=== PATIENT | male | born 1980 | race Caucasian/White ===

== ENCOUNTER 2024-12-06 10:38 | Inpatient (IN) | payer MEDICAID, OTHER ==
[~2024-12-06] VITALS: Ht 170.2 cm; Wt 102.8 kg
[2024-12-06 11:55] LABS: Urine Bacteria None Seen /hpf (None Seen)
--- NOTE | 2024-12-06 12:27 | ED.PDOC ---
GI ASSESSMENT HPI Comments 44 y.o male presents to the ED for a chief complaint of left sided abdominal pain associated with nausea x 2 weeks and one episode of diarrhea. Patient reports pain is intermittent with no alleviating or precipitating factors. Patient is currently undergoing chemotherapy due to cancer of laryngeal, lymph and lung, is on oxygen and has his second round of chemotherapy on 12/09/24. Patient reports on his first chemotherapy session, he did not experience these symptoms. Patient also mentions dark urine but has no dysuria or hematuria. Patient has been losing weight with 20 pound weight loss. Additional medication history includes Depression, anxiety, panic disorder, Vocal cord cancer, GERD and HTN. Chief Complaint: Abdominal Pain Time Seen by MD: 11:39 Reviewed Notes: Nurses Notes, Medications, Allergies Allergies: Coded Allergies: NO KNOWN ALLERGIES (Unverified , 12/06/24) Information Source: Patient Mode of Arrival: Ambulatory Timing: Weeks (2) Duration: Intermittent Quality: Aching Vomitus: None Stool: Loose (one episode only ) Severity: Moderate Recent: None Recent Hx of: Other Pain Location: LUQ, LLQ Modifying Factors: Nothing Associated sign and symptoms: Nausea, Abdominal Pain Past Medical History PAST MEDICAL HISTORY: Anxiety, Cancer (Left lung, laryngeal), Depression, GERD, HTN Past Medical History (Other): panic disorder, oxygen dependent Surgical History (Other): lung biopsy Family History Family History: Reviewed,noncontributory to illness Social History Smoker: Non-Smoker Alcohol: Denies ETOH Use Drugs: Denies Drug Use Lives In: Home Constitutional: denies: chills, diaphoresis, fatigue, fever, malaise, sweats, weakness, others EENTM: denies: blurred vision, double vision, ear bleeding, ear discharge, ear drainage, ear pain, ear ringing, eye pain, eye redness, hearing loss, mouth pain, mouth swelling, nasal discharge, nose bleeding, nose congestion, nose pain, photophobia, tearing, throat pain, throat swelling, voice changes, others Respiratory: denies: cough, hemoptysis, orthopnea, SOB at rest, shortness of breath, SOB with excertion, stridor, wheezing, others Cardiovascular: denies: chest pain, dizzy spells, diaphoresis, Dyspnea on exertion, edema, irregular heart beat, left arm pain, lightheadedness, palpitations, PND, syncope, others Gastrointestinal: reports: abdominal pain, diarrhea, nausea; denies: abdomen distended, blood streaked bowels, constipated, dysphagia, difficulty swallowing, hematemesis, melena, poor appetite, poor fluid intake, rectal bleeding, rectal pain, vomiting, others Genitourinary: denies: burning, dysuria, flank pain, frequency, hematuria, in continence, penile discharge, penile sore, pain, testicle pain, testicle swelling, urgency, others Neurological: denies: dizziness, fainting, headache, left sided numbness, left sided weakness, numbness, paresthesia, pre-existing deficit, right sided numbness, right sided weakness, seizure, speech problems, tingling, tremors, weakness, others Musculoskeletal: denies: back pain, gout, joint pain, joint swelling, muscle pain, muscle stiffness, neck pain, others Integumetry: denies: bruises, change in color, change in hair/nails, dryness, laceration, lesions, lumps, rash, wounds, others Allergic/Immunocompromised: denies: Difficulty Healing, Frequent Infections, Hives, Itching, others Hematologic/Lymphatic: denies: anemia, blood clots, easy bleeding, easy bruising, swollen glands, others Endocrine: denies: excessive hunger, excessive sweating, excessive thirst, excessive urination, flushing, intolerance to cold, intolerance to heat, unexplained weight gain, unexplained weight loss, others Psychiatric: denies: anxiety, bipolar disorder, depression, hopeless, panic disorder, schizophrenia, sleepless, suicidal, others All Other Systems: Reviewed and Negative Physical Exam General Appearance: No Apparent Distress HEENT: Other (Pupils symmetric, face symmetric, moist mucous membranes) Neck: Full Range of Motion, Normal Inspection Respiratory: Lungs Clear, No Accessory Muscle Use, No Respiratory Distress, Normal Breath Sounds Cardiovascular: No Edema, No JVD, Regular Rate/Rhythm Breast Exam: Deferred Gastrointestinal: LLQ, LUQ, RUQ, Soft, Tenderness Genitalia: Deferred Pelvic: Deferred Rectal: Deferred Extremities: Normal inspection, Normal range of motion, Non-tender, No pedal edema Neurologic: Alert (Oriented x4), Normal Affect, Normal Mood, Other (Ambulatory without difficulty. No gross focal deficit.) Cerebellar Function: NOT DONE Reflexes: NOT DONE Skin: Dry, Pallor, Warm Lymphatic: NOT DONE Was a procedure done? Was a procedure done?: No GI differential Dx Differential Diagnosis: Diverticular disease, Esophagitis, Gastroenteritis, Inflammatory BD, Ischemic Bowel, Pancreatitis, UTI, Dehydration, Electrolyte Imbalance, Food Poisoning, Bacterial, Viral, Hypovolemia, Renal Failure, Stress Ulcer, Kidney Stone Other Differential Diagnosis Sinus, metastatic disease, among others X-Ray, Labs, Meds, VS Vital Signs Date Time Temp Pulse Resp B/P (MAP) Pulse Ox O2 Delivery O2 Flow Rate FiO2 12/06/24 13:33 98.2 89 18 123/72 (89) 96 98.2 12/06/24 13:07 84 22 95 Nasal Cannula* 2 28 12/06/24 11:17 97.0 93 8 127/80 (96) 98 Lab Test 12/06/24 13:26 12/06/24 12:30 12/06/24 11:51 Range/Units Troponin I High Sensitivity < 3 L < 3 L </=54 ng/L White Blood Count 6.9 4.4-10.8 10^3/uL Red Blood Count 3.13 L 4.5-5.90 10^6/uL Hemoglobin 9.4 L 13.5-17.5 g/dL Hematocrit 27.6 L 41.0-53.0 % Mean Corpuscular Volume 88.2 80.0-100.0 fL Mean Corpuscular Hemoglobin 30.0 28.0-32.0 pg Mean Corpuscular Hemoglobin Concent 34.0 32.0-36.0 g/dL Red Cell Distribution Width 15.5 H 11.8-14.3 % Platelet Count 225 140-450 10^3/uL Mean Platelet Volume 9.2 6.9-10.8 fL Neutrophils (%) (Auto) 75.1 37.0-80.0 % Lymphocytes (%) (Auto) 13.1 10.0-50.0 % Monocytes (%) (Auto) 10.7 0.0-12.0 % Eosinophils (%) (Auto) 0.5 0.0-7.0 % Basophils (%) (Auto) 0.6 0.0-2.0 % Neutrophils # (Auto) 5.2 1.6-8.6 10 ^3/uL Lymphocytes # (Auto) 0.9 0.4-5.4 10 ^3/uL Monocytes # (Auto) 0.7 0-1.3 10 ^3/uL Eosinophils # (Auto) 0 0-0.8 10 ^3/uL Basophils # (Auto) 0 0-0.2 10 ^3/uL Nucleated Red Blood Cells 0.0 % Sodium Level 139 136-145 mmol/L Potassium Level 4.4 3.5-5.1 mmol/L Chloride Level 98 98-107 mmol/L Carbon Dioxide Level 32 H 20-31 mmol/L Anion Gap 9 5-15 Blood Urea Nitrogen 10 9-23 mg/dL Creatinine 0.93 0.700-1.30 mg/dL Glomerular Filtration Rate Calc 104 >90 mL/min BUN/Creatinine Ratio 10.8 10.0-20.0 Serum Glucose 94 74-106 mg/dL Lactic Acid Level 1.6 0.4-2.0 mmol/L Calcium Level 9.6 8.7-10.4 mg/dL Total Bilirubin 0.6 0.2-1.0 mg/dL Aspartate Amino Transferase (AST) 126 H 13-40 U/L Alanine Aminotransferase (ALT) 26 7-40 U/L Alkaline Phosphatase 109 46-116 U/L Total Protein 6.2 5.7-8.2 g/dL Albumin 4.3 3.2-4.8 g/dL Lipase 301 H 12-53 U/L Urine Color Yellow Yellow Urine Clarity Clear Clear Urine pH 7.5 5.0-9.0 Urine Specific [place] 1.021 1.001-1.035 Urine Protein 2+ H Negative Urine Ketones Negative Negative Urine Blood Negative Negative /uL Urine Nitrite Negative Negative Urine Bilirubin Negative Negative Urine Urobilinogen 3 H Negative mg/dL Urine Leukocyte Esterase Negative Negative /uL Urine RBC 1 0 - 3 /hpf Urine Microscopic WBC 3 0-3 /HPF Urine Squamous Epithelial Cells Few <5 /hpf Urine Bacteria None seen None Seen /hpf Urine Hyaline Casts Few 0 - 2 /lpf Urine Mucus Few None Seen Urine Glucose Normal Normal mg/dL Current Medications Medications (Trade) Dose Ordered Sig/Gladis Route Start Time Stop Time Status Last Admin Sodium Chloride 1,000 ml @ 1,000 mls/hr Q1H ONCE IV 12/06/24 12:00 12/06/24 12:59 DC 12/06/24 12:58 Ondansetron HCl (Zofran) 4 mg ONCE ONCE IV 12/06/24 12:00 12/06/24 12:01 DC 12/06/24 12:57 Pantoprazole Sodium (Protonix) 40 mg ONCE ONCE IV 12/06/24 12:00 12/06/24 12:01 DC 12/06/24 12:57 Acetaminophen/ Hydrocodone Bitart ([place] 5/325MG Tab) 1 tab ONCE ONCE PO 12/06/24 12:30 12/06/24 12:31 DC 12/06/24 12:58 [place] [id number] Ph: [phone] DIAGNOSTIC IMAGING Diagnostic Imaging Report : [id number] Signed PATIENT: KELL NINO ACCT: [id number] UNIT: [id number] : 1980 LOC: ER ROOM / BED: / AGE / SEX: 44 / M ADM STATUS: REG ER SERVICE 1151 ORDERING PHYSICIAN: TJ PEREIRA MD PROCEDURE(s): ABPL - CT AB PEL WO CON-NO ORAL OR IV REASON: L sided abd/flank pain n/v/d ORDER NUMBER(s): [id number], ACCESSION NUMBER(s): [id number] Exam: CT CT AB PEL WO CON-NO ORAL OR IV History: L sided abd/flank pain n/v/d Comparison Study: None Technique: Multidetector spiral CT of the abdomen was performed from lung bases to pubic symphysis. Imaging was performed without IV contrast. Axial, coronal and sagittal multiplanar reformats were obtained from the axial data set by the technologist. Radiation Dose : 1. Abdomen/Pelvis: CTDIvol 21.03 mGy, DLP 1199.52 mGy*cm. Findings: Evaluation of solid organs is limited due to lack of intravenous contrast use. Lung Bases: Numerous lung nodules at the lung bases as well as a more confluence right perihilar mass measuring 5.1 x 4.3 cm. Partially visualized central venous catheter that terminates near the superior cavoatrial junction. Liver: Liver is enlarged with numerous ill-defined hypodense masses of various sizes throughout the right and left hepatic lobes. Gallbladder and Biliary Tree: Unremarkable Spleen: Unremarkable Pancreas: The pancreas is grossly normal in appearance. Adrenal Glands: Indeterminate left adrenal nodule measuring 1.8 cm. Kidneys: Kidneys are grossly normal without calculi or hydronephrosis. Bladder: Grossly unremarkable for degree of distention. Bowel: The stomach is grossly normal in appearance. Small bowel and colon are normal in caliber and distribution. There is a short segment of wall thickening in the sigmoid colon (series 2, image 88). Normal appendix is visualized in the right lower quadrant without findings of appendicitis. Ascites: Trace free fluid in the pelvis. Lymphadenopathy: There is a 2.0 x 1.0 cm lymph node just anterior to the 3rd portion of the duodenum (series 2, image 56). Otherwise there are shotty retroperitoneal lymph nodes and mild associated fat stranding which is nonspecific but may be related to metastasis. Abdominal Wall and Mesentery: Minimal focal subcutaneous stranding in the left lower abdominal wall is likely related to recent subcutaneous injection. Vasculature: The visualized abdominal aorta is normal in size and caliber. Evaluation of abdominal and pelvic vessels is limited due to lack of intravenous contrast. Pelvic Organs: Unremarkable Musculoskeletal: Irregular lucent focus with sclerotic borders at the right femoral head. Moderate degenerative disc change at L5-S1. Vertebral body heights are maintained. No evidence of lytic lesions within the visualized spine. There is a 1.1 x 0.7 cm soft tissue nodule in the dorsal spinal canal at the level of T6 (series 2, image 8, series 602 image 75). This appears to cause moderate spinal canal narrowing. IMPRESSION: Exam is limited due to lack of intravenous contrast. 1. Numerous lung nodules/masses are concerning for metastases. 2. Liver lesions are concerning for metastases. 3. Indeterminate left adrenal nodule. 4. Short segment of wall thickening in the sigmoid colon could be due to poor distention or neoplasm. 5. Mild prominence of a lymph node along the anterior 3rd portion of the duodenum. Shotty retroperitoneal lymph nodes. 6. Soft tissue nodule in the dorsal spinal canal at the level of T6. Recommend thoracic MRI with contrast. 7. No hydronephrosis or renal calculi. 8. Appendix is normal. No bowel obstruction. 9. Avascular necrosis in the right femoral head is age indeterminate. Radiation optimization: All CT scans at this facility use at least one of these dose optimization techniques: automated exposure control mA and/or kV adjustment per patient size (includes targeted exams where dose is matched to clinical indication) or iterative reconstruction. ATED BY: MARY WHITMORE DO DICTATED DATE/TIME: 12/06/241245 SIGNED BY: MARY WHITMORE DO SIGNED DATE/TIME: 12/06/241245 CC: X-Ray, Labs, Meds, VS Comment 44-year-old male with a history of left lung and laryngeal cancer on chemotherapy, hypertension, GERD, anxiety and depression complaining of abdominal pain, nausea, vomiting, diarrhea and 20 lb weight loss over the past 3 weeks Vitals unremarkable Exam remarkable for generalized abdominal tenderness to palpation, greatest in the left side of the abdomen Rhythm strip independently interpreted by me: Sinus rhythm, rate 93, no ectopy. CT abdomen and pelvis: IMPRESSION: Exam is limited due to lack of intravenous contrast. 1. Numerous lung nodules/masses are concerning for metastases. 2. Liver lesions are concerning for metastases. 3. Indeterminate left adrenal nodule. 4. Short segment of wall thickening in the sigmoid colon could be due to poor distention or neoplasm. 5. Mild prominence of a lymph node along the anterior 3rd portion of the duodenum. Shotty retroperitoneal lymph nodes. 6. Soft tissue nodule in the dorsal spinal canal at the level of T6. Recommend thoracic MRI with contrast. 7. No hydronephrosis or renal calculi. 8. Appendix is normal. No bowel obstruction. 9. Avascular necrosis in the right femoral head is age indeterminate. CBC unremarkable, metabolic panel remarkable for AST 126, lipase 301, lactate normal, troponins negative Patient treated with the following in the ED: 1 L 0.9 normal saline IV bolus, morphine 4 mg IV, Zofran 4 mg IV, Protonix 40 mg IV Plan is to admit the patient for GI and oncology evaluation. Time of 1ST Reevaluation: 11:56 Reevaluation 1ST: Unchanged Patient Education/Counseling: Diagnosis, Treatment, Prognosis Family Education/Counseling: No Family Present Departure 1 Departure Time of Disposition: 16:29 Impression: Primary Impression: Acute pancreatitis Qualified Codes: K85.90 - Acute pancreatitis without necrosis or infection, unspecified Additional Impression: Cancer, metastatic to liver Disposition: ADMITTED INPATIENT Admit to: Med Surg Condition: Guarded Critical Care Note Critical Care Time?: No Stability Stability form required: No Heart Score Heart Score: Heart Score Response (Comments) Value History N/A 0 EKG N/A 0 Age N/A 0 Risk Factors N/A 0 Troponin N/A 0 Total 0 I personally scribed for TJ PEREIRA MD ([facility]) on 12/06/24 at 12:27. Electronically submitted by Darlyn Plasencia ([facility]). I personally scribed for TJ PEREIRA MD ([facility]) on 12/06/24 at 13:06. Electronically submitted by Darlyn Plasencia ([facility]). I personally scribed for TJ PEREIRA MD ([facility]) on 12/06/24 at 15:12. Electronically submitted by Darlyn Plasencia ([facility]). TJ PEREIRA MD Dec 06, 2024 12:27
[2024-12-06 12:39] LABS: Urine Blood Negative /uL (Negative); Urine Clarity Clear (Clear); Urine Color Yellow (Yellow); Urine Hyaline Cast FEW /lpf (0 - 2); Urine Mucus FEW (None Seen); Urine Protein, UAD 2+ (Negative); Urine Specific Gravity 1.021 (1.001-1.035); Urine Squamous Epithelial Cell FEW /hpf (<5); Urine Urobilinogen 3 mg/dL (Negative); Urine WBC 3 /HPF (0-3); Urine pH 7.5 (5.0-9.0)
--- NOTE | 2024-12-06 12:48 | DVH ---
Exam: CT CT AB PEL WO CON-NO ORAL OR IV History: L sided abd/flank pain n/v/d Comparison Study: None Technique: Multidetector spiral CT of the abdomen was performed from lung bases to pubic symphysis. Imaging was performed without IV contrast. Axial, coronal and sagittal multiplanar reformats were ob tained from the axial data set by the technologist. Radiation Dose : 1. Abdomen/Pelvis: CTDIvol 21.03 mGy, DLP 1199.52 mGy*cm. Findings: Evaluation of solid organs is limited due to lack of intravenous contrast use. Lung Bases: Numerous lung nodules at the lung bases as well as a more confluence right perihilar mass measuring 5.1 x 4.3 cm. Partially visualized central venous catheter that terminates near the superi or cavoatrial junction. Liver: Liver is enlarged with numerous ill-defined hypodense masses of various sizes throughout the r ight and left hepatic lobes. Gallbladder and Biliary Tree: Unremarkable Spleen: Unremarkable Pancreas: The pancreas is grossly normal in appearance. Adrenal Glands: Indeterminate left adrenal nodule measuring 1.8 cm. Kidneys: Kidneys are grossly normal without calculi or hydronephrosis. Bladder: Grossly unremarkable for degree of distention. Bowel: The stomach is grossly normal in appearance. Small bowel and colon are normal in caliber and d istribution. There is a short segment of wall thickening in the sigmoid colon (series 2, image 88). N ormal appendix is visualized in the right lower quadrant without findings of appendicitis. Ascites: Trace free fluid in the pelvis. Lymphadenopathy: There is a 2.0 x 1.0 cm lymph node just anterior to the 3rd portion of the duodenum (series 2, image 56). Otherwise there are shotty retroperitoneal lymph nodes and mild associated fat stranding which is nonspecific but may be related to metastasis. Abdominal Wall and Mesentery: Minimal focal subcutaneous stranding in the left lower abdominal wall is likely related to recent subcutaneous injection. Vasculature: The visualized abdominal aorta is normal in size and caliber. Evaluation of abdominal a nd pelvic vessels is limited due to lack of intravenous contrast. Pelvic Organs: Unremarkable Musculoskeletal: Irregular lucent focus with sclerotic borders at the right femoral head. Moderate de generative disc change at L5-S1. Vertebral body heights are maintained. No evidence of lytic lesions within the visualized spine. There is a 1.1 x 0.7 cm soft tissue nodule in the dorsal spinal canal a t the level of T6 (series 2, image 8, series 602 image 75). This appears to cause moderate spinal can al narrowing. IMPRESSION: Exam is limited due to lack of intravenous contrast. 1. Numerous lung nodules/masses are concerning for metastases. 2. Liver lesions are concerning for metastases. 3. Indeterminate left adrenal nodule. 4. Short segment of wall thickening in the sigmoid colon could be due to poor distention or neoplasm. 5. Mild prominence of a lymph node along the anterior 3rd portion of the duodenum. Shotty retroperito wesley lymph nodes. 6. Soft tissue nodule in the dorsal spinal canal at the level of T6. Recommend thoracic MRI with con trast. 7. No hydronephrosis or renal calculi. 8. Appendix is normal. No bowel obstruction. 9. Avascular necrosis in the right femoral head is age indeterminate. Radiation optimization: All CT scans at this facility use at least one of these dose optimization alexis hniques: automated exposure control mA and/or kV adjustment per patient size (includes targeted exam s where dose is matched to clinical indication) or iterative reconstruction.
[2024-12-06] MEDS: ONDANSETRON HCL 4 MG/2 ML VIAL IV ONE (12:57)
[2024-12-06] MEDS: PANTOPRAZOLE 40 MG/10 ML VIAL INJ IV ONE (12:57)
[2024-12-06] MEDS: HYDROcodone-ACET 5/325MG TAB PO ONE (12:58)
[2024-12-06] MEDS: SODIUM CHLORIDE 0.9% 1,000 ML IV ONE (12:58)
[2024-12-06 12:59] LABS: Basophils # (auto) 0 10 ^3/uL (0-0.2); Basophils % (auto) 0.6 % (0.0-2.0); Eosinophils # (auto) 0 10 ^3/uL (0-0.8); Eosinophils % (auto) 0.5 % (0.0-7.0); Hematocrit 27.6 % (41.0-53.0); Hemoglobin 9.4 g/dL (13.5-17.5); Lymphocytes # (auto) 0.9 10 ^3/uL (0.4-5.4); Lymphocytes % (auto) 13.1 % (10.0-50.0); Mean Corpuscular Volume 88.2 fL (80.0-100.0); Monocytes # (auto) 0.7 10 ^3/uL (0-1.3); Monocytes % (auto) 10.7 % (0.0-12.0); Neutrophils # (auto) 5.2 10 ^3/uL (1.6-8.6); Neutrophils % (auto) 75.1 % (37.0-80.0); Platelet Count (auto) 225 10^3/uL (140-450); Red Blood Cells 3.13 10^6/uL (4.5-5.90); Red Cell Distribution Width 15.5 % (11.8-14.3); White Blood Cell 6.9 10^3/uL (4.4-10.8)
[2024-12-06 13:07] VITALS: PULSE 84; RESP 22; O2SAT 95
[2024-12-06 13:17] LABS: Alanine Aminotransferase 26 U/L (7-40); Albumin 4.3 g/dL (3.2-4.8); Alkaline Phosphatase 109 U/L (46-116); Anion Gap 9 (5-15); Aspartate Aminotransferase 126 U/L (13-40); BUN/Creatinine Ratio 10.8 (10.0-20.0); Bilirubin, Total 0.6 mg/dL (0.2-1.0); Blood Urea Nitrogen 10 mg/dL (9-23); Calcium 9.6 mg/dL (8.7-10.4); Carbon Dioxide 32 mmol/L (20-31); Chloride 98 mmol/L (98-107); Glucose 94 mg/dL (74-106); Lipase 301 U/L (12-53); Potassium 4.4 mmol/L (3.5-5.1); Sodium 139 mmol/L (136-145)
[2024-12-06 13:18] LABS: Total Protein 6.2 g/dL (5.7-8.2)
[2024-12-06] MEDS: LORazepam 2MG/ML-1ML VIAL IV ONE (17:53)
[2024-12-06] MEDS ORDERED: MORPHINE SULFATE INJ 2 MG/ml SYRG IV PRN (18:45)
[2024-12-06] MEDS ORDERED: ACETAMINOPHEN 325 MG TAB PO PRN (18:45)
[2024-12-06] MEDS: HYDROcodone-ACET 5/325MG TAB PO PRN (20:09)
--- NOTE | 2024-12-06 21:49 | DVHHP2 ---
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 He describes diffuse abdominal pain with associated nausea. Denies fever or chills. No diarrhea. He states his next chemotherapy appointment that is in three days. No other acute complaints reported. Past Medical History Depression, GERD, hypertension and cancer Past Surgical History Lung biopsy Family History Noncontributory Smoke: No ALCOHOL: none Drugs: None Lives: with Family Review of Systems Review of Systems Review of systems are currently negative otherwise addressed in HPI. Allergies: Coded Allergies: NO KNOWN ALLERGIES (Unverified , 12/06/24) Medications Current Medications Medications Dose Ordered Sig/Gladis Route Start Time Stop Time Status Last Admin Dose Admin Pantoprazole Sodium 40 mg DAILY IV 12/07/24 10:00 Diltiazem HCl 120 mg DAILY PO 12/07/24 10:00 Furosemide 20 mg DAILY PO 12/07/24 10:00 Atorvastatin Calcium 20 mg HS PO 12/06/24 22:00 Acetaminophen/ Hydrocodone Bitart 1 tab Q4HP PRN PO 12/06/24 18:45 12/06/24 20:09 1 TAB Temazepam 15 mg QHSP PRN PO 12/06/24 18:45 Ondansetron HCl 4 mg Q4HP PRN IV 12/06/24 18:45 Acetaminophen 650 mg Q6HP PRN PO 12/06/24 18:45 Morphine Sulfate 2 mg Q6HPRN PRN IV 12/06/24 18:45 Exam Vital Signs Vital Signs Date Time Temp Pulse Resp B/P (MAP) Pulse Ox O2 Delivery O2 Flow Rate FiO2 12/06/24 19:28 89 16 96 Room Air 12/06/24 16:30 97.9 126/68 (87) 97.9 12/06/24 13:07 2 28 Exam Gen: 44-year-old male in mild distress Skin: Warm, dry, normal color and texture, no rash. HEENT: Normocephalic atraumatic, mucous membranes moist and pink. Neck: Cervical and supraclavicular nodes normal without enlargement, trachea is midline, thyroid gland is normal without masses. Pulmonary: Clear to auscultation and percussion bilaterally. Cardiac: Regular rate and rhythm. No murmur Abdomen: Soft, nontender, nondistended, bowel sounds present all 4 quadrants, no guarding, no rigidity, no organomegaly. Extremities: No cyanosis, clubbing, no edema Neuro: Cranial nerves II through XII grossly intact, normal affect and speech, no focal motor deficits. Labs/Xrays ORDERING PHYSICIAN: TJ PEREIRA MD PROCEDURE(s): ABPL - CT AB PEL WO CON-NO ORAL OR IV REASON: L sided abd/flank pain n/v/d ORDER NUMBER(s): [id number], ACCESSION NUMBER(s): [id number] Exam: CT CT AB PEL WO CON-NO ORAL OR IV History: L sided abd/flank pain n/v/d Comparison Study: None Technique: Multidetector spiral CT of the abdomen was performed from lung bases to pubic symphysis. Imaging was performed without IV contrast. Axial, coronal and sagittal multiplanar reformats were obtained from the axial data set by the technologist. Radiation Dose : 1. Abdomen/Pelvis: CTDIvol 21.03 mGy, DLP 1199.52 mGy*cm. Findings: Evaluation of solid organs is limited due to lack of intravenous contrast use. Lung Bases: Numerous lung nodules at the lung bases as well as a more confluence right perihilar mass measuring 5.1 x 4.3 cm. Partially visualized central venous catheter that terminates near the superior cavoatrial junction. Liver: Liver is enlarged with numerous ill-defined hypodense masses of various sizes throughout the right and left hepatic lobes. Gallbladder and Biliary Tree: Unremarkable Spleen: Unremarkable Pancreas: The pancreas is grossly normal in appearance. Adrenal Glands: Indeterminate left adrenal nodule measuring 1.8 cm. Kidneys: Kidneys are grossly normal without calculi or hydronephrosis. Bladder: Grossly unremarkable for degree of distention. Bowel: The stomach is grossly normal in appearance. Small bowel and colon are normal in caliber and distribution. There is a short segment of wall thickening in the sigmoid colon (series 2, image 88). Normal appendix is visualized in the right lower quadrant without findings of appendicitis. Ascites: Trace free fluid in the pelvis. Lymphadenopathy: There is a 2.0 x 1.0 cm lymph node just anterior to the 3rd portion of the duodenum (series 2, image 56). Otherwise there are shotty retroperitoneal lymph nodes and mild associated fat stranding which is nonspecific but may be related to metastasis. Abdominal Wall and Mesentery: Minimal focal subcutaneous stranding in the left lower abdominal wall is likely related to recent subcutaneous injection. Vasculature: The visualized abdominal aorta is normal in size and caliber. Evaluation of abdominal and pelvic vessels is limited due to lack of intravenous contrast. Pelvic Organs: Unremarkable Musculoskeletal: Irregular lucent focus with sclerotic borders at the right femoral head. Moderate degenerative disc change at L5-S1. Vertebral body heights are maintained. No evidence of lytic lesions within the visualized spine. There is a 1.1 x 0.7 cm soft tissue nodule in the dorsal spinal canal at the level of T6 (series 2, image 8, series 602 image 75). This appears to cause moderate spinal canal narrowing. IMPRESSION: Exam is limited due to lack of intravenous contrast. 1. Numerous lung nodules/masses are concerning for metastases. 2. Liver lesions are concerning for metastases. 3. Indeterminate left adrenal nodule. 4. Short segment of wall thickening in the sigmoid colon could be due to poor d istention or neoplasm. 5. Mild prominence of a lymph node along the anterior 3rd portion of the duodenum. Shotty retroperitoneal lymph nodes. 6. Soft tissue nodule in the dorsal spinal canal at the level of T6. Recommend thoracic MRI with contrast. 7. No hydronephrosis or renal calculi. 8. Appendix is normal. No bowel obstruction. 9. Avascular necrosis in the right femoral head is age indeterminate. Radiation optimization: All CT scans at this facility use at least one of these dose optimization techniques: automated exposure control mA and/or kV adjustment per patient size (includes targeted exams where dose is matched to clinical indication) or iterative reconstruction. Labs Test 12/06/24 13:26 12/06/24 12:30 12/06/24 11:51 Range/Units Troponin I High Sensitivity < 3 L </=54 ng/L White Blood Count 6.9 4.4-10.8 10^3/uL Red Blood Count 3.13 L 4.5-5.90 10^6/uL Hemoglobin 9.4 L 13.5-17.5 g/dL Hematocrit 27.6 L 41.0-53.0 % Mean Corpuscular Volume 88.2 80.0-100.0 fL Mean Corpuscular Hemoglobin 30.0 28.0-32.0 pg Mean Corpuscular Hemoglobin Concent 34.0 32.0-36.0 g/dL Red Cell Distribution Width 15.5 H 11.8-14.3 % Platelet Count 225 140-450 10^3/uL Mean Platelet Volume 9.2 6.9-10.8 fL Neutrophils (%) (Auto) 75.1 37.0-80.0 % Lymphocytes (%) (Auto) 13.1 10.0-50.0 % Monocytes (%) (Auto) 10.7 0.0-12.0 % Eosinophils (%) (Auto) 0.5 0.0-7.0 % Basophils (%) (Auto) 0.6 0.0-2.0 % Neutrophils # (Auto) 5.2 1.6-8.6 10 ^3/uL Lymphocytes # (Auto) 0.9 0.4-5.4 10 ^3/uL Monocytes # (Auto) 0.7 0-1.3 10 ^3/uL Eosinophils # (Auto) 0 0-0.8 10 ^3/uL Basophils # (Auto) 0 0-0.2 10 ^3/uL Nucleated Red Blood Cells 0.0 % Sodium Level 139 136-145 mmol/L Potassium Level 4.4 3.5-5.1 mmol/L Chloride Level 98 98-107 mmol/L Carbon Dioxide Level 32 H 20-31 mmol/L Anion Gap 9 5-15 Blood Urea Nitrogen 10 9-23 mg/dL Creatinine 0.93 0.700-1.30 mg/dL Glomerular Filtration Rate Calc 104 >90 mL/min BUN/Creatinine Ratio 10.8 10.0-20.0 Serum Glucose 94 74-106 mg/dL Lactic Acid Level 1.6 0.4-2.0 mmol/L Calcium Level 9.6 8.7-10.4 mg/dL Total Bilirubin 0.6 0.2-1.0 mg/dL Aspartate Amino Transferase (AST) 126 H 13-40 U/L Alanine Aminotransferase (ALT) 26 7-40 U/L Alkaline Phosphatase 109 46-116 U/L Total Protein 6.2 5.7-8.2 g/dL Albumin 4.3 3.2-4.8 g/dL Lipase 301 H 12-53 U/L Urine Color Yellow Yellow Urine Clarity Clear Clear Urine pH 7.5 5.0-9.0 Urine Specific [place] 1.021 1.001-1.035 Urine Protein 2+ H Negative Urine Ketones Negative Negative Urine Blood Negative Negative /uL Urine Nitrite Negative Negative Urine Bilirubin Negative Negative Urine Urobilinogen 3 H Negative mg/dL Urine Leukocyte Esterase Negative Negative /uL Urine RBC 1 0 - 3 /hpf Urine Microscopic WBC 3 0-3 /HPF Urine Squamous Epithelial Cells Few <5 /hpf Urine Bacteria None seen None Seen /hpf Urine Hyaline Casts Few 0 - 2 /lpf Urine Mucus Few None Seen Urine Glucose Normal Normal mg/dL Assessment/Plan Assessment/Plan Assessment Acute abdominal pain Metastatic disease Hypertension Plan Admit the patient to Med surge to the hospitalist Clear liquid diet GI consult Hematology/oncology consult Resume home medications Continue treatment per orders. Plan discussed with: Patient My Orders Orders - FRED ROSALES Procedure Category Date Status Time * Gi Dvh Leadlighter CONS 12/06/24 Transmitted 18:38 Pantoprazole PHA 12/07/24 In Process (Protonix) 10:00 Diltiazem Er Capsule PHA 12/07/24 In Process (Cardizem Er Capsul 10:00 Furosemide Tablet PHA 12/07/24 In Process (Lasix Tablet) 10:00 Atorvastatin (Lipitor) PHA 12/06/24 In Process 22:00 Basic Metabolic Panel LAB 12/07/24 Verified 04:00 Admit ADMIT 12/06/24 Transmitted 18:38 Hydrocodone-Acet PHA 12/06/24 In Process 5/325mg Tab ([place] 18:45 Temazepam (Restoril) PHA 12/06/24 In Process 18:45 Ondansetron Hcl PHA 12/06/24 In Process (Zofran) 18:45 Complete Blood Count LAB 12/07/24 Verified 04:00 Condition: Stable MICHAEL 12/06/24 In Process 18:38 Acetaminophen Tablet PHA 12/06/24 In Process (Tylenol Tablet) 18:45 Clear Liq Diet DIET 12/07/24 Transmitted Breakfast Bedrest With Bathroom MICHAEL 12/06/24 In Process Privileg 18:38 Morphine Sulfate PHA 12/06/24 In Process Injection 18:45 * Hematology/Oncology CONS 12/06/24 Transmitted Consult 21:31 Date of Service: Dec 06, 2024 Billing Provider: FRED ROSALES Common Visit Codes: [id number] INP/OBS CARE (MOD) FRED ROSALES Dec 06, 2024 21:49
[2024-12-06] MEDS: MAALOX PLUS or MAALOX 30 ML PO ONE (22:04)
[2024-12-06 22:32] VITALS: BP 120/78; PULSE 87; RESP 18; TEMP 97.6; O2SAT 95
[2024-12-06] MEDS: TEMAZEPAM 15 MG CAP PO PRN (23:07)
[2024-12-06] MEDS: ATORVASTATIN 20 MG TAB PO SCH (23:08)
[2024-12-06] MEDS ORDERED: CLON-1004 PO (23:35)
[2024-12-06] MEDS ORDERED: OMEP20TA PO (23:35)
[2024-12-06] MEDS ORDERED: SUCR1SUS5 PO (23:36)
[2024-12-06] MEDS ORDERED: ESCI10TA PO (23:36)
[2024-12-06] MEDS ORDERED: OLAN20TA PO (23:37)
[2024-12-06] MEDS ORDERED: DILT120C41 PO (23:37)
[2024-12-06] MEDS ORDERED: CARV6.2517 PO (23:38)
[2024-12-06] MEDS ORDERED: TEMA30CA PO ×3 (23:38→23:40)
[2024-12-06] MEDS ORDERED: FURO20TA3 PO (23:38)
[2024-12-06] MEDS ORDERED: MAGN400T40 PO (23:39)
[2024-12-06] MEDS ORDERED: CHOL20007 PO (23:40)
[2024-12-07 05:00] VITALS: BP 123/73; PULSE 87; RESP 19; TEMP 97.8; O2SAT 98
[2024-12-07 06:28] LABS: Basophils # (auto) 0 10 ^3/uL (0-0.2); Basophils % (auto) 0.8 % (0.0-2.0); Eosinophils # (auto) 0 10 ^3/uL (0-0.8); Eosinophils % (auto) 0.2 % (0.0-7.0); Hematocrit 27.6 % (41.0-53.0); Lymphocytes # (auto) 0.7 10 ^3/uL (0.4-5.4); Lymphocytes % (auto) 14.6 % (10.0-50.0); Mean Corpuscular Hemoglobin 28.9 pg (28.0-32.0); Mean Corpuscular Hgb Conc. 32.6 g/dL (32.0-36.0); Mean Corpuscular Volume 88.4 fL (80.0-100.0); Monocytes # (auto) 0.5 10 ^3/uL (0-1.3); Monocytes % (auto) 9.9 % (0.0-12.0); Neutrophils # (auto) 3.7 10 ^3/uL (1.6-8.6); Neutrophils % (auto) 74.5 % (37.0-80.0); Nucleated Red Blood Cells % 0.1 %; Platelet Count (auto) 212 10^3/uL (140-450); Red Blood Cells 3.12 10^6/uL (4.5-5.90); Red Cell Distribution Width 15.6 % (11.8-14.3); White Blood Cell 4.9 10^3/uL (4.4-10.8)
[2024-12-07 06:37] LABS: Chloride 103 mmol/L (98-107); Potassium 4.3 mmol/L (3.5-5.1); Sodium 143 mmol/L (136-145)
[2024-12-07 06:38] LABS: Anion Gap 9 (5-15); Calcium 10.1 mg/dL (8.7-10.4); Carbon Dioxide 31 mmol/L (20-31)
[2024-12-07 06:43] LABS: BUN/Creatinine Ratio 8.9 (10.0-20.0); Glucose 95 mg/dL (74-106)
[2024-12-07 06:51] LABS: Blood Urea Nitrogen 7 mg/dL (9-23)
[2024-12-07] MEDS ORDERED: BUPR2MIS SL (07:00)
[2024-12-07] MEDS: clonazePAM 0.5 MG TAB PO SCH (08:00)
[2024-12-07 09:00] VITALS: BP 135/84; PULSE 84; RESP 18; TEMP 98.3; O2SAT 98
[2024-12-07] MEDS: PANTOPRAZOLE 40 MG/10 ML VIAL INJ IV SCH (10:09)
[2024-12-07] MEDS: MAALOX PLUS or MAALOX 30 ML PO ONE (10:09)
[2024-12-07] MEDS: dilTIAZem 120MG ER CAP PO SCH (10:11)
[2024-12-07] MEDS: FUROSEMIDE 20 MG TAB PO SCH (10:12)
[2024-12-07] MEDS ORDERED: IBUP-1455 PO (12:59)
[2024-12-07] MEDS ORDERED: ZOFR4T PO (12:59)
[2024-12-07 13:01] VITALS: BP 116/81; PULSE 100; RESP 18; TEMP 98; O2SAT 97
--- NOTE | 2024-12-07 13:03 | DVHINCON2 ---
GI Consult Consult Note GI consult note Date of Consultation: 12/07/2024 Chief Complaint: Abdominal pain Referring Physician: Donald LUO H&P: 44-year-old male presented with 2-1/2 weeks of abdominal pain Patient said he had a drink which seemed to decrease his appetite and trigger abdominal pain Patient has weight loss of 20 lb in the last 2-1/2 weeks Patient has nausea. No vomiting or hematemesis No melena or red blood in stool. BM one day ago Unsure of EGD with PEG placement when it was done. Patient has stopped using PEG tube more than six months ago when it had fallen out No colonoscopy in past Patient is scheduled for chemo on Saturday in office Past Medical History: Anxiety, Cancer (Left lung, laryngeal), Depression, GERD, HTN panic disorder, oxygen dependent Past Surgical History: Lung biopsy, EGD with PEG placement Social History: NO smoking, drinking ETOH and use of illegal drugs. Family History: Noncontributory Review of Systems: Constitutional: no fever, chill, weight loss HEENT: no eye pain, no hearing loss, no oral lesion, no scleral icterus Heart: no chest pain, no chest pressure Lung: no cough, no dyspnea with exertion Abdomen: see HPI Physical exam: General: NAD, AAOX3 Chest: lung milner clear to auscultation Heart: RRR, no murmur Abdomen: Mild-distended, mild generalized tenderness to palpation, +BS Labs:Labs Test 12/06/24 13:26 12/06/24 12:30 12/06/24 11:51 Range/Units Troponin I High Sensitivity < 3 L </=54 ng/L White Blood Count 6.9 4.4-10.8 10^3/uL Red Blood Count 3.13 L 4.5-5.90 10^6/uL Hemoglobin 9.4 L 13.5-17.5 g/dL Hematocrit 27.6 L 41.0-53.0 % Mean Corpuscular Volume 88.2 80.0-100.0 fL Mean Corpuscular Hemoglobin 30.0 28.0-32.0 pg Mean Corpuscular Hemoglobin Concent 34.0 32.0-36.0 g/dL Red Cell Distribution Width 15.5 H 11.8-14.3 % Platelet Count 225 140-450 10^3/uL Mean Platelet Volume 9.2 6.9-10.8 fL Neutrophils (%) (Auto) 75.1 37.0-80.0 % Lymphocytes (%) (Auto) 13.1 10.0-50.0 % Monocytes (%) (Auto) 10.7 0.0-12.0 % Eosinophils (%) (Auto) 0.5 0.0-7.0 % Basophils (%) (Auto) 0.6 0.0-2.0 % Neutrophils # (Auto) 5.2 1.6-8.6 10 ^3/uL Lymphocytes # (Auto) 0.9 0.4-5.4 10 ^3/uL Monocytes # (Auto) 0.7 0-1.3 10 ^3/uL Eosinophils # (Auto) 0 0-0.8 10 ^3/uL Basophils # (Auto) 0 0-0.2 10 ^3/uL Nucleated Red Blood Cells 0.0 % Sodium Level 139 136-145 mmol/L Potassium Level 4.4 3.5-5.1 mmol/L Chloride Level 98 98-107 mmol/L Carbon Dioxide Level 32 H 20-31 mmol/L Anion Gap 9 5-15 Blood Urea Nitrogen 10 9-23 mg/dL Creatinine 0.93 0.700-1.30 mg/dL Glomerular Filtration Rate Calc 104 >90 mL/min BUN/Creatinine Ratio 10.8 10.0-20.0 Serum Glucose 94 74-106 mg/dL Lactic Acid Level 1.6 0.4-2.0 mmol/L Calcium Level 9.6 8.7-10.4 mg/dL Total Bilirubin 0.6 0.2-1.0 mg/dL Aspartate Amino Transferase (AST) 126 H 13-40 U/L Alanine Aminotransferase (ALT) 26 7-40 U/L Alkaline Phosphatase 109 46-116 U/L Total Protein 6.2 5.7-8.2 g/dL Albumin 4.3 3.2-4.8 g/dL Lipase 301 H 12-53 U/L Urine Color Yellow Yellow Urine Clarity Clear Clear Urine pH 7.5 5.0-9.0 Urine Specific [place] 1.021 1.001-1.035 Urine Protein 2+ H Negative Urine Ketones Negative Negative Urine Blood Negative Negative /uL Urine Nitrite Negative Negative Urine Bilirubin Negative Negative Urine Urobilinogen 3 H Negative mg/dL Urine Leukocyte Esterase Negative Negative /uL Urine RBC 1 0 - 3 /hpf Urine Microscopic WBC 3 0-3 /HPF Urine Squamous Epithelial Cells Few <5 /hpf Urine Bacteria None seen None Seen /hpf Urine Hyaline Casts Few 0 - 2 /lpf Urine Mucus Few None Seen Urine Glucose Normal Normal mg/dL Imaging: CT abdomen pelvis IMPRESSION: Exam is limited due to lack of intravenous contrast. 1. Numerous lung nodules/masses are concerning for metastases. 2. Liver lesions are concerning for metastases. 3. Indeterminate left adrenal nodule. 4. Short segment of wall thickening in the sigmoid colon could be due to poor distention or neoplasm. 5. Mild prominence of a lymph node along the anterior 3rd portion of the duodenum. Shotty retroperitoneal lymph nodes. 6. Soft tissue nodule in the dorsal spinal canal at the level of T6. Recommend thoracic MRI with contrast. 7. No hydronephrosis or renal calculi. 8. Appendix is normal. No bowel obstruction. 9. Avascular necrosis in the right femoral head is age indeterminate. Assessment: Acute abdominal pain Laryngeal CA with metastatic disease Plan: Discussed with Dr. Rivera Protonix and Carafate Zofran Recheck labs in a.m. Pain management per hospitalist Supportive care recommended at this time Discussed plan with patient and RN Thank you for this consult Date of Service: Dec 07, 2024 Billing Provider: MELANI PARK Common Visit Codes: CONSULT ONLY Consultation Codes: [id number] CONSULT <60MIN MELANI PARK Dec 07, 2024 13:03
[2024-12-07] MEDS: IBUPROFEN 800 MG TAB PO ONE (14:13)
[2024-12-07] MEDS: ONDANSETRON HCL 4 MG/2 ML VIAL IV PRN (14:13)
--- NOTE | 2024-12-07 15:56 | DVHDS2 ---
Discharge Summary Date of Admission Dec 06, 2024 at 18:38 Date of Discharge: Dec 07, 2024 Admitting Diagnosis Acute abdominal pain Labs/Diagnostic Data: Laboratory Results Test 12/07/24 05:55 12/06/24 13:26 12/06/24 12:30 12/06/24 11:51 White Blood Count 4.9 10^3/uL (4.4-10.8) Red Blood Count 3.12 10^6/uL (4.5-5.90) Hemoglobin 9.0 g/dL (13.5-17.5) Hematocrit 27.6 % (41.0-53.0) Mean Corpuscular Volume 88.4 fL (80.0-100.0) Mean Corpuscular Hemoglobin 28.9 pg (28.0-32.0) Mean Corpuscular Hemoglobin Concent 32.6 g/dL (32.0-36.0) Red Cell Distribution Width 15.6 % (11.8-14.3) Platelet Count 212 10^3/uL (140-450) Mean Platelet Volume 9.3 fL (6.9-10.8) Neutrophils (%) (Auto) 74.5 % (37.0-80.0) Lymphocytes (%) (Auto) 14.6 % (10.0-50.0) Monocytes (%) (Auto) 9.9 % (0.0-12.0) Eosinophils (%) (Auto) 0.2 % (0.0-7.0) Basophils (%) (Auto) 0.8 % (0.0-2.0) Neutrophils # (Auto) 3.7 10 ^3/uL (1.6-8.6) Lymphocytes # (Auto) 0.7 10 ^3/uL (0.4-5.4) Monocytes # (Auto) 0.5 10 ^3/uL (0-1.3) Eosinophils # (Auto) 0 10 ^3/uL (0-0.8) Basophils # (Auto) 0 10 ^3/uL (0-0.2) Nucleated Red Blood Cells 0.1 % Sodium Level 143 mmol/L (136-145) Potassium Level 4.3 mmol/L (3.5-5.1) Chloride Level 103 mmol/L (98-107) Carbon Dioxide Level 31 mmol/L (20-31) Anion Gap 9 (5-15) Blood Urea Nitrogen 7 mg/dL (9-23) Creatinine 0.79 mg/dL (0.700-1.30) Glomerular Filtration Rate Calc 112 mL/min (>90) BUN/Creatinine Ratio 8.9 (10.0-20.0) Serum Glucose 95 mg/dL (74-106) Calcium Level 10.1 mg/dL (8.7-10.4) Troponin I High Sensitivity < 3 ng/L (</=54) Lactic Acid Level 1.6 mmol/L (0.4-2.0) Total Bilirubin 0.6 mg/dL (0.2-1.0) Aspartate Amino Transferase (AST) 126 U/L (13-40) Alanine Aminotransferase (ALT) 26 U/L (7-40) Alkaline Phosphatase 109 U/L (46-116) Total Protein 6.2 g/dL (5.7-8.2) Albumin 4.3 g/dL (3.2-4.8) Lipase 301 U/L (12-53) Urine Color Yellow (Yellow) Urine Clarity Clear (Clear) Urine pH 7.5 (5.0-9.0) Urine Specific [place] 1.021 (1.001-1.035) Urine Protein 2+ (Negative) Urine Ketones Negative (Negative) Urine Blood Negative /uL (Negative) Urine Nitrite Negative (Negative) Urine Bilirubin Negative (Negative) Urine Urobilinogen 3 mg/dL (Negative) Urine Leukocyte Esterase Negative /uL (Negative) Urine RBC 1 /hpf (0 - 3) Urine Microscopic WBC 3 /HPF (0-3) Urine Squamous Epithelial Cells Few /hpf (<5) Urine Bacteria None seen /hpf (None Seen) Urine Hyaline Casts Few /lpf (0 - 2) Urine Mucus Few (None Seen) Urine Glucose Normal mg/dL (Normal) Other Laboratory Tests 12/07/24 05:55 Brief Hx & Hospital Course: History of Present Illness 44-year-old male with a history 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 He describes diffuse abdominal pain with associated nausea. Denies fever or chills. No diarrhea. He states his next chemotherapy appointment that is in three days. No other acute complaints reported. Course of hospitalization: GI consultation was obtained. CT scan of the abdomen and pelvis reviewed. Patient was tolerating oral intake without any further pain. It was found that the patient has taken Suboxone, and when questioned the patient states that he was currently being treated by pain management, psychiatry, as well as being treated with chemo and radiation therapy. Patient was requesting to be discharged home. Patient was instructed to follow up with pain management, and at this time we will be prescribed Motrin as well as Zofran for his abdominal pain and nausea. Pain probably attributed to questionable pancreatitis as well as colitis. Majority of the patient's pain is located in his lower quadrants not as epigastric area. Patient was agreeable with discharge plan. All questions answered. Physical examination General: Alert and Oriented x3. No acute distress. Well-nourished. Obese Eyes: EOMI. Anicteric. HENT: Moist mucous membranes. Lungs: Clear to auscultation bilaterally. No accessory muscle use. Cardiovascular: Regular rate and rhythm. No murmur. No JVD. Abdomen: Soft, non-tender and non-distended. No palpable masses. Extremities: No edema. Non-tender. Skin: No rashes or lesions. Warm. Neurologic: No focal neurological deficits. CN II-XII grossly intact, but not individually tested. Psychiatric: Cooperative. Appropriate mood and affect. Total time spent with patient discussing and formulating plan of care: 35 minutes. This medical document was created using an electronic medical record system with [employer] dictation system. Although this document has been carefully reviewed, there may still be some phonetic and typographical errors. These areas are purely typographical due to imperfections of the software programs, and do not reflect any compromise in the patient's medical care. Consults/Reason for consult Gastroenterology: Abdominal pain Condition at Discharge: Fair Final Diagnosis/Problems List Acute Pancreatitis Secondary diagnosis: Metastatic laryngeal carcinoma History of methadone abuse, currently on Suboxone Obesity Primary hypertension GERD Anemia of chronic disease Discharge Disposition: Home Discharge Instruct/Medications Diet: Regular Activity: No Restrictions, As Tolerated Follow Up/Referral: Oncology at next schedule appointment Medications: Motrin 800mg po 8hrs x 5 days Zofran 4mg po 8hrs x 5 days 36 Discharge Statement: "Patient was advised to return to the ER or call 911 if any headaches, dizziness, shortness of breath, chest pain, abdominal pain, bleeding, fevers, or worsening of medical condition. Patient was counseled about treatment plan, medications, possible side effects, patientverbalized understanding. All questions were answered to the best of my ability. This discharge took greater then 30 minutes in planning, reviewing documentation, counseling the patient, and discussing with other team members." ASSESSMENT ASSESSMENT Assessment Acute Pancreatitis Date of Service: Dec 07, 2024 Billing Provider: YESENIA ARTHUR NP Common Visit Codes: [id number] INP/OBS CARE(HIGH) YESENIA ARTHUR NP Dec 07, 2024 15:56
== END 2024-12-07 16:12 | disposition home or self-care (01) | DRG 249 ==
LOC: ER 10:38 → OVERFLOW 18:38 → WEST WING 22:29
PROVIDERS: ADMIT Nurse Practitioner Acute Care; ATTEND Nurse Practitioner Acute Care
DX: K52.9 Noninfective gastroenteritis and colitis, unspecified (principal); K85.90 Acute pancreatitis without necrosis or infection, unspecified; C32.9 Malignant neoplasm of larynx, unspecified; D63.8 Anemia in other chronic diseases classified elsewhere; M87.9 Osteonecrosis, unspecified; C78.7 Secondary malignant neoplasm of liver and intrahepatic bile duct; Z99.81 Dependence on supplemental oxygen; K21.9 Gastro-esophageal reflux disease without esophagitis; I10 Essential (primary) hypertension; E66.9 Obesity, unspecified; Z85.21 Personal history of malignant neoplasm of larynx; Z85.118 Personal history of other malignant neoplasm of bronchus and lung; Z92.21 Personal history of antineoplastic chemotherapy; Z92.3 Personal history of irradiation
CPT/HCPCS: 36415; 74176; 80048; 80053; 81001; 83605; 83690; 84484; 85025; 87086; G0378; J2405; J2470

== ENCOUNTER 2024-12-31 09:44 | Inpatient (IN) | payer MEDICAID ==
[~2024-12-31] VITALS: Ht 170.2 cm; Wt 95.3 kg
[~2024-12-31 09:44] MED LIST: BUPR2MIS SL; CARV6.2517 PO; CHOL20007 PO; CLON-1004 PO; DILT120C41 PO; ESCI10TA PO; FURO20TA3 PO; IBUP-1455 PO; MAGN400T40 PO; OLAN20TA PO; OMEP20TA PO; SUCR1SUS5 PO; TEMA30CA PO; ZOFR4T PO
[2024-12-31 10:32] LABS: Basophils # (auto) 0 10 ^3/uL (0-0.2); Basophils % (auto) 0.3 % (0.0-2.0); Eosinophils # (auto) 0 10 ^3/uL (0-0.8); Eosinophils % (auto) 0.1 % (0.0-7.0); Hematocrit 25.6 % (41.0-53.0); Hemoglobin 8.7 g/dL (13.5-17.5); Lymphocytes # (auto) 0.5 10 ^3/uL (0.4-5.4); Lymphocytes % (auto) 6.4 % (10.0-50.0); Mean Corpuscular Hemoglobin 29.8 pg (28.0-32.0); Mean Corpuscular Hgb Conc. 33.9 g/dL (32.0-36.0); Mean Corpuscular Volume 87.9 fL (80.0-100.0); Monocytes # (auto) 1.3 10 ^3/uL (0-1.3); Monocytes % (auto) 15.5 % (0.0-12.0); Neutrophils # (auto) 6.3 10 ^3/uL (1.6-8.6); Neutrophils % (auto) 77.7 % (37.0-80.0); Nucleated Red Blood Cells % 0.1 %; Platelet Count (auto) 191 10^3/uL (140-450); Red Blood Cells 2.91 10^6/uL (4.5-5.90); White Blood Cell 8.1 10^3/uL (4.4-10.8)
--- NOTE | 2024-12-31 10:36 | DVH ---
EXAM: XY CHEST PORTABLE Indication: sob Technique: Single frontal view of the chest was obtained Comparison: None FINDINGS: Lines and Tubes: Right chest port tip projects over the cavoatrial junction. Lungs: No focal consolidation. Right pulmonary vascular congestion. Pleura: No effusion. No pneumothorax. Cardiomediastinal contours: Unremarkable Bones: No acute osseous abnormality. IMPRESSION: No acute cardiopulmonary disease.
[2024-12-31] MEDS: LORazepam 2MG/ML-1ML VIAL IV ONE (10:46)
[2024-12-31] MEDS: ONDANSETRON HCL 4 MG/2 ML VIAL IV ONE (10:46)
--- NOTE | 2024-12-31 10:52 | ED.PDOC ---
History of Present Illness HPI Comments 44 y/o M, with PMHX of throat cancer, depression, anxiety, and HTN presents to the ED for CC of throat pain. Patient states, that he has been experiencing throat pain with associated symptoms of weakness and pallor x days. Patient relays, that he was supposed to receive his third round of chemotherapy today (12/31/24); unable to complete due to low lab values. Patient denies fever, chills, sweats, active bleeding, nausea, or vomiting. No other associated symptoms, modifiers, recent injuries or sick contacts at this time. Chief Complaint: General Weakness Time Seen by MD: 10:35 Reviewed Notes: Nurses Notes, Medications, Allergies Allergies: Coded Allergies: NO KNOWN ALLERGIES (Unverified , 12/06/24) Home Meds Active Scripts Ondansetron Odt 4MG Tab (ZOFRAN PO) 4 Mg Tb, 4 MG PO Q8HP PRN for 5 Days, #15 TAB ODT TAB-DISSOLVE IN MOUTH, THEN SWALLOW Prov:YESENIA ARTHUR DIAL BRUSHER 12/07/24 Ibuprofen Micronized (Ibuprofen) 800 Mg Tab, 800 MG PO Q8HPRN PRN for 5 Days, #15 TAB Prov:YESENIA ARTHUR DIAL BRUSHER 12/07/24 Reported Medications Buprenorphine Hcl-Naloxone Hcl (Suboxone) 1 Mis Mis, 24 MG SL DAILY, MISC 12/07/24 Temazepam (Temazepam) 30 Mg Cap, 30 MG PO BID, CAP 12/06/24 Cholecalciferol (VITAMIN D3) 2,000 Unit Tab, 1 TAB PO DAILY, #30 TAB 5 Refills 12/06/24 Magnesium Oxide (MAGNESIUM OXIDE) 400 Mg Tab, 1 TAB PO BID, #60 TAB 5 Refills 12/06/24 Furosemide (Furosemide) 20 Mg Tab, 1 TAB PO BID, #90 TAB 1 Refill 12/06/24 Carvedilol (Coreg) 6.25 Mg Tab, 6.25 MG PO BID, TAB 12/06/24 Diltiazem Hcl (Dilt-Xr) 120 Mg Cap, 120 MG PO DAILY, CAP 12/06/24 Olanzapine (Zyprexa) 20 Mg Tab, 20 MG PO DAILY, TAB 12/06/24 Escitalopram Oxalate (Lexapro) 10 Mg Tab, 10 MG PO TID, TAB 12/06/24 Sucralfate (Carafate) 1 Gm/10 Ml Shanice, 1 GM PO BID, ML 12/06/24 Omeprazole (Gnp Omeprazole) 20 Mg Tab, 40 MG PO BID, TAB 12/06/24 Clonazepam (Klonopin) 1 Mg Tab, 1 TAB PO BID, #60 TAB 1 Refill 12/06/24 Information Source: Patient Mode of Arrival: Ambulatory Severity: Moderate Timing: Days Duration: Since onset Prehospital treatment: None Past Medical History PAST MEDICAL HISTORY: Anxiety, Cancer, Depression, GERD, HTN Family History Family History: Reviewed,noncontributory to illness Social History Smoker: Non-Smoker Alcohol: Denies ETOH Use Drugs: Denies Drug Use Lives In: Home Constitutional: reports: weakness; denies: chills, diaphoresis, fatigue, fever, malaise, sweats, others EENTM: reports: throat pain; denies: blurred vision, double vision, ear bleeding, ear discharge, ear drainage, ear pain, ear ringing, eye pain, eye redness, hearing loss, mouth pain, mouth swelling, nasal discharge, nose bleeding, nose congestion, nose pain, photophobia, tearing, throat swelling, voice changes, others Respiratory: denies: cough, hemoptysis, orthopnea, SOB at rest, shortness of breath, SOB with excertion, stridor, wheezing, others Cardiovascular: denies: chest pain, dizzy spells, diaphoresis, Dyspnea on exertion, edema, irregular heart beat, left arm pain, lightheadedness, palpitations, PND, syncope, others Gastrointestinal: denies: abdomen distended, abdominal pain, blood streaked bowels, constipated, diarrhea, dysphagia, difficulty swallowing, hematemesis, melena, nausea, poor appetite, poor fluid intake, rectal bleeding, rectal pain, vomiting, others Genitourinary: denies: burning, dysuria, flank pain, frequency, hematuria, incontinence, penile discharge, penile sore, pain, testicle pain, testicle swelling, urgency, others Neurological: denies: dizziness, fainting, headache, left sided numbness, left sided weakness, numbness, paresthesia, pre-existing deficit, right sided numbness, right sided weakness, seizure, speech problems, tingling, tremors, weakness, others Musculoskeletal: denies: back pain, gout, joint pain, joint swelling, muscle pain, muscle stiffness, neck pain, others Integumetry: denies: bruises, change in color, change in hair/nails, dryness, laceration, lesions, lumps, rash, wounds, others Allergic/Immunocompromised: denies: Difficulty Healing, Frequent Infections, Hives, Itching, others Hematologic/Lymphatic: denies: anemia, blood clots, easy bleeding, easy bruising, swollen glands, others Endocrine: denies: excessive hunger, excessive sweating, excessive thirst, excessive urination, flushing, intolerance to cold, intolerance to heat, unexplained weight gain, unexplained weight loss, others Psychiatric: denies: anxiety, bipolar disorder, depression, hopeless, panic disorder, schizophrenia, sleepless, suicidal, others All Other Systems: Reviewed and Negative Physical Exam General Appearance: Moderate Distress HEENT: Normal ENT Inspection, Pharynx Normal, TMs Normal Neck: Full Range of Motion, Non-Tender, Normal, Normal Inspection Respiratory: Chest Non-Tender, Lungs Clear, No Accessory Muscle Use, No Respiratory Distress, Normal Breath Sounds Cardiovascular: No Edema, No JVD, No Murmur, No Gallop, Normal Peripheral Pulses, Regular Rate/Rhythm Breast Exam: Deferred Gastrointestinal: No Organomegaly, Non Tender, No Pulsatile Mass, Normal Bowel Sounds, Soft Genitalia: Deferred Pelvic: Deferred Rectal: Deferred Extremities: No calf tenderness, Normal inspection, Normal range of motion, No pedal edema Musculoskeletal : Apperance: Normal Neurologic: Alert, No Motor Deficits, No Sensory Deficits Cerebellar Function: NOT DONE Reflexes: NOT DONE Skin: Pallor Peripheral Pulses: 3+ Radial (R), 3+ Radial (L) Lymphatic: No Adenopathy Was a procedure done? Was a procedure done?: No Differential Dx Considerations may include: Anemia Electrolyte imbalance X-Ray, Labs, Meds, VS Vital Signs Date Time Temp Pulse Resp B/P (MAP) Pulse Ox O2 Delivery O2 Flow Rate FiO2 12/31/24 10:53 Nasal Cannula* 2 28 12/31/24 09:55 96.3 125 20 123/76 (92) 97 96.3 Lab Test 12/31/24 10:26 12/31/24 10:15 Range/Units POC Glucose 153 H 70-106 mg/dl White Blood Count 8.1 4.4-10.8 10^3/uL Red Blood Count 2.91 L 4.5-5.90 10^6/uL Hemoglobin 8.7 L 13.5-17.5 g/dL Hematocrit 25.6 L 41.0-53.0 % Mean Corpuscular Volume 87.9 80.0-100.0 fL Mean Corpuscular Hemoglobin 29.8 28.0-32.0 pg Mean Corpuscular Hemoglobin Concent 33.9 32.0-36.0 g/dL Red Cell Distribution Width 17.0 H 11.8-14.3 % Platelet Count 191 140-450 10^3/uL Mean Platelet Volume 8.5 6.9-10.8 fL Neutrophils (%) (Auto) 77.7 37.0-80.0 % Lymphocytes (%) (Auto) 6.4 L 10.0-50.0 % Monocytes (%) (Auto) 15.5 H 0.0-12.0 % Eosinophils (%) (Auto) 0.1 0.0-7.0 % Basophils (%) (Auto) 0.3 0.0-2.0 % Neutrophils # (Auto) 6.3 1.6-8.6 10 ^3/uL Lymphocytes # (Auto) 0.5 0.4-5.4 10 ^3/uL Monocytes # (Auto) 1.3 0-1.3 10 ^3/uL Eosinophils # (Auto) 0 0-0.8 10 ^3/uL Basophils # (Auto) 0 0-0.2 10 ^3/uL Nucleated Red Blood Cells 0.1 % Sodium Level Pending Potassium Level Pending Chloride Level Pending Carbon Dioxide Level Pending Anion Gap Pending Blood Urea Nitrogen Pending Creatinine Pending Glomerular Filtration Rate Calc Pending BUN/Creatinine Ratio Pending Serum Glucose Pending Calcium Level Pending Total Bilirubin Pending Aspartate Amino Transferase (AST) Pending Alanine Aminotransferase (ALT) Pending Alkaline Phosphatase Pending Total Protein Pending Albumin Pending Current Medications Medications (Trade) Dose Ordered Sig/Gladis Route Start Time Stop Time Status Last Admin Lorazepam (Ativan Inj) 1 mg ONCE ONCE IV 12/31/24 10:45 12/31/24 10:46 DC 12/31/24 10:46 Ondansetron HCl (Zofran) 4 mg ONCE ONCE IV 12/31/24 10:45 12/31/24 10:46 DC 12/31/24 10:46 Patient alert. Pale in color. Has a history of throat cancer. Vitals stable. Placed on oxygen. He is anxious. Was given Ativan. Was given Zofran. WBC within normal limits. Hemoglobin is low. He is being followed by oncologist. Explained to the patient. Continue monitoring. Time of 1ST Reevaluation: 11:05 Reevaluation 1ST: Unchanged Patient Education/Counseling: Diagnosis, Treatment Family Education/Counseling: No Family Present Departure 1 Departure Time of Disposition: 10:54 Impression: Primary Impression: Cancer, metastatic to liver Additional Impressions: Severe anemia Pneumonitis Disposition: ADMITTED INPATIENT Admit to: Med Surg Condition: Guarded Critical Care Note Critical Care Time?: No Stability Stability form required: No Heart Score Heart Score: Heart Score Response (Comments) Value History Slightly Suspicious 0 EKG Normal 0 Age <45 0 Risk Factors No known risk factors 0 Troponin Normal limit 0 Total 0 I personally scribed for CASTRO NOLEN MD ([email or web address]) on 12/31/24 at 10:52. Electronically submitted by Wendy Tenorio ([email or web address]). I personally scribed for CASTRO NOLEN MD ([email or web address]) on 12/31/24 at 11:04. Electronically submitted by Wendy Tenorio ([email or web address]). CASTRO NOLEN MD Dec 31, 2024 10:52
[2024-12-31 11:02] LABS: Urine Bacteria None Seen /hpf (None Seen)
[2024-12-31 11:30] LABS: Urine Blood Negative /uL (Negative); Urine Clarity Clear (Clear); Urine Color Yellow (Yellow); Urine Mucus FEW (None Seen); Urine Protein, UAD 2+ (Negative); Urine Specific Gravity 1.022 (1.001-1.035); Urine Squamous Epithelial Cell FEW /hpf (<5); Urine Urobilinogen 4 mg/dL (Negative); Urine WBC 4 /HPF (0-3); Urine pH 7.5 (5.0-9.0)
[2024-12-31 12:03] LABS: Alanine Aminotransferase 18 U/L (7-40); Albumin 4.5 g/dL (3.2-4.8); Anion Gap 8 (5-15); BUN/Creatinine Ratio 8.9 (10.0-20.0); Blood Urea Nitrogen 12 mg/dL (9-23); Calcium 9.2 mg/dL (8.7-10.4); Carbon Dioxide 28 mmol/L (20-31); Chloride 101 mmol/L (98-107); Potassium 4.9 mmol/L (3.5-5.1); Sodium 137 mmol/L (136-145); Total Protein 6.9 g/dL (5.7-8.2)
[2024-12-31 12:04] LABS: Bilirubin, Total 0.7 mg/dL (0.2-1.0)
[2024-12-31 12:11] LABS: Alkaline Phosphatase 133 U/L (46-116); Aspartate Aminotransferase 116 U/L (13-40); Glucose 156 mg/dL (74-106)
[2024-12-31] MEDS ORDERED: DEXTROSE (50%) 50ML SYRG IV PRN (13:15)
[2024-12-31] MEDS ORDERED: PRAV20TA3 PO (13:16)
[2024-12-31] MEDS ORDERED: FAMO-12 PO (13:16)
--- NOTE | 2024-12-31 14:18 | DVHHP2 ---
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 Patient also reports of discomfort in his right neck and complains of trouble swallowing. Patient also reports that he uses 2 L nasal cannula oxygen at home continuously. He denies any chest pain, fever, chills, lightheadedness, dizziness, recent sick contacts, recent trauma or injury, chest pain, shortness of breath, fever, and chills. 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 Family History: None Smoke: Quit ALCOHOL: none (Quit) Drugs: None Lives: with Family Domestic Violence: Neg Review of Systems Constitutional: Yes: Weakness Skin: Other (Pale) Allergies: Coded Allergies: NO KNOWN ALLERGIES (Unverified , 12/06/24) Medications Current Medications Medications Dose Ordered Sig/Gladis Route Start Time Stop Time Status Last Admin Dose Admin Diagnostic Test (Pha) 1 strip ACHS 12/31/24 17:00 UNV Insulin Human Regular ACHS SC 12/31/24 17:00 UNV Dextrose 50 ml UD PRN IV 12/31/24 13:15 UNV Ondansetron HCl 4 mg Q4HP PRN IV 12/31/24 13:15 UNV Enoxaparin Sodium 30 mg DAILY SC 01/01/25 10:00 UNV Acetaminophen 650 mg Q6HP PRN PO 12/31/24 13:15 UNV Sodium Chloride 1,000 ml @ 100 mls/hr Q10H IV 12/31/24 13:15 UNV Diltiazem HCl 120 mg DAILY PO 01/01/25 10:00 UNV Furosemide 20 mg BID PO 12/31/24 22:00 UNV Sucralfate 1 gm BID PO 12/31/24 22:00 UNV Patient Own Medication 24 mg DAILY SL 01/01/25 10:00 UNV Patient Own Medication 6.25 mg BID PO 12/31/24 22:00 UNV Patient Own Medication 1 tab DAILY PO 01/01/25 10:00 UNV Patient Own Medication 1 tab BID PO 12/31/24 22:00 UNV Patient Own Medication 10 mg TID PO 12/31/24 14:00 UNV Patient Own Medication 1 tab BID PO 12/31/24 22:00 UNV Patient Own Medication 20 mg DAILY PO 01/01/25 10:00 UNV Patient Own Medication 40 mg BID PO 12/31/24 22:00 UNV Patient Own Medication 30 mg BID PO 12/31/24 22:00 UNV Exam Vital Signs Vital Signs Date Time Temp Pulse Resp B/P (MAP) Pulse Ox O2 Delivery O2 Flow Rate FiO2 12/31/24 11:16 99.0 117 16 114/80 (91) 97 99.0 12/31/24 10:53 Nasal Cannula* 2 28 General Appearance: Alert, Oriented X3, Cooperative, No acute distress HEENT: Atraumatic, PERRLA, EOMI, Mucous membr. moist/pink Respiratory: Clear to auscultation, Normal air movement Cardiovascular: Normal S1, Normal S2, No murmurs Abdominal: Normal bowel sounds, Soft, No tenderness Extremities: No cyanosis Skin: No significant lesion Neuro: Normal speech, Normal tone, Sensation intact Psych/Mental Status: Mental status NL, Mood NL Labs/Xrays Labs Test 12/31/24 10:59 12/31/24 10:26 12/31/24 10:15 Range/Units Urine Color Yellow Yellow Urine Clarity Clear Clear Urine pH 7.5 5.0-9.0 Urine Specific [place] 1.022 1.001-1.035 Urine Protein 2+ H Negative Urine Ketones Negative Negative Urine Blood Negative Negative /uL Urine Nitrite Negative Negative Urine Bilirubin Negative Negative Urine Urobilinogen 4 H Negative mg/dL Urine Leukocyte Esterase Negative Negative /uL Urine RBC 3 0 - 3 /hpf Urine Microscopic WBC 4 H 0-3 /HPF Urine Squamous Epithelial Cells Few <5 /hpf Urine Bacteria None seen None Seen /hpf Urine Mucus Few None Seen Urine Glucose Normal Normal mg/dL POC Glucose 153 H 70-106 mg/dl White Blood Count 8.1 4.4-10.8 10^3/uL Red Blood Count 2.91 L 4.5-5.90 10^6/uL Hemoglobin 8.7 L 13.5-17.5 g/dL Hematocrit 25.6 L 41.0-53.0 % Mean Corpuscular Volume 87.9 80.0-100.0 fL Mean Corpuscular Hemoglobin 29.8 28.0-32.0 pg Mean Corpuscular Hemoglobin Concent 33.9 32.0-36.0 g/dL Red Cell Distribution Width 17.0 H 11.8-14.3 % Platelet Count 191 140-450 10^3/uL Mean Platelet Volume 8.5 6.9-10.8 fL Neutrophils (%) (Auto) 77.7 37.0-80.0 % Lymphocytes (%) (Auto) 6.4 L 10.0-50.0 % Monocytes (%) (Auto) 15.5 H 0.0-12.0 % Eosinophils (%) (Auto) 0.1 0.0-7.0 % Basophils (%) (Auto) 0.3 0.0-2.0 % Neutrophils # (Auto) 6.3 1.6-8.6 10 ^3/uL Lymphocytes # (Auto) 0.5 0.4-5.4 10 ^3/uL Monocytes # (Auto) 1.3 0-1.3 10 ^3/uL Eosinophils # (Auto) 0 0-0.8 10 ^3/uL Basophils # (Auto) 0 0-0.2 10 ^3/uL Nucleated Red Blood Cells 0.1 % Sodium Level 137 136-145 mmol/L Potassium Level 4.9 3.5-5.1 mmol/L Chloride Level 101 98-107 mmol/L Carbon Dioxide Level 28 20-31 mmol/L Anion Gap 8 5-15 Blood Urea Nitrogen 12 9-23 mg/dL Creatinine 1.35 H 0.700-1.30 mg/dL Glomerular Filtration Rate Calc 66 >90 mL/min BUN/Creatinine Ratio 8.9 L 10.0-20.0 Serum Glucose 156 H 74-106 mg/dL Calcium Level 9.2 8.7-10.4 mg/dL Total Bilirubin 0.7 0.2-1.0 mg/dL Aspartate Amino Transferase (AST) 116 H 13-40 U/L Alanine Aminotransferase (ALT) 18 7-40 U/L Alkaline Phosphatase 133 H 46-116 U/L Total Protein 6.9 5.7-8.2 g/dL Albumin 4.5 3.2-4.8 g/dL EXAM: XY CHEST PORTABLE Indication: sob Technique: Single frontal view of the chest was obtained Comparison: None FINDINGS: Lines and Tubes: Right chest port tip projects over the cavoatrial junction. Lungs: No focal consolidation. Right pulmonary vascular congestion. Pleura: No effusion. No pneumothorax. Cardiomediastinal contours: Unremarkable Bones: No acute osseous abnormality. IMPRESSION: No acute cardiopulmonary disease. Assessment/Plan Assessment/Plan Assessment Generalized weakness Anemia FLO Hyperglycemia ? 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 Procedure Category Date Status Time Glucose Blood PHA 12/31/24 Logged (Accu-Chek Comfort 17:00 Insulin R (Human) PHA 12/31/24 Logged (Insulin R) 17:00 Dextrose 50% Syringe PHA 12/31/24 Logged 13:15 Echo 2d Mode Cardiac US 12/31/24 Logged DOP 13:09 Admit ADMIT 12/31/24 Transmitted 13:09 Allergies MICHAEL 12/31/24 In Process 13:09 Code Status CODE 12/31/24 Transmitted 13:09 Ondansetron Hcl PHA 12/31/24 Logged (Zofran) 13:15 Complete Blood Count LAB 01/01/25 Verified 04:00 Comprehensive LAB 01/01/25 Verified Metabolic Panel 04:00 Cardiac DIET 12/31/24 Transmitted Diet-2gna,Lofat,Lochol Lunch Enoxaparin Sodium PHA 01/01/25 Logged (Lovenox) 10:00 Acetaminophen Tablet PHA 12/31/24 Logged (Tylenol Tablet) 13:15 Sodium Chloride 0.9% PHA 12/31/24 Logged 13:15 Diltiazem Er Capsule PHA 01/01/25 Logged (Cardizem Er Capsul 10:00 Furosemide Tablet PHA 12/31/24 Logged (Lasix Tablet) 22:00 Sucralfate Susp PHA 12/31/24 Logged (Carafate Susp) 22:00 (Nf) Buprenorphine PHA 01/01/25 Logged Hcl-Naloxone Hcl (Sub 10:00 (Nf) Carvedilol PHA 12/31/24 Logged (Coreg) 22:00 (Nf) Cholecalciferol PHA 01/01/25 Logged (Vitamin D3) 10:00 (Nf) Clonazepam PHA 12/31/24 Logged (Klonopin) 22:00 (Nf) Escitalopram PHA 12/31/24 Logged Oxalate (Lexapro) 14:00 (Nf) Magnesium Oxide PHA 12/31/24 Logged 22:00 (Nf) Olanzapine PHA 01/01/25 Logged (Zyprexa) 10:00 (Nf) Omeprazole (Gnp PHA 12/31/24 Logged Omeprazole) 22:00 (Nf) Temazepam PHA 12/31/24 Logged 22:00 Carotid Duplx W Color US 12/31/24 Logged DOP 13:[address] 12/31/24 Logged 13:16 Date of Service: Dec 31, 2024 Billing Provider: JONG LEVINE Common Visit Codes: [id number] INP/OBS CARE (HIGH) JONG LEVINE Dec 31, 2024 14:18
[2024-12-31] MEDS: SODIUM CHLORIDE 0.9% 1,000 ML IV SCH (14:24)
--- NOTE | 2024-12-31 14:36 | DVH ---
Carotid duplex REASON FOR EXAM: weakness TECHNIQUE: Burgess scale, color doppler imaging and spectral analysis were performed. FINDINGS: On burgess scale and color imaging there no plaquing seen in the common carotid arteries, bul bs, or internal carotid arteries. Velocities are as follows: (measured in cm/S): Right CCA 111 Left CCA 116 Right ICA 113 Left ICA 118 Right ICA/CCA 1 Left ICA/CCA 1 Flow in the vertebral arteries is antegrade. IMPRESSION: 1. No hemodynamically significant stenosis based on NASCET criteria
[2024-12-31] MEDS: CITALOPRAM HYDROBR 20 MG TAB PO SCH (14:57)
[2024-12-31] MEDS ORDERED: TEMAZEPAM 15 MG CAP PO SCH (15:00)
--- NOTE | 2024-12-31 15:05 | DVH ---
CLINICAL INFORMATION: 44 years old, Male; RIGHT NECK PAIN. TECHNIQUE: Axial CT images of the neck soft tissues were obtained without IV contrast. Limited evalua tion of the neck soft tissues without IV contrast. Coronal and sagittal reformatted images were obtai colten, stored, and reviewed. One or more of the following dose reduction techniques were used: Automate d exposure control. Adjustment of mA and/or kV according to patient size. CTDIvol = 28.13 mGy DLP = 743.31 mGy-cm COMPARISON: No prior pertinent imaging of the neck was available for comparison at the time of dictat ion. FINDINGS: Limited examination of the neck soft tissues without IV contrast. Given this limitation, no abnormali ty identified in the nasopharynx or oropharynx. There is nonspecific soft tissue density in the hypop harynx just above the level of the vocal cords posterior to the epiglottis, not well evaluated on non contrast enhanced CT. There is a suspected mass in the anterior aspect of the thyroid gland involving the thyroid isthmus and bilateral thyroid lobes, measuring up to 4.5 cm in greatest visualized dimen dwayne. The parotid glands and submandibular glands are unremarkable. Mildly prominent level 2 and 3 ce rvical lymph nodes bilaterally, with the largest measuring up to 1.2 x 0.9 cm, most likely reactive, with normal reniform shape and fatty sharlene. Small subcentimeter submandibular lymph nodes. Nonspecific fluid in the esophagus along its proximal to mid thoracic course. IMPRESSION: 1. Limited examination without IV contrast. 2. Low-density mass in the thyroid gland as described above. Malignancy not excluded. Recommend ultra sound to further evaluate per ACR white paper on incidentally detected thyroid nodules. 3. Soft tissue density within the hypo pharyngeal airway. Possibly complex fluid/debris. Soft tissue mass can not be excluded. Not well evaluated on noncontrast enhanced exam. Correlate with clinical f indings. If clinically indicated, contrast enhanced exam or direct visualization could be considered. 4. Nonspecific fluid in the thoracic esophagus.
[2024-12-31] MEDS: InsuLIN REG 1unit/0.01ml Soln (100units/ml) SC SCH (17:00)
[2024-12-31] MEDS: ACCU-CHEK COMFORT CURVE STRIP VI SCH (17:07)
[2024-12-31 18:04] VITALS: BP 136/80; PULSE 111; RESP 18; TEMP 98.2; O2SAT 97
--- NOTE | 2024-12-31 18:51 | ECG ---
[facility] Test Date: 2024-12-31 Test Time: 10:27:24 Pat Name: KELL NINO Department: ER Room: 0249 B Gender: M Load Blocker: : 1980 Requested By: CASTRO NOLEN Order Number: [id number] Reading MD: Jonah Goldman Measurements Intervals [place] Rate: 118 P: 57 [place]: 127 QRS: 76 QRSD: 85 T: -42 QT: 295 QTc: 414 Interpretive Statements Sinus tachycardia Borderline T abnormalities, diffuse leads Electronically Signed On 01-02-2025 17:33:09 PDT by Jonah Goldman Please click the below link to view image of tracing.
[2024-12-31] MEDS: FUROSEMIDE 20 MG TAB PO SCH (19:00)
[2024-12-31] MEDS ORDERED: TEMA30CA5 PO (20:13)
[2024-12-31 21:00] VITALS: BP 106/67; PULSE 103; RESP 20; TEMP 100.5; O2SAT 94
[2024-12-31] MEDS: ACETAMINOPHEN 325 MG TAB PO PRN (21:40)
[2024-12-31] MEDS: CARVEDILOL 3.125 MG TAB PO SCH (21:41)
[2024-12-31] MEDS: SUCRALFATE 1 GM/10 ML ORAL SUSP PO SCH (21:41)
[2024-12-31] MEDS: PANTOPRAZOLE 40 MG TAB PO SCH (21:42)
[2024-12-31] MEDS: MAGNESIUM OXIDE 400 MG TAB PO SCH (21:42)
[2024-12-31] MEDS: clonazePAM 0.5 MG TAB PO SCH (21:42)
[2025-01-01] VITALS (8 sets, daily range): BP systolic 97–122; BP diastolic 55–77; PULSE 62–104; RESP 16–20; TEMP 97.6–99; O2SAT 93–99
[2025-01-01 06:53] LABS: Hemoglobin 7.7 g/dL (13.5-17.5)
[2025-01-01 06:55] LABS: Hematocrit 22.5 % (41.0-53.0); Mean Corpuscular Hemoglobin 30.3 pg (28.0-32.0); Mean Corpuscular Hgb Conc. 34.1 g/dL (32.0-36.0); Mean Corpuscular Volume 88.7 fL (80.0-100.0); Platelet Count (auto) 187 10^3/uL (140-450); Red Blood Cells 2.54 10^6/uL (4.5-5.90); Red Cell Distribution Width 16.5 % (11.8-14.3); White Blood Cell 6.6 10^3/uL (4.4-10.8)
[2025-01-01 07:01] LABS: Basophils % (manual) 0 (0.0-2.0); Blast Cells 0; Eosinophils % (manual) 0 (0-7); Metamyelocytes % 0; Myelocytes % 0; Promyelocytes % 0; Reactive Lymphocytes 0
[2025-01-01 07:17] LABS: Alanine Aminotransferase 23 U/L (7-40); Albumin 4.2 g/dL (3.2-4.8); Anion Gap 9 (5-15); BUN/Creatinine Ratio 10.4 (10.0-20.0); Blood Urea Nitrogen 12 mg/dL (9-23); Calcium 9.6 mg/dL (8.7-10.4); Carbon Dioxide 30 mmol/L (20-31); Chloride 103 mmol/L (98-107); Glucose 94 mg/dL (74-106); Potassium 3.7 mmol/L (3.5-5.1); Sodium 142 mmol/L (136-145); Total Protein 6.5 g/dL (5.7-8.2)
[2025-01-01 07:18] LABS: Alkaline Phosphatase 121 U/L (46-116); Aspartate Aminotransferase 133 U/L (13-40); Bilirubin, Total 0.6 mg/dL (0.2-1.0)
[2025-01-01 08:14] LABS: Band Neutrophils % (manual) 1; Lymphocytes % (manual) 11 (10.0-50.0); Monocytes % (manual) 20 (0-12); Platelet Estimate Adequate
[2025-01-01] MEDS: CHOLECALCIFEROL (VITD3) 1,000UNIT=25mCg TAB PO SCH (09:32)
[2025-01-01] MEDS: ENOXAPARIN SOD 40 MG/0.4 ML SYRINGE SC SCH (09:33)
[2025-01-01] MEDS: OLANZapine 5 MG TAB PO SCH (09:34)
[2025-01-01] MEDS: dilTIAZem 120MG ER CAP PO SCH (09:35)
[2025-01-01] MEDS: BUPRENORPHINE HCL SL SCH (09:36)
[2025-01-01] MEDS: NALOXONE HCL SL SCH (09:36)
[2025-01-01] MEDS: HYDROcodone-ACET 10/325MG TAB PO PRN (11:18)
[2025-01-01] MEDS: D5W/SOD CHL 0.45% 1,000 ML IV SCH (11:21)
--- NOTE | 2025-01-01 12:33 | DVHPNRES ---
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 the patient states that his last chemotherapy was deferred to week of January because of his low hemoglobin and also for last 3 days he was having difficulty in swelling feels like a lump in the throat. he denies fever, chills, chest pain, recent contact , any recent traveling or any change in the bowel and bladder habit. Patient was seen and examined on the bedside. He is alert oriented x3. Complain of lightheadedness, palpitation and difficulty in swallowing. No other active complaint. Constitutional: Weakness, No: Fever, Chills, Sweats, Malaise, Other Eyes: No: Pain, Vision change, Conjunctivae inflammation, Eyelid inflammation, Other, Redness ENT: No: Ear pain, Ear discharge, Nose pain, Nose discharge, Nose congestion, Mouth pain, Mouth swelling, Throat pain, Throat swelling, Other Respiratory: Shortness of breath, improving No: Cough, Dry,Wheezing, Hemoptysis, Pleuritic Pain, Sputum, Wheezing, Other Cardiovascular: Lt Headedness, No: Chest Pain, Palpitations, Orthopnea, Paroxysmal Noc. Dyspnea, Edema, Other Gastrointestinal: No: Nausea, Vomiting, Abdominal Pain, Diarrhea, Constipation, Melena, Hematochezia, Other Musculoskeletal: Neck pain, No: other, shoulder pain, arm pain, back pain, hand pain, leg pain, foot pain Neurological:; No: Weakness, Numbness, Incoordination, Change in speech, Confusion, Seizures Objective vital signs Vital Sign Date Time Temp Pulse Resp B/P (MAP) Pulse Ox O2 Delivery O2 Flow Rate FiO2 01/01/25 09:35 64 122/77 01/01/25 09:00 97.9 17 99 97.9 01/01/25 08:00 Room Air* 0 21 Total Intake and Output 12/31/24 12/31/24 01/01/25 15:00 23:00 07:00 Intake Total 300 ml 800 ml Balance 300 ml 800 ml medications Current Medications Medications Dose Ordered Sig/Gladis Route Start Time Stop Time Status Last Admin Dose Admin Diagnostic Test (Pha) 1 strip ACHS 12/31/24 17:00 01/01/25 06:47 1 STRIP Insulin Human Regular ACHS SC 12/31/24 17:00 Dextrose 50 ml UD PRN IV 12/31/24 13:15 Ondansetron HCl 4 mg Q4HP PRN IV 12/31/24 13:15 Enoxaparin Sodium 40 mg DAILY SC 01/01/25 10:00 01/01/25 09:33 40 MG Acetaminophen 650 mg Q6HP PRN PO 12/31/24 13:15 12/31/24 21:40 650 MG Diltiazem HCl 120 mg DAILY PO 01/01/25 10:00 01/01/25 09:35 120 MG Furosemide 20 mg BIDD PO 12/31/24 18:00 01/01/25 05:38 20 MG Sucralfate 1 gm BID PO 12/31/24 22:00 01/01/25 09:32 1 GM Patient Own Medication 24 mg DAILY SL 01/01/25 10:00 Carvedilol 6.25 mg BID PO 12/31/24 22:00 01/01/25 09:35 6.25 MG Cholecalciferol 2,000 unit DAILY PO 01/01/25 10:00 01/01/25 09:32 2,000 UNIT Clonazepam 1 mg BID PO 12/31/24 22:00 01/01/25 09:34 1 MG Citalopram Hydrobromide 10 mg TID PO 12/31/24 14:00 Magnesium Oxide 400 mg BID PO 12/31/24 22:00 01/01/25 09:34 400 MG Olanzapine 20 mg DAILY PO 01/01/25 10:00 01/01/25 09:34 20 MG Pantoprazole Sodium 40 mg BID PO 12/31/24 22:00 01/01/25 09:34 40 MG Temazepam 30 mg BID PO 12/31/24 15:00 Hold Dextrose/Sodium Chloride 1,000 ml @ 75 mls/hr [id number] IV 01/01/25 10:00 01/01/25 11:21 75 MLS/HR Acetaminophen/ Hydrocodone Bitart 1 tab Q6HP PRN PO 01/01/25 11:15 01/01/25 11:18 1 TAB Examination Physical examination: General Appearance: Alert, Oriented X3, Cooperative, No acute distress HEENT: Atraumatic, PERRLA, EOMI, Mucous membrane pale Respiratory: Clear to auscultation, Normal air movement Cardiovascular: Regular rate, Normal S1, Normal S2, No murmurs, no chest wall tenderness Abdominal: Normal bowel sounds, Soft, No tenderness, No hepatospenomegaly, No masses Extremities: No clubbing, No cyanosis, No edema, Normal pulses, No tenderness/swelling Skin: No rashes, No breakdown, No significant lesion Neuro: Normal gait, Normal speech, Strength at 5/5 X4 ext, Normal tone, Sensation intact, grossly intact cranial nerves. Psych/Mental Status: Mental status NL, Mood NL Cervical lymph node: A 2 cm rounded hard lymph node in the anterior cervical chain. laboratory and microbiology Laboratory Tests 01/01/25 04:26 Test 01/01/25 04:26 Range/Units Serum Glucose 94 74-106 mg/dL Labs and/or images reviewed: Labs reviewed by me, Image(s) reviewed by me Problem List/Assessment/Plan Problem List/Assessment/Plan Assessment and plan # Generalized weakness likely due to symptomatic anemia # Acute on chronic anemia likely due to malignancy # History of laryngeal cancer with possible metastasis to lungs and liver, status post radiotherapy and chemotherapy - CT neck demonstrated Low-density mass in the thyroid gland as described above. Malignancy not excluded and soft tissue density within the hypo pharyngeal airway. Possibly complex fluid/debris. Soft tissue mass can not be excluded - CT abdomen pelvis showed Numerous lung nodules/masses are concerning for metastases and Liver lesions are concerning for metastases (12/06/24) - patient was given IV bolus normal saline 1 L followed by IV 5% DA with half- normal saline at 75 mL/hour - H&H 7.7/22.5 and repeat H&H at 2:00 p.m., blood transfusion if hemoglobin less than 7 # FLO likely due to hemodynamically mediated /VMN resolved - Monitor BMP # GERD - Continue Protonix 40 mg p.o. b.i.d and Carafate 1 g p.o. b.i.d. # Hypertensive heart disease # Rule out CHF - Ordered BNP and echo - Continue carvedilol 6.25 mg b.i.d. and furosemide 20 mg p.o. daily. # Transaminitis without hyperbilirubinemia likely due to secondary metastasis to liver - Monitor CMP # DVT prophylaxis - Lovenox 40 mg sc daily . Goal of care discussed with the patient for more than 20 minutes full code Plan discussed with Dr. Urban Plan discussed with: Patient, Other My Orders My Orders Orders - LAVERN DESHPANDE Procedure Category Date Status Time D5w/Sod Chl 0.45% PHA 01/01/25 In Process (D5w 1/2ns) 10:00 Hydrocodone-Acet PHA 01/01/25 In Process 10/325mg Tab ([place] 11:15 Ammonia LAB 01/01/25 Logged 11:46 Hemoglobin & LAB 01/01/25 Logged Hematocrit 02:00 Date of Service: Jan 01, 2025 Billing Provider: YAA LOPEZ MD Common Visit Codes: [id number] INP/OBS CARE(HIGH) LAVERN DESHPANDE RESIDENT Jan 01, 2025 12:33 YAA LOPEZ MD Jan 04, 2025 01:01
[2025-01-01 14:08] LABS: Hematocrit 20.9 % (41.0-53.0); Hemoglobin 7.2 g/dL (13.5-17.5)
[2025-01-01 21:44] LABS: Hematocrit 24.8 % (41.0-53.0); Hemoglobin 8.3 g/dL (13.5-17.5)
[2025-01-01] MEDS ORDERED: CARVEDILOL 3.125 MG TAB PO SCH (22:00)
[2025-01-01] MEDS: CARVEDILOL 3.125 MG TAB PO ONE (22:00)
[2025-01-02] VITALS (8 sets, daily range): BP systolic 99–116; BP diastolic 64–79; PULSE 89–111; RESP 16–20; TEMP 97.4–98.5; O2SAT 91–97
[2025-01-02] MEDS: ONDANSETRON HCL 4 MG/2 ML VIAL IV PRN (05:51)
--- NOTE | 2025-01-02 12:10 | DVHPNRES ---
Progress Note Date Seen: Jan 02, 2025 Resident Creating Document: LAVERN DESHPANDE RESIDENT Medical Necessity Reason Pt with a Central, PICC or Fol: No Subjective Review of Systems Seen and examined on the bedside. He is alert oriented x3. No overnight events, mentioned improvement of difficulty in swelling, feeling better and no complaint of hematemesis, hematuria, hematochezia or any change in bowel and bladder habit. Objective vital signs Vital Sign Date Time Temp Pulse Resp B/P (MAP) Pulse Ox O2 Delivery O2 Flow Rate FiO2 01/02/25 10:38 98 115/80 01/02/25 08:42 97.4 17 97 97.4 01/02/25 08:00 Nasal Cannula* 2 28 Total Intake and Output 01/01/25 01/01/25 01/02/25 15:00 23:00 07:00 Intake Total 1100 ml 800 ml Balance 1100 ml 800 ml medications Current Medications Medications Dose Ordered Sig/Gladis Route Start Time Stop Time Status Last Admin Dose Admin Diagnostic Test (Pha) 1 strip ACHS 12/31/24 17:00 01/02/25 11:52 1 STRIP Insulin Human Regular ACHS SC 12/31/24 17:00 01/01/25 17:48 2 UNITS Dextrose 50 ml UD PRN IV 12/31/24 13:15 Ondansetron HCl 4 mg Q4HP PRN IV 12/31/24 13:15 01/02/25 05:51 4 MG Enoxaparin Sodium 40 mg DAILY SC 01/01/25 10:00 01/02/25 09:36 40 MG Acetaminophen 650 mg Q6HP PRN PO 12/31/24 13:15 12/31/24 21:40 650 MG Diltiazem HCl 120 mg DAILY PO 01/01/25 10:00 01/02/25 09:37 120 MG Furosemide 20 mg BIDD PO 12/31/24 18:00 01/01/25 17:48 20 MG Sucralfate 1 gm BID PO 12/31/24 22:00 01/02/25 09:36 1 GM Patient Own Medication 24 mg DAILY SL 01/01/25 10:00 Carvedilol 6.25 mg BID PO 12/31/24 22:00 01/02/25 09:38 6.25 MG Cholecalciferol 2,000 unit DAILY PO 01/01/25 10:00 01/02/25 09:38 2,000 UNIT Clonazepam 1 mg BID PO 12/31/24 22:00 01/02/25 09:36 1 MG Citalopram Hydrobromide 10 mg TID PO 12/31/24 14:00 01/01/25 15:33 10 MG Magnesium Oxide 400 mg BID PO 12/31/24 22:00 01/02/25 09:37 400 MG Olanzapine 20 mg DAILY PO 01/01/25 10:00 01/02/25 10:16 20 MG Pantoprazole Sodium 40 mg BID PO 12/31/24 22:00 01/02/25 09:38 40 MG Temazepam 30 mg BID PO 12/31/24 15:00 Hold Dextrose/Sodium Chloride 1,000 ml @ 75 mls/hr [id number] IV 01/01/25 10:00 01/02/25 11:52 75 MLS/HR Acetaminophen/ Hydrocodone Bitart 1 tab Q6HP PRN PO 01/01/25 11:15 01/02/25 08:34 1 TAB Examination Physical examination: General Appearance: Alert, Oriented X3, Cooperative, No acute distress HEENT: Atraumatic, PERRLA, EOMI, Mucous membrane pale Respiratory: Clear to auscultation, Normal air movement Cardiovascular: Regular rate, Normal S1, Normal S2, No murmurs, no chest wall tenderness Abdominal: Normal bowel sounds, Soft, No tenderness, No hepatosplenomegaly, No masses Extremities: No clubbing, No cyanosis, No edema, Normal pulses, No tenderness/swelling Skin: No rashes, No breakdown, No significant lesion Neuro: Normal gait, Normal speech, Strength at 5/5 X4 ext, Normal tone, Sensation intact, grossly intact cranial nerves. Psych/Mental Status: Mental status NL, Mood NL Cervical lymph node: A 2 cm rounded hard lymph node in the anterior cervical area laboratory and microbiology Laboratory Tests 01/02/25 11:42 01/01/25 04:26 Test 01/01/25 04:26 Range/Units Serum Glucose 94 74-106 mg/dL Microbiology Date/Time Source Procedure Growth Status 01/01/25 00:40 Nose MRSA Screen - Final Complete Labs and/or images reviewed: Labs reviewed by me, Image(s) reviewed by me Problem List/Assessment/Plan Problem List/Assessment/Plan Assessment and plan # Generalized weakness likely due to symptomatic anemia # Acute on chronic anemia likely due to malignancy # History of laryngeal cancer with possible metastasis to lungs and liver, status post radiotherapy and chemotherapy - CT neck demonstrated Low-density mass in the thyroid gland as described above. Malignancy not excluded and soft tissue density within the hypo pharyngeal airway. Possibly complex fluid/debris. Soft tissue mass can not be excluded - CT abdomen pelvis showed Numerous lung nodules/masses are concerning for metastases and Liver lesions are concerning for metastases (12/06/24) - patient was given IV bolus normal saline 1 L followed by IV 5% DA with half- normal saline at 75 mL/hour - H&H 06/06 and blood transfusion if hemoglobin less than 7 # FLO likely due to hemodynamically mediated /VMN resolved - Monitor BMP # GERD - Continue Protonix 40 mg p.o. b.i.d and Carafate 1 g p.o. b.i.d. # Hypertensive heart disease # Rule out CHF - Ordered BNP and echo - Continue carvedilol 6.25 mg b.i.d. and furosemide 20 mg p.o. daily. # Transaminitis without hyperbilirubinemia likely due to secondary metastasis to liver - Monitor CMP # DVT prophylaxis - Lovenox 40 mg sc daily in the setting of malignancy Goal of care discussed with the patient for 20 minutes; full code Plan discussed with Dr. Regan Plan discussed with: Patient, Other (Nurse) My Orders My Orders Orders - LAVERN DESHPANDE RESIDENT Procedure Category Date Status Time Type And Screen BBK 01/01/25 In Process 15:44 Stool Occult Blood LAB 01/01/25 Uncollected 16:21 Addendum Addendum Addendum I was physically present for the espinoza portions of the service provided to patient by THE RESIDENT. I have reviewed the documentation, discussed the case with resident and agree with the resident's documentation except as noted. Also the patient's clinical case was discussed with the patient's nurse. This medical document was created using an electronic medical record system with computerized dictation system. Although this document has been carefully reviewed, there might still be some phonetic and typographical errors. These areas are purely typographical due to imperfections of the software programs, and do not reflect any compromise in the patient's medical care. Late signature. Date of Service: Jan 02, 2025 Billing Provider: MARIA TERESA REGAN MD Common Visit Codes: [id number] INP/OBS CARE(HIGH) Secondary Visit Codes: [id number] CARE PLAN 30 MINUTES (20 minutes) LAVERN DESHPANDE RESIDENT Jan 02, 2025 12:10 MARIA TERESA REGAN MD Jan 02, 2025 18:37
[2025-01-03 01:00] VITALS: BP 101/57; PULSE 97; RESP 19; TEMP 97.7; O2SAT 91
[2025-01-03 06:26] LABS: Basophils # (auto) 0 10 ^3/uL (0-0.2); Basophils % (auto) 0.5 % (0.0-2.0); Eosinophils # (auto) 0 10 ^3/uL (0-0.8); Eosinophils % (auto) 0.1 % (0.0-7.0); Hemoglobin 8.8 g/dL (13.5-17.5); Lymphocytes # (auto) 0.9 10 ^3/uL (0.4-5.4); Lymphocytes % (auto) 10.5 % (10.0-50.0); Mean Corpuscular Hemoglobin 30.1 pg (28.0-32.0); Mean Corpuscular Hgb Conc. 33.8 g/dL (32.0-36.0); Mean Corpuscular Volume 88.9 fL (80.0-100.0); Monocytes # (auto) 1.4 10 ^3/uL (0-1.3); Monocytes % (auto) 16.6 % (0.0-12.0); Neutrophils # (auto) 6.2 10 ^3/uL (1.6-8.6); Neutrophils % (auto) 72.3 % (37.0-80.0); Nucleated Red Blood Cells % 0.1 %; Platelet Count (auto) 260 10^3/uL (140-450); Red Blood Cells 2.94 10^6/uL (4.5-5.90); Red Cell Distribution Width 17.8 % (11.8-14.3); White Blood Cell 8.6 10^3/uL (4.4-10.8)
[2025-01-03 06:32] LABS: Anion Gap 12 (5-15); Carbon Dioxide 28 mmol/L (20-31); Chloride 101 mmol/L (98-107); Sodium 141 mmol/L (136-145)
[2025-01-03 06:33] LABS: Calcium 9.9 mg/dL (8.7-10.4)
[2025-01-03 06:39] LABS: Glucose 149 mg/dL (74-106)
[2025-01-03 06:55] LABS: BUN/Creatinine Ratio 11.7 (10.0-20.0); Blood Urea Nitrogen 14 mg/dL (9-23)
[2025-01-03 06:56] LABS: Hematocrit 26.1 % (41.0-53.0)
[2025-01-03 08:05] VITALS: PULSE 96; RESP 16; O2SAT 94
[2025-01-03 09:00] VITALS: BP 128/79; PULSE 96; RESP 16; TEMP 98.1; O2SAT 98
--- NOTE | 2025-01-03 12:01 | DVHDSRES ---
Discharge Summary Date of Admission Resident Creating Document: BRIAN BENTON RESIDENT Dec 31, 2024 at 13:09 Date of Discharge: Jan 03, 2025 Admitting Diagnosis Generalized weakness Labs/Diagnostic Data: Laboratory Results Test 01/03/25 11:25 01/03/25 05:51 01/01/25 13:50 01/01/25 13:10 POC Glucose 101 mg/dl (70-106) White Blood Count 8.6 10^3/uL (4.4-10.8) Red Blood Count 2.94 10^6/uL (4.5-5.90) Hemoglobin 8.8 g/dL (13.5-17.5) Hematocrit 26.1 % (41.0-53.0) Mean Corpuscular Volume 88.9 fL (80.0-100.0) Mean Corpuscular Hemoglobin 30.1 pg (28.0-32.0) Mean Corpuscular Hemoglobin Concent 33.8 g/dL (32.0-36.0) Red Cell Distribution Width 17.8 % (11.8-14.3) Platelet Count 260 10^3/uL (140-450) Mean Platelet Volume 9.1 fL (6.9-10.8) Neutrophils (%) (Auto) 72.3 % (37.0-80.0) Lymphocytes (%) (Auto) 10.5 % (10.0-50.0) Monocytes (%) (Auto) 16.6 % (0.0-12.0) Eosinophils (%) (Auto) 0.1 % (0.0-7.0) Basophils (%) (Auto) 0.5 % (0.0-2.0) Neutrophils # (Auto) 6.2 10 ^3/uL (1.6-8.6) Lymphocytes # (Auto) 0.9 10 ^3/uL (0.4-5.4) Monocytes # (Auto) 1.4 10 ^3/uL (0-1.3) Eosinophils # (Auto) 0 10 ^3/uL (0-0.8) Basophils # (Auto) 0 10 ^3/uL (0-0.2) Nucleated Red Blood Cells 0.1 % Sodium Level 141 mmol/L (136-145) Potassium Level 4.0 mmol/L (3.5-5.1) Chloride Level 101 mmol/L (98-107) Carbon Dioxide Level 28 mmol/L (20-31) Anion Gap 12 (5-15) Blood Urea Nitrogen 14 mg/dL (9-23) Creatinine 1.20 mg/dL (0.700-1.30) Glomerular Filtration Rate Calc 76 mL/min (>90) BUN/Creatinine Ratio 11.7 (10.0-20.0) Serum Glucose 149 mg/dL (74-106) Calcium Level 9.9 mg/dL (8.7-10.4) Reticulocyte Count (auto) 2.80 % (0.5-1.5) Ammonia < 10 umol/L (11-32) Test 01/01/25 04:26 12/31/24 10:59 12/31/24 10:15 Differential Total Cells Counted 100.0 (100) Neutrophils % (Manual) 68 (37.0-80.0) Band Neutrophils % (Manual) 1 Lymphocytes % (Manual) 11 (10.0-50.0) Monocytes % (Manual) 20 (0-12) Eosinophils % (Manual) 0 (0-7) Basophils % (Manual) 0 (0.0-2.0) Metamyelocytes % (manual) 0 Myelocytes % (Manual) 0 Promyelocytes % (Manual) 0 Blast Cells % (Manual) 0 Reactive Lymphocytes 0 Platelet Estimate Adequate Haptoglobin 260 mg/dL (23-355) Total Bilirubin 0.6 mg/dL (0.2-1.0) Aspartate Amino Transferase (AST) 133 U/L (13-40) Alanine Aminotransferase (ALT) 23 U/L (7-40) Alkaline Phosphatase 121 U/L (46-116) Lactate Dehydrogenase 466 U/L (120-246) B-Type Natriuretic Peptide 53.99 pg/mL (0-100) Total Protein 6.5 g/dL (5.7-8.2) Albumin 4.2 g/dL (3.2-4.8) Thyroid Stimulating Hormone (TSH) 2.54 uIU/mL (0.55-4.78) Urine Color Yellow (Yellow) Urine Clarity Clear (Clear) Urine pH 7.5 (5.0-9.0) Urine Specific [place] 1.022 (1.001-1.035) Urine Protein 2+ (Negative) Urine Ketones Negative (Negative) Urine Blood Negative /uL (Negative) Urine Nitrite Negative (Negative) Urine Bilirubin Negative (Negative) Urine Urobilinogen 4 mg/dL (Negative) Urine Leukocyte Esterase Negative /uL (Negative) Urine RBC 3 /hpf (0 - 3) Urine Microscopic WBC 4 /HPF (0-3) Urine Squamous Epithelial Cells Few /hpf (<5) Urine Bacteria None seen /hpf (None Seen) Urine Mucus Few (None Seen) Urine Glucose Normal mg/dL (Normal) Hemoglobin A1c 5.5 % A1C (<5.7) Other Laboratory Tests 01/03/25 05:51 Brief Hx & Hospital Course: KELL NINO is a 44-year-old male with past medical history of chronic respiratory failure on 2 L home oxygen depression, GERD, hypertension, 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 the patient states that his last chemotherapy was deferred to week of January because of his low hemoglobin and also for last 3 days he was having difficulty in swelling feels like a lump in the throat. he denies fever, chills, chest pain, recent contact , any recent traveling or any change in the bowel and bladder habit. Patient required hospital admission for further evaluation and management generalized weakness Symptomatic anemia. CT neck demonstrated Low-density mass in the thyroid gland as described above. Malignancy not excluded and soft tissue density within the hypo pharyngeal airway. Possibly complex fluid/debris. Soft tissue mass can not be excluded. CT abdomen pelvis showed Numerous lung nodules/masses are concerning for metastases and Liver lesions are concerning for metastases (12/06/24). Continuously monitoring lab due to low hemoglobin and hematocrit H&H 7.7/22.5 and repeat H&H at 2:00 p.m., blood transfusion if hemoglobin less than 7. Patient hemoglobin was continuously monitored which is stable and not requiring hemoglobin transfusion at this time. Patient was developed FLO likely due to vasomotor nephropathy, continuously monitored and resolved. Due to hypertension patient continued Coreg and Lasix. Patient was advised to follow up with Cardiology in outpatient to rule out CHF. Patient condition was improved, hemodynamically stable and in condition to be discharged home. Patient was advised to follow up with PCP, Oncology for follow up of cancer. Physical examination on the day of discharge: General Appearance: Pale; Alert, Oriented X3, Cooperative, No acute distress HEENT: Atraumatic, PERRLA, EOMI, Mucous membrane pale Respiratory: Clear to auscultation, Normal air movement Cardiovascular: Regular rate, Normal S1, Normal S2, No murmurs Abdominal: Normal bowel sounds, Soft, No tenderness, No hepatosplenomegaly Extremities: No clubbing, No cyanosis, Normal pulses, No tenderness/swelling Skin: No rashes, No breakdown, No significant lesion Neuro: Normal gait, Normal speech, no sensory motor deficits Psych/Mental Status: Mental status NL, Mood NL Case discussed with Dr. Regan Operations or Procedures Carotid duplex 1. No hemodynamically significant stenosis based on NASCET criteria CT neck demonstrated Low-density mass in the thyroid gland as described above. Malignancy not excluded and soft tissue density within the hypo pharyngeal airway. Possibly complex fluid/debris. Soft tissue mass can not be excluded. Condition at Discharge: Stable Final Diagnosis/Problems List # Generalized weakness likely due to symptomatic anemia Normocytic, normochromic # Acute on chronic anemia likely due to malignancy # History of laryngeal cancer with possible metastasis to lungs and liver, status post radiotherapy and chemotherapy # FLO likely due to hemodynamically mediated /VMN resolved # GERD # Hypertensive heart disease # Rule out CHF as outpatient # Transaminitis without hyperbilirubinemia likely due to secondary metastasis to liver Discharge Disposition: Home Discharge Instruct/Medications Diet: Consistent carbohydrate, Cardiac 2g Na,low cholest Activity: No Restrictions, As Tolerated Follow Up/Referral: PCP within one week Oncology for chemotherapy as scheduled Medications: Resume home meds Discharge Statement: "Patient was advised to return to the ER or call 911 if any headaches, dizziness, shortness of breath, chest pain, abdominal pain, bleeding, fevers, or worsening of medical condition. Patient was counseled about treatment plan, medications, possible side effects, patientverbalized understanding. All questions were answered to the best of my ability. This discharge took greater then 30 minutes in planning, reviewing documentation, counseling the patient, and discussing with other team members." ASSESSMENT ASSESSMENT Assessment Generalized weakness likely due to symptomatic anemia Addendum Addendum Addendum I was physically present for the espinoza portions of the service provided to patient by THE RESIDENT. I have reviewed the documentation, discussed the case with resident and agree with the resident's documentation except as noted. Also the patient's clinical case was discussed with the patient's nurse. This medical document was created using an electronic medical record system with computerized dictation system. Although this document has been carefully reviewed, there might still be some phonetic and typographical errors. These areas are purely typographical due to imperfections of the software programs, and do not reflect any compromise in the patient's medical care. Late signature. Date of Service: Jan 03, 2025 Billing Provider: MARIA TERESA REGAN MD Common Visit Codes: 98585-IEN/OBS DISCH DAY >30min BRIAN BENTON RESIDENT Jan 03, 2025 12:01 MARIA TERESA REGAN MD Jan 03, 2025 13:56
[2025-01-03 12:55] VITALS: BP 100/69; PULSE 96; RESP 16; TEMP 98.1; O2SAT 94
[2025-01-03 16:31] VITALS: BP 121/74; PULSE 98; RESP 17; TEMP 98.1; O2SAT 97
[2025-01-03 16:35] VITALS: BP 121/74; PULSE 98; RESP 17; TEMP 98.5; O2SAT 97
== END 2025-01-03 16:59 | disposition home or self-care (01) | DRG 136 ==
LOC: ER 09:44 → OVERFLOW 13:09 → EAST 17:50
PROVIDERS: ADMIT Internal Medicine; ATTEND Internal Medicine
DX: C78.00 Secondary malignant neoplasm of unspecified lung (principal); N17.0 Acute kidney failure with tubular necrosis; C78.7 Secondary malignant neoplasm of liver and intrahepatic bile duct; I50.9 Heart failure, unspecified; Z99.81 Dependence on supplemental oxygen; D63.0 Anemia in neoplastic disease; R74.01 Elevation of levels of liver transaminase levels; R73.9 Hyperglycemia, unspecified; K21.9 Gastro-esophageal reflux disease without esophagitis; I10 Essential (primary) hypertension; F32.A Depression, unspecified; Z85.819 Personal history of malignant neoplasm of unspecified site of lip, oral cavity, and pharynx; Z85.21 Personal history of malignant neoplasm of larynx; Z79.899 Other long term (current) drug therapy
CPT/HCPCS: 36415; 70490; 71045; 80048; 80053; 81001; 82140; 82962; 83010; 83036; 83615; 83880; 84443; 85007; 85014; 85018; 85025; 85027; 85045; 86850; 86900; 86901; 86920; 87081; 92610; 93005; 93886; 96361; 96374; 96375; G0378; J1815; J2405

== ENCOUNTER 2025-01-24 08:14 | Inpatient (IN) | payer MEDICAID ==
[~2025-01-24] VITALS: Ht 170.2 cm; Wt 93.2 kg
[2025-01-24] VITALS (7 sets, daily range): BP systolic 106–117; BP diastolic 61–69; PULSE 82–89; RESP 12–18; TEMP 98.3–98.8; O2SAT 97
[~2025-01-24 08:14] MED LIST changes: +FAMO-12 PO; -IBUP-1455 PO; +PRAV20TA3 PO; -ZOFR4T PO
--- NOTE | 2025-01-24 10:21 | ED.PDOC ---
GI ASSESSMENT HPI Comments 44 y.o male presents to the ED for a chief complaint of upper abdominal pain that started 2 days ago. Patient describes pain as sharp, constant, non radiating and has no alleviating factors. Patient also mentions numbness sensation to pain site on palpation. Patient denies any nausea, vomiting, diarrhea, fever, chills, chest pain. 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 Patient i s on home oxygen and denies any worsening SOB. Chief Complaint: Abdominal Pain Time Seen by MD: 09:37 Reviewed Notes: Nurses Notes, Medications, Allergies Allergies: Coded Allergies: NO KNOWN ALLERGIES (Unverified , 12/06/24) Home Meds Reported Medications Famotidine (Famotidine) 20 Mg Tab, 1 TAB PO BID 12/31/24 Pravastatin Sodium (PRAVACHOL TABLET) 20 Mg Tb, 1 TAB PO DAILY 12/31/24 Buprenorphine Hcl-Naloxone Hcl (Suboxone) 1 Mis Mis, 24 MG SL DAILY, MISC 12/07/24 Temazepam (Temazepam) 30 Mg Cap, 30 MG PO BID, CAP 12/06/24 Cholecalciferol (VITAMIN D3) 2,000 Unit Tab, 1 TAB PO DAILY, #30 TAB 5 Refills 12/06/24 Magnesium Oxide (MAGNESIUM OXIDE) 400 Mg Tab, 1 TAB PO BID, #60 TAB 5 Refills 12/06/24 Furosemide (Furosemide) 20 Mg Tab, 1 TAB PO BID, #90 TAB 1 Refill 12/06/24 Carvedilol (Coreg) 6.25 Mg Tab, 6.25 MG PO BID, TAB 12/06/24 Diltiazem Hcl (Dilt-Xr) 120 Mg Cap, 120 MG PO DAILY, CAP 12/06/24 Olanzapine (Zyprexa) 20 Mg Tab, 20 MG PO DAILY, TAB 12/06/24 Escitalopram Oxalate (Lexapro) 10 Mg Tab, 10 MG PO TID, TAB 12/06/24 Sucralfate (Carafate) 1 Gm/10 Ml Shanice, 1 GM PO BID, ML 12/06/24 Omeprazole (Gnp Omeprazole) 20 Mg Tab, 40 MG PO BID, TAB 12/06/24 Clonazepam (Klonopin) 1 Mg Tab, 1 TAB PO BID, #60 TAB 1 Refill 12/06/24 Information Source: Patient Mode of Arrival: Ambulatory Timing: Days (2) Duration: Since onset Quality: Aching Vomitus: None Stool: Normal Severity: Moderate Recent: None Recent Hx of: None Pain Location: Epigastric Modifying Factors: Nothing Associated sign and symptoms: Abdominal Pain Past Medical History PAST MEDICAL HISTORY: Anxiety, Cancer, Depression, GERD, HTN Family History Family History: Reviewed,noncontributory to illness Social History Smoker: Non-Smoker Alcohol: Denies ETOH Use Drugs: Denies Drug Use Lives In: Home Constitutional: denies: chills, diaphoresis, fatigue, fever, malaise, sweats, weakness, others EENTM: denies: blurred vision, double vision, ear bleeding, ear discharge, ear drainage, ear pain, ear ringing, eye pain, eye redness, hearing loss, mouth pain, mouth swelling, nasal discharge, nose bleeding, nose congestion, nose pain, photophobia, tearing, throat pain, throat swelling, voice changes, others Respiratory: denies: cough, hemoptysis, orthopnea, SOB at rest, shortness of breath, SOB with excertion, stridor, wheezing, others Cardiovascular: denies: chest pain, dizzy spells, diaphoresis, Dyspnea on exertion, edema, irregular heart beat, left arm pain, lightheadedness, palpitations, PND, syncope, others Gastrointestinal: reports: abdominal pain; denies: abdomen distended, blood streaked bowels, constipated, diarrhea, dysphagia, difficulty swallowing, hematemesis, melena, nausea, poor appetite, poor fluid intake, rectal bleeding, rectal pain, vomiting, others Genitourinary: denies: burning, dysuria, flank pain, frequency, hematuria, incontinence, penile discharge, penile sore, pain, testicle pain, testicle swelling, urgency, others Neurological: denies: dizziness, fainting, headache, left sided numbness, left sided weakness, numbness, paresthesia, pre-existing deficit, right sided numbness, right sided weakness, seizure, speech problems, tingling, tremors, weakness, others Musculoskeletal: denies: back pain, gout, joint pain, joint swelling, muscle pain, muscle stiffness, neck pain, others Integumetry: denies: bruises, change in color, change in hair/nails, dryness, laceration, lesions, lumps, rash, wounds, others Allergic/Immunocompromised: denies: Difficulty Healing, Frequent Infections, Hives, Itching, others Hematologic/Lymphatic: denies: anemia, blood clots, easy bleeding, easy bruising, swollen glands, others Endocrine: denies: excessive hunger, excessive sweating, excessive thirst, excessive urination, flushing, intolerance to cold, intolerance to heat, unexplained weight gain, unexplained weight loss, others Psychiatric: denies: anxiety, bipolar disorder, depression, hopeless, panic disorder, schizophrenia, sleepless, suicidal, others All Other Systems: Reviewed and Negative Physical Exam General Appearance: Moderate Distress HEENT: Normal ENT Inspection, Pharynx Normal, TMs Normal Neck: Full Range of Motion, Non-Tender, Normal, Normal Inspection Respiratory: Chest Non-Tender, Lungs Clear, No Accessory Muscle Use, No Respiratory Distress, Normal Breath Sounds Cardiovascular: No Edema, No JVD, No Murmur, No Gallop, Normal Peripheral Pulses, Regular Rate/Rhythm Breast Exam: Deferred Gastrointestinal: No Organomegaly, Non Tender, No Pulsatile Mass, Normal Bowel Sounds, Soft Genitalia: Deferred Pelvic: Deferred Rectal: Deferred Extremities: No calf tenderness, Normal capillary refill, Normal inspection, Normal range of motion, Non-tender, No pedal edema Musculoskeletal : Apperance: Normal Neurologic: Alert, 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 Was a procedure done?: No GI differential Dx Differential Diagnosis: Constipation, Diverticular disease, Esophagitis, Gastritis/PUD, Gastroenteritis, Viral X-Ray, Labs, Meds, VS Vital Signs Date Time Temp Pulse Resp B/P (MAP) Pulse Ox O2 Delivery O2 Flow Rate FiO2 01/24/25 08:32 97.9 84 16 100/60 (73) 99 97.9 Lab Test 01/24/25 10:35 Range/Units White Blood Count 2.6 L 4.4-10.8 10^3/uL Red Blood Count 2.12 L 4.5-5.90 10^6/uL Hemoglobin 6.5 *L 13.5-17.5 g/dL Hematocrit 19.1 L 41.0-53.0 % Mean Corpuscular Volume 89.9 80.0-100.0 fL Mean Corpuscular Hemoglobin 30.4 28.0-32.0 pg Mean Corpuscular Hemoglobin Concent 33.8 32.0-36.0 g/dL Red Cell Distribution Width 17.4 H 11.8-14.3 % Platelet Count 140-450 10^3/uL Mean Platelet Volume 8.9 6.9-10.8 fL Neutrophils (%) (Auto) 44.7 37.0-80.0 % Lymphocytes (%) (Auto) 36.0 10.0-50.0 % Monocytes (%) (Auto) 16.6 H 0.0-12.0 % Eosinophils (%) (Auto) 1.8 0.0-7.0 % Basophils (%) (Auto) 0.9 0.0-2.0 % Neutrophils # (Auto) 1.2 L 1.6-8.6 10 ^3/uL Lymphocytes # (Auto) 0.9 0.4-5.4 10 ^3/uL Monocytes # (Auto) 0.4 0-1.3 10 ^3/uL Eosinophils # (Auto) 0 0-0.8 10 ^3/uL Basophils # (Auto) 0 0-0.2 10 ^3/uL Nucleated Red Blood Cells 0.3 % Platelet Estimate Pending Troponin I High Sensitivity < 3 L </=54 ng/L Patient alert. Musculoskeletal pain. Chronic history. Vitals stable. Physical examination within normal limits. He is pale. Currently on chemotherapy. Chest x-ray reviewed does show pneumonia. He is on oxygen. Reviewed his previous visit. Establish intravenous access. Was given Rocephin. Was given azithromycin. Explained to the patient. Continue monitoring. Hemoglobin is low. Blood transfusion. Time of 1ST Reevaluation: 10:18 Reevaluation 1ST: Unchanged Patient Education/Counseling: Diagnosis, Treatment, Prognosis Family Education/Counseling: No Family Present Departure 1 Departure Time of Disposition: 11:11 Impression: Primary Impression: Pneumonia Qualified Codes: J18.9 - Pneumonia, unspecified organism Additional Impressions: Severe anemia Musculoskeletal pain Disposition: ADMITTED INPATIENT Admit to: Med Surg Condition: Guarded Critical Care Note Critical Care Time?: No Stability Stability form required: No I personally scribed for CASTRO NOLEN MD ([email or web address]) on 01/24/25 at 10:21. Electronically submitted by Darlyn Plasencia ([facility]). CASTRO NOLEN MD Jan 24, 2025 10:21
--- NOTE | 2025-01-24 11:04 | DVH ---
EXAM: XR Chest, 1 View CLINICAL INDICATION: sob TECHNIQUE: Frontal view of the chest. COMPARISON: XY CHEST PORTABLE on DOS: 12/31/24 FINDINGS: LUNGS AND PLEURAL SPACES: Right infrahilar airspace disease, likely pneumonia. HEART: Unremarkable. No cardiomegaly. MEDIASTINUM: Unremarkable. Normal mediastinal contour. BONES/JOINTS: Unremarkable. No acute fracture. TUBES, LINES AND DEVICES: Right-sided Mediport with the distal tip in the SVC. No pneumothorax. OTHER FINDINGS: . IMPRESSION: Right infrahilar airspace disease, likely pneumonia.
[2025-01-24 12:03] LABS: Basophils # (auto) 0 10 ^3/uL (0-0.2); Eosinophils # (auto) 0 10 ^3/uL (0-0.8); Lymphocytes # (auto) 0.9 10 ^3/uL (0.4-5.4); Neutrophils # (auto) 1.2 10 ^3/uL (1.6-8.6); Nucleated Red Blood Cells % 0.3 %; Red Blood Cells 2.12 10^6/uL (4.5-5.90); White Blood Cell 2.6 10^3/uL (4.4-10.8)
[2025-01-24 12:05] LABS: Basophils % (auto) 0.9 % (0.0-2.0); Eosinophils % (auto) 1.8 % (0.0-7.0); Hematocrit 19.1 % (41.0-53.0); Mean Corpuscular Hemoglobin 30.4 pg (28.0-32.0); Mean Corpuscular Hgb Conc. 33.8 g/dL (32.0-36.0); Mean Corpuscular Volume 89.9 fL (80.0-100.0); Monocytes # (auto) 0.4 10 ^3/uL (0-1.3); Monocytes % (auto) 16.6 % (0.0-12.0); Neutrophils % (auto) 44.7 % (37.0-80.0); Red Cell Distribution Width 17.4 % (11.8-14.3)
[2025-01-24 12:13] LABS: Hemoglobin 6.5 g/dL (13.5-17.5)
[2025-01-24 12:25] LABS: Anisocytosis Slight; Platelet Count (auto) 41 10^3/uL (140-450); Platelet Estimate Decreased
[2025-01-24 12:26] LABS: Stomatocytes Few
[2025-01-24] MEDS: cefTRIAXone 1GM/50ML D5W 50 ML IV ONE (12:32)
[2025-01-24] MEDS: AZITHROMYCIN 500MG/ 250ML 250 ML IV ONE (13:09)
[2025-01-24] MEDS: ONDANSETRON ODT 4 MG TAB PO ONE (13:47)
--- NOTE | 2025-01-24 15:25 | DVHHP2 ---
Admitting Diagnosis: Abdominal pain History of Present Illness 44 y.o male presents to the ED for a chief complaint of upper abdominal pain that started 2 days ago. Patient describes pain as sharp, constant, non r adiating and has no alleviating factors. Patient also mentions numbness sensation to pain site on palpation. Patient denies any nausea, vomiting, diarrhea, fever, chills, chest pain. 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 Patient is on home oxygen and denies any worsening SOB. PAST MEDICAL HISTORY: Anxiety, Cancer, Depression, GERD, HTN Family History Family History: Reviewed,noncontributory to illness Social History Smoker: Non-Smoker Alcohol: Denies ETOH Use Drugs: Denies Drug Use Lives In: Home Patient Family History: Patient reports no known family medical history. Allergies: Coded Allergies: NO KNOWN ALLERGIES (Unverified , 12/06/24) Home Meds Reported Medications Famotidine (Famotidine) 20 Mg Tab, 1 TAB PO BID 12/31/24 Pravastatin Sodium (PRAVACHOL TABLET) 20 Mg Tb, 1 TAB PO DAILY 12/31/24 Buprenorphine Hcl-Naloxone Hcl (Suboxone) 1 Mis Mis, 24 MG SL DAILY, MISC 12/07/24 Temazepam (Temazepam) 30 Mg Cap, 30 MG PO BID, CAP 12/06/24 Cholecalciferol (VITAMIN D3) 2,000 Unit Tab, 1 TAB PO DAILY, #30 TAB 5 Refills 12/06/24 Magnesium Oxide (MAGNESIUM OXIDE) 400 Mg Tab, 1 TAB PO BID, #60 TAB 5 Refills 12/06/24 Furosemide (Furosemide) 20 Mg Tab, 1 TAB PO BID, #90 TAB 1 Refill 12/06/24 Carvedilol (Coreg) 6.25 Mg Tab, 6.25 MG PO BID, TAB 12/06/24 Diltiazem Hcl (Dilt-Xr) 120 Mg Cap, 120 MG PO DAILY, CAP 12/06/24 Olanzapine (Zyprexa) 20 Mg Tab, 20 MG PO DAILY, TAB 12/06/24 Escitalopram Oxalate (Lexapro) 10 Mg Tab, 10 MG PO TID, TAB 12/06/24 Sucralfate (Carafate) 1 Gm/10 Ml Shanice, 1 GM PO BID, ML 12/06/24 Omeprazole (Gnp Omeprazole) 20 Mg Tab, 40 MG PO BID, TAB 12/06/24 Clonazepam (Klonopin) 1 Mg Tab, 1 TAB PO BID, #60 TAB 1 Refill 12/06/24 Current Medications Current Medications Medications (Trade) Dose Ordered Sig/Gladis Route PRN Reason Start Time Stop Time Status Last Admin Ceftriaxone Sodium 50 ml @ 100 mls/hr DAILY IV 01/25/25 10:00 UNV Azithromycin 250 ml @ 125 mls/hr DAILY IV 01/25/25 10:00 UNV Sodium Chloride (Saline Lock Ns) 10 ml Q8HR IV 01/24/25 22:00 UNV Docusate Sodium (Colace Capsule) 100 mg BIDPRN PRN PO FOR CONSTIPATION 01/24/25 15:30 UNV Vital Signs Vital Signs Date Time Temp Pulse Resp B/P (MAP) Pulse Ox O2 Delivery O2 Flow Rate FiO2 01/24/25 12:48 80 20 01/24/25 12:48 99.4 98/54 (69) 98 99.4 Physical Exam 44 years old male, well nourished, well developed. No apparent distress HEENT-atraumatic, normocephalic, pallor palpate brain Heart-regular rate and rhythm Lungs Lukasz breath sounds over right lower lung milner Abdomen soft nontender nondistended Musculoskeletal-no edema cyanosis Neuro-AO x3, no focal deficits Results Labs Test 01/24/25 10:35 Range/Units White Blood Count 2.6 L 4.4-10.8 10^3/uL Red Blood Count 2.12 L 4.5-5.90 10^6/uL Hemoglobin 6.5 *L 13.5-17.5 g/dL Hematocrit 19.1 L 41.0-53.0 % Mean Corpuscular Volume 89.9 80.0-100.0 fL Mean Corpuscular Hemoglobin 30.4 28.0-32.0 pg Mean Corpuscular Hemoglobin Concent 33.8 32.0-36.0 g/dL Red Cell Distribution Width 17.4 H 11.8-14.3 % Platelet Count 41 L 140-450 10^3/uL Mean Platelet Volume 8.9 6.9-10.8 fL Neutrophils (%) (Auto) 44.7 37.0-80.0 % Lymphocytes (%) (Auto) 36.0 10.0-50.0 % Monocytes (%) (Auto) 16.6 H 0.0-12.0 % Eosinophils (%) (Auto) 1.8 0.0-7.0 % Basophils (%) (Auto) 0.9 0.0-2.0 % Neutrophils # (Auto) 1.2 L 1.6-8.6 10 ^3/uL Lymphocytes # (Auto) 0.9 0.4-5.4 10 ^3/uL Monocytes # (Auto) 0.4 0-1.3 10 ^3/uL Eosinophils # (Auto) 0 0-0.8 10 ^3/uL Basophils # (Auto) 0 0-0.2 10 ^3/uL Nucleated Red Blood Cells 0.3 % Platelet Estimate Decreased Anisocytosis (manual) Slight Stomatocytes Few Troponin I High Sensitivity < 3 L </=54 ng/L Primary Diagnosis Right lung pneumonia Severe anemia requiring blood transfusion Lung cancer on chemotherapy and immunotherapy Immunosuppressed state Plan Status post transfusion 1 unit PRBC in ED check pulse CBC 4 hours after blood transfusion Ceftriaxone, azithromycin for community-acquired pneumonia. Check sputum culture. Adjust antibiotic according to the ID and sensitivity Check liver, check UA, check reticulocyte count Check ferritin, iron Check CMP to assess for renal and liver function Check lactic acid, LDH Regular diet Full code SCD for DVT prophylaxis in view of severe anemia PPI for GI prophylaxis Plan discussed with: Patient Problems List: (1) Severe anemia Status: Acute (2) Cancer, metastatic to liver Status: Acute (3) Pneumonia Status: Acute Date of Service: Jan 24, 2025 Billing Provider: JAIR NEWMAN MD Common Visit Codes: [id number] INP/OBS CARE (HIGH) JAIR NEWMAN MD Jan 24, 2025 15:25
[2025-01-24] MEDS ORDERED: DOCUSATE SOD 100 MG CAP PO PRN (15:30)
[2025-01-24] MEDS ORDERED: ACETAMINOPHEN 325 MG TAB PO PRN (15:30)
[2025-01-24 16:12] LABS: Alanine Aminotransferase 17 U/L (7-40); Calcium 8.9 mg/dL (8.7-10.4); Chloride 99 mmol/L (98-107)
[2025-01-24 16:13] LABS: Albumin 4.2 g/dL (3.2-4.8); Anion Gap 7 (5-15); BUN/Creatinine Ratio 8.8 (10.0-20.0); Bilirubin, Total 0.3 mg/dL (0.2-1.0); Blood Urea Nitrogen 15 mg/dL (9-23); Potassium 3.6 mmol/L (3.5-5.1); Sodium 137 mmol/L (136-145); Total Protein 6.5 g/dL (5.7-8.2)
[2025-01-24 16:17] LABS: Alkaline Phosphatase 123 U/L (46-116); Aspartate Aminotransferase 49 U/L (13-40); Carbon Dioxide 31 mmol/L (20-31); Glucose 137 mg/dL (74-106)
[2025-01-24 16:22] LABS: CRP High Sensitivity 4.32 mg/dL (<1.0)
[2025-01-24] MEDS: ONDANSETRON HCL 4 MG/2 ML VIAL IV PRN (21:40)
[2025-01-24] MEDS: clonazePAM 0.5 MG TAB PO ONE (21:40)
[2025-01-24] MEDS: SODIUM CHLOR 0.9% PF (SALINE LOCK) 10ML VIAL/SYR IV SCH (23:34)
[2025-01-24] MEDS: LORazepam 0.5 MG TAB PO ONE (23:36)
[2025-01-25 00:16] VITALS: BP 111/61; PULSE 84; RESP 13; TEMP 98.7
[2025-01-25 01:23] VITALS: BP 116/76; PULSE 87; RESP 14; TEMP 98
[2025-01-25] MEDS: HYDROcodone-ACET 5/325MG TAB PO PRN (05:57)
[2025-01-25 07:30] VITALS: PULSE 82; RESP 15; O2SAT 99
[2025-01-25] MEDS: clonazePAM 0.5 MG TAB PO PRN ×2 (09:39→17:41)
[2025-01-25] MEDS: cefTRIAXone 1GM/50ML D5W 50 ML IV SCH (09:43)
[2025-01-25 09:50] LABS: Alanine Aminotransferase 17 U/L (7-40); Albumin 4.1 g/dL (3.2-4.8); Anion Gap 8 (5-15); BUN/Creatinine Ratio 8.9 (10.0-20.0); Bilirubin, Total 0.6 mg/dL (0.2-1.0); Blood Urea Nitrogen 13 mg/dL (9-23); Calcium 9.1 mg/dL (8.7-10.4); Chloride 100 mmol/L (98-107); Potassium 3.7 mmol/L (3.5-5.1); Sodium 140 mmol/L (136-145); Total Protein 6.2 g/dL (5.7-8.2)
--- NOTE | 2025-01-25 09:56 | DVHPNRES ---
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 Denies nausea, vomiting, diarrhea, fever, chills, or chest pain. Reports localized numbness at the pain site. He is on home oxygen and denies worsening SOB. He was found to have severe anemia and thrombocytopenia on admission, likely chemotherapy-induced per oncology. Additionally, CXR and clinical exam were consistent with right lower lobe pneumonia. PMHx: Anxiety, Cancer (vocal cord), GERD, HTN, Depression Allergies: No known drug allergies Family Hx: Non-contributory Social Hx: Non-smoker, denies alcohol and drug use, lives at home Objective vital signs Vital Sign Date Time Temp Pulse Resp B/P (MAP) Pulse Ox O2 Delivery O2 Flow Rate FiO2 01/25/25 08:08 82 01/25/25 08:00 98.1 16 120/73 (89) 97 98.1 01/25/25 07:30 Nasal Cannula* 2 28 Total Intake and Output 01/24/25 01/24/25 01/25/25 15:00 23:00 07:00 Intake Total 100 ml 800 ml 400 ml Output Total 0 ml 300 ml Balance 100 ml 800 ml 100 ml medications Current Medications Medications Dose Ordered Sig/Gladis Route Start Time Stop Time Status Last Admin Dose Admin Ceftriaxone Sodium 50 ml @ 100 mls/hr DAILY IV 01/25/25 10:00 01/25/25 09:43 100 MLS/HR Azithromycin 250 ml @ 125 mls/hr DAILY IV 01/25/25 10:00 Sodium Chloride 10 ml Q8HR IV 01/24/25 22:00 Docusate Sodium 100 mg BIDPRN PRN PO 01/24/25 15:30 Acetaminophen 650 mg Q6HP PRN PO 01/24/25 15:30 Acetaminophen/ Hydrocodone Bitart 1 tab Q4HP PRN PO 01/24/25 15:30 01/25/25 05:57 1 TAB Ondansetron HCl 4 mg Q4HP PRN IV 01/24/25 15:30 01/24/25 21:40 4 MG Clonazepam 1 mg Q12HP PRN PO 01/24/25 21:15 01/25/25 09:39 1 MG Examination Gen: Alert, oriented, pale Lungs: Clear to auscultation, no accessory muscle use CV: RRR, no murmur Abdomen: Mild tenderness RUQ, no guarding or rebound Ext: No LE edema Neuro: No focal deficit laboratory and microbiology Test 01/25/25 09:25 Range/Units Serum Glucose Pending Problem List/Assessment/Plan Problem List/Assessment/Plan #Right lower lobe pneumonia likely obstructive/ lungs mets, gram pos/gram neg started on ceftriaxone and azithromycin #Chemotherapy-induced thrombocytopenia and anemia received 1 unit PRBC, oncology recommends monitoring; platelets remain low: 1 unit of platelets ordered #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 Tate) once patient is ready for discharge Case discussed with Dr Harp Plan discussed with: Patient, Other (rn) My Orders My Orders Orders - TRUNG SAUCEDO Procedure Category Date Status Time Complete Blood Count LAB 01/25/25 In Process 09:12 Comprehensive LAB 01/25/25 In Process Metabolic Panel 09:12 CC Plasma Assessment Blood Product Administration S: [id number] Date of Service: Jan 25, 2025 Billing Provider: SUNDEEP HARP MD Common Visit Codes: [id number] INP/OBS CARE(HIGH) TRUNG SAUCEDO RESIDENT Jan 25, 2025 09:56 SUNDEEP HARP MD Jan 27, 2025 22:13
[2025-01-25 10:06] LABS: Alkaline Phosphatase 118 U/L (46-116); Aspartate Aminotransferase 46 U/L (13-40); Carbon Dioxide 32 mmol/L (20-31); Glucose 110 mg/dL (74-106)
[2025-01-25] MEDS: AZITHROMYCIN 500MG/ 250ML 250 ML IV SCH (10:14)
[2025-01-25 10:31] LABS: Hemoglobin 7.8 g/dL (13.5-17.5); White Blood Cell 3.2 10^3/uL (4.4-10.8)
[2025-01-25 10:33] LABS: Hematocrit 22.5 % (41.0-53.0); Mean Corpuscular Hemoglobin 31.3 pg (28.0-32.0); Mean Corpuscular Hgb Conc. 34.7 g/dL (32.0-36.0); Mean Corpuscular Volume 90.1 fL (80.0-100.0); Red Cell Distribution Width 16.4 % (11.8-14.3)
[2025-01-25 10:40] LABS: Platelet Count (auto) 14 10^3/uL (140-450)
[2025-01-25 10:41] LABS: Basophils % (manual) 0 (0.0-2.0); Blast Cells 0; Eosinophils % (manual) 0 (0-7); Metamyelocytes % 0; Myelocytes % 0; Promyelocytes % 0; Reactive Lymphocytes 0
[2025-01-25 10:47] LABS: Band Neutrophils % (manual) 3; Lymphocytes % (manual) 39 (10.0-50.0); Monocytes % (manual) 5 (0-12); Platelet Estimate Markedly Decreased
[2025-01-25 11:33] LABS: Urine Bacteria None Seen /hpf (None Seen)
[2025-01-25 11:41] LABS: Urine Blood Negative /uL (Negative); Urine Clarity Clear (Clear); Urine Color Light-Yellow (Yellow); Urine Protein, UAD Negative (Negative); Urine Specific Gravity 1.008 (1.001-1.035); Urine Squamous Epithelial Cell None Seen /hpf (<5); Urine Urobilinogen Normal (Negative); Urine WBC 1 /HPF (0-3)
[2025-01-25 16:52] VITALS: RESP 18; TEMP 98; O2SAT 100
[2025-01-25] MEDS ORDERED: clonazePAM 0.5 MG TAB PO PRN (17:00)
[2025-01-25 17:05] VITALS: BP 101/71; PULSE 76; RESP 19; TEMP 98; O2SAT 98
[2025-01-25 21:00] VITALS: BP 107/71; PULSE 80; RESP 18; TEMP 98.1; O2SAT 99
[2025-01-26] VITALS (9 sets, daily range): BP systolic 101–124; BP diastolic 60–79; PULSE 73–96; RESP 15–18; TEMP 97.6–98.1; O2SAT 93–99
[2025-01-26 06:52] LABS: INR 1.12 (0.9-1.15); Partial Thromboplastin Time 25.1 SEC (24.5-34.5); Prothrombin Time 11.7 sec (9.3-11.8)
[2025-01-26 07:00] LABS: Basophils # (auto) 0 10 ^3/uL (0-0.2); Eosinophils # (auto) 0 10 ^3/uL (0-0.8); Lymphocytes # (auto) 0.8 10 ^3/uL (0.4-5.4); Monocytes # (auto) 0.7 10 ^3/uL (0-1.3); Neutrophils # (auto) 2.5 10 ^3/uL (1.6-8.6); Nucleated Red Blood Cells % 0.1 %
[2025-01-26 07:02] LABS: Alanine Aminotransferase 11 U/L (7-40); Anion Gap 11 (5-15); BUN/Creatinine Ratio 8.9 (10.0-20.0); Blood Urea Nitrogen 11 mg/dL (9-23); Calcium 9.5 mg/dL (8.7-10.4); Chloride 101 mmol/L (98-107); Glucose 80 mg/dL (74-106); Potassium 3.9 mmol/L (3.5-5.1); Sodium 144 mmol/L (136-145); Total Protein 6.2 g/dL (5.7-8.2)
[2025-01-26 07:03] LABS: Basophils % (auto) 0.5 % (0.0-2.0); Hematocrit 24.5 % (41.0-53.0); Hemoglobin 8.3 g/dL (13.5-17.5); Lymphocytes % (auto) 18.9 % (10.0-50.0); Mean Corpuscular Hemoglobin 30.7 pg (28.0-32.0); Mean Corpuscular Volume 90.4 fL (80.0-100.0); Monocytes % (auto) 16.9 % (0.0-12.0); Neutrophils % (auto) 62.7 % (37.0-80.0); Platelet Count (auto) 27 10^3/uL (140-450); Red Blood Cells 2.71 10^6/uL (4.5-5.90); Red Cell Distribution Width 15.6 % (11.8-14.3)
[2025-01-26 07:04] LABS: Bilirubin, Total 0.5 mg/dL (0.2-1.0)
[2025-01-26 07:05] LABS: Alkaline Phosphatase 126 U/L (46-116); Aspartate Aminotransferase 51 U/L (13-40); Carbon Dioxide 32 mmol/L (20-31)
[2025-01-26] MEDS: PANTOPRAZOLE 40 MG/10 ML VIAL INJ IV ONE (08:48)
--- NOTE | 2025-01-26 11:11 | DVHPNRES ---
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 Denies nausea, vomiting, diarrhea, fever, chills, or chest pain. Reports localized numbness at the pain site. He is on home oxygen and denies worsening SOB. He was found to have severe anemia and thrombocytopenia on admission, likely chemotherapy-induced per oncology. Additionally, CXR and clinical exam were consistent with right lower lobe pneumonia. PMHx: Anxiety, Cancer (vocal cord), GERD, HTN, Depression Allergies: No known drug allergies Family Hx: Non-contributory Social Hx: Non-smoker, denies alcohol and drug use, lives at home No bleeding today, no black stools, no new complaints hb [address], [place] [address], LDH 300 haptoglobin pending Objective vital signs Vital Sign Date Time Temp Pulse Resp B/P (MAP) Pulse Ox O2 Delivery O2 Flow Rate FiO2 01/26/25 08:26 97.6 96 15 124/69 (87) 99 97.6 01/25/25 16:52 Nasal Cannula* 2 28 Total Intake and Output 01/25/25 01/25/25 01/26/25 15:00 23:00 07:00 Intake Total 600 ml 800 ml Balance 600 ml 800 ml medications Current Medications Medications Dose Ordered Sig/Gladis Route Start Time Stop Time Status Last Admin Dose Admin Ceftriaxone Sodium 50 ml @ 100 mls/hr DAILY IV 01/25/25 10:00 01/26/25 08:48 100 MLS/HR Azithromycin 250 ml @ 125 mls/hr DAILY IV 01/25/25 10:00 01/26/25 09:37 125 MLS/HR Sodium Chloride 10 ml Q8HR IV 01/24/25 22:00 01/26/25 06:00 10 ML Docusate Sodium 100 mg BIDPRN PRN PO 01/24/25 15:30 Acetaminophen 650 mg Q6HP PRN PO 01/24/25 15:30 Acetaminophen/ Hydrocodone Bitart 1 tab Q4HP PRN PO 01/24/25 15:30 01/26/25 08:48 1 TAB Ondansetron HCl 4 mg Q4HP PRN IV 01/24/25 15:30 01/24/25 21:40 4 MG Clonazepam 1 mg Q8HP PRN PO 01/25/25 17:45 01/26/25 10:33 1 MG Examination Gen: Alert, oriented, pale Lungs: Clear to auscultation, no accessory muscle use CV: RRR, no murmur Abdomen: Mild tenderness RUQ, no guarding or rebound Ext: No LE edema Neuro: No focal deficit laboratory and microbiology Laboratory Tests 01/26/25 05:45 Test 01/26/25 05:45 Range/Units Serum Glucose 80 74-106 mg/dL Problem List/Assessment/Plan Problem List/Assessment/Plan #Right lower lobe pneumonia likely obstructive/ lungs mets, gram pos/gram neg started on ceftriaxone and azithromycin #Chemotherapy-induced thrombocytopenia and anemia received 1 unit PRBC, oncology recommends monitoring; platelets remain low: 1 unit of platelets ordered #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 Tate) once patient is ready for discharge Case discussed with Dr Harp Plan discussed with: Patient, Other (rn) My Orders My Orders Orders - TRUNG SAUCEDO Procedure Category Date Status Time Clonazepam Tablet PHA 01/25/25 In Process (Klonopin Tablet) 17:45 Haptoglobin LAB 01/26/25 In Process 04:00 Respiratory Culture BARBARA 01/26/25 Logged W/ Gs 06:42 CC Plasma Assessment Blood Product Administration S: 0001 Date of Service: Jan 26, 2025 Billing Provider: SUNDEEP HARP MD Common Visit Codes: [id number] INP/OBS CARE(HIGH) TRUNG SAUCEDO RESIDENT Jan 26, 2025 11:11 SUNDEEP HARP MD Jan 27, 2025 22:15
[2025-01-26] MEDS ORDERED: BUPR8MIS SL ×2 (13:23)
[2025-01-26] MEDS ORDERED: HYDROcodone-ACET 10/325MG TAB PO PRN (17:00)
--- NOTE | 2025-01-26 20:06 | DVH ---
Exam: US ABDOMEN LIMITED Clinical History: rule out seroma Comparison: None Technique: Targeted sonographic evaluation of the soft tissues of the abdomen was obtained utilizing grayscale and color Doppler imaging. Findings/Impression: Complex fluid collection with communication to the skin in the region of interest in the abdominal wa ll measuring 2.1 x 2.0 x 1.6 cm. Differential considerations could include abscess, fistula or serom a. Clinical correlation advised.
[2025-01-27 00:30] VITALS: BP 111/78; PULSE 80; RESP 16; TEMP 98.3; O2SAT 98
[2025-01-27 04:52] VITALS: BP 102/63; PULSE 75; RESP 16; TEMP 98.5; O2SAT 98
[2025-01-27 07:18] LABS: Basophils # (auto) 0 10 ^3/uL (0-0.2); Basophils % (auto) 0.3 % (0.0-2.0); Eosinophils # (auto) 0 10 ^3/uL (0-0.8); Eosinophils % (auto) 0.6 % (0.0-7.0); Hematocrit 25.8 % (41.0-53.0); Hemoglobin 8.6 g/dL (13.5-17.5); Lymphocytes # (auto) 0.6 10 ^3/uL (0.4-5.4); Lymphocytes % (auto) 11.8 % (10.0-50.0); Mean Corpuscular Hemoglobin 30.3 pg (28.0-32.0); Mean Corpuscular Hgb Conc. 33.5 g/dL (32.0-36.0); Mean Corpuscular Volume 90.4 fL (80.0-100.0); Monocytes # (auto) 0.9 10 ^3/uL (0-1.3); Monocytes % (auto) 16.1 % (0.0-12.0); Neutrophils # (auto) 3.8 10 ^3/uL (1.6-8.6); Neutrophils % (auto) 71.2 % (37.0-80.0); Nucleated Red Blood Cells % 0.1 %; Platelet Count (auto) 29 10^3/uL (140-450); Red Blood Cells 2.85 10^6/uL (4.5-5.90); Red Cell Distribution Width 16.2 % (11.8-14.3); White Blood Cell 5.4 10^3/uL (4.4-10.8)
[2025-01-27 07:29] LABS: Alanine Aminotransferase 10 U/L (7-40); Anion Gap 10 (5-15); BUN/Creatinine Ratio 9.3 (10.0-20.0); Blood Urea Nitrogen 12 mg/dL (9-23); Calcium 9.6 mg/dL (8.7-10.4); Chloride 102 mmol/L (98-107); Glucose 102 mg/dL (74-106); Potassium 3.9 mmol/L (3.5-5.1); Sodium 143 mmol/L (136-145)
[2025-01-27 07:30] LABS: Albumin 3.9 g/dL (3.2-4.8); Bilirubin, Total 0.3 mg/dL (0.2-1.0)
[2025-01-27 07:34] LABS: Alkaline Phosphatase 123 U/L (46-116); Aspartate Aminotransferase 45 U/L (13-40); Carbon Dioxide 31 mmol/L (20-31)
[2025-01-27 08:54] VITALS: BP 107/71; PULSE 86; RESP 17; TEMP 97.7; O2SAT 97
[2025-01-27] MEDS: PANTOPRAZOLE 40 MG/10 ML VIAL INJ IV SCH (09:06)
[2025-01-27] MEDS: BUPRENORPHINE -NALOXONE 8-2mg SL TAB SL SCH (09:07)
[2025-01-27 09:36] LABS: Platelet Estimate Decreased
[2025-01-27 12:15] VITALS: TEMP 36.5
[2025-01-27 12:23] VITALS: BP 117/81; PULSE 17; RESP 99; TEMP 80; O2SAT 99
--- NOTE | 2025-01-27 13:42 | DVHDSRES ---
Discharge Summary Date of Admission Resident Creating Document: TRUNG SAUCEDO RESIDENT Jan 24, 2025 at 15:18 Date of Discharge: Jan 27, 2025 Admitting Diagnosis Anemia and thrombocytopenia chemo induced Labs/Diagnostic Data: Laboratory Results Test 01/27/25 06:04 01/26/25 05:45 01/25/25 11:24 01/25/25 10:20 White Blood Count 5.4 10^3/uL (4.4-10.8) Red Blood Count 2.85 10^6/uL (4.5-5.90) Hemoglobin 8.6 g/dL (13.5-17.5) Hematocrit 25.8 % (41.0-53.0) Mean Corpuscular Volume 90.4 fL (80.0-100.0) Mean Corpuscular Hemoglobin 30.3 pg (28.0-32.0) Mean Corpuscular Hemoglobin Concent 33.5 g/dL (32.0-36.0) Red Cell Distribution Width 16.2 % (11.8-14.3) Platelet Count 29 10^3/uL (140-450) Mean Platelet Volume 8.7 fL (6.9-10.8) Neutrophils (%) (Auto) 71.2 % (37.0-80.0) Lymphocytes (%) (Auto) 11.8 % (10.0-50.0) Monocytes (%) (Auto) 16.1 % (0.0-12.0) Eosinophils (%) (Auto) 0.6 % (0.0-7.0) Basophils (%) (Auto) 0.3 % (0.0-2.0) Neutrophils # (Auto) 3.8 10 ^3/uL (1.6-8.6) Lymphocytes # (Auto) 0.6 10 ^3/uL (0.4-5.4) Monocytes # (Auto) 0.9 10 ^3/uL (0-1.3) Eosinophils # (Auto) 0 10 ^3/uL (0-0.8) Basophils # (Auto) 0 10 ^3/uL (0-0.2) Nucleated Red Blood Cells 0.1 % Platelet Estimate Decreased Sodium Level 143 mmol/L (136-145) Potassium Level 3.9 mmol/L (3.5-5.1) Chloride Level 102 mmol/L (98-107) Carbon Dioxide Level 31 mmol/L (20-31) Anion Gap 10 (5-15) Blood Urea Nitrogen 12 mg/dL (9-23) Creatinine 1.29 mg/dL (0.700-1.30) Glomerular Filtration Rate Calc 70 mL/min (>90) BUN/Creatinine Ratio 9.3 (10.0-20.0) Serum Glucose 102 mg/dL (74-106) Calcium Level 9.6 mg/dL (8.7-10.4) Total Bilirubin 0.3 mg/dL (0.2-1.0) Aspartate Amino Transferase (AST) 45 U/L (13-40) Alanine Aminotransferase (ALT) 10 U/L (7-40) Alkaline Phosphatase 123 U/L (46-116) Total Protein 6.0 g/dL (5.7-8.2) Albumin 3.9 g/dL (3.2-4.8) Haptoglobin 228 mg/dL (23-355) Prothrombin Time 11.7 sec (9.3-11.8) Prothrombin Time INR 1.12 (0.9-1.15) Activated Partial Thromboplast Time 25.1 SEC (24.5-34.5) Lactate Dehydrogenase 300 U/L (120-246) Urine Color Light-yellow (Yellow) Urine Clarity Clear (Clear) Urine pH 7.0 (5.0-9.0) Urine Specific [place] 1.008 (1.001-1.035) Urine Protein Negative (Negative) Urine Ketones Negative (Negative) Urine Blood Negative /uL (Negative) Urine Nitrite Negative (Negative) Urine Bilirubin Negative (Negative) Urine Urobilinogen Normal mg/dL (Negative) Urine Leukocyte Esterase Negative /uL (Negative) Urine RBC None seen /hpf (0 - 3) Urine Microscopic WBC 1 /HPF (0-3) Urine Squamous Epithelial Cells None seen /hpf (<5) Urine Bacteria None seen /hpf (None Seen) Urine Glucose Normal mg/dL (Normal) Differential Total Cells Counted 100.0 (100) Neutrophils % (Manual) 53 (37.0-80.0) Band Neutrophils % (Manual) 3 Lymphocytes % (Manual) 39 (10.0-50.0) Monocytes % (Manual) 5 (0-12) Eosinophils % (Manual) 0 (0-7) Basophils % (Manual) 0 (0.0-2.0) Metamyelocytes % (manual) 0 Myelocytes % (Manual) 0 Promyelocytes % (Manual) 0 Blast Cells % (Manual) 0 Reactive Lymphocytes 0 Test 01/24/25 15:31 01/24/25 10:35 Lactic Acid Level 1.0 mmol/L (0.4-2.0) C-Reactive Protein High Sensitivity 4.32 mg/dL (<1.0) Anisocytosis (manual) Slight Stomatocytes Few Reticulocyte Count (auto) 0.42 % (0.5-1.5) Iron Level 93 ug/dL (65-175) Total Iron Binding Capacity 282 ug/dL (250-425) Percent Iron Saturation 33.0 % (20-55) Ferritin 936.3 ng/mL (22-322) Troponin I High Sensitivity < 3 ng/L (</=54) Other Laboratory Tests 01/27/25 06:04 Brief Hx & Hospital Course: A 44-year-old male with a history of 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 He was found to have anemia (Hgb 6.5 --> 8.6 after PRBC transfusion), thrombocytopenia (platelets 14K --> 29K), and right lower lobe pneumonia on CXR. Infectious workup supported community-acquired pneumonia, likely obstructive due to underlying metastatic disease. He was started on ceftriaxone and azithromycin, later discharged on levofloxacin for 5 days. Hemolysis workup was not significant (LDH 300, haptoglobin 280). Oncology was updated (Dr. Tate), and no additional workup is required at this time. Soft tissue ultrasound showed seroma on the abdominal wall on the site of the PEG tube scar, shared decision with the patient, no procedures on this area. The patient remained afebrile and hemodynamically stable throughout admission. He denied worsening shortness of breath, fever, chest pain, or GI bleeding. He is on home oxygen and ambulates independently. He was discharged in stable condition with instructions to continue supportive care, follow up with oncology, and obtain follow-up labs on 01/29 prior to chemotherapy on 02/02. Case discussed with Dr Harp Operations or Procedures Targeted sonographic evaluation of the soft tissues of the abdomen was obtained utilizing grayscale and color Doppler imaging. Findings/Impression: Complex fluid collection with communication to the skin in the region of interest in the abdominal wall measuring 2.1 x 2.0 x 1.6 cm. Differential considerations could include abscess, fistula or seroma. Clinical correlation advised. Condition at Discharge: Stable Final Diagnosis/Problems List #Right lower lobe pneumonia likely obstructive/ lungs mets, gram pos/gram neg #Chemotherapy-induced thrombocytopenia and anemia #Stage IV vocal cord cancer with lung/liver metastases on cisplatin/etoposide #Leukopenia, Immunosuppression due to chemo #FLO due to VMN #History of anxiety, HTN, GERD, depression #Seroma, abdominal wall Discharge Disposition: Home Discharge Instruct/Medications Diet: Consistent carbohydrate, Cardiac 2g Na,low cholest Activity: Light activity Follow Up/Referral: f/u with Dr Tate february 02 and [facility], please take labs on january 29 Medications: resume home meds Discharge Statement: "Patient was advised to return to the ER or call 911 if any headaches, dizziness, shortness of breath, chest pain, abdominal pain, bleeding, fevers, or worsening of medical condition. Patient was counseled about treatment plan, medications, possible side effects, patientverbalized understanding. All questions were answered to the best of my ability. This discharge took greater then 30 minutes in planning, reviewing documentation, counseling the patient, and discussing with other team members." ASSESSMENT ASSESSMENT Assessment anemia and thrombocytopenia related to chemotherapy Date of Service: Jan 27, 2025 Billing Provider: SUNDEEP HARP MD Common Visit Codes: 29648-TVF/OBS DISCH DAY >30min TRUNG SAUCEDO RESIDENT Jan 27, 2025 13:42 SUNDEEP HARP MD Jan 27, 2025 22:51
[2025-01-27] MEDS ORDERED: LEVO750T40 PO (21:02)
== END 2025-01-27 12:13 | disposition home or self-care (01) | DRG 861 ==
LOC: ER 08:14 → OVERFLOW 15:18 → CENTRAL 01-25 23:55
PROVIDERS: ADMIT Student in an Organized Health Care Education/Training Program; ATTEND Student in an Organized Health Care Education/Training Program
PROC: 30233N1 Transfusion of Nonautologous Red Blood Cells into Peripheral Vein, Percutaneous Approach (ICD-10-PCS; principal; 2025-01-24)
PROC: 05HC33Z Insertion of Infusion Device into Left Basilic Vein, Percutaneous Approach (ICD-10-PCS; 2025-01-24)
PROC: B54NZZA Ultrasonography of Left Upper Extremity Veins, Guidance (ICD-10-PCS; 2025-01-24)
PROC: 30233R1 Transfusion of Nonautologous Platelets into Peripheral Vein, Percutaneous Approach (ICD-10-PCS; 2025-01-26)
DX: G89.3 Neoplasm related pain (acute) (chronic) (principal); N17.0 Acute kidney failure with tubular necrosis; J15.69 Pneumonia due to other Gram-negative bacteria; D84.821 Immunodeficiency due to drugs; J15.9 Unspecified bacterial pneumonia; C32.0 Malignant neoplasm of glottis; C78.00 Secondary malignant neoplasm of unspecified lung; C78.7 Secondary malignant neoplasm of liver and intrahepatic bile duct; D64.81 Anemia due to antineoplastic chemotherapy; S30.1XXA Contusion of abdominal wall, initial encounter; D69.59 Other secondary thrombocytopenia; I10 Essential (primary) hypertension; X58.XXXA Exposure to other specified factors, initial encounter; K21.9 Gastro-esophageal reflux disease without esophagitis; T45.1X5A Adverse effect of antineoplastic and immunosuppressive drugs, initial encounter; F41.9 Anxiety disorder, unspecified; F32.A Depression, unspecified; Z79.899 Other long term (current) drug therapy; Y92.89 Other specified places as the place of occurrence of the external cause; Y93.89 Activity, other specified; Y99.8 Other external cause status
CPT/HCPCS: 36415; 71045; 76705; 80053; 81001; 82728; 83010; 83540; 83550; 83605; 83615; 84484; 85007; 85025; 85027; 85045; 85610; 85730; 86141; 86850; 86900; 86901; 86920; 96365; 96368; G0378; J2405; J2470; Q0162

== ENCOUNTER 2025-02-02 09:56 | Inpatient (IN) | payer MEDICAID ==
[~2025-02-02] VITALS: Ht 170.2 cm; Wt 88.8 kg
[2025-02-02] VITALS (7 sets, daily range): BP systolic 115–118; BP diastolic 73–78; PULSE 76–98; RESP 18–20; TEMP 97.8; O2SAT 95–100
[~2025-02-02 09:56] MED LIST changes: +LEVO750T40 PO
--- NOTE | 2025-02-02 10:07 | ED.PDOC ---
HPI Comments 44 year old male presents to the ED with a chief complaint of chest pain onset today. Patient states he began experiencing intermittent substernal chest pain since this morning. Patient is also experiencing generalized weakness, dizziness,shortness of breath, pale. Patient was supposed to get chemo today, was not able to due to symptoms. He is on home oxygen, was not improving symptoms. Patient states when he experiences similar symptoms, he usually needs blood transfusion. PMHx cancer, HTN, depression, anxiety, anemia. Denies headache, abdominal pain, nausea, vomiting, diarrhea, fever, chills. No other symptoms or modifying factors present at this time. Chief Complaint: Chest Pain Time Seen by MD: 10:00 Reviewed Notes: Medications, Allergies Allergies: Coded Allergies: NO KNOWN ALLERGIES (Unverified , 12/06/24) Home Meds Active Scripts Levofloxacin Hemihydrate (LEVOFLOXACIN) 750 Mg Tab, 750 MG PO DAILY for 5 Days, #5 TAB Prov:TRUNG SAUCEDO RESIDENT 01/27/25 Reported Medications Famotidine (Famotidine) 20 Mg Tab, 1 TAB PO BID 12/31/24 Pravastatin Sodium (PRAVACHOL TABLET) 20 Mg Tb, 1 TAB PO DAILY 12/31/24 Buprenorphine Hcl-Naloxone Hcl (Suboxone) 1 Mis Mis, 24 MG SL DAILY, MISC 12/07/24 Temazepam (Temazepam) 30 Mg Cap, 30 MG PO BID, CAP 12/06/24 Cholecalciferol (VITAMIN D3) 2,000 Unit Tab, 1 TAB PO DAILY, #30 TAB 5 Refills 12/06/24 Magnesium Oxide (MAGNESIUM OXIDE) 400 Mg Tab, 1 TAB PO BID, #60 TAB 5 Refills 12/06/24 Furosemide (Furosemide) 20 Mg Tab, 1 TAB PO BID, #90 TAB 1 Refill 12/06/24 Carvedilol (Coreg) 6.25 Mg Tab, 6.25 MG PO BID, TAB 12/06/24 Diltiazem Hcl (Dilt-Xr) 120 Mg Cap, 120 MG PO DAILY, CAP 12/06/24 Olanzapine (Zyprexa) 20 Mg Tab, 20 MG PO DAILY, TAB 12/06/24 Escitalopram Oxalate (Lexapro) 10 Mg Tab, 10 MG PO TID, TAB 12/06/24 Sucralfate (Carafate) 1 Gm/10 Ml Shanice, 1 GM PO BID, ML 12/06/24 Omeprazole (Gnp Omeprazole) 20 Mg Tab, 40 MG PO BID, TAB 12/06/24 Clonazepam (Klonopin) 1 Mg Tab, 1 TAB PO BID, #60 TAB 1 Refill 12/06/24 Discontinued Reported Medications Buprenorphine Hcl-Naloxone Hcl (Suboxone) 1 Mis Mis, 2 STRIP SL DAILY, #14 STRIP 01/26/25 Buprenorphine Hcl-Naloxone Hcl (Suboxone) 1 Mis Mis, 1 STRIP SL DAILY, #30 STRIP 01/26/25 Buprenorphine Hcl-Naloxone Hcl (Suboxone) 1 Mis Mis, 3 STRIP SL DAILY, #21 STRIP 01/26/25 Buprenorphine Hcl-Naloxone Hcl (Suboxone) 1 Mis Mis, 1 MIS SL, MISC 01/26/25 Buprenorphine Hcl-Naloxone Hcl (Suboxone) 1 Mis Mis, 1 STRIP SL DAILY, #30 STRIP 01/26/25 Buprenorphine Hcl-Naloxone Hcl (Suboxone) 1 Mis Mis, 1 STRIP SL DAILY, #7 STRIP 01/26/25 Information Source: Patient Mode of Arrival: Ambulatory Severity: Moderate Timing: Hours Duration: Since onset Prehospital treatment: None Location: Substernal Radiation: No Radiation Onset: At Rest Cardiac Risk Factors: HTN PE Risk Factors: None Modifying Factors: Nothing Associated Signs and Symptoms: SOB Past Medical History PAST MEDICAL HISTORY: Anxiety, Cancer, Depression, GERD, HTN Surgical History: Denies all surgeries Family History Family History: Reviewed,noncontributory to illness Social History Smoker: Non-Smoker Alcohol: Denies ETOH Use Drugs: Denies Drug Use Lives In: Home Constitutional: reports: others (pale); denies: chills, diaphoresis, fatigue, fever, malaise, sweats, weakness EENTM: denies: blurred vision, double vision, ear bleeding, ear discharge, ear drainage, ear pain, ear ringing, eye pain, eye redness, hearing loss, mouth pain, mouth swelling, nasal discharge, nose bleeding, nose congestion, nose pain, photophobia, tearing, throat pain, throat swelling, voice changes, others Respiratory: reports: shortness of breath; denies: cough, hemoptysis, orthopnea, SOB at rest, SOB with excertion, stridor, wheezing, others Cardiovascular: reports: chest pain; denies: dizzy spells, diaphoresis, Dyspnea on exertion, edema, irregular heart beat, left arm pain, lightheadedness, palpitations, PND, syncope, others Gastrointestinal: denies: abdomen distended, abdominal pain, blood streaked bowels, constipated, diarrhea, dysphagia, difficulty swallowing, hematemesis, melena, nausea, poor appetite, poor fluid intake, rectal bleeding, rectal pain, vomiting, others Genitourinary: denies: burning, dysuria, flank pain, frequency, hematuria, incontinence, penile discharge, penile sore, pain, testicle pain, testicle swelling, urgency, others Neurological: reports: dizziness; denies: fainting, headache, left sided numbness, left sided weakness, numbness, paresthesia, pre-existing deficit, right sided numbness, right sided weakness, seizure, speech problems, tingling, tremors, weakness, others Musculoskeletal: denies: back pain, gout, joint pain, joint swelling, muscle pain, muscle stiffness, neck pain, others Integumetry: denies: bruises, change in color, change in hair/nails, dryness, laceration, lesions, lumps, rash, wounds, others Allergic/Immunocompromised: denies: Difficulty Healing, Frequent Infections, Hives, Itching, others Hematologic/Lymphatic: denies: anemia, blood clots, easy bleeding, easy bruising, swollen glands, others Endocrine: denies: excessive hunger, excessive sweating, excessive thirst, excessive urination, flushing, intolerance to cold, intolerance to heat, unexplained weight gain, unexplained weight loss, others Psychiatric: reports: anxiety; denies: bipolar disorder, depression, hopeless, panic disorder, schizophrenia, sleepless, suicidal, others All Other Systems: Reviewed and Negative Physical Exam General Appearance: Moderate Distress, Normal HEENT: Normal ENT Inspection, Pharynx Normal, TMs Normal Neck: Full Range of Motion, Non-Tender, Normal, Normal Inspection Respiratory: Chest Non-Tender, Lungs Clear, No Accessory Muscle Use, No Respiratory Distress, Normal Breath Sounds Cardiovascular: No Edema, No JVD, No Murmur, No Gallop, Normal Peripheral Pulses, Regular Rate/Rhythm Breast Exam: Deferred Gastrointestinal: No Organomegaly, Non Tender, No Pulsatile Mass, Normal Bowel Sounds, Soft Genitalia: Deferred Pelvic: Deferred Rectal: Deferred Extremities: No calf tenderness, Normal capillary refill, Normal inspection, Normal range of motion, Non-tender, No pedal edema Musculoskeletal : Apperance: Normal Neurologic: Alert, blue print control clerk II-XII nml as Tested, No Motor Deficits, Normal Affect, Normal Mood, No Sensory Deficits Cerebellar Function: Normal Reflexes: Normal Skin: Dry, Pallor, Warm Peripheral Pulses: 3+ Radial (R), 3+ Radial (L) Lymphatic: No Adenopathy Was a procedure done? Was a procedure done?: No CP Differential Dx Differential Diagnosis: A-fib, A-Flutter, Angina, Anxiety / Panic Attack, Atrial Dysrhythmia, Electrolyte Disorder X-Ray, Labs, Meds, VS Vital Signs Date Time Temp Pulse Resp B/P (MAP) Pulse Ox O2 Delivery O2 Flow Rate FiO2 02/02/25 10:10 94 Room Air* 0 21 02/02/25 10:03 93 02/02/25 10:00 97.3 94 20 96/67 (77) 98 97.3 02/02/25 10:00 97.3 94 20 96/67 (77) 98 97.3 92/64 (73) Lab Test 02/02/25 10:07 Range/Units White Blood Count 13.1 #H 4.4-10.8 10^3/uL Red Blood Count 3.11 L 4.5-5.90 10^6/uL Hemoglobin 9.6 L 13.5-17.5 g/dL Hematocrit 28.1 L 41.0-53.0 % Mean Corpuscular Volume 90.3 80.0-100.0 fL Mean Corpuscular Hemoglobin 30.8 28.0-32.0 pg Mean Corpuscular Hemoglobin Concent 34.2 32.0-36.0 g/dL Red Cell Distribution Width 16.9 H 11.8-14.3 % Platelet Count 164 # 140-450 10^3/uL Mean Platelet Volume 9.6 6.9-10.8 fL Neutrophils (%) (Auto) 77.1 37.0-80.0 % Lymphocytes (%) (Auto) 11.3 10.0-50.0 % Monocytes (%) (Auto) 11.0 0.0-12.0 % Eosinophils (%) (Auto) 0.2 0.0-7.0 % Basophils (%) (Auto) 0.4 0.0-2.0 % Neutrophils # (Auto) 10.1 H 1.6-8.6 10 ^3/uL Lymphocytes # (Auto) 1.5 0.4-5.4 10 ^3/uL Monocytes # (Auto) 1.4 H 0-1.3 10 ^3/uL Eosinophils # (Auto) 0 0-0.8 10 ^3/uL Basophils # (Auto) 0.1 0-0.2 10 ^3/uL Nucleated Red Blood Cells 0.0 % Sodium Level 137 # 136-145 mmol/L Potassium Level 5.0 3.5-5.1 mmol/L Chloride Level 102 98-107 mmol/L Carbon Dioxide Level 24 20-31 mmol/L Anion Gap 11 5-15 Blood Urea Nitrogen 16 9-23 mg/dL Creatinine 2.18 H 0.700-1.30 mg/dL Glomerular Filtration Rate Calc 37 >90 mL/min BUN/Creatinine Ratio 7.3 L 10.0-20.0 Serum Glucose 123 H 74-106 mg/dL Calcium Level 9.8 8.7-10.4 mg/dL Troponin I High Sensitivity < 3 L </=54 ng/L Patient alert. Complaining of chest pain. Possible anxiety. Vitals stable. He is pale. History of cancer. Metastatic. Reviewed his previous visit. He does come regularly. EKG reviewed does not show any acute changes. Explained to the patient. Continue monitoring. [place] [id number] Ph: [phone] DIAGNOSTIC IMAGING Diagnostic Imaging Report : [id number] [facility]igned [id number] UN[facility]: [id number] : 1980 LOC: ER ROOM / BED: / AGE / SEX: 44 / M ADM STATUS: REG ER SERVICE 1003 ORDERING PHYSICIAN: CASTRO NOLEN MD PROCEDURE(s): CXRP - CHEST PORTABLE REASON: sob ORDER NUMBER(s): [id number], ACCESSION NUMBER(s): [id number] INDICATION: sob TECHNIQUE: Frontal view of the chest. COMPARISON: XY CHEST PORTABLE on DOS: 01/24/25, XY CHEST PORTABLE on DOS: 12/31/24, XY CHEST PORTABLE on DOS: 01/24/25 FINDINGS: LUNGS AND PLEURAL SPACES: Right infrahilar airspace disease, likely pneumonia. HEART: Unremarkable. No cardiomegaly. MEDIASTINUM: Unremarkable. Normal mediastinal contour. BONES/JOINTS: Unremarkable. No acute fracture. TUBES, LINES AND DEVICES: Right-sided Mediport with the distal tip in the SVC. No pneumothorax. OTHER FINDINGS: . IMPRESSION: Right infrahilar airspace disease, likely pneumonia. ATED BY: ROSANGELA NIXON MD DICTATED DATE/TIME: 02/02/25 105 SIGNED BY: ROSANGELA NIXON MD SIGNED DATE/TIME: 02/02/25 105 CC: Time of 1ST Reevaluation: 10:30 Reevaluation 1ST: Unchanged Patient Education/Counseling: Diagnosis, Treatment, Prognosis Family Education/Counseling: No Family Present Additional Information The following tests were ordered, and results were reviewed by me: TROP-x3, EKG -x3, CBC, XY CHEST, BMP I reviewed and agreed with the following test results read by other providers: XY CHEST I discussed treatment and results with medical personnel and: Patient Comprehensive systems review obtained and negative except for what is stated in the HPI. Departure 1 Departure Time of Disposition: 10:08 Impression: Primary Impression: Symptomatic anemia Disposition: ADMITTED INPATIENT Admit to: Med Surg Condition: Guarded Critical Care Note Critical Care Time?: No Stability Stability form required: No Heart Score Heart Score: Heart Score Response (Comments) Value History Slightly Suspicious 0 EKG Normal 0 Age <45 0 Risk Factors No known risk factors 0 Troponin Normal limit 0 Total 0 I personally scribed for CASTRO NOLEN MD ([email or web address]) on 02/02/25 at 10:07. Electronically submitted by Barb Pelletier ([email or web address]). I personally scribed for CASTRO NOLEN MD ([email or web address]) on 02/02/25 at 10:10. Electronically submitted by Barb Pelletier ([email or web address]). I personally scribed for CASTRO NOLEN MD ([email or web address]) on 02/02/25 at 11:18. Electronically submitted by Barb Pelletier ([email or web address]). CASTRO NOLEN MD Feb 02, 2025 10:07
[2025-02-02 10:21] LABS: Basophils # (auto) 0.1 10 ^3/uL (0-0.2); Basophils % (auto) 0.4 % (0.0-2.0); Eosinophils # (auto) 0 10 ^3/uL (0-0.8); Eosinophils % (auto) 0.2 % (0.0-7.0); Hematocrit 28.1 % (41.0-53.0); Hemoglobin 9.6 g/dL (13.5-17.5); Lymphocytes # (auto) 1.5 10 ^3/uL (0.4-5.4); Lymphocytes % (auto) 11.3 % (10.0-50.0); Mean Corpuscular Hemoglobin 30.8 pg (28.0-32.0); Mean Corpuscular Hgb Conc. 34.2 g/dL (32.0-36.0); Mean Corpuscular Volume 90.3 fL (80.0-100.0); Monocytes # (auto) 1.4 10 ^3/uL (0-1.3); Neutrophils # (auto) 10.1 10 ^3/uL (1.6-8.6); Neutrophils % (auto) 77.1 % (37.0-80.0); Platelet Count (auto) 164 10^3/uL (140-450); Red Blood Cells 3.11 10^6/uL (4.5-5.90); Red Cell Distribution Width 16.9 % (11.8-14.3); White Blood Cell 13.1 10^3/uL (4.4-10.8)
[2025-02-02 10:42] LABS: Chloride 102 mmol/L (98-107); Sodium 137 mmol/L (136-145)
[2025-02-02 10:43] LABS: Anion Gap 11 (5-15); Carbon Dioxide 24 mmol/L (20-31)
[2025-02-02 10:44] LABS: Calcium 9.8 mg/dL (8.7-10.4)
[2025-02-02 10:48] LABS: BUN/Creatinine Ratio 7.3 (10.0-20.0); Blood Urea Nitrogen 16 mg/dL (9-23); Glucose 123 mg/dL (74-106)
--- NOTE | 2025-02-02 10:56 | DVH ---
INDICATION: sob TECHNIQUE: Frontal view of the chest. COMPARISON: XY CHEST PORTABLE on DOS: 01/24/25, XY CHEST PORTABLE on DOS: 12/31/24, XY CHEST PORTABLE o n DOS: 01/24/25 FINDINGS: LUNGS AND PLEURAL SPACES: Right infrahilar airspace disease, likely pneumonia. HEART: Unremarkable. No cardiomegaly. MEDIASTINUM: Unremarkable. Normal mediastinal contour. BONES/JOINTS: Unremarkable. No acute fracture. TUBES, LINES AND DEVICES: Right-sided Mediport with the distal tip in the SVC. No pneumothorax. OTHER FINDINGS: . IMPRESSION: Right infrahilar airspace disease, likely pneumonia.
[2025-02-02] MEDS: ONDANSETRON HCL 4 MG/2 ML VIAL IV ONE (11:23)
[2025-02-02] MEDS: MORPHINE SULFATE INJ 2 MG/ml SYRG IV ONE (12:00)
[2025-02-02 12:08] LABS: Lactic Acid w/Reflex 3.8 mmol/L (0.4-2.0)
[2025-02-02] MEDS: SODIUM CHLORIDE 0.9% 1,000 ML IV ONE ×2 (12:49→15:00)
[2025-02-02] MEDS: cefTRIAXone 1GM/50ML D5W 50 ML IV ONE (12:52)
[2025-02-02] MEDS ORDERED: DOCUSATE SOD 100 MG CAP PO PRN (13:00)
[2025-02-02] MEDS ORDERED: MORPHINE SULFATE INJ 2 MG/ml SYRG IV PRN (13:00)
[2025-02-02] MEDS ORDERED: HYDROcodone-ACET 5/325MG TAB PO PRN (13:00)
[2025-02-02] MEDS: AZITHROMYCIN 500MG/ 250ML 250 ML IV ONE (13:15)
--- NOTE | 2025-02-02 13:34 | DVHHP2 ---
History of Present Illness Reason for Visit: Chest pain History of Present Illness Jamil Lewis is a 44-year-old male with past medical history of anxiety, depression, anemia, GERD, and cancer, who came in for chest pain and generalized weakness. Patient states he he was recently admitted here for anemia, and received multiple blood transfusions. He was feeling better, but over the last few days he began to feel week, tired, dizzy, and short of breath so he came back to the hospital thinking he needed anther blood transfusion. Patient is currently undergoing chemotherapy with Dr. Lopez Alcala for his cancer. He was supposed to get his 4th infusion today, but ended up coming to the hospital. GI: GERD Heme/Onc: Anemia NOS, Cancer (lung, liver, and lymph) Psych: Anxiety, Depression Past Surgical History: None Smoke: Quit (1 year ago) ALCOHOL: none (quite 3 years ago) Drugs: None Lives: with Family Domestic Violence: Neg Review of Systems Constitutional: Yes: Weakness, Malaise; No: Fever, Chills, Sweats, Other Eyes: No: Pain, Vision change, Conjunctivae inflammation, Eyelid inflammation, Other, Redness ENT: No: Ear pain, Ear discharge, Nose pain, Nose discharge, Nose congestion, Mouth pain, Mouth swelling, Throat pain, Throat swelling, Other Respiratory: Shortness of breath, SOB with excertion; No: Cough, Dry, Wheezing, Hemoptysis, Pleuritic Pain, Sputum, Wheezing, Other Cardiovascular: Chest Pain; No: Palpitations, Orthopnea, Paroxysmal Noc. Dyspnea, Edema, Lt Headedness, Other Gastrointestinal: Nausea; No: Vomiting, Abdominal Pain, Diarrhea, Constipation, Melena, Hematochezia, Other Genitourinary: No Dysuria, No Frequency, No Incontinence, No Hematuria, No Retention, No Other Musculoskeletal: No: other, neck pain, shoulder pain, arm pain, back pain, hand pain, leg pain, foot pain Skin: No: Rash, Lesions, Jaundice, Bruising, Other Neurological: Other (Dizzy); No: Weakness, Numbness, Incoordination, Change in speech, Confusion, Seizures Allergies: Coded Allergies: NO KNOWN ALLERGIES (Unverified , 12/06/24) Exam Vital Signs Vital Signs Date Time Temp Pulse Resp B/P (MAP) Pulse Ox O2 Delivery O2 Flow Rate FiO2 02/02/25 12:00 94 02/02/25 12:00 16 101/71 02/02/25 10:10 Room Air* 0 21 02/02/25 10:00 97.3 98 97.3 General Appearance: Alert, Oriented X3, Cooperative, moderate distress HEENT: Atraumatic, PERRLA, Mucous membr. moist/pink Respiratory: Other (Diminshed breath sounds) Cardiovascular: Regular rate, Normal S1, Normal S2 Abdominal: Normal bowel sounds, Soft, No tenderness, No hepatospenomegaly Extremities: No clubbing, No cyanosis, Normal pulses, No tenderness/swelling Skin: No rashes, No breakdown, No significant lesion Neuro: Normal gait, Normal speech, Normal tone Psych/Mental Status: Mental status NL, Mood NL Labs/Xrays Labs Test 02/02/25 11:09 02/02/25 10:07 Range/Units Lactic Acid Level 3.8 *H 0.4-2.0 mmol/L Troponin I High Sensitivity < 3 L </=54 ng/L White Blood Count 13.1 #H 4.4-10.8 10^3/uL Red Blood Count 3.11 L 4.5-5.90 10^6/uL Hemoglobin 9.6 L 13.5-17.5 g/dL Hematocrit 28.1 L 41.0-53.0 % Mean Corpuscular Volume 90.3 80.0-100.0 fL Mean Corpuscular Hemoglobin 30.8 28.0-32.0 pg Mean Corpuscular Hemoglobin Concent 34.2 32.0-36.0 g/dL Red Cell Distribution Width 16.9 H 11.8-14.3 % Platelet Count 164 # 140-450 10^3/uL Mean Platelet Volume 9.6 6.9-10.8 fL Neutrophils (%) (Auto) 77.1 37.0-80.0 % Lymphocytes (%) (Auto) 11.3 10.0-50.0 % Monocytes (%) (Auto) 11.0 0.0-12.0 % Eosinophils (%) (Auto) 0.2 0.0-7.0 % Basophils (%) (Auto) 0.4 0.0-2.0 % Neutrophils # (Auto) 10.1 H 1.6-8.6 10 ^3/uL Lymphocytes # (Auto) 1.5 0.4-5.4 10 ^3/uL Monocytes # (Auto) 1.4 H 0-1.3 10 ^3/uL Eosinophils # (Auto) 0 0-0.8 10 ^3/uL Basophils # (Auto) 0.1 0-0.2 10 ^3/uL Nucleated Red Blood Cells 0.0 % Sodium Level 137 # 136-145 mmol/L Potassium Level 5.0 3.5-5.1 mmol/L Chloride Level 102 98-107 mmol/L Carbon Dioxide Level 24 20-31 mmol/L Anion Gap 11 5-15 Blood Urea Nitrogen 16 9-23 mg/dL Creatinine 2.18 H 0.700-1.30 mg/dL Glomerular Filtration Rate Calc 37 >90 mL/min BUN/Creatinine Ratio 7.3 L 10.0-20.0 Serum Glucose 123 H 74-106 mg/dL Calcium Level 9.8 8.7-10.4 mg/dL Frontal view of the chest. FINDINGS: LUNGS AND PLEURAL SPACES: Right infrahilar airspace disease, likely pneumonia. HEART: Unremarkable. No cardiomegaly. MEDIASTINUM: Unremarkable. Normal mediastinal contour. BONES/JOINTS: Unremarkable. No acute fracture. TUBES, LINES AND DEVICES: Right-sided Mediport with the distal tip in the SVC. No pneumothorax. OTHER FINDINGS: . IMPRESSION: Right infrahilar airspace disease, likely pneumonia. Assessment/Plan Assessment/Plan Assessment: Pneumonia, Anemia, Leukocytosis, Lactic acidosis, Lung cancer, Depression, Anxiety, Plan: Admit to Med-Surg, IV antibiotics, IV hydration, Antiemetics, Breathing treatments as needed, Home medications reconciled, Plan discussed with: Patient My Orders Orders - DANIELLE LEROY [employer] Procedure Category Date Status Time Admit ADMIT 02/02/25 Transmitted 12:49 Code Status CODE 02/02/25 Transmitted 12:49 Hydrocodone-Acet PHA 02/02/25 Transmitted 5/325mg Tab ([place] 13:00 Ondansetron Hcl PHA 02/02/25 Transmitted (Zofran) 13:00 Docusate Sodium PHA 02/02/25 Transmitted Capsule (Colace 13:00 Complete Blood Count LAB 02/03/25 Verified 04:00 Comprehensive LAB 02/03/25 Verified Metabolic Panel 04:00 Condition: Serious MICHEAL 02/02/25 In Process 12:49 Acetaminophen Tablet PHA 02/02/25 Transmitted (Tylenol Tablet) 13:00 Morphine Sulfate PHA 02/02/25 Transmitted Injection 13:00 Metoclopramide PHA 02/02/25 Transmitted Injection (Reglan 13:00 Ceftriaxone Ivpb PHA 02/03/25 Transmitted Rocephin 09:00 Azithromycin 500mg/ PHA 02/03/25 Transmitted 250ml (Zithromax 50 10:00 Diltiazem Er Capsule PHA 02/03/25 Transmitted (Cardizem Er Capsul 10:00 Sucralfate Susp PHA 02/02/25 Transmitted (Carafate Susp) 22:00 (Nf) Buprenorphine PHA 02/03/25 Transmitted Hcl-Naloxone Hcl (Sub 10:00 (Nf) Cholecalciferol PHA 02/03/25 Transmitted (Vitamin D3) 10:00 (Nf) Clonazepam PHA 02/02/25 Transmitted (Klonopin) 22:00 (Nf) Escitalopram PHA 02/02/25 Transmitted Oxalate (Lexapro) 14:00 (Nf) Magnesium Oxide PHA 02/02/25 Transmitted 22:00 (Nf) Olanzapine PHA 02/03/25 Transmitted (Zyprexa) 10:00 (Nf) Omeprazole (Gnp PHA 02/02/25 Transmitted Omeprazole) 22:00 (Nf) Temazepam PHA 02/02/25 Transmitted 22:00 Date of Service: Feb 02, 2025 Billing Provider: DANIELLE LEROY Common Visit Codes: [id number] INP/OBS CARE (MOD) DANIELLE LEROY Feb 02, 2025 13:34
[2025-02-02] MEDS ORDERED: ALBUTEROL SULF 2.5 MG/0.5ML(0.5%) NEB SOLN NEB PRN (13:45)
[2025-02-02] MEDS ORDERED: IPRATROPIUM BROM 0.5 MG/2.5ML INH SOL NEB PRN (13:45)
[2025-02-02] MEDS: METOCLOPRAMIDE HCL 5MG/ml INJ 2ml VIAL IV PRN (13:49)
[2025-02-02] MEDS: CITALOPRAM HYDROBR 20 MG TAB PO SCH (14:00)
[2025-02-02] MEDS: ONDANSETRON HCL 4 MG/2 ML VIAL IV PRN (18:13)
--- NOTE | 2025-02-02 19:05 | ECG ---
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
--- NOTE | 2025-02-02 19:57 | ECG ---
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
[2025-02-02] MEDS: SUCRALFATE 1 GM/10 ML ORAL SUSP PO SCH (20:38)
[2025-02-02] MEDS: MAGNESIUM OXIDE 400 MG TAB PO SCH (20:39)
[2025-02-02] MEDS: TEMAZEPAM 15 MG CAP PO SCH (20:39)
[2025-02-02] MEDS: PANTOPRAZOLE 40 MG TAB PO SCH (20:39)
[2025-02-02] MEDS: clonazePAM 0.5 MG TAB PO SCH (20:43)
[2025-02-03] VITALS (10 sets, daily range): BP systolic 106–130; BP diastolic 62–86; PULSE 78–102; RESP 15–20; TEMP 97.5–99.1; O2SAT 94–99
[2025-02-03] MEDS: ACETAMINOPHEN 325 MG TAB PO PRN (06:30)
[2025-02-03 06:33] LABS: Basophils # (auto) 0 10 ^3/uL (0-0.2); Basophils % (auto) 0.2 % (0.0-2.0); Eosinophils # (auto) 0 10 ^3/uL (0-0.8); Eosinophils % (auto) 0.1 % (0.0-7.0); Hematocrit 27.1 % (41.0-53.0); Hemoglobin 9.1 g/dL (13.5-17.5); Lymphocytes # (auto) 0.9 10 ^3/uL (0.4-5.4); Lymphocytes % (auto) 8.1 % (10.0-50.0); Mean Corpuscular Hemoglobin 30.3 pg (28.0-32.0); Mean Corpuscular Hgb Conc. 33.4 g/dL (32.0-36.0); Mean Corpuscular Volume 90.6 fL (80.0-100.0); Monocytes # (auto) 1.5 10 ^3/uL (0-1.3); Neutrophils # (auto) 9.1 10 ^3/uL (1.6-8.6); Neutrophils % (auto) 78.6 % (37.0-80.0); Nucleated Red Blood Cells % 0.1 %; Platelet Count (auto) 129 10^3/uL (140-450); Red Blood Cells 2.99 10^6/uL (4.5-5.90); Red Cell Distribution Width 17.3 % (11.8-14.3); White Blood Cell 11.6 10^3/uL (4.4-10.8)
[2025-02-03 06:47] LABS: Albumin 4.4 g/dL (3.2-4.8); Anion Gap 12 (5-15); BUN/Creatinine Ratio 7.8 (10.0-20.0); Bilirubin, Total 0.7 mg/dL (0.2-1.0); Blood Urea Nitrogen 16 mg/dL (9-23); Calcium 9.7 mg/dL (8.7-10.4); Carbon Dioxide 25 mmol/L (20-31); Chloride 103 mmol/L (98-107); Glucose 97 mg/dL (74-106); Potassium 4.3 mmol/L (3.5-5.1); Sodium 140 mmol/L (136-145); Total Protein 6.6 g/dL (5.7-8.2)
[2025-02-03 06:55] LABS: Alanine Aminotransferase 57 U/L (7-40); Alkaline Phosphatase 224 U/L (46-116)
[2025-02-03 06:58] LABS: Aspartate Aminotransferase 245 U/L (13-40)
[2025-02-03] MEDS: BUPRENORPHINE -NALOXONE 8-2mg SL TAB SL SCH (09:19)
[2025-02-03] MEDS: cefTRIAXone 1GM/50ML D5W 50 ML IV SCH (09:19)
[2025-02-03] MEDS: OLANZapine 5 MG TAB PO SCH (09:20)
[2025-02-03] MEDS: dilTIAZem 120MG ER CAP PO SCH (09:21)
[2025-02-03] MEDS: CHOLECALCIFEROL (VITD3) 1,000UNIT=25mCg TAB PO SCH (09:21)
[2025-02-03] MEDS: NALOXONE HCL SL SCH (10:00)
[2025-02-03] MEDS: BUPRENORPHINE HCL SL SCH (10:00)
[2025-02-03] MEDS: AZITHROMYCIN 500MG/ 250ML 250 ML IV SCH (11:35)
--- NOTE | 2025-02-03 13:31 | DVHPN2 ---
Reviewed: Care Plan, H&P, Labs, Medications, Previous Orders, Radiology Changes from previous H/P or p: No Changes Eyes: No Pain, No Vision change, No Conjunctivae inflammation, No Eyelid inflammation, No Other, No Redness ENT: No Ear pain, No Ear discharge, No Nose pain, No Nose discharge, No Nose congestion, No Mouth pain, No Mouth swelling, No Throat pain, No Throat swelling, No Other Cardiovascular: Chest Pain; No Palpitations, No Orthopnea, No Paroxysmal Noc. Dyspnea, No Edema, No Lt Headedness, No Other Respiratory: No Cough, No Dry; Shortness of breath, SOB with excertion; No Wheezing, No Hemoptysis, No Pleuritic Pain, No Sputum, No Other Gastrointestinal: Nausea; No Vomiting, No Abdominal Pain, No Diarrhea, No Constipation, No Melena, No Hematochezia, No Other Genitourinary: No Dysuria, No Frequency, No Incontinence, No Hematuria, No Retention, No Other Musculoskeletal: No other, No neck pain, No shoulder pain, No arm pain, No back pain, No hand pain, No leg pain, No foot pain Skin: No Rash, No Lesions, No Jaundice, No Bruising, No Other Objective Vitals Vital Signs Date Time Temp Pulse Resp B/P (MAP) Pulse Ox O2 Delivery O2 Flow Rate FiO2 02/03/25 09:21 102 123/67 02/03/25 09:00 97.5 18 96 97.5 02/03/25 08:00 Room Air* 0 21 Intake/Output Intake and Output 02/03/25 07:00 Intake Total 1900 ml Balance 1900 ml Intake Oral 200 ml IV Total 1700 ml # Voids 2 Medications Current Medications Medications Dose Ordered Sig/Gladis Route Start Time Stop Time Status Last Admin Dose Admin Acetaminophen/ Hydrocodone Bitart 1 tab Q4HP PRN PO 02/02/25 13:00 Hold Ondansetron HCl 4 mg Q4HP PRN IV 02/02/25 13:00 02/03/25 05:58 4 MG Docusate Sodium 100 mg BIDPRN PRN PO 02/02/25 13:00 Acetaminophen 650 mg Q6HP PRN PO 02/02/25 13:00 02/03/25 06:30 650 MG Morphine Sulfate 2 mg Q4HPRN PRN IV 02/02/25 13:00 Hold Metoclopramide HCl 10 mg Q6HPRN PRN IV 02/02/25 13:00 02/02/25 13:49 10 MG Ceftriaxone Sodium 50 ml @ 100 mls/hr DAILY@09 IV 02/03/25 09:00 02/03/25 09:19 100 MLS/HR Azithromycin 250 ml @ 125 mls/hr DAILY IV 02/03/25 10:00 02/03/25 11:35 125 MLS/HR Diltiazem HCl 120 mg DAILY PO 02/03/25 10:00 02/03/25 09:21 120 MG Sucralfate 1 gm BID PO 02/02/25 22:00 02/03/25 09:20 1 GM Patient Own Medication 24 mg DAILY SL 02/03/25 10:00 Cholecalciferol 2,000 unit DAILY PO 02/03/25 10:00 02/03/25 09:21 2,000 UNIT Clonazepam 1 mg BID PO 02/02/25 22:00 02/03/25 09:21 1 MG Citalopram Hydrobromide 20 mg TID PO 02/02/25 14:00 02/03/25 05:58 20 MG Magnesium Oxide 400 mg BID PO 02/02/25 22:00 02/03/25 09:21 400 MG Olanzapine 20 mg DAILY PO 02/03/25 10:00 02/03/25 09:20 20 MG Pantoprazole Sodium 40 mg BID PO 02/02/25 22:00 02/03/25 09:21 40 MG Temazepam 30 mg HS PO 02/02/25 22:00 02/02/25 20:39 30 MG Albuterol 2.5 mg Q4HPRN PRN NEB 02/02/25 13:45 Ipratropium [place] 0.5 mg Q4HPRN PRN NEB 02/02/25 13:45 Buprenorphine HCl 3 tab DAILY@0900 SL 02/03/25 09:00 02/03/25 09:19 3 TAB Laboratory Results Laboratory Tests 02/03/25 06:13 Chemistry Test 02/03/25 06:13 Albumin 4.4 g/dL (3.2-4.8) Calcium Level 9.7 mg/dL (8.7-10.4) Total Protein 6.6 g/dL (5.7-8.2) LFT Test 02/03/25 06:13 Alanine Aminotransferase (ALT) 57 U/L (7-40) H Alkaline Phosphatase 224 U/L (46-116) H Aspartate Amino Transferase (AST) 245 U/L (13-40) H Total Bilirubin 0.7 mg/dL (0.2-1.0) Microbiology Microbiology Date/Time Source Procedure Growth Status 02/02/25 11:09 Blood Blood Culture - Preliminary NO GROWTH AFTER 24 HOURS OF INCUBATION. 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 Alcala Depression, Anxiety, Plan discussed with: Patient Date of Service: Feb 03, 2025 Billing Provider: RAJINDER PARK MD Common Visit Codes: [id number] INP/OBS CARE(HIGH) RAJINDER PARK MD Feb 03, 2025 13:31
[2025-02-03] MEDS: KETOROLAC TROMETH 30 MG/ML 1ML VIAL IV PRN (15:48)
[2025-02-04] VITALS (9 sets, daily range): BP systolic 99–120; BP diastolic 55–76; PULSE 71–92; RESP 17–20; TEMP 98–99; O2SAT 94–98
--- NOTE | 2025-02-04 08:30 | DVHPN2 ---
Reviewed: Care Plan, H&P, Labs, Medications, Previous Orders, Radiology Changes from previous H/P or p: No Changes Eyes: No Pain, No Vision change, No Conjunctivae inflammation, No Eyelid inflammation, No Other, No Redness ENT: No Ear pain, No Ear discharge, No Nose pain, No Nose discharge, No Nose congestion, No Mouth pain, No Mouth swelling, No Throat pain, No Throat swelling, No Other Cardiovascular: Chest Pain; No Palpitations, No Orthopnea, No Paroxysmal Noc. Dyspnea, No Edema, No Lt Headedness, No Other Respiratory: No Cough, No Dry; Shortness of breath, SOB with excertion; No Wheezing, No Hemoptysis, No Pleuritic Pain, No Sputum, No Other Gastrointestinal: Nausea; No Vomiting, No Abdominal Pain, No Diarrhea, No Constipation, No Melena, No Hematochezia, No Other Genitourinary: No Dysuria, No Frequency, No Incontinence, No Hematuria, No Retention, No Other Musculoskeletal: No other, No neck pain, No shoulder pain, No arm pain, No back pain, No hand pain, No leg pain, No foot pain Skin: No Rash, No Lesions, No Jaundice, No Bruising, No Other Objective Vitals Vital Signs Date Time Temp Pulse Resp B/P (MAP) Pulse Ox O2 Delivery O2 Flow Rate FiO2 02/04/25 05:00 99.0 84 19 99/55 (70) 97 99.0 02/03/25 20:17 Nasal Cannula 2.0 02/03/25 20:17 28 Intake/Output Intake and Output 02/04/25 07:00 Intake Total 1350 ml Output Total 0 ml Balance 1350 ml Intake Oral 1050 ml IV Total 300 ml Output Urine Total 0 ml # Voids 1 Medications Current Medications Medications Dose Ordered Sig/Gladis Route Start Time Stop Time Status Last Admin Dose Admin Acetaminophen/ Hydrocodone Bitart 1 tab Q4HP PRN PO 02/02/25 13:00 Hold Ondansetron HCl 4 mg Q4HP PRN IV 02/02/25 13:00 02/03/25 17:23 4 MG Docusate Sodium 100 mg BIDPRN PRN PO 02/02/25 13:00 Acetaminophen 650 mg Q6HP PRN PO 02/02/25 13:00 02/03/25 14:55 650 MG Morphine Sulfate 2 mg Q4HPRN PRN IV 02/02/25 13:00 Hold Metoclopramide HCl 10 mg Q6HPRN PRN IV 02/02/25 13:00 02/04/25 06:51 10 MG Ceftriaxone Sodium 50 ml @ 100 mls/hr DAILY@09 IV 02/03/25 09:00 02/03/25 09:19 100 MLS/HR Azithromycin 250 ml @ 125 mls/hr DAILY IV 02/03/25 10:00 02/03/25 11:35 125 MLS/HR Diltiazem HCl 120 mg DAILY PO 02/03/25 10:00 02/03/25 09:21 120 MG Sucralfate 1 gm BID PO 02/02/25 22:00 02/03/25 21:10 1 GM Patient Own Medication 24 mg DAILY SL 02/03/25 10:00 Cholecalciferol 2,000 unit DAILY PO 02/03/25 10:00 02/03/25 09:21 2,000 UNIT Clonazepam 1 mg BID PO 02/02/25 22:00 02/03/25 21:10 1 MG Citalopram Hydrobromide 20 mg TID PO 02/02/25 14:00 02/04/25 05:43 20 MG Magnesium Oxide 400 mg BID PO 02/02/25 22:00 02/03/25 21:10 400 MG Olanzapine 20 mg DAILY PO 02/03/25 10:00 02/03/25 09:20 20 MG Pantoprazole Sodium 40 mg BID PO 02/02/25 22:00 02/03/25 21:10 40 MG Temazepam 30 mg HS PO 02/02/25 22:00 02/03/25 21:10 30 MG Albuterol 2.5 mg Q4HPRN PRN NEB 02/02/25 13:45 Ipratropium [place] 0.5 mg Q4HPRN PRN NEB 02/02/25 13:45 Buprenorphine HCl 3 tab DAILY@0900 SL 02/03/25 09:00 02/03/25 09:19 3 TAB Ketorolac Tromethamine 30 mg Q6HPRN PRN IV 02/03/25 15:15 02/08/25 15:14 02/04/25 05:41 30 MG Laboratory Results Laboratory Tests 02/03/25 06:13 Microbiology Microbiology Date/Time Source Procedure Growth Status 02/03/25 05:50 Nose MRSA Screen - Final Complete 02/02/25 11:09 Blood Blood Culture - Preliminary NO GROWTH AFTER 24 HOURS OF INCUBATION. 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 Alcala Depression, Anxiety, Continue current management Plan discussed with: Patient My Orders Orders - RAJINDER PARK MD Procedure Category Date Status Time Regular Diet DIET 02/03/25 Transmitted Dinner Ketorolac Injection PHA 02/03/25 In Process (Toradol Injection) 15:15 Date of Service: Feb 04, 2025 Billing Provider: RAJINDER PARK MD Common Visit Codes: [id number] INP/OBS CARE(HIGH) RAJINDER PARK MD Feb 04, 2025 08:30
[2025-02-04] MEDS ORDERED: BUPRENORPHINE -NALOXONE 8-2mg SL TAB SL SCH (10:00)
[2025-02-04 16:59] LABS: COVID19 ANTIGEN SOFIA FIA NEGATIVE (NEGATIVE); Rapid Influenza A Negative (Negative); Rapid Influenza B Negative (Negative)
[2025-02-05 01:01] VITALS: BP 102/53; PULSE 87; RESP 19; TEMP 98.6; O2SAT 96
[2025-02-05 06:55] VITALS: O2SAT 97
[2025-02-05 08:00] VITALS: PULSE 92; RESP 16; O2SAT 99
--- NOTE | 2025-02-05 08:35 | DVHPN2 ---
Reviewed: Care Plan, H&P, Labs, Medications, Previous Orders, Radiology Changes from previous H/P or p: No Changes Eyes: No Pain, No Vision change, No Conjunctivae inflammation, No Eyelid inflammation, No Other, No Redness ENT: No Ear pain, No Ear discharge, No Nose pain, No Nose discharge, No Nose congestion, No Mouth pain, No Mouth swelling, No Throat pain, No Throat swelling, No Other Cardiovascular: Chest Pain; No Palpitations, No Orthopnea, No Paroxysmal Noc. Dyspnea, No Edema, No Lt Headedness, No Other Respiratory: No Cough, No Dry; Shortness of breath, SOB with excertion; No Wheezing, No Hemoptysis, No Pleuritic Pain, No Sputum, No Other Gastrointestinal: Nausea; No Vomiting, No Abdominal Pain, No Diarrhea, No Constipation, No Melena, No Hematochezia, No Other Genitourinary: No Dysuria, No Frequency, No Incontinence, No Hematuria, No Retention, No Other Musculoskeletal: No other, No neck pain, No shoulder pain, No arm pain, No back pain, No hand pain, No leg pain, No foot pain Skin: No Rash, No Lesions, No Jaundice, No Bruising, No Other Objective Vitals Vital Signs Date Time Temp Pulse Resp B/P (MAP) Pulse Ox O2 Delivery O2 Flow Rate FiO2 02/05/25 06:55 97 Nasal Cannula* 2 28 02/05/25 01:01 98.6 87 19 102/53 (69) 98.6 Intake/Output Intake and Output 02/05/25 07:00 Intake Total 780 ml Balance 780 ml Intake Oral 780 ml # Voids 3 Medications Current Medications Medications Dose Ordered Sig/Gladis Route Start Time Stop Time Status Last Admin Dose Admin Acetaminophen/ Hydrocodone Bitart 1 tab Q4HP PRN PO 02/02/25 13:00 Hold Ondansetron HCl 4 mg Q4HP PRN IV 02/02/25 13:00 02/05/25 06:55 4 MG Docusate Sodium 100 mg BIDPRN PRN PO 02/02/25 13:00 Acetaminophen 650 mg Q6HP PRN PO 02/02/25 13:00 02/05/25 03:35 650 MG Morphine Sulfate 2 mg Q4HPRN PRN IV 02/02/25 13:00 Hold Metoclopramide HCl 10 mg Q6HPRN PRN IV 02/02/25 13:00 02/05/25 05:05 10 MG Ceftriaxone Sodium 50 ml @ 100 mls/hr DAILY@09 IV 02/03/25 09:00 02/04/25 09:27 100 MLS/HR Azithromycin 250 ml @ 125 mls/hr DAILY IV 02/03/25 10:00 02/04/25 09:31 125 MLS/HR Diltiazem HCl 120 mg DAILY PO 02/03/25 10:00 02/04/25 09:30 120 MG Sucralfate 1 gm BID PO 02/02/25 22:00 02/04/25 21:29 1 GM Cholecalciferol 2,000 unit DAILY PO 02/03/25 10:00 02/04/25 09:28 2,000 UNIT Clonazepam 1 mg BID PO 02/02/25 22:00 02/04/25 21:29 1 MG Citalopram Hydrobromide 20 mg TID PO 02/02/25 14:00 02/05/25 05:05 20 MG Magnesium Oxide 400 mg BID PO 02/02/25 22:00 02/04/25 21:30 400 MG Olanzapine 20 mg DAILY PO 02/03/25 10:00 02/04/25 09:29 20 MG Pantoprazole Sodium 40 mg BID PO 02/02/25 22:00 02/04/25 21:30 40 MG Temazepam 30 mg HS PO 02/02/25 22:00 02/04/25 21:30 30 MG Albuterol 2.5 mg Q4HPRN PRN NEB 02/02/25 13:45 Cancel Ipratropium [place] 0.5 mg Q4HPRN PRN NEB 02/02/25 13:45 Cancel Buprenorphine HCl 3 tab DAILY@0900 SL 02/03/25 09:00 02/04/25 09:25 3 TAB Ketorolac Tromethamine 30 mg Q6HPRN PRN IV 02/03/25 15:15 02/08/25 15:14 02/05/25 06:54 30 MG Buprenorphine HCl 3 tab DAILY SL 02/04/25 10:00 Cancel Laboratory Results Laboratory Tests 02/03/25 06:13 Microbiology Microbiology Date/Time Source Procedure Growth Status 02/03/25 05:50 Nose MRSA Screen - Final Complete 02/02/25 11:09 Blood Blood Culture - Preliminary NO GROWTH AFTER 48 HOURS OF INCUBATION. 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 Alcala Depression, Anxiety, Continue current management Time spent 45 minutes Plan discussed with: Patient Date of Service: Feb 05, 2025 Billing Provider: RAJINDER PARK MD Common Visit Codes: [id number] INP/OBS CARE(HIGH) RAJINDER PARK MD Feb 05, 2025 08:35
[2025-02-05 09:00] VITALS: BP 114/83; PULSE 111; RESP 16; TEMP 97.6; O2SAT 99
[2025-02-05] MEDS ORDERED: AZIT500T66 PO (09:04)
--- NOTE | 2025-02-05 09:08 | DVHDS2 ---
Discharge Summary Date of Admission Feb 02, 2025 at 12:49 Date of Discharge: Feb 05, 2025 Admitting Diagnosis Shortness of breaths and weakness Wounds: None Labs/Diagnostic Data: Laboratory Results Test 02/04/25 16:00 02/03/25 06:13 02/02/25 13:09 Influenza Type A Antigen Negative (Negative) Influenza Type B Antigen Negative (Negative) SARS-CoV-2 Antigen (Rapid) Negative (NEGATIVE) White Blood Count 11.6 10^3/uL (4.4-10.8) Red Blood Count 2.99 10^6/uL (4.5-5.90) Hemoglobin 9.1 g/dL (13.5-17.5) Hematocrit 27.1 % (41.0-53.0) Mean Corpuscular Volume 90.6 fL (80.0-100.0) Mean Corpuscular Hemoglobin 30.3 pg (28.0-32.0) Mean Corpuscular Hemoglobin Concent 33.4 g/dL (32.0-36.0) Red Cell Distribution Width 17.3 % (11.8-14.3) Platelet Count 129 10^3/uL (140-450) Mean Platelet Volume 9.4 fL (6.9-10.8) Neutrophils (%) (Auto) 78.6 % (37.0-80.0) Lymphocytes (%) (Auto) 8.1 % (10.0-50.0) Monocytes (%) (Auto) 13.0 % (0.0-12.0) Eosinophils (%) (Auto) 0.1 % (0.0-7.0) Basophils (%) (Auto) 0.2 % (0.0-2.0) Neutrophils # (Auto) 9.1 10 ^3/uL (1.6-8.6) Lymphocytes # (Auto) 0.9 10 ^3/uL (0.4-5.4) Monocytes # (Auto) 1.5 10 ^3/uL (0-1.3) Eosinophils # (Auto) 0 10 ^3/uL (0-0.8) Basophils # (Auto) 0 10 ^3/uL (0-0.2) Nucleated Red Blood Cells 0.1 % Sodium Level 140 mmol/L (136-145) Potassium Level 4.3 mmol/L (3.5-5.1) Chloride Level 103 mmol/L (98-107) Carbon Dioxide Level 25 mmol/L (20-31) Anion Gap 12 (5-15) Blood Urea Nitrogen 16 mg/dL (9-23) Creatinine 2.06 mg/dL (0.700-1.30) Glomerular Filtration Rate Calc 40 mL/min (>90) BUN/Creatinine Ratio 7.8 (10.0-20.0) Serum Glucose 97 mg/dL (74-106) Calcium Level 9.7 mg/dL (8.7-10.4) Total Bilirubin 0.7 mg/dL (0.2-1.0) Aspartate Amino Transferase (AST) 245 U/L (13-40) Alanine Aminotransferase (ALT) 57 U/L (7-40) Alkaline Phosphatase 224 U/L (46-116) Total Protein 6.6 g/dL (5.7-8.2) Albumin 4.4 g/dL (3.2-4.8) Lactic Acid Level 3.1 mmol/L (0.4-2.0) Troponin I High Sensitivity < 3 ng/L (</=54) Other Laboratory Tests 02/03/25 06:13 Brief Hx & Hospital Course: 44-year-old male with a history of lung cancer Mets to the bones and liver and chemotherapy by Dr. Alcala chronic anemia depression anxiety came in for shortness of breaths and generalized weakness he uses home oxygen found to have sepsis secondary to pneumonia blood cultures negative MRSA screen negative treated with Rocephin azithromycin albuterol Atrovent hemoglobin 9.6 patient has shown marginal improvement patient insistent to be discharged home today. 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 Alcala Depression, Anxiety, Discharge Disposition: Home Discharge Instruct/Medications Diet: Regular Activity: Light activity Follow Up/Referral: Continue all your previous home medications Follow up with the primary Dr and Oncology Dr. Alcala Medications: Azithromycin Transmitted to pharmacy 35 (Time taken for discharge summary 35 minutes) Discharge Statement: "Patient was advised to return to the ER or call 911 if any headaches, dizziness, shortness of breath, chest pain, abdominal pain, bleeding, fevers, or worsening of medical condition. Patient was counseled about treatment plan, medications, possible side effects, patientverbalized understanding. All questions were answered to the best of my ability. This discharge took greater then 30 minutes in planning, reviewing documentation, counseling the patient, and discussing with other team members." ASSESSMENT ASSESSMENT Hospital Course Improved Assessment Acute hypoxic respiratory failure: Oxygen by nasal cannula Sepsis secondary to pneumonia: Blood cultures negative MRSA screen negative Use of home oxygen Community-acquired right-sided Pneumonia, Rocephin azithromycin albuterol Atrovent Chronic Anemia, hemoglobin 9.6 Lactic acidosis, Lung cancer with Mets to bones and liver; under chemotherapy by Dr. Alcala Depression, Anxiety, Date of Service: Feb 05, 2025 Billing Provider: RAJINDER PARK MD Common Visit Codes: 34570-HHM/OBS DISCH DAY >30min RAJINDER PARK MD Feb 05, 2025 09:08
[2025-02-05 12:12] VITALS: BP 132/84; PULSE 98; RESP 17; TEMP 97.6; O2SAT 93
[2025-02-05 13:00] VITALS: BP 132/84; PULSE 114; RESP 17; TEMP 97.6; O2SAT 93
== END 2025-02-05 13:30 | disposition home or self-care (01) | DRG 720 ==
LOC: ER 09:56 → OVERFLOW 12:49 → EAST 23:05
PROVIDERS: ADMIT Family Medicine; ATTEND Family Medicine
DX: A41.9 Sepsis, unspecified organism (principal); J96.01 Acute respiratory failure with hypoxia; J15.69 Pneumonia due to other Gram-negative bacteria; E87.20 Acidosis, unspecified; C79.51 Secondary malignant neoplasm of bone; J15.9 Unspecified bacterial pneumonia; C34.91 Malignant neoplasm of unspecified part of right bronchus or lung; D64.9 Anemia, unspecified; C34.92 Malignant neoplasm of unspecified part of left bronchus or lung; C78.7 Secondary malignant neoplasm of liver and intrahepatic bile duct; Z20.822 Contact with and (suspected) exposure to COVID-19; F32.A Depression, unspecified; F41.9 Anxiety disorder, unspecified; I10 Essential (primary) hypertension; K21.9 Gastro-esophageal reflux disease without esophagitis; Z79.01 Long term (current) use of anticoagulants; Z79.899 Other long term (current) drug therapy; Z79.51 Long term (current) use of inhaled steroids
CPT/HCPCS: 36415; 71045; 80048; 80053; 83605; 84484; 85025; 87040; 87081; 87426; 87804; 93005; 96365; 96375; G0378; J1885; J2405

== ENCOUNTER 2025-02-09 12:22 | Inpatient (IN) | payer MEDICAID ==
[~2025-02-09] VITALS: Ht 170.2 cm; Wt 88.8 kg
[2025-02-09] MEDS: SODIUM CHLORIDE 0.9% 1,000 ML IV ONE (01:24)
[~2025-02-09 12:22] MED LIST changes: +AZIT500T66 PO; -CARV6.2517 PO; -FAMO-12 PO; -FURO20TA3 PO; -LEVO750T40 PO; -PRAV20TA3 PO
--- NOTE | 2025-02-09 12:35 | ED.PDOC ---
History of Present Illness HPI Comments This is a 44-year-old male who comes in by ambulance with chief complaint of weakness as well as chest pain. The patient was at his doctor's office today worsened blood was drawn and the patient has a hemoglobin of 7.3. He has been here in the past and received blood transfusions in the past for his history of throat cancer and lung cancer. He was actually seen here recently and received a unit of blood but now he is having the chest pressure as well as a 7.3 hemoglobin so he was sent back to the emergency department's for evaluation. He is having some diaphoresis and states that he is also having some shortness a breath. The patient states that the pain is a 10/10 and nonradiating. The patient has has no other complaints at this time. Time Seen by MD: 12:25 Primary Care Provider: TINO Reviewed Notes: Nurses Notes, Road Supervisor Of Engines Notes, Medications, Allergies (No allergies to medications) Allergies: Coded Allergies: NO KNOWN ALLERGIES (Unverified , 12/06/24) Home Meds Active Scripts Azithromycin (Azithromycin) 500 Mg Tab, 1 TAB PO DAILY, #7 TAB Prov:RAJINDER PARK MD 02/05/25 Reported Medications Buprenorphine Hcl-Naloxone Hcl (Suboxone) 1 Mis Mis, 24 MG SL DAILY, MISC 12/07/24 Temazepam (Temazepam) 30 Mg Cap, 30 MG PO BID, CAP 12/06/24 Cholecalciferol (VITAMIN D3) 2,000 Unit Tab, 1 TAB PO DAILY, #30 TAB 5 Refills 12/06/24 Magnesium Oxide (MAGNESIUM OXIDE) 400 Mg Tab, 1 TAB PO BID, #60 TAB 5 Refills 12/06/24 Diltiazem Hcl (Dilt-Xr) 120 Mg Cap, 120 MG PO DAILY, CAP 12/06/24 Olanzapine (Zyprexa) 20 Mg Tab, 20 MG PO DAILY, TAB 12/06/24 Escitalopram Oxalate (Lexapro) 10 Mg Tab, 10 MG PO TID, TAB 12/06/24 Sucralfate (Carafate) 1 Gm/10 Ml Shanice, 1 GM PO BID, ML 12/06/24 Omeprazole (Gnp Omeprazole) 20 Mg Tab, 40 MG PO BID, TAB 12/06/24 Clonazepam (Klonopin) 1 Mg Tab, 1 TAB PO BID, #60 TAB 1 Refill 12/06/24 Discontinued Reported Medications Famotidine (Famotidine) 20 Mg Tab, 1 TAB PO BID 12/31/24 Pravastatin Sodium (PRAVACHOL TABLET) 20 Mg Tb, 1 TAB PO DAILY 12/31/24 Furosemide (Furosemide) 20 Mg Tab, 1 TAB PO BID, #90 TAB 1 Refill 12/06/24 Carvedilol (Coreg) 6.25 Mg Tab, 6.25 MG PO BID, TAB 12/06/24 Discontinued Scripts Levofloxacin Hemihydrate (LEVOFLOXACIN) 750 Mg Tab, 750 MG PO DAILY for 5 Days, #5 TAB Prov:TRUNG SAUCEDO RESIDENT 01/27/25 Information Source: Patient, Emergency Med Personnel Mode of Arrival: EMS Severity: Moderate Timing: Days Duration: Since onset Prehospital treatment: Database Security Expert Quality The chest pain is pressure-like and is a 10/10 Associated signs and symptoms Associated shortness for breath and diaphoresis Past Medical History PAST MEDICAL HISTORY: Anxiety, Cancer (History of lung cancer and throat cancer), Depression, GERD, HTN Surgical History: Denies all surgeries Family History Family History: Family hx of DM Social History Smoker: Quit Greater Than 1 Year Alcohol: Denies ETOH Use Drugs: Denies Drug Use Lives In: Home Constitutional: denies: chills, diaphoresis, fatigue, fever, malaise, sweats, weakness, others EENTM: denies: blurred vision, double vision, ear bleeding, ear discharge, ear drainage, ear pain, ear ringing, eye pain, eye redness, hearing loss, mouth pain, mouth swelling, nasal discharge, nose bleeding, nose congestion, nose pain, photophobia, tearing, throat pain, throat swelling, voice changes, others Respiratory: reports: shortness of breath; denies: cough, hemoptysis, orthopnea, SOB at rest, SOB with excertion, stridor, wheezing, others Cardiovascular: reports: chest pain; denies: dizzy spells, diaphoresis, Dyspnea on exertion, edema, irregular heart beat, left arm pain, lightheadedness, palpitations, PND, syncope, others Gastrointestinal: denies: abdomen distended, abdominal pain, blood streaked bowels, constipated, diarrhea, dysphagia, difficulty swallowing, hematemesis, melena, nausea, poor appetite, poor fluid intake, rectal bleeding, rectal pain, vomiting, others Genitourinary: denies: burning, dysuria, flank pain, frequency, hematuria, incontinence, penile discharge, penile sore, pain, testicle pain, testicle swelling, urgency, others Neurological: denies: dizziness, fainting, headache, left sided numbness, left sided weakness, numbness, paresthesia, pre-existing deficit, right sided numbness, right sided weakness, seizure, speech problems, tingling, tremors, weakness, others Musculoskeletal: denies: back pain, gout, joint pain, joint swelling, muscle pain, muscle stiffness, neck pain, others Integumetry: denies: bruises, change in color, change in hair/nails, dryness, laceration, lesions, lumps, rash, wounds, others Allergic/Immunocompromised: denies: Difficulty Healing, Frequent Infections, Hives, Itching, others Hematologic/Lymphatic: denies: anemia, blood clots, easy bleeding, easy bruising, swollen glands, others Endocrine: denies: excessive hunger, excessive sweating, excessive thirst, excessive urination, flushing, intolerance to cold, intolerance to heat, unexplained weight gain, unexplained weight loss, others Psychiatric: denies: anxiety, bipolar disorder, depression, hopeless, panic disorder, schizophrenia, sleepless, suicidal, others Physical Exam General Appearance: Moderate Distress HEENT: Pale Conjuntivae (L), Pale Conjuntivae (R), Pharynx Normal, TMs Normal Neck: Full Range of Motion, Non-Tender, Normal, Normal Inspection Respiratory: Chest Non-Tender, Lungs Clear, No Accessory Muscle Use, No Respiratory Distress, Normal Breath Sounds Cardiovascular: No Edema, No JVD, No Murmur, No Gallop, Normal Peripheral Pulses, Regular Rate/Rhythm Breast Exam: Deferred Gastrointestinal: Hepatomegaly, No Pulsatile Mass, Normal Bowel Sounds, Tenderness Genitalia: Deferred Pelvic: Deferred Rectal: Deferred Extremities: No calf tenderness, Normal capillary refill, Pedal edema Musculoskeletal : Apperance: Normal Neurologic: Alert, construction project coordinator II-XII nml as Tested, Motor Weakness, Normal Affect, Normal Mood, No Sensory Deficits Cerebellar Function: Normal Reflexes: Normal Skin: Dry, Jaundice, Warm Lymphatic: No Adenopathy Was a procedure done? Was a procedure done?: No EKG EKG : Pulse Rate (adult): 94 [place]: Normal Cardiac Rhythm: NSR Block: None ST: Nonsp Differential Dx Considerations may include: ACS, MA, generalized weakness, anemia, acute myocardial ischemia X-Ray, Labs, Meds, VS Vital Signs Date Time Temp Pulse Resp B/P (MAP) Pulse Ox O2 Delivery O2 Flow Rate FiO2 02/09/25 12:40 94 02/09/25 12:28 98.3 90 18 110/76 (87) 98 98.3 02/09/25 12:27 94 Lab Test 02/09/25 13:55 02/09/25 13:06 Range/Units Troponin I High Sensitivity Pending < 3 L </=54 ng/L White Blood Count 23.1 #H 4.4-10.8 10^3/uL Red Blood Count 2.60 L 4.5-5.90 10^6/uL Hemoglobin 8.0 L 13.5-17.5 g/dL Hematocrit 24.4 L 41.0-53.0 % Mean Corpuscular Volume 94.0 80.0-100.0 fL Mean Corpuscular Hemoglobin 30.7 28.0-32.0 pg Mean Corpuscular Hemoglobin Concent 32.6 32.0-36.0 g/dL Red Cell Distribution Width 18.4 H 11.8-14.3 % Platelet Count 153 140-450 10^3/uL Mean Platelet Volume 9.5 6.9-10.8 fL Neutrophils (%) (Auto) 85.5 H 37.0-80.0 % Lymphocytes (%) (Auto) 2.8 L 10.0-50.0 % Monocytes (%) (Auto) 11.5 0.0-12.0 % Eosinophils (%) (Auto) 0.0 0.0-7.0 % Basophils (%) (Auto) 0.2 0.0-2.0 % Neutrophils # (Auto) 19.7 H 1.6-8.6 10 ^3/uL Lymphocytes # (Auto) 0.7 0.4-5.4 10 ^3/uL Monocytes # (Auto) 2.6 H 0-1.3 10 ^3/uL Eosinophils # (Auto) 0 0-0.8 10 ^3/uL Basophils # (Auto) 0.1 0-0.2 10 ^3/uL Nucleated Red Blood Cells 0.4 % Prothrombin Time 13.3 H 9.3-11.8 sec Prothrombin Time INR 1.29 H 0.9-1.15 Activated Partial Thromboplast Time 27.0 24.5-34.5 SEC Sodium Level 132 #L 136-145 mmol/L Potassium Level 5.3 H 3.5-5.1 mmol/L Chloride Level 97 L 98-107 mmol/L Carbon Dioxide Level 24 20-31 mmol/L Anion Gap 11 5-15 Blood Urea Nitrogen 44 H 9-23 mg/dL Creatinine 2.68 H 0.700-1.30 mg/dL Glomerular Filtration Rate Calc 29 >90 mL/min BUN/Creatinine Ratio 16.4 10.0-20.0 Serum Glucose 108 H 74-106 mg/dL Calcium Level 9.1 8.7-10.4 mg/dL IV Hep-Lock has been established The patient was typed and screened The patient's hemoglobin is 8.0 but because the patient was still having chest pain, we are going to transfuse the patient with 1 unit of packed red blood cells The patient's potassium is elevated at 5.3 The BUN and the creatinine are also elevated At this time, the patient was troponin level is negative The patient will be admitted to the hospitalist A cardiology consult will be obtained. The patient understands and agrees with the management. Images Reviewed?: Images reviewed and evaluated by me Time of 1ST Reevaluation: 14:18 Reevaluation 1ST: Unchanged Patient Education/Counseling: Diagnosis, Treatment, Prognosis Family Education/Counseling: No Family Present Departure 1 Departure Time of Disposition: 12:37 Impression: Primary Impression: Cancer, metastatic to liver Additional Impressions: Symptomatic anemia Acute chest pain Hyperkalemia Disposition: ADMITTED INPATIENT Admit to: Tele Condition: Fair Critical Care Note Critical Care Time?: Yes (35 min-critical care time only) Stability Stability form required: Yes Unstable for transfer: Telemetry monitoring (Telemetry monitoring required), ED Physician Assesment (Clinical assesment) Heart Score Heart Score: Heart Score Response (Comments) Value History Moderate Suspicious 1 EKG Normal 0 Age <45 0 Risk Factors >3 or Hx ASHD 2 Troponin Normal limit 0 Total 3 DONALD HAY MD Feb 09, 2025 12:35
[2025-02-09 13:22] LABS: Basophils # (auto) 0.1 10 ^3/uL (0-0.2); Basophils % (auto) 0.2 % (0.0-2.0); Eosinophils # (auto) 0 10 ^3/uL (0-0.8); Hematocrit 24.4 % (41.0-53.0); Lymphocytes # (auto) 0.7 10 ^3/uL (0.4-5.4); Lymphocytes % (auto) 2.8 % (10.0-50.0); Mean Corpuscular Hemoglobin 30.7 pg (28.0-32.0); Mean Corpuscular Hgb Conc. 32.6 g/dL (32.0-36.0); Monocytes # (auto) 2.6 10 ^3/uL (0-1.3); Monocytes % (auto) 11.5 % (0.0-12.0); Neutrophils # (auto) 19.7 10 ^3/uL (1.6-8.6); Neutrophils % (auto) 85.5 % (37.0-80.0); Nucleated Red Blood Cells % 0.4 %; Platelet Count (auto) 153 10^3/uL (140-450); Red Cell Distribution Width 18.4 % (11.8-14.3); White Blood Cell 23.1 10^3/uL (4.4-10.8)
--- NOTE | 2025-02-09 13:30 | DVH ---
XY CHEST TWO VIEWS ROUTINE CLINICAL HISTORY: CP COMPARISON: XY CHEST PORTABLE on DOS: 02/02/25 TECHNIQUE: Frontal view of the chest. FINDINGS: LUNGS AND PLEURAL SPACES: Right infrahilar mass, concerning for neoplasm. HEART: Unremarkable. No cardiomegaly. MEDIASTINUM: Unremarkable. Normal mediastinal contour. BONES/JOINTS: Unremarkable. No acute fracture. TUBES, LINES AND DEVICES: Right-sided Mediport with the distal tip in the SVC. No pneumothorax. OTHER FINDINGS: . IMPRESSION: Right infrahilar mass, concerning for neoplasm.
[2025-02-09 13:32] LABS: Anion Gap 11 (5-15); Calcium 9.1 mg/dL (8.7-10.4); Carbon Dioxide 24 mmol/L (20-31); Chloride 97 mmol/L (98-107); Potassium 5.3 mmol/L (3.5-5.1); Sodium 132 mmol/L (136-145)
[2025-02-09 13:36] LABS: INR 1.29 (0.9-1.15); Prothrombin Time 13.3 sec (9.3-11.8)
[2025-02-09 13:37] LABS: BUN/Creatinine Ratio 16.4 (10.0-20.0); Blood Urea Nitrogen 44 mg/dL (9-23); Glucose 108 mg/dL (74-106)
[2025-02-09] MEDS ORDERED: MORPHINE SULFATE INJ 2 MG/ml SYRG IV PRN (20:00)
[2025-02-09] MEDS ORDERED: ALBUTEROL SULF 2.5 MG/0.5ML(0.5%) NEB SOLN NEB PRN (20:00)
[2025-02-09] MEDS ORDERED: NITROGLYCERIN 0.4 MG SL TAB SL PRN (20:00)
[2025-02-09 20:15] VITALS: BP 110/76; PULSE 91; RESP 18; TEMP 98.3; O2SAT 99
[2025-02-09 21:33] LABS: Lactic Acid w/Reflex 2.3 mmol/L (0.4-2.0)
--- NOTE | 2025-02-09 22:54 | DVHHP2 ---
History of Present Illness Reason for Visit: Shortness for breath History of Present Illness 44-year-old male presents for evaluation of generalized weakness. Patient presents with a two day history of worsening generalized weakness with associated shortness for breath. Denies any abdominal pain, nausea or vomiting. He was seen by his primary care provider today who advised him to present for further evaluation due to looking extremely pale. He does use oxygen at home currently at 2 L. patient has a history of lung cancer reports not being able to schedule for chemotherapy for the past three weeks. Past Medical History Lung cancer, GERD, hypertension, depression Past Surgical History Denies Family History Diabetes mellitus Smoke: No ALCOHOL: none Drugs: None Lives: with Family Review of Systems Review of Systems Review of systems are currently negative otherwise addressed in HPI. Allergies: Coded Allergies: NO KNOWN ALLERGIES (Unverified , 12/06/24) Medications Current Medications Medications Dose Ordered Sig/Gladis Route Start Time Stop Time Status Last Admin Dose Admin Ceftriaxone Sodium 50 ml @ 100 mls/hr DAILY@09 IV 02/10/25 09:00 Albuterol 2.5 mg Q6HPRN PRN NEB 02/09/25 20:00 Acetaminophen/ Hydrocodone Bitart 1 tab Q4HP PRN PO 02/09/25 20:00 Temazepam 15 mg QHSP PRN PO 02/09/25 20:00 Ondansetron HCl 4 mg Q4HP PRN IV 02/09/25 20:00 Acetaminophen 650 mg Q6HP PRN PO 02/09/25 20:00 Nitroglycerin 0.4 mg Q5MINP PRN SL 02/09/25 20:00 Morphine Sulfate 2 mg Q30M PRN IV 02/09/25 20:00 Exam Vital Signs Vital Signs Date Time Temp Pulse Resp B/P (MAP) Pulse Ox O2 Delivery O2 Flow Rate FiO2 02/09/25 20:15 99 Nasal Cannula 2.0 02/09/25 20:15 28 02/09/25 20:15 98.3 91 18 110/76 98.3 Exam Gen: 44-year-old male in mild distress Skin: Warm, dry, pale, no rash. HEENT: Normocephalic atraumatic, mucous membranes moist and pink. Neck: Cervical and supraclavicular nodes normal without enlargement, trachea is midline, thyroid gland is normal without masses. Pulmonary: Diminished breath sounds bilaterally Cardiac: Regular rate and rhythm. No murmur Abdomen: Soft, nontender, nondistended, bowel sounds present all 4 quadrants, no guarding, no rigidity, no organomegaly. Extremities: No cyanosis, clubbing, no edema Neuro: Cranial nerves II through XII grossly intact, normal affect and speech, no focal motor deficits. Labs/Xrays ORDERING PHYSICIAN: DONALD HAY MD PROCEDURE(s): CXR2 - CHEST TWO VIEWS ROUTINE REASON: ORDER NUMBER(s): [id number], ACCESSION NUMBER(s): [id number] XY CHEST TWO VIEWS ROUTINE CLINICAL HISTORY: COMPARISON: XY CHEST PORTABLE on DOS: 02/02/25 TECHNIQUE: Frontal view of the chest. FINDINGS: LUNGS AND PLEURAL SPACES: Right infrahilar mass, concerning for neoplasm. HEART: Unremarkable. No cardiomegaly. MEDIASTINUM: Unremarkable. Normal mediastinal contour. BONES/JOINTS: Unremarkable. No acute fracture. TUBES, LINES AND DEVICES: Right-sided Mediport with the distal tip in the SVC. No pneumothorax. OTHER FINDINGS: . IMPRESSION: Right infrahilar mass, concerning for neoplasm. Labs Test 02/09/25 22:17 02/09/25 13:55 02/09/25 13:06 Range/Units Troponin I High Sensitivity < 3 L </=54 ng/L White Blood Count 23.1 #H 4.4-10.8 10^3/uL Red Blood Count 2.60 L 4.5-5.90 10^6/uL Hemoglobin 8.0 L 13.5-17.5 g/dL Hematocrit 24.4 L 41.0-53.0 % Mean Corpuscular Volume 94.0 80.0-100.0 fL Mean Corpuscular Hemoglobin 30.7 28.0-32.0 pg Mean Corpuscular Hemoglobin Concent 32.6 32.0-36.0 g/dL Red Cell Distribution Width 18.4 H 11.8-14.3 % Platelet Count 153 140-450 10^3/uL Mean Platelet Volume 9.5 6.9-10.8 fL Neutrophils (%) (Auto) 85.5 H 37.0-80.0 % Lymphocytes (%) (Auto) 2.8 L 10.0-50.0 % Monocytes (%) (Auto) 11.5 0.0-12.0 % Eosinophils (%) (Auto) 0.0 0.0-7.0 % Basophils (%) (Auto) 0.2 0.0-2.0 % Neutrophils # (Auto) 19.7 H 1.6-8.6 10 ^3/uL Lymphocytes # (Auto) 0.7 0.4-5.4 10 ^3/uL Monocytes # (Auto) 2.6 H 0-1.3 10 ^3/uL Eosinophils # (Auto) 0 0-0.8 10 ^3/uL Basophils # (Auto) 0.1 0-0.2 10 ^3/uL Nucleated Red Blood Cells 0.4 % Prothrombin Time 13.3 H 9.3-11.8 sec Prothrombin Time INR 1.29 H 0.9-1.15 Activated Partial Thromboplast Time 27.0 24.5-34.5 SEC Sodium Level 132 #L 136-145 mmol/L Potassium Level 5.3 H 3.5-5.1 mmol/L Chloride Level 97 L 98-107 mmol/L Carbon Dioxide Level 24 20-31 mmol/L Anion Gap 11 5-15 Blood Urea Nitrogen 44 H 9-23 mg/dL Creatinine 2.68 H 0.700-1.30 mg/dL Glomerular Filtration Rate Calc 29 >90 mL/min BUN/Creatinine Ratio 16.4 10.0-20.0 Serum Glucose 108 H 74-106 mg/dL Calcium Level 9.1 8.7-10.4 mg/dL Assessment/Plan Assessment/Plan Assessment Symptomatic anemia Generalized weakness Lung carcinoma with metastases , on chemotherapy Leukocytosis Rule out sepsis Acute on chronic renal failure Hyperkalemia Anemia Plan Admit the patient to telemetry to the hospitalist Transfuse 1 unit of packed red cells Hematology/oncology consultation for possible chemotherapy Rocephin Blood cultures pending His IV fluids Resume home medications Continue treatment per orders. Plan discussed with: Patient My Orders Orders - FRED ROSALES AGACNP Procedure Category Date Status Time Blood Culture BARBARA 02/09/25 In Process 19:52 Sodium Chloride 0.9% PHA 02/09/25 In Process 20:00 * Hematology/Oncology CONS 02/09/25 Transmitted Consult 19:52 Ceftriaxone 1gm/50ml PHA 02/10/25 In Process D5w (Rocephin) 09:00 Albuterol Medneb PHA 02/09/25 In Process (Ventolin Medneb) 20:00 Admit ADMIT 02/09/25 Transmitted 19:52 Renal DIET 02/10/25 Transmitted Standard(2gna,3gk,Lopho) Breakfast Hydrocodone-Acet PHA 02/09/25 In Process 5/325mg Tab ([place] 20:00 Temazepam (Restoril) PHA 02/09/25 In Process 20:00 Ondansetron Hcl PHA 02/09/25 In Process (Zofran) 20:00 Complete Blood Count LAB 02/10/25 Verified 04:00 Comprehensive LAB 02/10/25 Verified Metabolic Panel 04:00 Condition: Stable MICHAEL 02/09/25 In Process 19:52 Acetaminophen Tablet PHA 02/09/25 In Process (Tylenol Tablet) 20:00 Bedrest With Bathroom MICHAEL 02/09/25 In Process Privileg 19:52 Nitroglycerin PHA 02/09/25 In Process Sublingual (Ntrostat 20:00 Morphine Sulfate PHA 02/09/25 In Process Injection 20:00 Stat Ekg For Chest MICHAEL 02/09/25 In Process Pain 19:52 Notify Md Of Changes MICHAEL 02/09/25 In Process From Base 19:52 Subway Repair Supervisor For MICHAEL 02/09/25 In Process 24 Hours 19:52 Emergency Dysrhythmia MICHAEL 02/09/25 In Process Protocol 19:52 Rhythm Strips Once MICHAEL 02/09/25 In Process Every Shift 19:52 Oxygen By Nasal RT 02/09/25 Transmitted Cannula 19:52 Date of Service: Feb 09, 2025 Billing Provider: FRED ROSALES Common Visit Codes: [id number] INP/OBS CARE (HIGH) FRED ROSALES Feb 09, 2025 22:54
[2025-02-09 23:58] VITALS: PULSE 71; RESP 18; O2SAT 98
[2025-02-10] VITALS (11 sets, daily range): BP systolic 106–138; BP diastolic 56–87; PULSE 75–110; RESP 12–19; TEMP 97.5–98; O2SAT 94–99
[2025-02-10] MEDS: SODIUM CHLORIDE 0.9% 1,000 ML IV ONE (00:06)
[2025-02-10] MEDS: cefTRIAXone 1GM/50ML D5W 50 ML IV ONE (00:06)
[2025-02-10] MEDS: SODIUM ZIRCONIUM CYCL 10 GM PAK PO ONE (00:07)
[2025-02-10] MEDS: HYDROcodone-ACET 5/325MG TAB PO PRN (00:35)
[2025-02-10] MEDS: ONDANSETRON HCL 4 MG/2 ML VIAL IV PRN (00:39)
--- NOTE | 2025-02-10 07:28 | ECG ---
[facility] Test Date: 2025-02-09 Test Time: 12:27:11 Pat Name: KELL NINO Department: ED Room: [facility] Gender: M Clinical Specialty Rep: andrés : 1980 Requested By: DONALD HAY Order Number: [id number] Reading MD: Jonah Goldman Measurements Intervals [place] Rate: 94 P: 38 VA: 125 QRS: 45 QRSD: 92 T: 30 QT: 363 QTc: 454 Interpretive Statements Sinus rhythm Baseline wander in lead(s) V2 Electronically Signed On 02-10-2025 17:09:50 PDT by Jonah Goldman Please click the below link to view image of tracing.
[2025-02-10 08:10] LABS: Basophils % (auto) 0.2 % (0.0-2.0); Eosinophils # (auto) 0 10 ^3/uL (0-0.8); Hematocrit 25.8 % (41.0-53.0); Hemoglobin 8.4 g/dL (13.5-17.5); Lymphocytes # (auto) 0.8 10 ^3/uL (0.4-5.4)
[2025-02-10 08:13] LABS: Basophils # (auto) 0 10 ^3/uL (0-0.2); Lymphocytes % (auto) 3.3 % (10.0-50.0); Mean Corpuscular Hemoglobin 30.4 pg (28.0-32.0); Mean Corpuscular Hgb Conc. 32.5 g/dL (32.0-36.0); Mean Corpuscular Volume 93.5 fL (80.0-100.0); Monocytes # (auto) 2.5 10 ^3/uL (0-1.3); Monocytes % (auto) 11.1 % (0.0-12.0); Neutrophils # (auto) 19.4 10 ^3/uL (1.6-8.6); Neutrophils % (auto) 85.4 % (37.0-80.0); Nucleated Red Blood Cells % 0.5 %; Platelet Count (auto) 153 10^3/uL (140-450); Red Blood Cells 2.76 10^6/uL (4.5-5.90); Red Cell Distribution Width 19.2 % (11.8-14.3); White Blood Cell 22.8 10^3/uL (4.4-10.8)
[2025-02-10 08:19] LABS: Anion Gap 14 (5-15); Chloride 98 mmol/L (98-107); Potassium 4.7 mmol/L (3.5-5.1); Total Protein 6.4 g/dL (5.7-8.2)
[2025-02-10 08:20] LABS: Albumin 3.9 g/dL (3.2-4.8)
[2025-02-10 08:25] LABS: Alanine Aminotransferase 226 U/L (7-40); Alkaline Phosphatase 481 U/L (46-116); Aspartate Aminotransferase 882 U/L (13-40); Bilirubin, Total 4.8 mg/dL (0.2-1.0); Blood Urea Nitrogen 52 mg/dL (9-23); Calcium 8.4 mg/dL (8.7-10.4); Carbon Dioxide 17 mmol/L (20-31); Glucose 124 mg/dL (74-106); Sodium 129 mmol/L (136-145)
[2025-02-10] MEDS: cefTRIAXone 1GM/50ML D5W 50 ML IV SCH (09:36)
--- NOTE | 2025-02-10 15:01 | DVH ---
INDICATION: elevated liver enzyme TECHNIQUE: Multiple real-time sonographic images were obtained of the right upper quadrant. COMPARISON: US ABDOMEN LIMITED on DOS: 01/26/25 FINDINGS: The liver demonstrates heterogeneous homogenous echotexture without focal mass lesions. The liver measures. Multiple hepatic masses are visualized limited exam due to heterogeneity. 29 cm. Th e common bile duct is not well visualized due to obscuration from bowel gas. The gallbladder is without evidence of stone or sludge. The gallbladder wall measures 3 mm and is no rmal. The right kidney measures 11.1 cm. The right kidney is normal in contour, size, and shape. The echog enicity is normal. There is no hydronephrosis. The pancreas is not well visualized due to overlying bowel gas. IMPRESSION: Hepatomegaly with coarsened liver echotexture and multiple diffuse hepatic masses. Further evaluatio n with contrast-enhanced MRI or CT liver protocol is recommended.
[2025-02-10 15:27] LABS: Creatinine, Urine 53.35 mg/dL (30.0-125.0)
[2025-02-10 15:35] LABS: Protein, Urine 187.3 mg/dL (1-14)
[2025-02-10] MEDS: SODIUM CHLORIDE 0.9% 1,000 ML IV SCH (15:42)
[2025-02-10 15:50] LABS: Urine Amorphous Crystal FEW /hpf (None Seen); Urine Bacteria FEW /hpf (None Seen); Urine Blood 1+ /uL (Negative); Urine Clarity Turbid (Clear); Urine Color Yellow (Yellow); Urine Hyaline Cast FEW /lpf (0 - 2); Urine Protein, UAD 1+ (Negative); Urine Specific Gravity 1.012 (1.001-1.035); Urine Squamous Epithelial Cell FEW /hpf (<5); Urine Urobilinogen Normal (Negative); Urine WBC 4 /HPF (0-3); Urine pH 5.5 (5.0-9.0)
[2025-02-10] MEDS: BUPRENORPHINE -NALOXONE 8-2mg SL TAB SL SCH (15:54)
--- NOTE | 2025-02-10 16:48 | DVHPNRES ---
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 As per patient he has always felt tired, anemic, receiving chemotherapy IV with Dr. Alcala oncologist. Has on oxygen via nasal cannula chronically, receiving IV antibiotics for multifocal time pneumonias likely related to obstructive/lung Mets . Patient has been given 1 unit of blood, denying any other symptoms. Patient also has lactic acidosis, right hilar mass possible pneumonia, chemotherapy-induced thrombocytopenia and anemia. Patient seen and examined at bedside. Complaining of generalized weakness, denied nausea, vomiting, abdominal pain, chest pain, any other symptoms. ROS Complaining of generalized weakness Eyes: No Pain, No Vision change, No Conjunctivae inflammation, No Eyelid inflammation, No Other, No Redness ENT: No Ear pain, No Ear discharge, No Nose pain, No Nose discharge, No Nose congestion, No Mouth pain, No Mouth swelling, No Throat pain, No Throat swelling, No Other Cardiovascular: No Chest Pain, No Palpitations, No Orthopnea, No Paroxysmal Noc. Dyspnea, No Edema, No Lt Headedness, No Other Respiratory: No Cough, No Dry, No Shortness of breath, No SOB with excertion, No Wheezing, No Hemoptysis, No Pleuritic Pain, No Sputum, No Other Gastrointestinal: No Nausea, No Vomiting, No Abdominal Pain, No Diarrhea, No Constipation, No Melena, No Hematochezia, No Other Genitourinary: No Dysuria, No Frequency, No Incontinence, No Hematuria, No Retention, No Other Musculoskeletal: No other, No neck pain, No shoulder pain, No arm pain, No back pain, No hand pain, No leg pain, No foot pain Skin: No Rash, No Lesions, No Jaundice, No Bruising, No Other Objective vital signs Vital Sign Date Time Temp Pulse Resp B/P (MAP) Pulse Ox O2 Delivery O2 Flow Rate FiO2 02/10/25 15:48 96 Nasal Cannula* 2 28 02/10/25 14:00 91 19 115/82 (93) 02/10/25 13:17 97.6 97.6 Total Intake and Output 02/09/25 02/09/25 02/10/25 15:00 23:00 07:00 Intake Total 1860 ml Output Total 0 ml Balance 1860 ml medications Current Medications Medications Dose Ordered Sig/Gladis Route Start Time Stop Time Status Last Admin Dose Admin Ceftriaxone Sodium 50 ml @ 100 mls/hr DAILY@09 IV 02/10/25 09:00 02/10/25 09:36 100 MLS/HR Albuterol 2.5 mg Q6HPRN PRN NEB 02/09/25 20:00 Acetaminophen/ Hydrocodone Bitart 1 tab Q4HP PRN PO 02/09/25 20:00 Hold 02/10/25 08:07 1 TAB Temazepam 15 mg QHSP PRN PO 02/09/25 20:00 Ondansetron HCl 4 mg Q4HP PRN IV 02/09/25 20:00 02/10/25 15:52 4 MG Acetaminophen 650 mg Q6HP PRN PO 02/09/25 20:00 Nitroglycerin 0.4 mg Q5MINP PRN SL 02/09/25 20:00 Morphine Sulfate 2 mg Q30M PRN IV 02/09/25 20:00 Hold Sodium Chloride 1,000 ml @ 125 mls/hr Q8H IV 02/10/25 11:30 02/10/25 15:42 125 MLS/HR Buprenorphine HCl 3 tab DAILY SL 02/10/25 15:15 02/10/25 15:54 3 TAB Examination General Appearance: Cooperative. Well developed. Pale Head Exam: Normal inspection Neck Exam: Normal inspection. Non-tender. Normal alignment Pulmonary/Respiratory: Chest non-tender. Reduced air entry in right lower lobe, mild crackles over right lower lobe. No wheezing., patient receiving oxygen via nasal cannula Cardiovascular/Chest: Regular rate and rhythm. No murmurs. No JVD. Peripheral Pulses: 2+ Radial (R). 2+ Radial (L). 2+ Pedal (R). 2+ Pedal (L) Abdominal Exam: Normal bowel sounds. Soft. Nontender. No hepatosplenomegaly. No masses Ankle Exam: Negative ankle edema Lower extremities: 1+ bilateral lower extremity edema, presence of pedal course, capillary refill less than 2 seconds. Neuro/Mental Status: A&O x4. Coherent Thoughts/Psych: Normal thought pattern. Appropriate mood and affect. Good judgement and insight Appearance: In no acute distress Skin Exam: Normal inspection. Normal color. Warm. 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 Alcala in three weeks. -IV antibiotic with ceftriaxone azithromycin -MRSA screening -pending MRSA screening -chest x-ray showed right lower lobe mass/consolidation -IV fluid with normal saline -breathing treatment with albuterol p.r.n. -CT abdomen pelvis showed Numerous lung nodules/masses are concerning for metastases and Liver lesions are concerning for metastases (12/06/24) Acute on chronic anemia secondary to chemotherapy induced/cancer induced -received 1 unit of PRBC -pending iron panel -monitor H&H -blood transfuse if hemoglobin less than seven -pending reticulocyte count, haptoglobin, LDH, iron panel, ferritin level. FLO due to EMS likely hemodynamically mediated -IV fluid normal saline 100 mL/hour -pending urinalysis, urine creatinine, urine sodium, PTH, magnesium, urine protein, urine protein/creatinine ratio. -continue to monitor HUEY Transaminitis with hyperbilirubinemia likely due to sepsis -pending liver ultrasound Lactic acidosis due to sepsis -lactic acid 3.9 -IV fluid -repeat in a.m. History Depression History Anxiety -no suicide ideation/plan PUD prophylaxis: Protonix DVT prophylaxis: high risk for bleeding, SCD Goals of care, discussed for 20 minutes, full code Plan discussed with Dr. Regan Plan discussed with: Patient, Other (RN) My Orders My Orders Orders - AMBROSIO REID Procedure Category Date Status Time Sodium Chloride 0.9% PHA 02/10/25 In Process 11:30 Urine Protein LAB 02/10/25 In Process 11:21 Urine Sodium LAB 02/10/25 In Process 11:21 Urine Creatinine LAB 02/10/25 In Process 11:21 LIVER US 02/10/25 Resulted 14:20 CC Plasma Assessment Blood Product Administration S: 0411 Addendum Addendum Addendum I was physically present for the espinoza portions of the service provided to patient by THE RESIDENT. I have reviewed the documentation, discussed the case with resident and agree with the resident's documentation except as noted. Also the patient's clinical case was discussed with the patient's nurse. This medical document was created using an electronic medical record system with computerized dictation system. Although this document has been carefully reviewed, there might still be some phonetic and typographical errors. These areas are purely typographical due to imperfections of the software programs, and do not reflect any compromise in the patient's medical care. Late signature. Date of Service: Feb 10, 2025 Billing Provider: MARIA TERESA REGAN MD Common Visit Codes: [id number] INP/OBS CARE(HIGH) Secondary Visit Codes: [id number] CARE PLAN 30 MINUTES (20 minutes) AMBROSIO REID RESIDENT Feb 10, 2025 16:48 MARIA TERESA REGAN MD February 11, 2025 07:42
[2025-02-10] MEDS: PANTOPRAZOLE 40 MG/10 ML VIAL INJ IV ONE (16:58)
[2025-02-10 18:10] LABS: % Iron Saturation 40.9 % (20-55)
[2025-02-11] VITALS (11 sets, daily range): BP systolic 107–138; BP diastolic 51–90; PULSE 68–119; RESP 14–22; TEMP 97.5–98.7; O2SAT 94–98
[2025-02-11 06:58] LABS: Basophils # (auto) 0 10 ^3/uL (0-0.2); Basophils % (auto) 0.1 % (0.0-2.0); Eosinophils # (auto) 0 10 ^3/uL (0-0.8); Hemoglobin 7.2 g/dL (13.5-17.5); Mean Corpuscular Hgb Conc. 33.5 g/dL (32.0-36.0); Monocytes # (auto) 1.7 10 ^3/uL (0-1.3); Nucleated Red Blood Cells % 0.2 %
[2025-02-11 06:59] LABS: Anion Gap 13 (5-15); Carbon Dioxide 20 mmol/L (20-31); Chloride 102 mmol/L (98-107); Potassium 3.9 mmol/L (3.5-5.1)
[2025-02-11 07:00] LABS: Hematocrit 21.5 % (41.0-53.0); Lymphocytes # (auto) 0.3 10 ^3/uL (0.4-5.4); Lymphocytes % (auto) 1.8 % (10.0-50.0); Mean Corpuscular Hemoglobin 30.5 pg (28.0-32.0); Mean Corpuscular Volume 90.8 fL (80.0-100.0); Neutrophils # (auto) 13.5 10 ^3/uL (1.6-8.6); Neutrophils % (auto) 87.1 % (37.0-80.0); Platelet Count (auto) 123 10^3/uL (140-450); Red Blood Cells 2.37 10^6/uL (4.5-5.90); Red Cell Distribution Width 19.3 % (11.8-14.3); White Blood Cell 15.5 10^3/uL (4.4-10.8)
[2025-02-11 07:02] LABS: Calcium 8.3 mg/dL (8.7-10.4); Sodium 135 mmol/L (136-145)
[2025-02-11 07:05] LABS: BUN/Creatinine Ratio 19.3 (10.0-20.0); Glucose 92 mg/dL (74-106)
[2025-02-11 07:10] LABS: Blood Urea Nitrogen 53 mg/dL (9-23)
[2025-02-11] MEDS: PANTOPRAZOLE 40 MG/10 ML VIAL INJ IV SCH (09:47)
[2025-02-11] MEDS: ACETAMINOPHEN 325 MG TAB PO PRN (16:36)
--- NOTE | 2025-02-11 18:28 | DVHPNRES ---
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 As per patient he has always felt tired, anemic, receiving chemotherapy IV with Dr. Alcala oncologist. Has on oxygen via nasal cannula chronically, receiving IV antibiotics for multifocal time pneumonias likely related to obstructive/lung Mets . Patient has been given 1 unit of blood, denying any other symptoms. Patient also has lactic acidosis, right hilar mass possible pneumonia, chemotherapy-induced thrombocytopenia and anemia. Patient seen and examined at bedside. Hemoglobin 7.2 Continued to have generalized weakness On oxygen via 2 L Plan for 1 unit PRBC Physical therapy No any other new complaints ROS: Complaining of generalized weakness Eyes: No Pain, No Vision change, No Conjunctivae inflammation, No Eyelid inflammation, No Other, No Redness ENT: No Ear pain, No Ear discharge, No Nose pain, No Nose discharge, No Nose congestion, No Mouth pain, No Mouth swelling, No Throat pain, No Throat swelling, No Other Cardiovascular: No Chest Pain, No Palpitations, No Orthopnea, No Paroxysmal Noc. Dyspnea, No Edema, No Lt Headedness, No Other Respiratory: No Cough, No Dry, No Shortness of breath, No SOB with exertion, No Wheezing, No Hemoptysis, No Pleuritic Pain, No Sputum, No Other Gastrointestinal: No Nausea, No Vomiting, No Abdominal Pain, No Diarrhea, No Constipation, No Melena, No Hematochezia, No Other Genitourinary: No Dysuria, No Frequency, No Incontinence, No Hematuria, No Retention, No Other Musculoskeletal: No other, No neck pain, No shoulder pain, No arm pain, No back pain, No hand pain, No leg pain, No foot pain Skin: No Rash, No Lesions, No Jaundice, No Bruising, No Other Objective vital signs Vital Sign Date Time Temp Pulse Resp B/P (MAP) Pulse Ox O2 Delivery O2 Flow Rate FiO2 02/11/25 17:30 97.8 103 19 130/67 (88) 94 97.8 02/11/25 10:00 Nasal Cannula 2.0 02/11/25 10:00 28 Total Intake and Output 02/10/25 02/10/25 02/11/25 15:00 23:00 07:00 Intake Total 50 ml 450 ml 300 ml Balance 50 ml 450 ml 300 ml medications Current Medications Medications Dose Ordered Sig/Gladis Route Start Time Stop Time Status Last Admin Dose Admin Ceftriaxone Sodium 50 ml @ 100 mls/hr DAILY@09 IV 02/10/25 09:00 02/11/25 09:46 100 MLS/HR Albuterol 2.5 mg Q6HPRN PRN NEB 02/09/25 20:00 Acetaminophen/ Hydrocodone Bitart 1 tab Q4HP PRN PO 02/09/25 20:00 Hold 02/10/25 08:07 1 TAB Temazepam 15 mg QHSP PRN PO 02/09/25 20:00 Ondansetron HCl 4 mg Q4HP PRN IV 02/09/25 20:00 02/11/25 09:53 4 MG Acetaminophen 650 mg Q6HP PRN PO 02/09/25 20:00 02/11/25 16:36 650 MG Nitroglycerin 0.4 mg Q5MINP PRN SL 02/09/25 20:00 Morphine Sulfate 2 mg Q30M PRN IV 02/09/25 20:00 Hold Sodium Chloride 1,000 ml @ 125 mls/hr Q8H IV 02/10/25 11:30 02/11/25 03:46 125 MLS/HR Buprenorphine HCl 3 tab DAILY SL 02/10/25 15:15 02/11/25 09:47 3 TAB Pantoprazole Sodium 40 mg DAILY IV 02/11/25 10:00 02/11/25 09:47 40 MG Examination General Appearance: Cooperative. Well developed. Pale Head Exam: Normal inspection Neck Exam: Normal inspection. Non-tender. Normal alignment Pulmonary/Respiratory: Chest non-tender. Reduced air entry in right lower lobe, mild crackles over right lower lobe. No wheezing., patient receiving oxygen via nasal cannula Cardiovascular/Chest: Regular rate and rhythm. No murmurs. No JVD. Peripheral Pulses: 2+ Radial (R). 2+ Radial (L). 2+ Pedal (R). 2+ Pedal (L) Abdominal Exam: Normal bowel sounds. Soft. Nontender. No hepatosplenomegaly. No masses Ankle Exam: Negative ankle edema Lower extremities: 1+ bilateral lower extremity edema, presence of pedal course, capillary refill less than 2 seconds. Neuro/Mental Status: A&O x4. Coherent Thoughts/Psych: Normal thought pattern. Appropriate mood and affect. Good judgement and insight Appearance: In no acute distress Skin Exam: Normal inspection. Normal color. Warm. Dry laboratory and microbiology Laboratory Tests 02/11/25 05:22 Test 02/11/25 05:22 Range/Units Serum Glucose 92 74-106 mg/dL Microbiology Date/Time Source Procedure Growth Status 02/10/25 23:30 Nose MRSA Screen - Final Complete 02/09/25 20:17 Blood Blood Culture - Preliminary NO GROWTH AFTER 24 HOURS OF INCUBATION. 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 Alcala in three weeks. -IV antibiotic with ceftriaxone AND azithromycin -MRSA screening -pending MRSA screening -chest x-ray showed right lower lobe mass/consolidation -IV fluid with normal saline -breathing treatment with albuterol p.r.n. -CT abdomen pelvis showed Numerous lung nodules/masses are concerning for metastases and Liver lesions are concerning for metastases (12/06/24) Acute on chronic anemia secondary to chemotherapy induced/cancer induced -received 1 unit of PRBC, ordered another unit of PRBC -elevated ferritin, anemia and chronic disease -monitor H&H -blood transfuse if hemoglobin less than seven FLO due to EMS likely hemodynamically mediated -FENA: 0.6%, prerenal -IV fluid normal saline 100 mL/hour -continue to monitor IN/O Transaminitis with hyperbilirubinemia likely due to sepsis -hepatic mass likely metastatic. -continue to monitor liver function Lactic acidosis -lactic acid 3.9 -IV fluid -repeat in a.m. History Depression History Anxiety PUD prophylaxis: Protonix DVT prophylaxis: high risk for bleeding, SCD Plan discussed with Dr Regan Plan discussed with: Patient, Other CC Plasma Assessment Blood Product Administration S: 1569 Addendum Addendum Addendum I was physically present for the espinoza portions of the service provided to patient by THE RESIDENT. I have reviewed the documentation, discussed the case with resident and agree with the resident's documentation except as noted. Also the patient's clinical case was discussed with the patient's nurse. This medical document was created using an electronic medical record system with computerized dictation system. Although this document has been carefully reviewed, there might still be some phonetic and typographical errors. These areas are purely typographical due to imperfections of the software programs, and do not reflect any compromise in the patient's medical care. Late signature. Date of Service: February 11, 2025 Billing Provider: MARIA TERESA REGAN MD Common Visit Codes: [id number] INP/OBS CARE(HIGH) AMBROSIO REID RESIDENT February 11, 2025 18:28 MARIA TERESA REGAN MD February 12, 2025 10:07
[2025-02-11 19:17] LABS: Alanine Aminotransferase 182 U/L (7-40); Albumin 3.5 g/dL (3.2-4.8); Alkaline Phosphatase 361 U/L (46-116); Anion Gap 11 (5-15); Aspartate Aminotransferase 636 U/L (13-40); BUN/Creatinine Ratio 19.3 (10.0-20.0); Blood Urea Nitrogen 49 mg/dL (9-23); Carbon Dioxide 19 mmol/L (20-31); Chloride 102 mmol/L (98-107); Glucose 96 mg/dL (74-106); Sodium 132 mmol/L (136-145); Total Protein 5.8 g/dL (5.7-8.2)
[2025-02-11 19:18] LABS: Bilirubin, Total 4.4 mg/dL (0.2-1.0); Calcium 8.4 mg/dL (8.7-10.4)
[2025-02-11] MEDS: AZITHROMYCIN 250 MG TAB PO ONE (21:45)
[2025-02-12] VITALS (9 sets, daily range): BP systolic 120–142; BP diastolic 64–89; PULSE 82–109; RESP 17–18; TEMP 97.4–98; O2SAT 92–98
[2025-02-12 07:38] LABS: Basophils # (auto) 0 10 ^3/uL (0-0.2); Basophils % (auto) 0.1 % (0.0-2.0); Eosinophils # (auto) 0 10 ^3/uL (0-0.8); Hematocrit 26.1 % (41.0-53.0); Hemoglobin 8.7 g/dL (13.5-17.5); Lymphocytes # (auto) 0.7 10 ^3/uL (0.4-5.4); Lymphocytes % (auto) 4.9 % (10.0-50.0); Mean Corpuscular Hemoglobin 30.4 pg (28.0-32.0); Mean Corpuscular Hgb Conc. 33.4 g/dL (32.0-36.0); Monocytes # (auto) 1.8 10 ^3/uL (0-1.3); Monocytes % (auto) 12.1 % (0.0-12.0); Neutrophils # (auto) 12.4 10 ^3/uL (1.6-8.6); Neutrophils % (auto) 82.9 % (37.0-80.0); Nucleated Red Blood Cells % 0.1 %; Platelet Count (auto) 128 10^3/uL (140-450); Red Blood Cells 2.86 10^6/uL (4.5-5.90); Red Cell Distribution Width 19.4 % (11.8-14.3); White Blood Cell 14.9 10^3/uL (4.4-10.8)
[2025-02-12] MEDS: AZITHROMYCIN 250 MG TAB PO SCH (09:37)
--- NOTE | 2025-02-12 11:59 | DVHPNRES ---
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 As per patient he has always felt tired, anemic, receiving chemotherapy IV with Dr. Alcala oncologist. Has on oxygen via nasal cannula chronically, receiving IV antibiotics for multifocal time pneumonias likely related to obstructive/lung Mets . Patient has been given 1 unit of blood, denying any other symptoms. Patient also has lactic acidosis, right hilar mass possible pneumonia, chemotherapy-induced thrombocytopenia and anemia. Patient seen and examined at bedside. Hemoglobin 8.7, Creatine improving 2.54 Continued to have generalized weakness On oxygen via 2 L per minute Physical therapy today still has elevated WBC No any other new complaints ROS: Complaining of generalized weakness Eyes: No Pain, No Vision change, No Conjunctivae inflammation, No Eyelid inflammation, No Other, No Redness ENT: No Ear pain, No Ear discharge, No Nose pain, No Nose discharge, No Nose congestion, No Mouth pain, No Mouth swelling, No Throat pain, No Throat swelling, No Other Cardiovascular: No Chest Pain, No Palpitations, No Orthopnea, No Paroxysmal Noc. Dyspnea, No Edema, No Lt Headedness, No Other Respiratory: No Cough, No Dry, No Shortness of breath, No SOB with exertion, No Wheezing, No Hemoptysis, No Pleuritic Pain, No Sputum, No Other Gastrointestinal: No Nausea, No Vomiting, No Abdominal Pain, No Diarrhea, No Constipation, No Melena, No Hematochezia, No Other Genitourinary: No Dysuria, No Frequency, No Incontinence, No Hematuria, No Retention, No Other Musculoskeletal: No other, No neck pain, No shoulder pain, No arm pain, No back pain, No hand pain, No leg pain, No foot pain Skin: No Rash, No Lesions, No Jaundice, No Bruising, No Other Objective vital signs Vital Sign Date Time Temp Pulse Resp B/P (MAP) Pulse Ox O2 Delivery O2 Flow Rate FiO2 02/12/25 10:00 96 Nasal Cannula 2.0 02/12/25 10:00 28 02/12/25 09:00 97.8 91 17 120/74 (89) 97.8 Total Intake and Output 02/11/25 02/11/25 02/12/25 15:00 23:00 07:00 Intake Total 50 ml 900 ml 1300 ml Output Total 450 ml Balance 50 ml 450 ml 1300 ml medications Current Medications Medications Dose Ordered Sig/Gladis Route Start Time Stop Time Status Last Admin Dose Admin Ceftriaxone Sodium 50 ml @ 100 mls/hr DAILY@09 IV 02/10/25 09:00 02/12/25 09:37 100 MLS/HR Albuterol 2.5 mg Q6HPRN PRN NEB 02/09/25 20:00 Acetaminophen/ Hydrocodone Bitart 1 tab Q4HP PRN PO 02/09/25 20:00 Hold 02/10/25 08:07 1 TAB Temazepam 15 mg QHSP PRN PO 02/09/25 20:00 Ondansetron HCl 4 mg Q4HP PRN IV 02/09/25 20:00 02/11/25 09:53 4 MG Acetaminophen 650 mg Q6HP PRN PO 02/09/25 20:00 02/11/25 23:09 650 MG Nitroglycerin 0.4 mg Q5MINP PRN SL 02/09/25 20:00 Morphine Sulfate 2 mg Q30M PRN IV 02/09/25 20:00 Hold Sodium Chloride 1,000 ml @ 125 mls/hr Q8H IV 02/10/25 11:30 02/12/25 02:44 125 MLS/HR Buprenorphine HCl 3 tab DAILY SL 02/10/25 15:15 02/12/25 10:50 3 TAB Pantoprazole Sodium 40 mg DAILY IV 02/11/25 10:00 02/12/25 09:37 40 MG Azithromycin 500 mg DAILY PO 02/12/25 10:00 02/12/25 09:37 500 MG Examination General Appearance: Cooperative. Well developed. Pale Head Exam: Normal inspection Neck Exam: Normal inspection. Non-tender. Normal alignment Pulmonary/Respiratory: Chest non-tender. Reduced air entry in right lower lobe, mild crackles over right lower lobe. No wheezing., patient receiving oxygen via nasal cannula Cardiovascular/Chest: Regular rate and rhythm. No murmurs. No JVD. Peripheral Pulses: 2+ Radial (R). 2+ Radial (L). 2+ Pedal (R). 2+ Pedal (L) Abdominal Exam: Normal bowel sounds. Soft. Nontender. No hepatosplenomegaly. No masses Ankle Exam: Negative ankle edema Lower extremities: 1+ bilateral lower extremity edema, presence of pedal course, capillary refill less than 2 seconds. Neuro/Mental Status: A&O x4. Coherent Thoughts/Psych: Normal thought pattern. Appropriate mood and affect. Good judgement and insight Appearance: In no acute distress Skin Exam: Normal inspection. Normal color. Warm. Dry laboratory and microbiology Laboratory Tests 02/12/25 05:02 02/11/25 18:45 Test 02/11/25 18:45 Range/Units Serum Glucose 96 74-106 mg/dL Microbiology Date/Time Source Procedure Growth Status 02/10/25 23:30 Nose MRSA Screen - Final Complete 02/09/25 20:17 Blood Blood Culture - Preliminary NO GROWTH AFTER 48 HOURS OF INCUBATION. 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 Alcala in three weeks. -IV antibiotic with ceftriaxone and azithromycin -MRSA:Negative -chest x-ray showed right lower lobe mass/consolidation -IV fluid with normal saline -breathing treatment with albuterol p.r.n. -CT abdomen pelvis showed Numerous lung nodules/masses are concerning for metastases and Liver lesions are concerning for metastases (12/06/24) Acute on chronic anemia secondary to chemotherapy induced/cancer induced -received 2 Units PRBCS -elevated ferritin, Likely anemia and chronic disease -monitor H&H stable -blood transfuse if hemoglobin less than seven FLO due to EMS likely hemodynamically mediated -FENA: 0.6%, prerenal -IV fluid normal saline 100 mL/hour -continue to monitor HUEY Transaminitis with hyperbilirubinemia likely due to sepsis -hepatic mass likely metastatic. -continue to monitor liver function Lactic acidosis -lactic acid 3.9 -IV fluid -repeat in a.m. History Depression History Anxiety PUD prophylaxis: Protonix DVT prophylasix: high risk for bleeding, SCD Plan discussed with Dr Regan Plan discussed with: Patient, Other (RN) My Orders My Orders Orders - AMBROSIO REID RESIDENT Procedure Category Date Status Time Azithromycin Tablet PHA 02/12/25 In Process (Zithromax Tablet) 10:00 CC Plasma Assessment Blood Product Administration S: 0411 Addendum Addendum Addendum I was physically present for the espinoza portions of the service provided to patient by THE RESIDENT. I have reviewed the documentation, discussed the case with resident and agree with the resident's documentation except as noted. Also the patient's clinical case was discussed with the patient's nurse. This medical document was created using an electronic medical record system with computerized dictation system. Although this document has been carefully reviewed, there might still be some phonetic and typographical errors. These areas are purely typographical due to imperfections of the software programs, and do not reflect any compromise in the patient's medical care. Late signature. Date of Service: February 12, 2025 Billing Provider: MARIA TERESA REGAN MD Common Visit Codes: [id number] INP/OBS CARE(HIGH) AMBROSIO REID RESIDENT February 12, 2025 11:59 MARIA TERESA REGAN MD February 13, 2025 10:04
[2025-02-13] MEDS: TEMAZEPAM 15 MG CAP PO PRN (00:33)
[2025-02-13 01:00] VITALS: BP 134/57; PULSE 102; RESP 16; TEMP 98.2; O2SAT 94
[2025-02-13 05:00] VITALS: BP 116/71; PULSE 97; RESP 18; TEMP 97.8; O2SAT 90
[2025-02-13 08:00] VITALS: PULSE 100; RESP 15
[2025-02-13 08:39] VITALS: BP 124/75; PULSE 100; RESP 15; TEMP 97.9; O2SAT 96
[2025-02-13 09:37] VITALS: O2SAT 96
[2025-02-13 09:54] LABS: Hematocrit 26.7 % (41.0-53.0); Hemoglobin 8.8 g/dL (13.5-17.5); Mean Corpuscular Volume 90.9 fL (80.0-100.0); Platelet Count (auto) 145 10^3/uL (140-450); Red Blood Cells 2.94 10^6/uL (4.5-5.90); Red Cell Distribution Width 20.4 % (11.8-14.3); White Blood Cell 17.2 10^3/uL (4.4-10.8)
[2025-02-13 09:56] LABS: Chloride 101 mmol/L (98-107)
[2025-02-13 09:57] LABS: Anion Gap 14 (5-15); Basophils % (manual) 0 (0.0-2.0); Blast Cells 0; Carbon Dioxide 20 mmol/L (20-31); Eosinophils % (manual) 0 (0-7); Metamyelocytes % 0; Myelocytes % 0; Promyelocytes % 0; Reactive Lymphocytes 0
[2025-02-13 09:58] LABS: Calcium 9.1 mg/dL (8.7-10.4)
[2025-02-13 10:02] LABS: BUN/Creatinine Ratio 22.1 (10.0-20.0)
[2025-02-13 10:04] LABS: Blood Urea Nitrogen 40 mg/dL (9-23); Glucose 116 mg/dL (74-106); Potassium 3.3 mmol/L (3.5-5.1); Sodium 135 mmol/L (136-145)
[2025-02-13 10:19] LABS: Monocytes % (manual) 12 (0-12)
[2025-02-13 10:20] LABS: Band Neutrophils % (manual) 5; Lymphocytes % (manual) 4 (10.0-50.0)
[2025-02-13 10:21] LABS: Anisocytosis Slight; Platelet Estimate Adequate
[2025-02-13] MEDS: POTASSIUM CHL 20 Meq TABLET PO ONE (10:48)
[2025-02-13 12:34] VITALS: BP 130/90; PULSE 115; RESP 19; TEMP 97.6; O2SAT 97
--- NOTE | 2025-02-13 12:55 | DVHDSRES ---
Discharge Summary Date of Admission Resident Creating Document: LAVERN DESHPANDE RESIDENT Feb 09, 2025 at 19:52 Date of Discharge: February 13, 2025 Admitting Diagnosis Generalized weakness and was found to have sepsis due to pneumonia Wounds: No open wound was present Labs/Diagnostic Data: Laboratory Results Test 02/13/25 09:36 02/12/25 05:02 02/11/25 18:45 02/10/25 17:25 White Blood Count 17.2 10^3/uL (4.4-10.8) Red Blood Count 2.94 10^6/uL (4.5-5.90) Hemoglobin 8.8 g/dL (13.5-17.5) Hematocrit 26.7 % (41.0-53.0) Mean Corpuscular Volume 90.9 fL (80.0-100.0) Mean Corpuscular Hemoglobin 30.0 pg (28.0-32.0) Mean Corpuscular Hemoglobin Concent 33.0 g/dL (32.0-36.0) Red Cell Distribution Width 20.4 % (11.8-14.3) Platelet Count 145 10^3/uL (140-450) Mean Platelet Volume 9.3 fL (6.9-10.8) Neutrophils (%) (Auto) % (37.0-80.0) Lymphocytes (%) (Auto) % (10.0-50.0) Monocytes (%) (Auto) % (0.0-12.0) Basophils (%) (Auto) % (0.0-2.0) Neutrophils # (Auto) 10 ^3/uL (1.6-8.6) Lymphocytes # (Auto) 10 ^3/uL (0.4-5.4) Monocytes # (Auto) 10 ^3/uL (0-1.3) Differential Total Cells Counted 100.0 (100) Neutrophils % (Manual) 79 (37.0-80.0) Band Neutrophils % (Manual) 5 Lymphocytes % (Manual) 4 (10.0-50.0) Monocytes % (Manual) 12 (0-12) Eosinophils % (Manual) 0 (0-7) Basophils % (Manual) 0 (0.0-2.0) Metamyelocytes % (manual) 0 Myelocytes % (Manual) 0 Promyelocytes % (Manual) 0 Blast Cells % (Manual) 0 Reactive Lymphocytes 0 Platelet Estimate Adequate Anisocytosis (manual) Slight Sodium Level 135 mmol/L (136-145) Potassium Level 3.3 mmol/L (3.5-5.1) Chloride Level 101 mmol/L (98-107) Carbon Dioxide Level 20 mmol/L (20-31) Anion Gap 14 (5-15) Blood Urea Nitrogen 40 mg/dL (9-23) Creatinine 1.81 mg/dL (0.700-1.30) Glomerular Filtration Rate Calc 47 mL/min (>90) BUN/Creatinine Ratio 22.1 (10.0-20.0) Serum Glucose 116 mg/dL (74-106) Calcium Level 9.1 mg/dL (8.7-10.4) Eosinophils (%) (Auto) 0.0 % (0.0-7.0) Eosinophils # (Auto) 0 10 ^3/uL (0-0.8) Basophils # (Auto) 0 10 ^3/uL (0-0.2) Nucleated Red Blood Cells 0.1 % Magnesium Level 1.9 mg/dL (1.6-2.6) Total Bilirubin 4.4 mg/dL (0.2-1.0) Aspartate Amino Transferase (AST) 636 U/L (13-40) Alanine Aminotransferase (ALT) 182 U/L (7-40) Alkaline Phosphatase 361 U/L (46-116) Total Protein 5.8 g/dL (5.7-8.2) Albumin 3.5 g/dL (3.2-4.8) Reticulocyte Count (auto) 4.20 % (0.5-1.5) Haptoglobin 129 mg/dL (23-355) Iron Level 96 ug/dL (65-175) Total Iron Binding Capacity 235 ug/dL (250-425) Percent Iron Saturation 40.9 % (20-55) Ferritin > 3300.0 ng/mL (22-322) Test 02/10/25 15:00 02/10/25 07:38 02/09/25 22:17 02/09/25 13:55 Urine Color Yellow (Yellow) Urine Clarity Turbid (Clear) Urine pH 5.5 (5.0-9.0) Urine Specific [place] 1.012 (1.001-1.035) Urine Protein 1+ (Negative) Urine Ketones Negative (Negative) Urine Blood 1+ /uL (Negative) Urine Nitrite Negative (Negative) Urine Bilirubin Negative (Negative) Urine Urobilinogen Normal mg/dL (Negative) Urine Leukocyte Esterase Negative /uL (Negative) Urine RBC 2 /hpf (0 - 3) Urine Microscopic WBC 4 /HPF (0-3) Urine Squamous Epithelial Cells Few /hpf (<5) Urine Amorphous Crystals Few /hpf (None Seen) Urine Bacteria Few /hpf (None Seen) Urine Hyaline Casts Few /lpf (0 - 2) Urine Creatinine 53.35 mg/dL (30.0-125.0) Urine Sodium 16 mmol/L (40-220) Urine Glucose Normal mg/dL (Normal) Urine Total Protein 187.3 mg/dL (1-14) Serum Osmolality 289 mOsm/kg (278-298) Lactate Dehydrogenase 1868 U/L (120-246) Vitamin D 25-Hydroxy 81.9 ng/mL (30.0-100) Parathyroid Hormone (Intact) 239.8 pg/mL (18.4-80.1) Lactic Acid Level 3.9 mmol/L (0.4-2.0) Troponin I High Sensitivity < 3 ng/L (</=54) Test 02/09/25 13:06 Prothrombin Time 13.3 sec (9.3-11.8) Prothrombin Time INR 1.29 (0.9-1.15) Activated Partial Thromboplast Time 27.0 SEC (24.5-34.5) Other Laboratory Tests 02/13/25 09:36 Brief Hx & Hospital Course: 44-year-old male with 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 Patient presents with a two day history of worsening generalized weakness with associated shortness for breath. Denies any abdominal pain, nausea or vomiting. He was seen by his primary care provider today who advised him to come to ER for further evaluation due to looking extremely pale. He does use oxygen at home currently at 2 L. patient has a history of lung cancer reports not being able to schedule for chemotherapy for the past three weeks. Hospital course: Patient was initially presented with sepsis and acute hypoxic respiratory failure likely due to pneumonia and also presented with acute on chronic anemia secondary to chemotherapy induced/cancer induced. Chest xray demonstrated right lower lobe mass/consolidation and CT abdomen pelvis showed numerous lung nodules/ masses or concerning for metastasis and liver lesion are concerning for metastasis on 12/06/2024. BMP showed FLO , FENA was 0.6% prerenal and treated with IV normal saline at 1:25 mL/hours. Lactic acid was initially 3.9 then dropped down to normal. For pneumonia patient was treated with IV ceftriaxone 1 g daily, IV azithromycin 500 mg daily, breathing treatment with albuterol and ipratropium p.r.n. CMP revealed transaminitis with hyperbilirubinemia likely due to sepsis in the setting of metastatic hepatic mass. Patient received 2 units of blood transfusion and today H&H was 8.2/26.7. Today morning during the round patient mentioned feeling better and discharge plan was discussed with the patient and all questions were answered. Patient is being discharged to home and advised to follow up with DC clinic in 1 week to check BMP and with hemato-oncology in 1-2 weeks for scheduling chemotherapy. Physical exam On discharge: General Appearance: Cooperative. Well developed. Pale Head Exam: Normal inspection Neck Exam: Normal inspection. Non-tender. Normal alignment Pulmonary/Respiratory: Chest non-tender. Reduced air entry in right lower lobe, mild crackles over right lower lobe. No wheezing., patient receiving oxygen via nasal cannula Cardiovascular/Chest: Regular rate and rhythm. No murmurs. No JVD. Peripheral Pulses: 2+ Radial (R). 2+ Radial (L). 2+ Pedal (R). 2+ Pedal (L) Abdominal Exam: Normal bowel sounds. Soft. Nontender. No hepatosplenomegaly. No masses Ankle Exam: Negative ankle edema Lower extremities: 1+ bilateral lower extremity edema, presence of pedal course, capillary refill less than 2 seconds. Neuro/Mental Status: A&O x4. Coherent Thoughts/Psych: Normal thought pattern. Appropriate mood and affect. Good judgement and insight Appearance: In no acute distress Skin Exam: Normal inspection. Normal color. Warm. Dry Discussed with Dr. Regan Consults/Reason for consult No consultation was done. Operations or Procedures XY CHEST TWO VIEWS ROUTINE CLINICAL HISTORY: CP COMPARISON: XY CHEST PORTABLE on DOS: 02/02/25 TECHNIQUE: Frontal view of the chest. FINDINGS: LUNGS AND PLEURAL SPACES: Right infrahilar mass, concerning for neoplasm. HEART: Unremarkable. No cardiomegaly. MEDIASTINUM: Unremarkable. Normal mediastinal contour. BONES/JOINTS: Unremarkable. No acute fracture. TUBES, LINES AND DEVICES: Right-sided Mediport with the distal tip in the SVC. No pneumothorax. OTHER FINDINGS: . IMPRESSION: Right infrahilar mass, concerning for neoplasm. INDICATION: elevated liver enzyme FINDINGS: The liver demonstrates heterogeneous homogenous echotexture without focal mass lesions. The liver measures. Multiple hepatic masses are visualized limited exam due to heterogeneity. 29 cm. The common bile duct is not well visualized due to obscuration from bowel gas. The gallbladder is without evidence of stone or sludge. The gallbladder wall measures 3 mm and is normal. The right kidney measures 11.1 cm. The right kidney is normal in contour, size, and shape. The echogenicity is normal. There is no hydronephrosis. The pancreas is not well visualized due to overlying bowel gas. IMPRESSION: Hepatomegaly with coarsened liver echotexture and multiple diffuse hepatic masses. Further evaluation with contrast-enhanced MRI or CT liver protocol is recommended. Condition at Discharge: Guarded Final Diagnosis/Problems List Sepsis due to pneumonia Gram-positive versus negative Acute hypoxic respiratory failure due to above Lung cancer with Mets to bone and liver, status post chemotherapy by Dr. Alcala in three weeks. Acute on chronic anemia secondary to chemotherapy induced/cancer induced FLO due to VMN likely hemodynamically mediated Transaminitis with hyperbilirubinemia likely due to sepsis Lactic acidosis Hypokalemia History Depression History Anxiety Discharge Disposition: Home Discharge Instruct/Medications Diet: Regular Activity: No Restrictions, As Tolerated Follow Up/Referral: Follow up with DC clinic in 1 week to check BMP. Follow up with hemato oncology Dr. Alcala in 1-2 weeks Medications: As Per EMR Discharge Statement: "Patient was advised to return to the ER or call 911 if any headaches, dizziness, shortness of breath, chest pain, abdominal pain, bleeding, fevers, or worsening of medical condition. Patient was counseled about treatment plan, medications, possible side effects, patientverbalized understanding. All questions were answered to the best of my ability. This discharge took greater then 30 minutes in planning, reviewing documentation, counseling the patient, and discussing with other team members." ASSESSMENT ASSESSMENT Assessment Sepsis due to pneumonia Gram-positive versus negative Acute hypoxic respiratory failure due to above Lung cancer with Mets to bone and liver, status post chemotherapy by Dr. Alcala in three weeks. Acute on chronic anemia secondary to chemotherapy induced/cancer induced FLO due to VMN likely hemodynamically mediated Transaminitis with hyperbilirubinemia likely due to sepsis Lactic acidosis Hypokalemia History Depression History Anxiety Addendum Addendum Addendum I was physically present for the espinoza portions of the service provided to patient by THE RESIDENT. I have reviewed the documentation, discussed the case with resident and agree with the resident's documentation except as noted. Also the patient's clinical case was discussed with the patient's nurse. This medical document was created using an electronic medical record system with computerized dictation system. Although this document has been carefully reviewed, there might still be some phonetic and typographical errors. These areas are purely typographical due to imperfections of the software programs, and do not reflect any compromise in the patient's medical care. Late signature. Date of Service: February 13, 2025 Billing Provider: MARIA TERESA REGAN MD Common Visit Codes: 91909-IRR/OBS DISCH DAY >30min LAVERN DESHPANDE RESIDENT February 13, 2025 12:55 MARIA TERESA REGAN MD February 14, 2025 12:40
[2025-02-13] MEDS ORDERED: clonazePAM 0.5 MG TAB PO SCH (22:00)
[2025-02-13] MEDS ORDERED: SUCRALFATE 1 GM/10 ML ORAL SUSP PO SCH (22:00)
[2025-02-13] MEDS ORDERED: RESTORIL 30 MG PO SCH (22:00)
[2025-02-13] MEDS ORDERED: MAGNESIUM OXIDE 400 MG TAB PO SCH (22:00)
[2025-02-13] MEDS ORDERED: OMEPRAZOLE 40 MG PO SCH (22:00)
[2025-02-14] MEDS ORDERED: NALOXONE HCL SL SCH (10:00)
[2025-02-14] MEDS ORDERED: OLANZapine 5 MG TAB PO SCH (10:00)
[2025-02-14] MEDS ORDERED: dilTIAZem 120MG ER CAP PO SCH (10:00)
[2025-02-14] MEDS ORDERED: CHOLECALCIFEROL (VITD3) 1,000UNIT=25mCg TAB PO SCH (10:00)
[2025-02-14] MEDS ORDERED: BUPRENORPHINE HCL SL SCH (10:00)
== END 2025-02-13 13:37 | disposition home or self-care (01) | DRG 343 ==
LOC: ER 12:22 → EDBD 12:22 → OVERFLOW 19:52 → WEST WING 02-10 17:03
PROVIDERS: ADMIT Internal Medicine; ATTEND Internal Medicine
PROC: 30233N1 Transfusion of Nonautologous Red Blood Cells into Peripheral Vein, Percutaneous Approach (ICD-10-PCS; principal; 2025-02-10)
DX: C79.51 Secondary malignant neoplasm of bone (principal); J96.01 Acute respiratory failure with hypoxia; A41.50 Gram-negative sepsis, unspecified; N17.0 Acute kidney failure with tubular necrosis; J15.69 Pneumonia due to other Gram-negative bacteria; C34.91 Malignant neoplasm of unspecified part of right bronchus or lung; E87.20 Acidosis, unspecified; D63.0 Anemia in neoplastic disease; D64.81 Anemia due to antineoplastic chemotherapy; C78.7 Secondary malignant neoplasm of liver and intrahepatic bile duct; C34.92 Malignant neoplasm of unspecified part of left bronchus or lung; E87.5 Hyperkalemia; N18.9 Chronic kidney disease, unspecified; K21.9 Gastro-esophageal reflux disease without esophagitis; F32.A Depression, unspecified; I12.9 Hypertensive chronic kidney disease with stage 1 through stage 4 chronic kidney disease, or unspecified chronic kidney disease; Z87.891 Personal history of nicotine dependence; Z85.819 Personal history of malignant neoplasm of unspecified site of lip, oral cavity, and pharynx; Z85.118 Personal history of other malignant neoplasm of bronchus and lung; Z83.3 Family history of diabetes mellitus; Z79.01 Long term (current) use of anticoagulants; Z79.899 Other long term (current) drug therapy
CPT/HCPCS: 36415; 71046; 76705; 80048; 80053; 81001; 82306; 82570; 82728; 83010; 83540; 83550; 83605; 83615; 83735; 83930; 83970; 84156; 84300; 84484; 85007; 85025; 85027; 85045; 85610; 85730; 86850; 86900; 86901; 86920; 87040; 87081; 93005; 96360; 99291; G0378; J2405; J2470

== ENCOUNTER 2025-03-04 12:58 | Inpatient (IN) | payer MEDICAID ==
[2025-03-04] VITALS (7 sets, daily range): BP systolic 105–121; BP diastolic 67–77; PULSE 85–95; RESP 11–20; TEMP 97.8–98.2; O2SAT 91–98
[~2025-03-04] VITALS: Ht 170.2 cm; Wt 96.5 kg
[~2025-03-04 12:58] MED LIST changes: -AZIT500T66 PO; -DILT120C41 PO
--- NOTE | 2025-03-04 13:55 | ED.PDOC ---
HPI (NEURO) HPI Comments HPI: 44y M who presents to the ED via EMS for chief complaint of generalized weakness. - pt states he was at PCP office for check up and states he called EMS from PCP office. - pt states he has history of stage 4 lung cancer receiving chemo and states he has been having generalized body aches, weakness and whole body swelling - pt in the ED, appears pale but is otherwise alert and oriented x 4 and otherwise denies any other complaints - pt states otherwise last chemo was 1 month prior - pt has been to [facility] in the past and hospitalized for similar complaints and states he previously received blood transfusion for his anemia Past Medical history: depression, GERD, lung cancer, metastatic disease Past Surgical history: denies Medications: unknown Allergies: nkda Social History: denies ETOH, endorses tobacco use, denies drug use ATKINS: HPI: Poor Historian. REVIEW OF SYSTEMS: CONSTITUTIONAL: Denies acute: fever, diaphoresis, chills, HEAD: Denies acute: headache, photophobia Eyes: Denies acute: Double vision, vision loss, eye pain, eye discharge. EARS: Denies acute: tinnitus, hearing loss, ear discharge, ear pain, THROAT: Denies acute: sore throat, swelling, difficulty swallowing , pain with swallowing, change in voice. NECK: Denies acute: neck pain, neck swelling, stiff neck. HEART: Denies acute : chest pain, palpitations, LUNGS: Denies acute: SOB, wheezing, cough, hemoptysis ABDOMEN: Denies acute: abdominal pain, Nausea, Vomiting, diarrhea, melena , hematemesis, hematochezia SKIN: Denies acute: rash, redness, lesions, itchiness. EXTREMITIES: Denies acute: calf pain, numbness, tingling, weakness, denies pain in extremity. Denies acute: Low back pain. Neuro: Denies acute: focal neurological deficit, motor or sensory focal neurological deficit, tremors, seizure like activity, confusion, dizziness, change in mental status, loss of bowel or bladder function, cauda equina like symptoms. : Denies acute: dysuria, hematuria, flank pain, increase in urinary frequency. PSYCH: Denies acute: hallucination, suicidal ideation, homicidal ideation. FEMALE: Denies acute: abnormal vaginal bleeding, foul odor, unusual discharge. PHYSICAL EXAM: General: ---[id number]-----acute distress, awake and alert. Head: normocephalic, atraumatic. Neck: supple, trachea is midline, no swelling. Throat: Normal phonation. Eyes:, no erythema, no purulent discharge, no proptosis, no icterus. Heart: regular rate, regular rhythm, no significant murmur appreciated. Lungs: no apparent respiratory distress, Able to speak in full sentences. No wheezing, no rhonchi, no crackles. No stridors Clear to auscultation bilaterally. Abdomen: Generalized tender to palpation, mildly distended, soft, no guarding, no rebound, + bowel sounds. There is palpable mass with a history of metastatic cancer. Patient has chronic abdominal pain. Neuro: Awake, Alert, oriented to name, self, situation, follows commands GCS=15. Speech is normal. Skin: no petechia, no purpura, no cyanosis, noted-pale, not jaundice. Lower extremities: --3/4 b/l- Pitting edema no deformity, no focal swelling, no calf TTP. Makes eye contact. moves all four extremities. Face: no apparent facial droop. ED COURSE: Chief Complaint: General Weakness Time Seen by MD: 13:54 Primary Care Provider: TRUONG Corona Notes: Medications, Allergies Information Source: Patient, Emergency Med Personnel Mode of Arrival: EMS Past Medical History PAST MEDICAL HISTORY: Anxiety, Cancer, Depression, GERD, HTN Surgical History: Denies all surgeries Family History Family History: Family hx of DM Social History Smoker: Quit Greater Than 1 Year Alcohol: Denies ETOH Use Drugs: Denies Drug Use Lives In: Home Was a procedure done? Was a procedure done?: No Differential Diagnosis (SZ) General Weakness: Other (Includes but not limited to thyroid disease, encephalopathy, electrolyte abnormality, sepsis, infection, intracranial p athology, drug adverse effects, arrhythmia, kidney insufficiency, ACS, CVA, malignancy, anemia) X-Ray, Labs, Meds, VS Vital Signs Date Time Temp Pulse Resp B/P (MAP) Pulse Ox O2 Delivery O2 Flow Rate FiO2 03/04/25 18:00 89 15 116/73 (87) 97 03/04/25 16:00 98.2 88 11 107/75 (86) 97 98.2 5/22/25 14:38 95 14 95 Nasal Cannula* 2 28 03/04/25 14:38 95 13 133/48 (76) 95 03/04/25 14:00 96 03/04/25 13:24 97.6 93 17 112/76 (88) 96 97.6 Lab Test 03/04/25 17:30 03/04/25 15:19 03/04/25 14:37 03/04/25 13:35 Range/Units Troponin I High Sensitivity 3 L 4 3 L </=54 ng/L Lactic Acid Level 2.5 *H 2.2 *H 0.4-2.0 mmol/L POC Glucose 110 H 70-106 mg/dl White Blood Count 9.6 4.4-10.8 10^3/uL Red Blood Count 2.45 L 4.5-5.90 10^6/uL Hemoglobin 8.3 L 13.5-17.5 g/dL Hematocrit 24.7 L 41.0-53.0 % Mean Corpuscular Volume 100.8 H 80.0-100.0 fL Mean Corpuscular Hemoglobin 33.7 H 28.0-32.0 pg Mean Corpuscular Hemoglobin Concent 33.4 32.0-36.0 g/dL Red Cell Distribution Width 21.6 H 11.8-14.3 % Platelet Count 140 140-450 10^3/uL Mean Platelet Volume 9.0 6.9-10.8 fL Neutrophils (%) (Auto) 85.7 H 37.0-80.0 % Lymphocytes (%) (Auto) 6.6 L 10.0-50.0 % Monocytes (%) (Auto) 6.7 0.0-12.0 % Eosinophils (%) (Auto) 0.6 0.0-7.0 % Basophils (%) (Auto) 0.4 0.0-2.0 % Neutrophils # (Auto) 8.3 1.6-8.6 10 ^3/uL Lymphocytes # (Auto) 0.6 0.4-5.4 10 ^3/uL Monocytes # (Auto) 0.6 0-1.3 10 ^3/uL Eosinophils # (Auto) 0.1 0-0.8 10 ^3/uL Basophils # (Auto) 0 0-0.2 10 ^3/uL Nucleated Red Blood Cells 0.2 % Reticulocyte Count (auto) 5.39 H 0.5-1.5 % Sodium Level 136 136-145 mmol/L Potassium Level 2.9 L 3.5-5.1 mmol/L Chloride Level 97 L 98-107 mmol/L Carbon Dioxide Level 25 20-31 mmol/L Anion Gap 14 5-15 Blood Urea Nitrogen 40 H 9-23 mg/dL Creatinine 1.98 H 0.700-1.30 mg/dL Glomerular Filtration Rate Calc 42 >90 mL/min BUN/Creatinine Ratio 20.2 H 10.0-20.0 Serum Glucose 113 H 74-106 mg/dL Calcium Level 7.6 L 8.7-10.4 mg/dL Magnesium Level 1.3 L 1.6-2.6 mg/dL Iron Level 130 65-175 ug/dL Total Iron Binding Capacity 275 250-425 ug/dL Percent Iron Saturation 47.3 20-55 % Ferritin 1883.8 H 22-322 ng/mL Total Bilirubin 2.2 H 0.2-1.0 mg/dL Aspartate Amino Transferase (AST) 405 H 13-40 U/L Alanine Aminotransferase (ALT) 65 H 7-40 U/L Alkaline Phosphatase 541 H 46-116 U/L Lactate Dehydrogenase 836 H 120-246 U/L B-Type Natriuretic Peptide 42.67 0-100 pg/mL Total Protein 5.8 5.7-8.2 g/dL Albumin 3.5 3.2-4.8 g/dL Lipase 1579 H 12-53 U/L Microbiology Date/Time Source Procedure Growth Status 03/04/25 16:00 Blood Blood Culture - Preliminary NO GROWTH AFTER 24 HOURS OF INCUBATION. Resulted 03/04/25 16:00 Blood Blood Culture - Preliminary NO GROWTH AFTER 24 HOURS OF INCUBATION. Resulted [facility] [id number] [place] [address] Ph: [phone] DIAGNOSTIC IMAGING Diagnostic Imaging Report : [id number] Signed PATIENT: KELL NINO WACCT: [id number] UNIT: [id number] : 1980 LOC: ER ROOM / BED: / AGE / SEX: 44 / M ADM STATUS: REG ER SERVICE 1320 ORDERING PHYSICIAN: COLTEN SANCHEZ DO PROCEDURE(s): CXRP - CHEST PORTABLE REASON: GEN WEAK ORDER NUMBER(s): [id number], ACCESSION NUMBER(s): [id number] INDICATION: GEN WEAK TECHNIQUE: Frontal view of the chest. COMPARISON: XY CHEST PORTABLE on DOS: 02/02/25, XY CHEST PORTABLE on DOS: 01/24/25, XY CHEST PORTABLE on DOS: 12/31/24, XY CHEST TWO VIEWS ROUTINE on DOS: 02/09/25 FINDINGS: LUNGS AND PLEURAL SPACES: Right infrahilar mass, concerning for neoplasm. HEART: Unremarkable. No cardiomegaly. MEDIASTINUM: Unremarkable. Normal mediastinal contour. BONES/JOINTS: Unremarkable. No acute fracture. TUBES, LINES AND DEVICES: Right-sided Mediport with the distal tip in the SVC. No pneumothorax. OTHER FINDINGS: . IMPRESSION: Right infrahilar mass, concerning for neoplasm. ATED BY: AXEL NIXNO MD DICTATED DATE/TIME: 03/04/251406 SIGNED BY: AXEL NIXON MD SIGNED DATE/TIME: 03/04/251406 CC: [place] [id number] Ph: [phone] DIAGNOSTIC IMAGING Diagnostic Imaging Report : [id number] Signed PATIENT: KELL NINO WACCT: [id number] UNIT: [id number] : 1980 LOC: ER ROOM / BED: / AGE / SEX: 44 / M ADM STATUS: REG ER SERVICE 1431 ORDERING PHYSICIAN: COLTEN SANCHEZ DO PROCEDURE(s): ABPL - CT AB PEL WO CON-NO ORAL OR IV REASON: abd pain, mass ORDER NUMBER(s): [id number], ACCESSION NUMBER(s): [id number] Exam: CT CT AB PEL WO CON-NO ORAL OR IV History: abd pain, mass Comparison Study: CT CT AB PEL WO CON-NO ORAL OR IV on DOS: 12/06/24 Technique: Multidetector spiral CT of the abdomen and pelvis was performed from lung bases to pubic symphysis. Imaging was performed without IV contrast. Axial, coronal and sagittal multiplanar reformats were obtained from the axial data set by the technologist. Radiation dose : Abdomen/Pelvis: CTDIvol 14 mGy, DLP 916 mGy*cm. Findings: Evaluation of solid organs is limited due to lack of intravenous contrast use. Lung Bases: Masslike consolidation in the right lower lung. Bilateral pulmonary nodules measuring up to 20 mm. Liver: Enlarged and heterogeneous with multiple masses. Largest mass measures approximately 140 mm. Gallbladder and biliary Tree: Contracted or absent. Spleen: Unremarkable Pancreas: The pancreas is grossly normal in appearance. Adrenal Glands: Left adrenal nodule measuring up to 17 mm Kidneys: Right kidney is inferiorly displaced. No hydronephrosis or nephrolithiasis. Bladder: Grossly unremarkable for degree of distention. Bowel: The stomach is grossly normal in appearance. Small bowel and colon are normal in caliber and distribution. The appendix is not visualized; however, no secondary findings of acute appendicitis identified. Focal wall thickening in the sigmoid colon, an underlying mass is not excluded. Ascites: Moderate abdominal and pelvic ascites. Lymphadenopathy: Shotty retroperitoneal lymphadenopathy. Abdominal wall and Mesentery: Unremarkable. Vasculature: The visualized abdominal aorta is normal in size and caliber. Evaluation of abdominal and pelvic vessels is limited due to lack of intravenous contrast. Pelvic Organs: Unremarkable Musculoskeletal: Avascular necrosis of right femoral head. IMPRESSION: 1. Abnormal CT of the abdomen and pelvis. Masslike consolidation in the right lower lung with multiple bilateral pulmonary nodules. Multiple liver masses. Left adrenal nodule. Possible sigmoid colon mass. Likely malignant ascites. Overall findings are concerning for malignant disease with metastasis. Recommend follow-up CT of the chest, abdomen and pelvis with intravenous contrast. PET-CT can also be considered. CT-guided biopsy of the most accessible lesion is recommended. 2. Avascular necrosis of the right femoral head. [place] retroperitoneal lymphadenopathy. Radiation optimization: All CT scans at this facility use at least one of these dose optimization techniques: Automated exposure control mA and/or kV adjustment per patient size (includes targeted exams where dose is matched to clinical indication) or iterative reconstruction. HS:Y ATED BY: JOSE JEROME MD DICTATED DATE/TIME: 03/04/25 1534 SIGNED BY: JOSE JEROME MD SIGNED DATE/TIME: 03/04/25 1534 CC: Time of 1ST Reevaluation: 00:00 Reevaluation 1ST: Improved Patient Education/Counseling: Diagnosis, Treatment Family Education/Counseling: No Family Present Comments Patient presented with the above HPI.---generalized weakness---workup was initiated. patient was found with the above mentioned diagnosis. the following medications were ordered: please refer to order lists of meds and tests obtained by myself Dr. Sanchez. Patient ED course and VS have been stabilized. Patient has been reassessed in the ED and remained in a stable condition. Pertinent incidental findings were discussed with the patient and/or family. Patient/family voices understanding and is agreeable with plan. Patient has been observed in the ED adequate length of time to insure improvement/stability. Escalation of care considered: Consideration of escalation to observation or admission Patient was ADMITTED to the medicine team for further evaluation and treatment of their presentation. All the reports of any imaging studies that were ordered by myself were reviewed by myself. Departure 1 Departure Time of Disposition: 14:30 Impression: Primary Impression: Symptomatic anemia Additional Impressions: Acute pancreatitis Hypomagnesemia Hypokalemia Elevated LFTs Metastatic disease Disposition: ADMITTED INPATIENT Admit to: Tele Condition: Guarded Discharged With: Self Critical Care Note Critical Care Time?: Yes (45 min-critical care time only) I personally scribed for COLTEN SANCHEZ DO ([email or web address]) on 03/04/25 at 13:55. Electronically submitted by Jaimee Estevez ([email or web address]). I personally scribed for COLTEN SANCHEZ DO ([email or web address]) on 03/04/25 at 19:21. Electronically submitted by Jaimee HANNAH). COLTEN SANCHEZ DO March 04, 2025 13:55
[2025-03-04 13:56] LABS: Eosinophils # (auto) 0.1 10 ^3/uL (0-0.8); Lymphocytes # (auto) 0.6 10 ^3/uL (0.4-5.4); Monocytes # (auto) 0.6 10 ^3/uL (0-1.3); Red Cell Distribution Width 21.6 % (11.8-14.3)
[2025-03-04 13:57] LABS: Basophils # (auto) 0 10 ^3/uL (0-0.2); Basophils % (auto) 0.4 % (0.0-2.0); Eosinophils % (auto) 0.6 % (0.0-7.0); Hematocrit 24.7 % (41.0-53.0); Hemoglobin 8.3 g/dL (13.5-17.5); Lymphocytes % (auto) 6.6 % (10.0-50.0); Mean Corpuscular Hemoglobin 33.7 pg (28.0-32.0); Mean Corpuscular Hgb Conc. 33.4 g/dL (32.0-36.0); Mean Corpuscular Volume 100.8 fL (80.0-100.0); Monocytes % (auto) 6.7 % (0.0-12.0); Neutrophils # (auto) 8.3 10 ^3/uL (1.6-8.6); Neutrophils % (auto) 85.7 % (37.0-80.0); Nucleated Red Blood Cells % 0.2 %; Platelet Count (auto) 140 10^3/uL (140-450); Red Blood Cells 2.45 10^6/uL (4.5-5.90); White Blood Cell 9.6 10^3/uL (4.4-10.8)
[2025-03-04 14:08] LABS: Alanine Aminotransferase 65 U/L (7-40); Albumin 3.5 g/dL (3.2-4.8); Alkaline Phosphatase 541 U/L (46-116); Anion Gap 14 (5-15); Aspartate Aminotransferase 405 U/L (13-40); BUN/Creatinine Ratio 20.2 (10.0-20.0); Blood Urea Nitrogen 40 mg/dL (9-23); Calcium 7.6 mg/dL (8.7-10.4); Carbon Dioxide 25 mmol/L (20-31); Chloride 97 mmol/L (98-107); Glucose 113 mg/dL (74-106); Potassium 2.9 mmol/L (3.5-5.1); Sodium 136 mmol/L (136-145); Total Protein 5.8 g/dL (5.7-8.2)
[2025-03-04 14:09] LABS: Bilirubin, Total 2.2 mg/dL (0.2-1.0); Magnesium 1.3 mg/dL (1.6-2.6)
--- NOTE | 2025-03-04 14:10 | DVH ---
INDICATION: GEN WEAK TECHNIQUE: Frontal view of the chest. COMPARISON: XY CHEST PORTABLE on DOS: 02/02/25, XY CHEST PORTABLE on DOS: 01/24/25, XY CHEST PORTABLE o n DOS: 12/31/24, XY CHEST TWO VIEWS ROUTINE on DOS: 02/09/25 FINDINGS: LUNGS AND PLEURAL SPACES: Right infrahilar mass, concerning for neoplasm. HEART: Unremarkable. No cardiomegaly. MEDIASTINUM: Unremarkable. Normal mediastinal contour. BONES/JOINTS: Unremarkable. No acute fracture. TUBES, LINES AND DEVICES: Right-sided Mediport with the distal tip in the SVC. No pneumothorax. OTHER FINDINGS: . IMPRESSION: Right infrahilar mass, concerning for neoplasm.
[2025-03-04 14:12] LABS: Lactic Acid w/Reflex 2.2 mmol/L (0.4-2.0)
[2025-03-04 14:19] LABS: Lipase 1579 U/L (12-53)
[2025-03-04] MEDS: POTASSIUM CHL 20 Meq TABLET PO ONE (15:09)
[2025-03-04] MEDS: MAGNESIUM SULFATE 1GM/100ML 100 ML IV ONE (15:09)
[2025-03-04] MEDS: SODIUM CHLORIDE 0.9% 1,000 ML IV ONE (15:14)
--- NOTE | 2025-03-04 15:36 | DVH ---
Exam: CT CT AB PEL WO CON-NO ORAL OR IV History: abd pain, mass Comparison Study: CT CT AB PEL WO CON-NO ORAL OR IV on DOS: 12/06/24 Technique: Multidetector spiral CT of the abdomen and pelvis was performed from lung bases to pubic symphysis. Imaging was performed without IV contrast. Axial, coronal and sagittal multiplanar reform ats were obtained from the axial data set by the technologist. Radiation dose : Abdomen/Pelvis: CTDIvol 14 mGy, DLP 916 mGy*cm. Findings: Evaluation of solid organs is limited due to lack of intravenous contrast use. Lung Bases: Masslike consolidation in the right lower lung. Bilateral pulmonary nodules measuring up to 20 mm. Liver: Enlarged and heterogeneous with multiple masses. Largest mass measures approximately 140 mm. Gallbladder and biliary Tree: Contracted or absent. Spleen: Unremarkable Pancreas: The pancreas is grossly normal in appearance. Adrenal Glands: Left adrenal nodule measuring up to 17 mm Kidneys: Right kidney is inferiorly displaced. No hydronephrosis or nephrolithiasis. Bladder: Grossly unremarkable for degree of distention. Bowel: The stomach is grossly normal in appearance. Small bowel and colon are normal in caliber and d istribution. The appendix is not visualized; however, no secondary findings of acute appendicitis chaitanya ntified. Focal wall thickening in the sigmoid colon, an underlying mass is not excluded. Ascites: Moderate abdominal and pelvic ascites. Lymphadenopathy: Shotty retroperitoneal lymphadenopathy. Abdominal wall and Mesentery: Unremarkable. Vasculature: The visualized abdominal aorta is normal in size and caliber. Evaluation of abdominal a nd pelvic vessels is limited due to lack of intravenous contrast. Pelvic Organs: Unremarkable Musculoskeletal: Avascular necrosis of right femoral head. IMPRESSION: 1. Abnormal CT of the abdomen and pelvis. Masslike consolidation in the right lower lung with multipl e bilateral pulmonary nodules. Multiple liver masses. Left adrenal nodule. Possible sigmoid colon mas s. Likely malignant ascites. Overall findings are concerning for malignant disease with metastasis. Recommend follow-up CT of the chest, abdomen and pelvis with intravenous contrast. PET-CT can also b e considered. CT-guided biopsy of the most accessible lesion is recommended. 2. Avascular necrosis of the right femoral head. Shotty retroperitoneal lymphadenopathy. Radiation optimization: All CT scans at this facility use at least one of these dose optimization alexis hniques: Automated exposure control mA and/or kV adjustment per patient size (includes targeted exams where dose is matched to clinical indication) or iterative reconstruction. HS:Y
[2025-03-04] MEDS: PIPERACILLIN-TAZOB 3.375GM 100 ML IV ONE (16:25)
--- NOTE | 2025-03-04 17:54 | DVHHP2 ---
Admitting Diagnosis: Generalized weakness History of Present Illness 44y M who presents to the ED via EMS for chief complaint of generalized weakness. pt states he was at PCP office for check up and states he called EMS from PCP office. pt states he has history of stage 4 lung cancer receiving chemo and states he has been having generalized body aches, weakness and whole body swelling. pt in the ED, appears pale but is otherwise alert and oriented x 4 and otherwise denies any other complaints. pt states otherwise last chemo was 1 month prior. pt has been to [facility] in the past and hospitalized for similar complaints and states he previously received blood transfusion for his anemia Past Medical history: depression, GERD, lung cancer Past Surgical history: denies Medications: unknown Allergies: nkda Social History: denies ETOH, endorses tobacco use, denies drug use REVIEW OF SYSTEMS: CONSTITUTIONAL: Denies acute: fever, diaphoresis, chills, HEAD: Denies acute: headache, photophobia Eyes: Denies acute: Double vision, vision loss, eye pain, eye discharge. EARS: Denies acute: tinnitus, hearing loss, ear discharge, ear pain, THROAT: Denies acute: sore throat, swelling, difficulty swallowing , pain with sw allowing, change in voice. NECK: Denies acute: neck pain, neck swelling, stiff neck. HEART: Denies acute : chest pain, palpitations, LUNGS: Denies acute: SOB, wheezing, cough, hemoptysis ABDOMEN: Denies acute: abdominal pain, Nausea, Vomiting, diarrhea, melena , hematemesis, hematochezia SKIN: Denies acute: rash, redness, lesions, itchiness. EXTREMITIES: Denies acute: calf pain, numbness, tingling, weakness, denies pain in extremity. Denies acute: Low back pain. Neuro: Denies acute: focal neurological deficit, motor or sensory focal neurological deficit, tremors, seizure like activity, confusion, dizziness, change in mental status, loss of bowel or bladder function, cauda equina like symptoms. : Denies acute: dysuria, hematuria, flank pain, increase in urinary frequency. PSYCH: Denies acute: hallucination, suicidal ideation, homicidal ideation. Patient Family History: Diabetes mellitus G8 FATHER Allergies: Coded Allergies: NO KNOWN ALLERGIES (Unverified , 12/06/24) Home Meds Reported Medications Buprenorphine Hcl-Naloxone Hcl (Suboxone) 1 Mis Mis, 24 MG SL DAILY, MISC 12/07/24 Temazepam (Temazepam) 30 Mg Cap, 30 MG PO BID, CAP 12/06/24 Cholecalciferol (VITAMIN D3) 2,000 Unit Tab, 1 TAB PO DAILY, #30 TAB 5 Refills 12/06/24 Magnesium Oxide (MAGNESIUM OXIDE) 400 Mg Tab, 1 TAB PO BID, #60 TAB 5 Refills 12/06/24 Olanzapine (Zyprexa) 20 Mg Tab, 20 MG PO DAILY, TAB 12/06/24 Escitalopram Oxalate (Lexapro) 10 Mg Tab, 10 MG PO TID, TAB 12/06/24 Sucralfate (Carafate) 1 Gm/10 Ml Shanice, 1 GM PO BID, ML 12/06/24 Omeprazole (Gnp Omeprazole) 20 Mg Tab, 40 MG PO BID, TAB 12/06/24 Clonazepam (Klonopin) 1 Mg Tab, 1 TAB PO BID, #60 TAB 1 Refill 12/06/24 Vital Signs Vital Signs Date Time Temp Pulse Resp B/P (MAP) Pulse Ox O2 Delivery O2 Flow Rate FiO2 03/04/25 16:00 98.2 88 11 107/75 (86) 97 98.2 03/04/25 14:38 Nasal Cannula* 2 28 Physical Exam Generally-44 years old male, well nourished well developed. Generalize pale No apparent distress HEENT-atraumatic, normocephalic , pallor [place] Heart-regular rate and rhythm lungs decreased breath sounds Abdomen soft, mild tender, nondistended Musculoskeletal-the pitting edema Neuro-AO x3, no focal deficits Results Labs Test 03/04/25 17:30 03/04/25 15:19 03/04/25 14:37 03/04/25 13:35 Range/Units Lactic Acid Level 2.5 *H 0.4-2.0 mmol/L POC Glucose 110 H 70-106 mg/dl White Blood Count 9.6 4.4-10.8 10^3/uL Red Blood Count 2.45 L 4.5-5.90 10^6/uL Hemoglobin 8.3 L 13.5-17.5 g/dL Hematocrit 24.7 L 41.0-53.0 % Mean Corpuscular Volume 100.8 H 80.0-100.0 fL Mean Corpuscular Hemoglobin 33.7 H 28.0-32.0 pg Mean Corpuscular Hemoglobin Concent 33.4 32.0-36.0 g/dL Red Cell Distribution Width 21.6 H 11.8-14.3 % Platelet Count 140 140-450 10^3/uL Mean Platelet Volume 9.0 6.9-10.8 fL Neutrophils (%) (Auto) 85.7 H 37.0-80.0 % Lymphocytes (%) (Auto) 6.6 L 10.0-50.0 % Monocytes (%) (Auto) 6.7 0.0-12.0 % Eosinophils (%) (Auto) 0.6 0.0-7.0 % Basophils (%) (Auto) 0.4 0.0-2.0 % Neutrophils # (Auto) 8.3 1.6-8.6 10 ^3/uL Lymphocytes # (Auto) 0.6 0.4-5.4 10 ^3/uL Monocytes # (Auto) 0.6 0-1.3 10 ^3/uL Eosinophils # (Auto) 0.1 0-0.8 10 ^3/uL Basophils # (Auto) 0 0-0.2 10 ^3/uL Nucleated Red Blood Cells 0.2 % Sodium Level 136 136-145 mmol/L Potassium Level 2.9 L 3.5-5.1 mmol/L Chloride Level 97 L 98-107 mmol/L Carbon Dioxide Level 25 20-31 mmol/L Anion Gap 14 5-15 Blood Urea Nitrogen 40 H 9-23 mg/dL Creatinine 1.98 H 0.700-1.30 mg/dL Glomerular Filtration Rate Calc 42 >90 mL/min BUN/Creatinine Ratio 20.2 H 10.0-20.0 Serum Glucose 113 H 74-106 mg/dL Calcium Level 7.6 L 8.7-10.4 mg/dL Magnesium Level 1.3 L 1.6-2.6 mg/dL Total Bilirubin 2.2 H 0.2-1.0 mg/dL Aspartate Amino Transferase (AST) 405 H 13-40 U/L Alanine Aminotransferase (ALT) 65 H 7-40 U/L Alkaline Phosphatase 541 H 46-116 U/L B-Type Natriuretic Peptide 42.67 0-100 pg/mL Total Protein 5.8 5.7-8.2 g/dL Albumin 3.5 3.2-4.8 g/dL Lipase 1579 H 12-53 U/L Primary Diagnosis Stage IV lung cancer with diffuse metastatic Symptomatic anemia Diffuse lower extremity edema Pancreatitis Elevated LFTs FLO on CKD Hypokalemia Hypomagnesemia Plan Pt been missing oncology appointment Transfuse 1 unit PRBC for symptomatic anemia Gentle hydration for pancreatitis in view of diffuse edema Lower extremity edema possible CHF check echocardiogram g of the heart Ultrasound abdomen to assess for elevated LFT and CKD Nephrology consult trend renal and liver function check cbc 4 hour post transfusion Follow up with oncology. Renal diet Full code Heparin for DVT prophylaxis PPI for GI prophylaxis Plan discussed with: Patient Problems List: (1) Cancer, metastatic to liver Status: Acute (2) Acute pancreatitis Status: Acute (3) Elevated LFTs Status: Acute (4) Symptomatic anemia Status: Acute (5) Hypomagnesemia Status: Acute (6) Hypokalemia Status: Acute Date of Service: March 04, 2025 Billing Provider: JAIR NEWMAN MD Common Visit Codes: [id number] INP/OBS CARE (HIGH) JAIR NEWMAN MD March 04, 2025 17:54
[2025-03-04 18:35] LABS: % Iron Saturation 47.3 % (20-55)
[2025-03-04 18:58] LABS: Urine Bacteria None Seen /hpf (None Seen)
[2025-03-04 19:15] LABS: Urine Blood TRACE /uL (Negative); Urine Clarity Clear (Clear); Urine Color Yellow (Yellow); Urine Protein, UAD TRACE (Negative); Urine Specific Gravity 1.009 (1.001-1.035); Urine Squamous Epithelial Cell FEW /hpf (<5); Urine Urobilinogen Normal (Negative); Urine WBC 1 /HPF (0-3); Urine pH 5.5 (5.0-9.0)
--- NOTE | 2025-03-04 19:44 | DVH ---
Bilateral lower extremity venous duplex Clinical History: b/l lower leg edema Comparison: None Findings: Duplex Doppler evaluation of the deep venous systems of both lower extremities from the common femora l veins to the popliteal veins including color Doppler and spectral/pulsed waveform analysis was perf ormed. RIGHT SIDE: The common femoral vein demonstrates appropriate compressibility and waveform variability. There is compressibility/patency of the great saphenous vein at the proximal thigh. The femoral vein demonstrates appropriate compressibility and waveform variability. The deep femoral vein demonstrates appropriate compressibility and waveform variability. The popliteal vein demonstrates appropriate compressibility and waveform variability. There is normal compressibility at the tibioperoneal trunk. LEFT SIDE: The common femoral vein demonstrates appropriate compressibility and waveform variability. There is compressibility/patency of the great saphenous vein at the proximal thigh. The femoral vein demonstrates appropriate compressibility and waveform variability. The deep femoral vein demonstrates appropriate compressibility and waveform variability. The popliteal vein demonstrates appropriate compressibility and waveform variability. There is normal compressibility at the tibioperoneal trunk. IMPRESSION: 1. No right or left femoropopliteal venous thrombosis. 2. If clinical concern/symptoms persist or worsen, short-interval follow-up study is suggested. 3. END IMPRESSION:
[2025-03-04] MEDS: ONDANSETRON HCL 4 MG/2 ML VIAL IV PRN (19:45)
[2025-03-04] MEDS: HYDROmorphone HCL 2 MG/ML VL/or syr IV PRN (19:46)
[2025-03-04 19:59] LABS: Erythrocyte Sedimentation Rate 111 mm/hr (0-20)
[2025-03-04] MEDS: CITALOPRAM HYDROBR 20 MG TAB PO SCH (22:05)
[2025-03-04] MEDS: SUCRALFATE 1 GM/10 ML ORAL SUSP PO SCH (22:05)
[2025-03-04] MEDS: MAGNESIUM OXIDE 400 MG TAB PO SCH (22:05)
[2025-03-04] MEDS: SODIUM CHLOR 0.9% PF (SALINE LOCK) 10ML VIAL/SYR IV SCH (22:06)
[2025-03-04] MEDS: HEPARIN SODIUM (PORCINE) 5000 UNITS/ML 1ML VIAL SC SCH (22:33)
[2025-03-05] VITALS (10 sets, daily range): BP systolic 93–129; BP diastolic 54–87; PULSE 85–109; RESP 14–20; TEMP 97.3–98.2; O2SAT 92–98
[2025-03-05] MEDS: clonazePAM 0.5 MG TAB PO SCH (03:45)
[2025-03-05] MEDS: PANTOPRAZOLE 40 MG TAB PO SCH (05:26)
[2025-03-05 06:23] LABS: Albumin 3.2 g/dL (3.2-4.8); Anion Gap 14 (5-15); BUN/Creatinine Ratio 21.1 (10.0-20.0); Carbon Dioxide 25 mmol/L (20-31); Chloride 99 mmol/L (98-107); Glucose 88 mg/dL (74-106); Sodium 138 mmol/L (136-145)
[2025-03-05 06:24] LABS: Alanine Aminotransferase 62 U/L (7-40); Alkaline Phosphatase 506 U/L (46-116); Aspartate Aminotransferase 380 U/L (13-40); Bilirubin, Total 2.7 mg/dL (0.2-1.0); Blood Urea Nitrogen 37 mg/dL (9-23); Calcium 7.6 mg/dL (8.7-10.4); Magnesium 1.5 mg/dL (1.6-2.6); Potassium 2.6 mmol/L (3.5-5.1); Total Protein 5.4 g/dL (5.7-8.2)
--- NOTE | 2025-03-05 06:27 | ECG ---
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
[2025-03-05 08:03] LABS: Basophils # (auto) 0 10 ^3/uL (0-0.2); Basophils % (auto) 0.5 % (0.0-2.0); Eosinophils # (auto) 0 10 ^3/uL (0-0.8); Eosinophils % (auto) 0.2 % (0.0-7.0); Hemoglobin 8.5 g/dL (13.5-17.5); Lymphocytes # (auto) 0.5 10 ^3/uL (0.4-5.4); Lymphocytes % (auto) 7.2 % (10.0-50.0); Mean Corpuscular Hemoglobin 33.3 pg (28.0-32.0); Monocytes # (auto) 0.4 10 ^3/uL (0-1.3); Monocytes % (auto) 5.9 % (0.0-12.0); Neutrophils # (auto) 6.1 10 ^3/uL (1.6-8.6); Neutrophils % (auto) 86.2 % (37.0-80.0); Nucleated Red Blood Cells % 0.1 %; Red Blood Cells 2.55 10^6/uL (4.5-5.90)
[2025-03-05 08:12] LABS: Platelet Count (auto) 93 10^3/uL (140-450); Red Cell Distribution Width 23.2 % (11.8-14.3)
[2025-03-05] MEDS: ACETAMINOPHEN 325 MG TAB PO PRN (08:42)
[2025-03-05] MEDS: CHOLECALCIFEROL (VITD3) 1,000UNIT=25mCg TAB PO SCH (08:44)
[2025-03-05] MEDS: POTASSIUM CHL 20MEQ/100ML 100 ML IV SCH (09:33)
[2025-03-05] MEDS: MAGNESIUM SULFATE 1GM/100ML 100 ML IV ONE (10:16)
--- NOTE | 2025-03-05 10:57 | DVHINCON2 ---
Date of service: March 05, 2025 Reason for Consultation Right hip avascular necrosis History of Present Illness 44 yo M with hx of lung cancer on chemo with bodywide pain/ weakness. Patient johnson s pain in hips but everywhere he says. Past Medical History Past Medical history: depression, GERD, lung cancer Family History: Diabetes mellitus G8 FATHER Allergies: Coded Allergies: NO KNOWN ALLERGIES (Unverified , 12/06/24) Home Meds Reported Medications Buprenorphine Hcl-Naloxone Hcl (Suboxone) 1 Mis Mis, 24 MG SL DAILY, MISC 12/07/24 Temazepam (Temazepam) 30 Mg Cap, 30 MG PO BID, CAP 12/06/24 Cholecalciferol (VITAMIN D3) 2,000 Unit Tab, 1 TAB PO DAILY, #30 TAB 5 Refills 12/06/24 Magnesium Oxide (MAGNESIUM OXIDE) 400 Mg Tab, 1 TAB PO BID, #60 TAB 5 Refills 12/06/24 Olanzapine (Zyprexa) 20 Mg Tab, 20 MG PO DAILY, TAB 12/06/24 Escitalopram Oxalate (Lexapro) 10 Mg Tab, 10 MG PO TID, TAB 12/06/24 Sucralfate (Carafate) 1 Gm/10 Ml Shanice, 1 GM PO BID, ML 12/06/24 Omeprazole (Gnp Omeprazole) 20 Mg Tab, 40 MG PO BID, TAB 12/06/24 Clonazepam (Klonopin) 1 Mg Tab, 1 TAB PO BID, #60 TAB 1 Refill 12/06/24 Current Medications Current Medications Medications (Trade) Dose Ordered Sig/Gladis Route PRN Reason Start Time Stop Time Status Last Admin Sucralfate (Carafate Susp) 1 gm BID PO 03/04/25 22:00 03/05/25 08:44 Cholecalciferol (Vitamin D3 Tablet) 2,000 unit DAILY PO 03/05/25 10:00 03/05/25 08:44 Citalopram Hydrobromide (CeleXA TABLET) 20 mg TID PO 03/04/25 22:00 03/05/25 05:26 Magnesium Oxide (Mag-Ox Tablet) 400 mg BID PO 03/04/25 22:00 03/05/25 08:44 Pantoprazole Sodium (Protonix Tablet) 40 mg BIDAC PO 03/05/25 07:00 03/05/25 05:26 Sodium Chloride (Saline Lock Ns) 10 ml Q8HR IV 03/04/25 22:00 03/05/25 05:26 Docusate Sodium (Colace Capsule) 100 mg BIDPRN PRN PO FOR CONSTIPATION 03/04/25 18:15 Acetaminophen (Tylenol Tablet) 650 mg Q6HP PRN PO PAIN SCALE 1-3 OR TEMP>100.4 03/04/25 18:15 03/05/25 08:42 Hydromorphone HCl (Dilaudid Injection) 0.5 mg Q4HP PRN IV SEVERE PAIN (7-10 PAIN SCALE) 03/04/25 18:15 03/04/25 19:46 Ondansetron HCl (Zofran) 4 mg Q4HP PRN IV NAUSEA / VOMITING 03/04/25 18:15 03/05/25 07:36 Heparin Sodium (Porcine) 5,000 units BID SC 03/04/25 22:00 03/05/25 08:48 Clonazepam (KlonoPIN TABLET) 1 mg BID PO 03/05/25 03:45 03/05/25 08:44 Potassium Chloride 100 ml @ 50 mls/hr Q2H IV 03/05/25 09:00 03/05/25 12:59 03/05/25 09:33 Review of Systems as per HPI Vital Signs Vital Signs Date Time Temp Pulse Resp B/P (MAP) Pulse Ox O2 Delivery O2 Flow Rate FiO2 03/05/25 09:00 98.2 99 14 93/66 (75) 98 98.2 03/05/25 08:00 Room Air* 0 21 Physical Exam NAD pale Pain with PROM at hips +TA/GS/EHL/FHL foot wwp Labs/Diagnostic Data Labs Test 03/05/25 05:05 03/04/25 18:50 03/04/25 18:30 03/04/25 17:30 Range/Units White Blood Count 7.0 # 4.4-10.8 10^3/uL Red Blood Count 2.55 L 4.5-5.90 10^6/uL Hemoglobin 8.5 L 13.5-17.5 g/dL Hematocrit 25.0 L 41.0-53.0 % Mean Corpuscular Volume 98.0 80.0-100.0 fL Mean Corpuscular Hemoglobin 33.3 H 28.0-32.0 pg Mean Corpuscular Hemoglobin Concent 34.0 32.0-36.0 g/dL Red Cell Distribution Width 23.2 H 11.8-14.3 % Platelet Count 93 L 140-450 10^3/uL Mean Platelet Volume 8.6 6.9-10.8 fL Neutrophils (%) (Auto) 86.2 H 37.0-80.0 % Lymphocytes (%) (Auto) 7.2 L 10.0-50.0 % Monocytes (%) (Auto) 5.9 0.0-12.0 % Eosinophils (%) (Auto) 0.2 0.0-7.0 % Basophils (%) (Auto) 0.5 0.0-2.0 % Neutrophils # (Auto) 6.1 1.6-8.6 10 ^3/uL Lymphocytes # (Auto) 0.5 0.4-5.4 10 ^3/uL Monocytes # (Auto) 0.4 0-1.3 10 ^3/uL Eosinophils # (Auto) 0 0-0.8 10 ^3/uL Basophils # (Auto) 0 0-0.2 10 ^3/uL Nucleated Red Blood Cells 0.1 % Sodium Level 138 136-145 mmol/L Potassium Level 2.6 L 3.5-5.1 mmol/L Chloride Level 99 98-107 mmol/L Carbon Dioxide Level 25 20-31 mmol/L Anion Gap 14 5-15 Blood Urea Nitrogen 37 H 9-23 mg/dL Creatinine 1.75 H 0.700-1.30 mg/dL Glomerular Filtration Rate Calc 49 >90 mL/min BUN/Creatinine Ratio 21.1 H 10.0-20.0 Serum Glucose 88 74-106 mg/dL Calcium Level 7.6 L 8.7-10.4 mg/dL Magnesium Level 1.5 L 1.6-2.6 mg/dL Total Bilirubin 2.7 H 0.2-1.0 mg/dL Aspartate Amino Transferase (AST) 380 H 13-40 U/L Alanine Aminotransferase (ALT) 62 H 7-40 U/L Alkaline Phosphatase 506 H 46-116 U/L Total Protein 5.4 L 5.7-8.2 g/dL Albumin 3.2 3.2-4.8 g/dL Urine Color Yellow Yellow Urine Clarity Clear Clear Urine pH 5.5 5.0-9.0 Urine Specific [place] 1.009 1.001-1.035 Urine Protein Trace H Negative Urine Ketones Negative Negative Urine Blood Trace H Negative /uL Urine Nitrite Negative Negative Urine Bilirubin Negative Negative Urine Urobilinogen Normal Negative mg/dL Urine Leukocyte Esterase Negative Negative /uL Urine RBC None seen 0 - 3 /hpf Urine Microscopic WBC 1 0-3 /HPF Urine Squamous Epithelial Cells Few <5 /hpf Urine Bacteria None seen None Seen /hpf Urine Glucose Normal Normal mg/dL Erythrocyte Sedimentation Rate 111 H 0-20 mm/hr Lactic Acid Level 1.9 0.4-2.0 mmol/L C-Reactive Protein High Sensitivity 8.11 H <1.0 mg/dL Troponin I High Sensitivity 3 L </=54 ng/L Test 03/04/25 14:37 03/04/25 13:35 Range/Units POC Glucose 110 H 70-106 mg/dl Reticulocyte Count (auto) 5.39 H 0.5-1.5 % Iron Level 130 65-175 ug/dL Total Iron Binding Capacity 275 250-425 ug/dL Percent Iron Saturation 47.3 20-55 % Ferritin 1883.8 H 22-322 ng/mL Lactate Dehydrogenase 836 H 120-246 U/L B-Type Natriuretic Peptide 42.67 0-100 pg/mL Lipase 1579 H 12-53 U/L Plan/Recommendation 44 yo M with right hip avascular necrosis/ lung cancer 1. pain control 2. at this point patient is not a surgical candidate which would be a hip replacement 3. continue conservative measures to control pain 4. on chemo for lung ca 5. fu as needed Plan discussed with: Patient ABDIRASHID NIXON MD March 05, 2025 10:57
[2025-03-05] MEDS: BUPRENORPHINE -NALOXONE 8-2mg SL TAB SL ONE (10:59)
--- NOTE | 2025-03-05 17:31 | DVHPNRES ---
Progress Note Date Seen: March 05, 2025 Resident Creating Document: AMBROSIO REID RESIDENT Medical Necessity Reason Pt with a Central, PICC or Fol: No Subjective Review of Systems Patient seen and examined at bedside Complaining of generalized fatigue/feeling tired and exhausted. No fever, chills. No active bleeding. Denied chest pain, abdominal pain, shortness of breath, motor weakness or sensory deficits. Objective vital signs Vital Sign Date Time Temp Pulse Resp B/P (MAP) Pulse Ox O2 Delivery O2 Flow Rate FiO2 03/05/25 17:00 97.6 101 16 114/70 (85) 98 97.6 03/05/25 08:00 Room Air* 0 21 Total Intake and Output 03/04/25 03/04/25 03/05/25 15:00 23:00 07:00 Intake Total 1500 ml 740 ml Output Total 450 ml Balance 1500 ml 290 ml medications Current Medications Medications Dose Ordered Sig/Gladis Route Start Time Stop Time Status Last Admin Dose Admin Sucralfate 1 gm BID PO 03/04/25 22:00 03/05/25 08:44 1 GM Cholecalciferol 2,000 unit DAILY PO 03/05/25 10:00 03/05/25 08:44 2,000 UNIT Citalopram Hydrobromide 20 mg TID PO 03/04/25 22:00 03/05/25 13:33 20 MG Magnesium Oxide 400 mg BID PO 03/04/25 22:00 03/05/25 08:44 400 MG Pantoprazole Sodium 40 mg BIDAC PO 03/05/25 07:00 03/05/25 16:12 40 MG Sodium Chloride 10 ml Q8HR IV 03/04/25 22:00 03/05/25 12:07 10 ML Docusate Sodium 100 mg BIDPRN PRN PO 03/04/25 18:15 Acetaminophen 650 mg Q6HP PRN PO 03/04/25 18:15 03/05/25 08:42 650 MG Hydromorphone HCl 0.5 mg Q4HP PRN IV 03/04/25 18:15 03/05/25 14:06 0.5 MG Ondansetron HCl 4 mg Q4HP PRN IV 03/04/25 18:15 03/05/25 14:05 4 MG Clonazepam 1 mg BID PO 03/05/25 03:45 03/05/25 08:44 1 MG Examination General Appearance: Cooperative. Well developed. Pale Head Exam: Normal inspection Neck Exam: Normal inspection. Non-tender. Normal alignment Pulmonary/Respiratory: Chest non-tender. Reduced air entry in right lower lobe, mild crackles over right lower lobe. No wheezing., patient receiving oxygen via nasal cannula Cardiovascular/Chest: Regular rate and rhythm. No murmurs. No JVD. Peripheral Pulses: 2+ Radial (R). 2+ Radial (L). 2+ Pedal (R). 2+ Pedal (L) Abdominal Exam: Normal bowel sounds. Soft. Nontender. No hepatosplenomegaly. No masses Ankle Exam: Negative ankle edema Lower extremities: 1+ bilateral lower extremity edema, presence of pedal course, capillary refill less than 2 seconds. Neuro/Mental Status: A&O x4. Coherent Thoughts/Psych: Normal thought pattern. Appropriate mood and affect. Good judgement and insight Appearance: In no acute distress Skin Exam: Normal inspection. Normal color. Warm. Dry.... laboratory and microbiology Laboratory Tests 03/05/25 05:05 Test 03/05/25 05:05 Range/Units Serum Glucose 88 74-106 mg/dL Microbiology Date/Time Source Procedure Growth Status 03/04/25 16:00 Blood Blood Culture - Preliminary NO GROWTH AFTER 24 HOURS OF INCUBATION. Resulted Problem List/Assessment/Plan Problem List/Assessment/Plan #Acute on chronic anemia secondary to chemotherapy induced/cancer induced -received 1 Units PRBCS, hemoglobin 8.3. 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 Abnormal CT of the abdomen and pelvis. Masslike consolidation in the right lower lung with multiple bilateral pulmonary nodules. Multiple liver masses. Left adrenal nodule. Possible sigmoid colon mass. Likely malignant ascites. Overall findings are concerning for malignant disease with metastasis. Recommend follow-up CT of the chest, abdomen and pelvis with intravenous contrast. PET-CT can also be considered. CT-guided biopsy of the most accessible lesion is recommended. 2. Avascular necrosis of the right femoral head. Shotty retroperitoneal lymphadenopathy. -continue to monitor. Patient is following outpatient setting oncology for chemotherapy. #Malignant ascites likely due to metastatic lung cancer. -continue to monitor #FLO due to EMS likely hemodynamically mediated -continue to monitor HUEY #Avascular necrosis of right femoral head -conservative management. As per orthopedic not a surgical candidate at this point. #Transaminitis with hyperbilirubinemia likely due to sepsis -hepatic mass likely metastatic. -continue to monitor liver function Opioid use disorder -on Suboxone 24 mg p.o. daily. History Depression History Anxiety PUD prophylaxis: Protonix DVT prophylasix: high risk for bleeding, SCD Plan discussed with: Patient, Other My Orders My Orders Orders - AMBROSIO REID RESIDENT Procedure Category Date Status Time * Orthopedic Consult CONS 03/05/25 Transmitted 09:38 Transfer Orders XFER 03/05/25 Transmitted 09:30 Date of Service: March 05, 2025 Billing Provider: LORETTA LINN MD Common Visit Codes: [id number] INP/OBS CARE(HIGH) AMBROSIO REID RESIDENT March 05, 2025 17:31 LORETTA LINN MD March 05, 2025 22:52
[2025-03-05] MEDS: LORazepam 0.5 MG TAB PO PRN (22:49)
[2025-03-06] VITALS (9 sets, daily range): BP systolic 106–131; BP diastolic 62–94; PULSE 87–110; RESP 17–20; TEMP 96.7–98.4; O2SAT 95–99
[2025-03-06] MEDS: METOCLOPRAMIDE HCL 5MG/ml INJ 2ml VIAL IV SCH
--- NOTE | 2025-03-06 01:24 | DVHSR ---
APPROVED REPORT EXAM: Two-dimensional and M-mode echocardiogram with Doppler and color Doppler. Blood Pressure: 119/70 mmHg INDICATION Severe pitting edema assess for CHF RISK FACTORS Height: 67, Weight: 213 DIMENSIONS LVDd4.1 (3.8-5.7cm)LA (2D)4.4 (1.9-4.0cm)Aortic Root3.7 (2.0-3.7cm) LVDs2.5 (2.5-4.0cm)LA (MM) (1.9-4.0cm)Aortic Cusp Exc2.0 (1.5-2.0cm) EF (%) 70.0 (55-70%)Rt. Atrium (1.9-4.0cm)Asc. Aorta cm IVSd1.2 (0.7-1.1cm)RV (D) (1.8-2.4cm) PWd1.1 (0.7-1.1cm) Mitral Valve MitralMitral Stenosis E wave0.77m/sMV Mean GR.mmHg A wave0.70m/sMV Peak GR.mmHg E/A ratio1.12D MVAcm2 DECEL [id number] 1/2 Kwmb23lf IVRTmsDop MVA4.16cm2 Aortic Valve Aortic ValveAortic Stenosis V11.12m/Jeanne Mean GR.4mmHg V21.32m/Jeanne Peak GR.7mmHg LVOT Diameter2.2 (1.8-2.4cm)Doppler AVA3.22cm2 Pulmonic Valve V21.43m/s Tricuspid Valve TR Velocity2.42m/s [id number] Conclusion 1. LV EF IS 70% AND IS NORMAL 2. NORMAL VALVES 3. SLIGHTLY DILATED LA 4. NORMAL RV FUNCTION 5. NO EFFUSION
[2025-03-06 06:06] LABS: Basophils # (auto) 0 10 ^3/uL (0-0.2); Basophils % (auto) 0.5 % (0.0-2.0); Eosinophils # (auto) 0 10 ^3/uL (0-0.8); Eosinophils % (auto) 0.2 % (0.0-7.0); Hematocrit 26.5 % (41.0-53.0); Hemoglobin 8.7 g/dL (13.5-17.5); Lymphocytes # (auto) 0.5 10 ^3/uL (0.4-5.4); Lymphocytes % (auto) 5.5 % (10.0-50.0); Mean Corpuscular Hemoglobin 33.3 pg (28.0-32.0); Mean Corpuscular Hgb Conc. 32.9 g/dL (32.0-36.0); Mean Corpuscular Volume 101.2 fL (80.0-100.0); Monocytes # (auto) 0.6 10 ^3/uL (0-1.3); Monocytes % (auto) 6.7 % (0.0-12.0); Neutrophils # (auto) 7.3 10 ^3/uL (1.6-8.6); Neutrophils % (auto) 87.1 % (37.0-80.0); Nucleated Red Blood Cells % 0.1 %; Platelet Count (auto) 91 10^3/uL (140-450); Red Blood Cells 2.62 10^6/uL (4.5-5.90); Red Cell Distribution Width 23.5 % (11.8-14.3); White Blood Cell 8.4 10^3/uL (4.4-10.8)
[2025-03-06 06:21] LABS: Anion Gap 15 (5-15); BUN/Creatinine Ratio 22.3 (10.0-20.0); Carbon Dioxide 22 mmol/L (20-31); Chloride 101 mmol/L (98-107); Glucose 88 mg/dL (74-106); Magnesium 1.8 mg/dL (1.6-2.6); Sodium 138 mmol/L (136-145)
[2025-03-06 06:26] LABS: Alanine Aminotransferase 64 U/L (7-40); Albumin 3.1 g/dL (3.2-4.8); Alkaline Phosphatase 547 U/L (46-116); Aspartate Aminotransferase 360 U/L (13-40); Bilirubin, Total 2.7 mg/dL (0.2-1.0); Blood Urea Nitrogen 33 mg/dL (9-23); Calcium 8.6 mg/dL (8.7-10.4); Total Protein 5.3 g/dL (5.7-8.2)
[2025-03-06] MEDS: LINEZOLID 600MG/300ML 300 ML IV SCH (09:21)
[2025-03-06] MEDS: BUPRENORPHINE -NALOXONE 8-2mg SL TAB SL SCH (09:45)
--- NOTE | 2025-03-06 11:49 | DVHPNRES ---
Progress Note Date Seen: March 06, 2025 Resident Creating Document: AMBROSIO REID RESIDENT Medical Necessity Reason Pt with a Central, PICC or Fol: No Subjective Review of Systems Patient seen and examined at bedside Continue generalized weakness Continued to have generalized abdominal distention, dry heave, no nausea or vomiting Has left arm bruise likely IV extravasation Mild peripheral bilateral lower extremity edema, DVT has been ruled out. No fever, chills, chest pain, sensory deficits on motor weakness. Objective vital signs Vital Sign Date Time Temp Pulse Resp B/P (MAP) Pulse Ox O2 Delivery O2 Flow Rate FiO2 03/06/25 09:21 104 17 114/62 03/06/25 09:00 98.0 97 98.0 03/05/25 20:00 Nasal Cannula* 3 32 Total Intake and Output 03/05/25 03/05/25 03/06/25 15:00 23:00 07:00 Intake Total 740 ml 150 ml Output Total 325 ml 200 ml Balance 415 ml -50 ml medications Current Medications Medications Dose Ordered Sig/Gladis Route Start Time Stop Time Status Last Admin Dose Admin Sucralfate 1 gm BID PO 03/04/25 22:00 03/06/25 08:22 1 GM Cholecalciferol 2,000 unit DAILY PO 03/05/25 10:00 03/06/25 08:23 2,000 UNIT Citalopram Hydrobromide 20 mg TID PO 03/04/25 22:00 03/06/25 05:35 20 MG Magnesium Oxide 400 mg BID PO 03/04/25 22:00 03/06/25 08:23 400 MG Pantoprazole Sodium 40 mg BIDAC PO 03/05/25 07:00 03/06/25 05:35 40 MG Sodium Chloride 10 ml Q8HR IV 03/04/25 22:00 03/06/25 05:36 10 ML Docusate Sodium 100 mg BIDPRN PRN PO 03/04/25 18:15 Acetaminophen 650 mg Q6HP PRN PO 03/04/25 18:15 03/05/25 08:42 650 MG Hydromorphone HCl 0.5 mg Q4HP PRN IV 03/04/25 18:15 03/06/25 09:21 0.5 MG Ondansetron HCl 4 mg Q4HP PRN IV 03/04/25 18:15 03/06/25 08:20 4 MG Clonazepam 1 mg BID PO 03/05/25 03:45 03/06/25 08:23 1 MG Metoclopramide HCl 5 mg Q6HR IV 03/06/25 00:00 03/06/25 05:35 5 MG Lorazepam 0.5 mg Q6HP PRN PO 03/05/25 19:45 03/06/25 05:48 0.5 MG Linezolid 300 ml @ 150 mls/hr Q12HR IV 03/06/25 10:00 03/06/25 09:21 150 MLS/HR Buprenorphine HCl 3 tab DAILY SL 03/06/25 10:00 03/06/25 09:45 3 TAB Examination General Appearance: Cooperative. Well developed. Pale Head Exam: Normal inspection Neck Exam: Normal inspection. Non-tender. Normal alignment Pulmonary/Respiratory: Chest non-tender. Reduced air entry in right lower lobe, mild crackles over right lower lobe. No wheezing., patient receiving oxygen via nasal cannula Cardiovascular/Chest: Regular rate and rhythm. No murmurs. No JVD. Peripheral Pulses: 2+ Radial (R). 2+ Radial (L). 2+ Pedal (R). 2+ Pedal (L) Abdominal Exam: Normal bowel sounds. Soft. Nontender. Hepatomegaly. Liver mass palpated Ankle Exam: Negative ankle edema Lower extremities: 1+ bilateral lower extremity edema, presence of pedal edema, capillary refill less than 2 seconds. Neuro/Mental Status: A&O x4. Coherent Thoughts/Psych: Normal thought pattern. Appropriate mood and affect. Good judgement and insight Appearance: In no acute distress Skin Exam: Normal inspection. Normal color. Warm. Dry... 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 Abnormal CT of the abdomen and pelvis. Masslike consolidation in the right lower lung with multiple bilateral pulmonary nodules. Multiple liver masses. Left adrenal nodule. Possible sigmoid colon mass. Likely malignant ascites. Overall findings are concerning for malignant disease with metastasis. Recommend follow-up CT of the chest, abdomen and pelvis with intravenous contrast. PET-CT can also be considered. CT-guided biopsy of the most accessible lesion is recommended. 2. Avascular necrosis of the right femoral head. Shotty retroperitoneal lymphadenopathy. -continue to monitor. Patient is following outpatient setting oncology for chemotherapy. #Malignant ascites likely due to metastatic lung cancer. -continue to monitor #FLO due to EMS likely hemodynamically mediated -continue to monitor HUEY #Avascular necrosis of right femoral head -conservative management. As per orthopedic not a surgical candidate at this point. # chronic thrombocytopenia likely related to lung cancer metastases to liver -continue to monitor given patient is started on linezolid. #Transaminitis with hyperbilirubinemia likely due to sepsis -hepatic mass likely metastatic. -continue to monitor liver function Opioid use disorder -on Suboxone 24 mg p.o. daily. History Depression History Anxiety PUD prophylaxis: Protonix DVT prophylasix: high risk for bleeding, SCD Continue monitor hemoglobin and hematocrit, generalized weakness with dry heaves, no nausea or vomiting. Continue symptomatic measurement for nausea and generalized weakness. Orthopedic consulted, conservative management at this point. I likely lung cancer metastasis to abdomen, sigmoid mass likely metastatic as well. Patient is following up with Oncology in outpatient setting. Given metastatic status, patient is highly for prognosis. Patient has been counseled for the same. Patient also has one blood culture positive for Gram-positive cocci, pending pathogen/sensitivity results. Repeat blood culture has been done. Initiated on linezolid. Patient has thrombocytopenia likely related to cancer, continue to monitor. No any other plan for at this point Plan discussed with: Patient, Other (RN) My Orders My Orders Orders - AMBROSIO REID Procedure Category Date Status Time Metoclopramide PHA 03/06/25 In Process Injection (Reglan 00:00 Lorazepam Tablet PHA 03/05/25 In Process (Ativan Tablet) 19:45 Linezolid 600mg/300ml PHA 03/06/25 In Process (Zyvox) 10:00 Buprenorphine PHA 03/06/25 In Process Hcl-Naloxone Hcl 10:00 Date of Service: March 06, 2025 Billing Provider: LORETTA LINN MD Common Visit Codes: [id number] INP/OBS CARE(HIGH) AMBROSIO REID RESIDENT March 06, 2025 11:49 LORETTA LINN MD March 07, 2025 07:24
[2025-03-07] VITALS (8 sets, daily range): BP systolic 107–137; BP diastolic 70–97; PULSE 94–125; RESP 17–19; TEMP 97.5–98.3; O2SAT 6–99
[2025-03-07 07:59] LABS: Eosinophils # (auto) 0 10 ^3/uL (0-0.8); Hemoglobin 9.7 g/dL (13.5-17.5); Monocytes # (auto) 0.7 10 ^3/uL (0-1.3); Neutrophils % (auto) 86.3 % (37.0-80.0); Red Cell Distribution Width 22.2 % (11.8-14.3)
[2025-03-07 08:02] LABS: Basophils # (auto) 0.1 10 ^3/uL (0-0.2); Basophils % (auto) 0.5 % (0.0-2.0); Eosinophils % (auto) 0.1 % (0.0-7.0); Hematocrit 28.7 % (41.0-53.0); Lymphocytes # (auto) 0.6 10 ^3/uL (0.4-5.4); Lymphocytes % (auto) 6.1 % (10.0-50.0); Mean Corpuscular Hemoglobin 33.7 pg (28.0-32.0); Mean Corpuscular Hgb Conc. 33.8 g/dL (32.0-36.0); Mean Corpuscular Volume 99.7 fL (80.0-100.0); Neutrophils # (auto) 8.8 10 ^3/uL (1.6-8.6); Nucleated Red Blood Cells % 0.1 %; Platelet Count (auto) 122 10^3/uL (140-450); Red Blood Cells 2.88 10^6/uL (4.5-5.90); White Blood Cell 10.2 10^3/uL (4.4-10.8)
[2025-03-07 08:22] LABS: Albumin 3.3 g/dL (3.2-4.8); Anion Gap 13 (5-15); Calcium 8.8 mg/dL (8.7-10.4); Carbon Dioxide 25 mmol/L (20-31); Chloride 100 mmol/L (98-107); Sodium 138 mmol/L (136-145)
[2025-03-07 08:23] LABS: Alanine Aminotransferase 79 U/L (7-40); Alkaline Phosphatase 587 U/L (46-116); Aspartate Aminotransferase 369 U/L (13-40); Bilirubin, Total 3.5 mg/dL (0.2-1.0); Blood Urea Nitrogen 26 mg/dL (9-23); Glucose 106 mg/dL (74-106); Potassium 3.4 mmol/L (3.5-5.1); Total Protein 5.6 g/dL (5.7-8.2)
[2025-03-07 08:55] LABS: Magnesium 1.7 mg/dL (1.6-2.6)
[2025-03-07] MEDS: DOCUSATE SOD 100 MG CAP PO PRN (09:43)
--- NOTE | 2025-03-07 13:16 | DVHPN2 ---
Subjective The patient is seen and examined at bedside. No complaint today. Patient remained weak. Reviewed: Care Plan, H&P, Labs, Medications, Previous Orders, Radiology Changes from previous H/P or p: No Changes Objective Vitals Vital Signs Date Time Temp Pulse Resp B/P (MAP) Pulse Ox O2 Delivery O2 Flow Rate FiO2 03/07/25 12:45 97.5 122 18 133/97 (109) 99 97.5 03/07/25 08:00 Nasal Cannula* 3 32 Intake/Output Intake and Output 03/07/25 07:00 Intake Total 1420 ml Output Total 900 ml Balance 520 ml Intake Oral 1120 ml IV Total 300 ml Output Urine Total 900 ml # Voids 1 General Appearance: Alert, Oriented X3, Cooperative, mild distress HEENT: Atraumatic, PERRLA, EOMI, Mucous membr. moist/pink Neck: Supple Lungs: Clear to auscultation, Normal air movement Cardiovascular: Regular rate, Normal S1, Normal S2, No murmurs, Gallops, Rubs Abdomen: Normal bowel sounds, Other (Distended , ascites) Neuro: Cranial nerves 3-12 NL Psych/Mental Status: Mental status NL Medications Current Medications Medications Dose Ordered Sig/Gladis Route Start Time Stop Time Status Last Admin Dose Admin Sucralfate 1 gm BID PO 03/04/25 22:00 03/07/25 09:46 1 GM Cholecalciferol 2,000 unit DAILY PO 03/05/25 10:00 03/07/25 09:45 2,000 UNIT Citalopram Hydrobromide 20 mg TID PO 03/04/25 22:00 03/07/25 05:48 20 MG Magnesium Oxide 400 mg BID PO 03/04/25 22:00 03/07/25 09:45 400 MG Pantoprazole Sodium 40 mg BIDAC PO 03/05/25 07:00 03/07/25 05:48 40 MG Sodium Chloride 10 ml Q8HR IV 03/04/25 22:00 03/07/25 05:49 10 ML Docusate Sodium 100 mg BIDPRN PRN PO 03/04/25 18:15 03/07/25 09:43 100 MG Acetaminophen 650 mg Q6HP PRN PO 03/04/25 18:15 03/05/25 08:42 650 MG Hydromorphone HCl 0.5 mg Q4HP PRN IV 03/04/25 18:15 03/07/25 08:43 0.5 MG Ondansetron HCl 4 mg Q4HP PRN IV 03/04/25 18:15 03/07/25 12:42 4 MG Clonazepam 1 mg BID PO 03/05/25 03:45 03/07/25 09:46 1 MG Metoclopramide HCl 5 mg Q6HR IV 03/06/25 00:00 03/07/25 11:17 5 MG Lorazepam 0.5 mg Q6HP PRN PO 03/05/25 19:45 03/07/25 12:44 0.5 MG Linezolid 300 ml @ 150 mls/hr Q12HR IV 03/06/25 10:00 03/07/25 09:47 150 MLS/HR Buprenorphine HCl 3 tab DAILY SL 03/06/25 10:00 03/07/25 11:17 3 TAB Laboratory Results Laboratory Tests 03/07/25 07:31 Chemistry Test 03/07/25 07:31 Albumin 3.3 g/dL (3.2-4.8) Calcium Level 8.8 mg/dL (8.7-10.4) Magnesium Level 1.7 mg/dL (1.6-2.6) Total Protein 5.6 g/dL (5.7-8.2) L LFT Test 03/07/25 07:31 Alanine Aminotransferase (ALT) 79 U/L (7-40) H Alkaline Phosphatase 587 U/L (46-116) H Aspartate Amino Transferase (AST) 369 U/L (13-40) H Total Bilirubin 3.5 mg/dL (0.2-1.0) H Urinalysis Test 03/04/25 18:50 Urine Color Yellow (Yellow) Urine Clarity Clear (Clear) Urine pH 5.5 (5.0-9.0) Urine Specific Ellery 1.009 (1.001-1.035) Urine Protein Trace (Negative) H Urine Ketones Negative (Negative) Urine Blood Trace /uL (Negative) H Urine Nitrite Negative (Negative) Urine Bilirubin Negative (Negative) Urine Urobilinogen Normal mg/dL (Negative) Urine Leukocyte Esterase Negative /uL (Negative) Urine RBC None seen /hpf (0 - 3) Urine Microscopic WBC 1 /HPF (0-3) Urine Squamous Epithelial Cells Few /hpf (<5) Urine Bacteria None seen /hpf (None Seen) Urine Glucose Normal mg/dL (Normal) Microbiology Microbiology Date/Time Source Procedure Growth Status 03/06/25 01:00 Blood Blood Culture - Preliminary NO GROWTH AFTER 24 HOURS OF INCUBATION. 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 Abnormal CT of the abdomen and pelvis. Masslike consolidation in the right lower lung with multiple bilateral pulmonary nodules. Multiple liver masses. Left adrenal nodule. Possible sigmoid colon mass. Likely malignant ascites. Overall findings are concerning for malignant disease with metastasis. Recommend follow-up CT of the chest, abdomen and pelvis with intravenous contrast. PET-CT can also be considered. CT-guided biopsy of the most accessible lesion is recommended. 2. Avascular necrosis of the right femoral head. Shotty retroperitoneal lymphadenopathy. -continue to monitor. Patient is following outpatient setting oncology for chemotherapy. #Malignant ascites likely due to metastatic lung cancer. -continue to monitor #FLO due to EMS likely hemodynamically mediated -continue to monitor HUEY #Avascular necrosis of right femoral head -conservative management. As per orthopedic not a surgical candidate at this point. # chronic thrombocytopenia likely related to lung cancer metastases to liver -continue to monitor given patient is started on linezolid. #Transaminitis with hyperbilirubinemia likely due to sepsis -hepatic mass likely metastatic. -continue to monitor liver function Opioid use disorder -on Suboxone 24 mg p.o. daily. History Depression History Anxiety PUD prophylaxis: Protonix DVT prophylasix: high risk for bleeding, SCD Continue monitor hemoglobin and hematocrit, generalized weakness with dry heaves, no nausea or vomiting. Continue symptomatic measurement for nausea and generalized weakness. Orthopedic consulted, conservative management at this point. It likely lung cancer metastasis to abdomen, sigmoid mass likely metastatic as well. Patient is following up with Oncology in outpatient setting. Given metastatic status, patient is highly for prognosis. Patient has been counseled for the same. Patient also has one blood culture positive for Gram-positive cocci, pending pathogen/sensitivity results. Repeat blood culture has been done. Initiated on linezolid. Patient has thrombocytopenia likely related to cancer, continue to monitor. No any other plan for at this point Repeat CT scan showed ascites. The patient had discomfort in the abdomen. We will consult interventional radiologist for paracentesis. Discussed in length with patient regarding to the CT scan results and plan of treatment. This medical document was created using an electronic medical record system with [employer] direct computerized dictation system. Although this document has been carefully reviewed, there may still be some phonetic and typographical errors. These areas are purely typographical due to imperfections of the software programs, and do not reflect any compromise in the patient's medical care. Plan discussed with: Patient Date of Service: March 07, 2025 Billing Provider: LORETTA LINN MD Common Visit Codes: [id number] INP/OBS CARE(HIGH) LORETTA LINN MD March 07, 2025 13:16
[2025-03-07] MEDS ORDERED: TEMAZEPAM 15 MG CAP PO PRN (14:00)
[2025-03-08] VITALS (9 sets, daily range): BP systolic 105–141; BP diastolic 72–96; PULSE 103–124; RESP 18–22; TEMP 97.4–98.1; O2SAT 94–98
[2025-03-08] MEDS: LORazepam 0.5 MG TAB PO PRN (04:23)
[2025-03-08 07:43] LABS: Basophils # (auto) 0 10 ^3/uL (0-0.2); Basophils % (auto) 0.3 % (0.0-2.0); Eosinophils # (auto) 0 10 ^3/uL (0-0.8); Eosinophils % (auto) 0.2 % (0.0-7.0); Hematocrit 30.5 % (41.0-53.0); Lymphocytes # (auto) 0.6 10 ^3/uL (0.4-5.4); Lymphocytes % (auto) 5.6 % (10.0-50.0); Mean Corpuscular Hemoglobin 33.1 pg (28.0-32.0); Mean Corpuscular Hgb Conc. 32.8 g/dL (32.0-36.0); Mean Corpuscular Volume 100.9 fL (80.0-100.0); Monocytes # (auto) 0.6 10 ^3/uL (0-1.3); Monocytes % (auto) 5.9 % (0.0-12.0); Neutrophils # (auto) 9.2 10 ^3/uL (1.6-8.6); Nucleated Red Blood Cells % 0.1 %; Platelet Count (auto) 140 10^3/uL (140-450); Red Blood Cells 3.02 10^6/uL (4.5-5.90); Red Cell Distribution Width 22.1 % (11.8-14.3); White Blood Cell 10.5 10^3/uL (4.4-10.8)
[2025-03-08 07:44] LABS: Albumin 3.4 g/dL (3.2-4.8); Anion Gap 15 (5-15); BUN/Creatinine Ratio 16.4 (10.0-20.0); Carbon Dioxide 24 mmol/L (20-31); Glucose 95 mg/dL (74-106); Magnesium 1.7 mg/dL (1.6-2.6); Sodium 137 mmol/L (136-145)
[2025-03-08 07:46] LABS: Alanine Aminotransferase 93 U/L (7-40); Alkaline Phosphatase 589 U/L (46-116); Aspartate Aminotransferase 404 U/L (13-40); Bilirubin, Total 3.4 mg/dL (0.2-1.0); Blood Urea Nitrogen 24 mg/dL (9-23); Chloride 98 mmol/L (98-107); Potassium 3.4 mmol/L (3.5-5.1); Total Protein 5.6 g/dL (5.7-8.2)
[2025-03-08] MEDS: MAGNESIUM OXIDE 400 MG TAB PO ONE (11:08)
[2025-03-08] MEDS: POTASSIUM EFFERVESENT TAB 25 MEQ PO ONE (11:08)
--- NOTE | 2025-03-08 15:06 | DVHPNRES ---
Progress Note Date Seen: March 08, 2025 Resident Creating Document: AMBROSIO REID RESIDENT Medical Necessity Reason Pt with a Central, PICC or Fol: No Subjective Review of Systems Patient seen and examined at bedside Continued to have abdominal distention with bilateral lower extremity pedal edema Generalized weakness/fatigue/tired Dry heave/nausea but no vomiting. No active bleed No any other night events Possible thoracentesis based on fluid status Continued IV antibiotic Agreed for midline placement. Objective vital signs Vital Sign Date Time Temp Pulse Resp B/P (MAP) Pulse Ox O2 Delivery O2 Flow Rate FiO2 03/08/25 14:23 111 18 130/88 03/08/25 12:53 97.4 94 97.4 03/08/25 08:01 Nasal Cannula* 3 32 Total Intake and Output 03/07/25 03/07/25 03/08/25 15:00 23:00 07:00 Intake Total 120 ml 400 ml Output Total 400 ml 300 ml Balance 120 ml -400 ml 100 ml medications Current Medications Medications Dose Ordered Sig/Gladis Route Start Time Stop Time Status Last Admin Dose Admin Sucralfate 1 gm BID PO 03/04/25 22:00 03/08/25 09:42 1 GM Cholecalciferol 2,000 unit DAILY PO 03/05/25 10:00 03/08/25 09:45 2,000 UNIT Citalopram Hydrobromide 20 mg TID PO 03/04/25 22:00 03/08/25 14:22 20 MG Magnesium Oxide 400 mg BID PO 03/04/25 22:00 03/08/25 09:45 400 MG Pantoprazole Sodium 40 mg BIDAC PO 03/05/25 07:00 03/08/25 05:31 40 MG Sodium Chloride 10 ml Q8HR IV 03/04/25 22:00 03/08/25 13:28 10 ML Docusate Sodium 100 mg BIDPRN PRN PO 03/04/25 18:15 03/07/25 09:43 100 MG Acetaminophen 650 mg Q6HP PRN PO 03/04/25 18:15 03/05/25 08:42 650 MG Hydromorphone HCl 0.5 mg Q4HP PRN IV 03/04/25 18:15 03/08/25 14:23 0.5 MG Ondansetron HCl 4 mg Q4HP PRN IV 03/04/25 18:15 03/08/25 14:23 4 MG Clonazepam 1 mg BID PO 03/05/25 03:45 03/08/25 09:43 1 MG Metoclopramide HCl 5 mg Q6HR IV 03/06/25 00:00 03/08/25 11:19 5 MG Linezolid 300 ml @ 150 mls/hr Q12HR IV 03/06/25 10:00 03/08/25 09:42 150 MLS/HR Buprenorphine HCl 3 tab DAILY SL 03/06/25 10:00 03/08/25 09:44 3 TAB Lorazepam 1 mg Q6HP PRN PO 03/07/25 19:00 03/08/25 11:08 1 MG Temazepam 15 mg HSPRN PRN PO 03/07/25 14:00 Examination General Appearance: Cooperative. Well developed. Pale Head Exam: Normal inspection Neck Exam: Normal inspection. Non-tender. Normal alignment Pulmonary/Respiratory: Chest non-tender. Reduced air entry in right lower lobe, mild crackles over right lower lobe. No wheezing., patient receiving oxygen via nasal cannula Cardiovascular/Chest: Regular rate and rhythm. No murmurs. No JVD. Peripheral Pulses: 2+ Radial (R). 2+ Radial (L). 2+ Pedal (R). 2+ Pedal (L) Abdominal Exam: Normal bowel sounds. Soft. Nontender. Hepatomegaly. Liver mass palpated Ankle Exam: Negative ankle edema Lower extremities: 1+ bilateral lower extremity edema, presence of pedal edema, capillary refill less than 2 seconds. Neuro/Mental Status: A&O x4. Coherent Thoughts/Psych: Normal thought pattern. Appropriate mood and affect. Good judgement and insight Appearance: In no acute distress Skin Exam: Normal inspection. Normal color. Warm. Dry laboratory and microbiology Laboratory Tests 03/08/25 05:38 Test 03/08/25 05:38 Range/Units Serum Glucose 95 74-106 mg/dL Microbiology Date/Time Source Procedure Growth Status 03/06/25 01:00 Blood Blood Culture - Preliminary NO GROWTH AFTER 48 HOURS OF INCUBATION. Resulted Problem List/Assessment/Plan Problem List/Assessment/Plan #bacteremia with G positive ( Staph hominis) -repeat culture no growth -continue IV antibiotic linezolid, we will need 14 days of IV antibiotic. 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 Abnormal CT of the abdomen and pelvis. Masslike consolidation in the right lower lung with multiple bilateral pulmonary nodules. Multiple liver masses. Left adrenal nodule. Possible sigmoid colon mass. Likely malignant ascites. Overall findings are concerning for malignant disease with metastasis. Recommend follow-up CT of the chest, abdomen and pelvis with intravenous contrast. PET-CT can also be considered. CT-guided biopsy of the most accessible lesion is recommended. 2. Avascular necrosis of the right femoral head. Shotty retroperitoneal lymphadenopathy. -continue to monitor. Patient is following outpatient setting oncology for chemotherapy. #Malignant ascites likely due to metastatic lung cancer. -continue to monitor #FLO due to EMS likely hemodynamically mediated -continue to monitor HUEY #Avascular necrosis of right femoral head -conservative management. As per orthopedic not a surgical candidate at this point. # chronic thrombocytopenia likely related to lung cancer metastases to liver -continue to monitor given patient is started on linezolid. #Transaminitis with hyperbilirubinemia likely due to sepsis -hepatic mass likely metastatic. -continue to monitor liver function # malignant ascites -radiology consultation for possible thoracentesis Opioid use disorder -on Suboxone 24 mg p.o. daily. History Depression History Anxiety PUD prophylaxis: Protonix DVT prophylasix: high risk for bleeding, SCD Continue monitor hemoglobin and hematocrit, generalized weakness with dry heaves, no nausea or vomiting. Continue symptomatic measurement for nausea and generalized weakness. Orthopedic consulted, conservative management at this point. I likely lung cancer metastasis to abdomen, sigmoid mass likely metastatic as well. Patient is following up with Oncology in outpatient setting. Given metastatic status, patient is highly for prognosis. Patient has been counseled for the same. Patient also has one blood culture positive for Gram-positive cocci, pending pathogen/sensitivity results. Repeat blood culture has been done. Initiated on linezolid. Patient has thrombocytopenia likely related to cancer, continue to monitor. No any other plan for at this point Plan discussed with: Patient, Other My Orders My Orders Orders - AMBROSIO REID Procedure Category Date Status Time Insert Midline ORDERS 03/08/25 Transmitted 15:01 Dietary Evaluation Review Recommendations by RD: Dietary education by RD, Protein Supplementation Comments: 1) Initate Nepro bid. Encourage optimal PO intake 2) Refer to outpatient RD for weight management 3) Follow-up with oncology/hematology and pulmonology 4) Continue to monitor I&O, labs, and skin integrity Expected Outcomes/Goals: 1) appetite and labs to improve 2) f/u in 3-5 days Date of Service: March 08, 2025 Billing Provider: LORETTA LINN MD Common Visit Codes: [id number] INP/OBS CARE(HIGH) AMBROSIO REID RESIDENT March 08, 2025 15:06 LORETTA LINN MD March 08, 2025 17:55
[2025-03-09] VITALS (8 sets, daily range): BP systolic 104–149; BP diastolic 69–96; PULSE 106–117; RESP 16–19; TEMP 97.4–98.7; O2SAT 96–100
[2025-03-09 06:38] LABS: Alanine Aminotransferase 120 U/L (7-40); Albumin 2.9 g/dL (3.2-4.8); Alkaline Phosphatase 518 U/L (46-116); Anion Gap 14 (5-15); Aspartate Aminotransferase 471 U/L (13-40); BUN/Creatinine Ratio 17.7 (10.0-20.0); Bilirubin, Total 3.4 mg/dL (0.2-1.0); Blood Urea Nitrogen 28 mg/dL (9-23); Calcium 7.8 mg/dL (8.7-10.4); Carbon Dioxide 22 mmol/L (20-31); Chloride 100 mmol/L (98-107); Glucose 82 mg/dL (74-106); Magnesium 1.8 mg/dL (1.6-2.6); Potassium 4.3 mmol/L (3.5-5.1); Sodium 136 mmol/L (136-145); Total Protein 4.7 g/dL (5.7-8.2)
--- NOTE | 2025-03-09 08:32 | DVH ---
US ABDOMEN LIMITED HISTORY: FLUID CHECK FOR POSSIBLE PARACENTESIS COMPARISON: US LIVER on DOS: 02/10/25, US ABDOMEN LIMITED on DOS: 01/26/25 TECHNIQUE: Transverse and longitudinal sonographic images were obtained of all four quadrants of the abdomen and pelvis. FINDINGS: IMPRESSION: Trace ascites.
[2025-03-09 10:20] LABS: Basophils # (auto) 0 10 ^3/uL (0-0.2); Basophils % (auto) 0.3 % (0.0-2.0); Eosinophils # (auto) 0 10 ^3/uL (0-0.8); Eosinophils % (auto) 0.1 % (0.0-7.0); Hematocrit 29.9 % (41.0-53.0); Hemoglobin 9.8 g/dL (13.5-17.5); Lymphocytes # (auto) 0.7 10 ^3/uL (0.4-5.4); Lymphocytes % (auto) 6.5 % (10.0-50.0); Mean Corpuscular Hgb Conc. 32.7 g/dL (32.0-36.0); Mean Corpuscular Volume 100.8 fL (80.0-100.0); Monocytes # (auto) 0.7 10 ^3/uL (0-1.3); Monocytes % (auto) 5.9 % (0.0-12.0); Neutrophils # (auto) 9.8 10 ^3/uL (1.6-8.6); Neutrophils % (auto) 87.2 % (37.0-80.0); Platelet Count (auto) 119 10^3/uL (140-450); Red Blood Cells 2.96 10^6/uL (4.5-5.90); White Blood Cell 11.3 10^3/uL (4.4-10.8)
[2025-03-09 10:22] LABS: Red Cell Distribution Width 21.9 % (11.8-14.3)
[2025-03-09 11:11] LABS: INR 1.19 (0.9-1.15); Partial Thromboplastin Time 25.1 SEC (24.5-34.5); Prothrombin Time 12.4 sec (9.3-11.8)
--- NOTE | 2025-03-09 15:00 | DVHPNRES ---
Progress Note Date Seen: March 09, 2025 Resident Creating Document: AMBROSIO REID RESIDENT Medical Necessity Reason Pt with a Central, PICC or Fol: No Subjective Review of Systems patient seen and examined at bedside fatigue and generalized weakness abdominal distention lower extremity edema anxious Objective vital signs Vital Sign Date Time Temp Pulse Resp B/P (MAP) Pulse Ox O2 Delivery O2 Flow Rate FiO2 03/09/25 13:30 98.3 106 18 125/85 (98) 96 98.3 03/09/25 08:00 Nasal Cannula* 3 32 Total Intake and Output 03/08/25 03/08/25 03/09/25 15:00 23:00 07:00 Intake Total 780 ml 240 ml 500 ml Output Total 3 ml 1 ml Balance 780 ml 237 ml 499 ml medications Current Medications Medications Dose Ordered Sig/Gladis Route Start Time Stop Time Status Last Admin Dose Admin Sucralfate 1 gm BID PO 03/04/25 22:00 03/09/25 09:43 1 GM Cholecalciferol 2,000 unit DAILY PO 03/05/25 10:00 03/09/25 09:43 2,000 UNIT Citalopram Hydrobromide 20 mg TID PO 03/04/25 22:00 03/09/25 06:06 20 MG Magnesium Oxide 400 mg BID PO 03/04/25 22:00 03/09/25 09:43 400 MG Pantoprazole Sodium 40 mg BIDAC PO 03/05/25 07:00 03/09/25 06:06 40 MG Sodium Chloride 10 ml Q8HR IV 03/04/25 22:00 03/09/25 06:06 10 ML Docusate Sodium 100 mg BIDPRN PRN PO 03/04/25 18:15 03/07/25 09:43 100 MG Acetaminophen 650 mg Q6HP PRN PO 03/04/25 18:15 03/05/25 08:42 650 MG Hydromorphone HCl 0.5 mg Q4HP PRN IV 03/04/25 18:15 03/08/25 14:23 0.5 MG Ondansetron HCl 4 mg Q4HP PRN IV 03/04/25 18:15 03/08/25 14:23 4 MG Clonazepam 1 mg BID PO 03/05/25 03:45 03/09/25 09:43 1 MG Metoclopramide HCl 5 mg Q6HR IV 03/06/25 00:00 03/09/25 06:05 5 MG Linezolid 300 ml @ 150 mls/hr Q12HR IV 03/06/25 10:00 03/09/25 09:44 150 MLS/HR Buprenorphine HCl 3 tab DAILY SL 03/06/25 10:00 03/08/25 09:44 3 TAB Lorazepam 1 mg Q6HP PRN PO 03/07/25 19:00 03/09/25 12:53 1 MG Temazepam 15 mg HSPRN PRN PO 03/07/25 14:00 Examination General Appearance: Cooperative. Well developed. Pale Head Exam: Normal inspection Neck Exam: Normal inspection. Non-tender. Normal alignment Pulmonary/Respiratory: Chest non-tender. Reduced air entry in right lower lobe, mild crackles over right lower lobe. No wheezing., patient receiving oxygen via nasal cannula Cardiovascular/Chest: Regular rate and rhythm. No murmurs. No JVD. Peripheral Pulses: 2+ Radial (R). 2+ Radial (L). 2+ Pedal (R). 2+ Pedal (L) Abdominal Exam: Normal bowel sounds. Soft. Nontender. Hepatomegaly. Liver mass palpated Ankle Exam: Negative ankle edema Lower extremities: 1+ bilateral lower extremity edema, presence of pedal edema, capillary refill less than 2 seconds. Neuro/Mental Status: A&O x4. Coherent Thoughts/Psych: Normal thought pattern. Appropriate mood and affect. Good judgement and insight Appearance: In no acute distress Skin Exam: Normal inspection. Normal color. Warm. Dry laboratory and microbiology Laboratory Tests 03/09/25 09:48 03/09/25 05:04 Test 03/09/25 05:04 Range/Units Serum Glucose 82 74-106 mg/dL Microbiology Date/Time Source Procedure Growth Status 03/06/25 01:00 Blood Blood Culture - Preliminary NO GROWTH AFTER 72 HOURS OF INCUBATION. Resulted Problem List/Assessment/Plan Problem List/Assessment/Plan #bacteremia with G positive ( Staph hominis) -repeat culture no growth -continue IV antibiotic linezolid, we will need 14 days of IV antibiotic. 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 Abnormal CT of the abdomen and pelvis. Masslike consolidation in the right lower lung with multiple bilateral pulmonary nodules. Multiple liver masses. Left adrenal nodule. Possible sigmoid colon mass. Likely malignant ascites. Overall findings are concerning for malignant disease with metastasis. Recommend follow-up CT of the chest, abdomen and pelvis with intravenous contrast. PET-CT can also be considered. CT-guided biopsy of the most accessible lesion is recommended. 2. Avascular necrosis of the right femoral head. Shotty retroperitoneal lymphadenopathy. -continue to monitor. Patient is following outpatient setting oncology for chemotherapy. #Malignant ascites likely due to metastatic lung cancer. -continue to monitor #FLO due to EMS likely hemodynamically mediated -continue to monitor HUEY #Avascular necrosis of right femoral head -conservative management. As per orthopedic not a surgical candidate at this point. # chronic thrombocytopenia likely related to lung cancer metastases to liver -continue to monitor given patient is started on linezolid. #Transaminitis with hyperbilirubinemia likely due to sepsis -hepatic mass likely metastatic. -continue to monitor liver function # malignant ascites -radiology consultation for possible thoracentesis #Opioid use disorder -on Suboxone 24 mg p.o. daily. # Anxiety -Ativan PO Prn Q6 Hr History Depression History Anxiety PUD prophylaxis: Protonix DVT prophylasix: high risk for bleeding, SCD Plan discussed with: Patient My Orders My Orders Orders - AMBROSIO REID RESIDENT Procedure Category Date Status Time Insert Midline ORDERS 03/08/25 Transmitted 15:01 Ss Consult To Arrange MICHAEL 03/09/25 In Process Home Iv 14:20 Dietary Evaluation Review Recommendations by RD: Dietary education by RD, Protein Supplementation Comments: 1) Initate Nepro bid. Encourage optimal PO intake 2) Refer to outpatient RD for weight management 3) Follow-up with oncology/hematology and pulmonology 4) Continue to monitor I&O, labs, and skin integrity Expected Outcomes/Goals: 1) appetite and labs to improve 2) f/u in 3-5 days Date of Service: March 09, 2025 Billing Provider: LORETTA LINN MD Common Visit Codes: [id number] INP/OBS CARE(HIGH) AMBROSIO REID RESIDENT March 09, 2025 15:00 LORETTA LINN MD March 09, 2025 17:37
[2025-03-09] MEDS: LORazepam 0.5 MG TAB PO PRN (23:12)
[2025-03-10 01:00] VITALS: BP 125/80; PULSE 109; RESP 18; TEMP 97.6; O2SAT 93
[2025-03-10 05:00] VITALS: BP 129/93; PULSE 115; RESP 18; TEMP 97.4; O2SAT 93
[2025-03-10 08:00] VITALS: PULSE 130
[2025-03-10 08:40] LABS: Basophils # (auto) 0 10 ^3/uL (0-0.2); Basophils % (auto) 0.3 % (0.0-2.0); Eosinophils # (auto) 0 10 ^3/uL (0-0.8); Eosinophils % (auto) 0.1 % (0.0-7.0); Hematocrit 28.3 % (41.0-53.0); Hemoglobin 9.6 g/dL (13.5-17.5); Lymphocytes # (auto) 0.7 10 ^3/uL (0.4-5.4); Lymphocytes % (auto) 6.8 % (10.0-50.0); Mean Corpuscular Hgb Conc. 33.8 g/dL (32.0-36.0); Mean Corpuscular Volume 100.4 fL (80.0-100.0); Monocytes # (auto) 0.5 10 ^3/uL (0-1.3); Monocytes % (auto) 4.6 % (0.0-12.0); Neutrophils # (auto) 9.3 10 ^3/uL (1.6-8.6); Neutrophils % (auto) 88.2 % (37.0-80.0); Nucleated Red Blood Cells % 0.1 %; Platelet Count (auto) 109 10^3/uL (140-450); Red Blood Cells 2.82 10^6/uL (4.5-5.90); White Blood Cell 10.5 10^3/uL (4.4-10.8)
[2025-03-10 08:42] LABS: Red Cell Distribution Width 21.2 % (11.8-14.3)
[2025-03-10 08:55] LABS: Alanine Aminotransferase 165 U/L (7-40); Albumin 3.1 g/dL (3.2-4.8); Alkaline Phosphatase 552 U/L (46-116); Anion Gap 11 (5-15); Aspartate Aminotransferase 604 U/L (13-40); BUN/Creatinine Ratio 17.2 (10.0-20.0); Blood Urea Nitrogen 28 mg/dL (9-23); Calcium 8.6 mg/dL (8.7-10.4); Carbon Dioxide 25 mmol/L (20-31); Chloride 100 mmol/L (98-107); Glucose 90 mg/dL (74-106); Potassium 3.9 mmol/L (3.5-5.1); Sodium 136 mmol/L (136-145); Total Protein 5.2 g/dL (5.7-8.2)
[2025-03-10 08:56] LABS: Bilirubin, Total 3.8 mg/dL (0.2-1.0)
[2025-03-10 09:00] VITALS: BP 128/93; PULSE 122; RESP 19; TEMP 97.4; O2SAT 98
--- NOTE | 2025-03-10 11:35 | DVHDSRES ---
Discharge Summary Date of Admission Resident Creating Document: AMBROSIO REID RESIDENT March 04, 2025 at 18:05 Date of Discharge: March 10, 2025 Admitting Diagnosis Generalized weakness Labs/Diagnostic Data: Laboratory Results Test 03/10/25 08:15 03/09/25 09:48 03/09/25 05:04 03/04/25 18:50 White Blood Count 10.5 10^3/uL (4.4-10.8) Red Blood Count 2.82 10^6/uL (4.5-5.90) Hemoglobin 9.6 g/dL (13.5-17.5) Hematocrit 28.3 % (41.0-53.0) Mean Corpuscular Volume 100.4 fL (80.0-100.0) Mean Corpuscular Hemoglobin 34.0 pg (28.0-32.0) Mean Corpuscular Hemoglobin Concent 33.8 g/dL (32.0-36.0) Red Cell Distribution Width 21.2 % (11.8-14.3) Platelet Count 109 10^3/uL (140-450) Mean Platelet Volume 8.1 fL (6.9-10.8) Neutrophils (%) (Auto) 88.2 % (37.0-80.0) Lymphocytes (%) (Auto) 6.8 % (10.0-50.0) Monocytes (%) (Auto) 4.6 % (0.0-12.0) Eosinophils (%) (Auto) 0.1 % (0.0-7.0) Basophils (%) (Auto) 0.3 % (0.0-2.0) Neutrophils # (Auto) 9.3 10 ^3/uL (1.6-8.6) Lymphocytes # (Auto) 0.7 10 ^3/uL (0.4-5.4) Monocytes # (Auto) 0.5 10 ^3/uL (0-1.3) Eosinophils # (Auto) 0 10 ^3/uL (0-0.8) Basophils # (Auto) 0 10 ^3/uL (0-0.2) Nucleated Red Blood Cells 0.1 % Sodium Level 136 mmol/L (136-145) Potassium Level 3.9 mmol/L (3.5-5.1) Chloride Level 100 mmol/L (98-107) Carbon Dioxide Level 25 mmol/L (20-31) Anion Gap 11 (5-15) Blood Urea Nitrogen 28 mg/dL (9-23) Creatinine 1.63 mg/dL (0.700-1.30) Glomerular Filtration Rate Calc 53 mL/min (>90) BUN/Creatinine Ratio 17.2 (10.0-20.0) Serum Glucose 90 mg/dL (74-106) Calcium Level 8.6 mg/dL (8.7-10.4) Total Bilirubin 3.8 mg/dL (0.2-1.0) Aspartate Amino Transferase (AST) 604 U/L (13-40) Alanine Aminotransferase (ALT) 165 U/L (7-40) Alkaline Phosphatase 552 U/L (46-116) Total Protein 5.2 g/dL (5.7-8.2) Albumin 3.1 g/dL (3.2-4.8) Prothrombin Time 12.4 sec (9.3-11.8) Prothrombin Time INR 1.19 (0.9-1.15) Activated Partial Thromboplast Time 25.1 SEC (24.5-34.5) Magnesium Level 1.8 mg/dL (1.6-2.6) Urine Color Yellow (Yellow) Urine Clarity Clear (Clear) Urine pH 5.5 (5.0-9.0) Urine Specific [place] 1.009 (1.001-1.035) Urine Protein Trace (Negative) Urine Ketones Negative (Negative) Urine Blood Trace /uL (Negative) Urine Nitrite Negative (Negative) Urine Bilirubin Negative (Negative) Urine Urobilinogen Normal mg/dL (Negative) Urine Leukocyte Esterase Negative /uL (Negative) Urine RBC None seen /hpf (0 - 3) Urine Microscopic WBC 1 /HPF (0-3) Urine Squamous Epithelial Cells Few /hpf (<5) Urine Bacteria None seen /hpf (None Seen) Urine Glucose Normal mg/dL (Normal) Test 03/04/25 18:30 03/04/25 17:30 03/04/25 14:37 03/04/25 13:35 Erythrocyte Sedimentation Rate 111 mm/hr (0-20) Lactic Acid Level 1.9 mmol/L (0.4-2.0) C-Reactive Protein High Sensitivity 8.11 mg/dL (<1.0) Troponin I High Sensitivity 3 ng/L (</=54) POC Glucose 110 mg/dl (70-106) Reticulocyte Count (auto) 5.39 % (0.5-1.5) Iron Level 130 ug/dL (65-175) Total Iron Binding Capacity 275 ug/dL (250-425) Percent Iron Saturation 47.3 % (20-55) Ferritin 1883.8 ng/mL (22-322) Lactate Dehydrogenase 836 U/L (120-246) B-Type Natriuretic Peptide 42.67 pg/mL (0-100) Lipase 1579 U/L (12-53) Other Laboratory Tests 03/10/25 08:15 Brief Hx & Hospital Course: Patient is a 44-year-old male with past medical history of lung cancer stage IV, tracheal cancer, chronic thrombocytopenia who presented to hospital with a chief complaint of generalized weakness, feeling tired, bilateral lower extremity swelling and abdominal distention. Patient was underwent CT scan of abdomen pelvis which showed numerous liver lesions , trace ascites, colon mass and retroperitoneal lymphadenopathy. Also avascular necrosis of right femoral head. Patient was also found to have bacteremia with Staph hominis sensitive to linezolid, patient continued IV antibiotic linezolid. Repeat culture was done which was cleared from bacterial growth. Midline incision was done. Patient will require two weeks of IV antibiotic. Home health has been arrangement for the same. Patient was also given 1 unit of PRBC for acute on chronic anemia likely secondary to chemotherapy-induced versus cancer induced. Orthopedic was consulted, recommendation of conservative management, not a surgical candidate at this point for avascular necrosis of right femur head. Patient was continuously counseled on poor prognosis, family including parents were also informed about poor prognosis, likely significant metastasis to abdomen given rectal mass presence. Patient will follow up with primary care physician and oncologist in outpatient setting for further continuity of care. Patient agreed with discharge plan, patient will be discharged home with home health for IV antibiotic linezolid. 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 #Lung cancer stage 4 with Mets to bone and liver and abdomen, status post chemotherapy 1 month ago, was schedule for next chemo in next few days #Malignant ascites likely due to metastatic lung cancer. #FLO due to EMS likely hemodynamically mediated #Avascular necrosis of right femoral head # chronic thrombocytopenia likely related to lung cancer metastases to liver #Transaminitis with hyperbilirubinemia likely due to sepsis # malignant ascites #Opioid use disorder # Anxiety #History Depression #History Anxiety Discharge Disposition: Home with Health Services Discharge Instruct/Medications Diet: Cardiac 2g Na,low cholest Activity: No Restrictions, As Tolerated Follow Up/Referral: -Follow up with PCP and oncologist in 1 week Medications: IV linezolid 600 mg twice daily , with home health service Discharge Statement: "Patient was advised to return to the ER or call 911 if any headaches, dizziness, shortness of breath, chest pain, abdominal pain, bleeding, fevers, or worsening of medical condition. Patient was counseled about treatment plan, medications, possible side effects, patientverbalized understanding. All questions were answered to the best of my ability. This discharge took greater then 30 minutes in planning, reviewing documentation, counseling the patient, and discussing with other team members." ASSESSMENT ASSESSMENT Assessment Severe anemia of chronic disease stage IV lung cancer metastasis to liver, abdomen ascitis bacteremia with staph hominis Date of Service: March 10, 2025 Billing Provider: LORETTA LINN MD Common Visit Codes: [id number] DISCH DAY >30min AMBROSIO REID RESIDENT March 10, 2025 11:35 LORETTA LINN MD March 11, 2025 15:02
--- NOTE | 2025-03-10 12:15 | DVH ---
US PARACENTESIS, HISTORY: ASCITES PROCEDURE: Informed consent was obtained. The patient was placed in supine position. A limited locali zation ultrasound of the abdomen was obtained, and the skin site over the largest pocket of fluid was marked and entry site was prepped with chlorhexidine which was allowed to dry and draped in the usua l sterile fashion. Time out was performed. Following administration of 1% lidocaine local anesthetic, a 5 Citizen Of [place] centesis needle catheter was percutaneously inserted into the peritoneal collection until fluid was aspirated. The catheter was advanced into the fluid collection and the needle removed. Abo ut 1850 cc of fluid was aspirated and specimen sent for appropriate cultures/cytology/cultures and cy tology. The catheter was then removed and a sterile dressing applied. No immediate complication was identified. FINDINGS: Limited ultrasound imaging demonstrates mild ascites. Aspirated fluid was clear and serous. IMPRESSION: US-guided paracentesis with 1.9L removed.
[2025-03-10 13:09] VITALS: BP 128/93; PULSE 122; RESP 19; TEMP 97.4; O2SAT 98
[2025-03-10 14:38] LABS: Body Fluid Red Blood Cells 1847 CUMM (0-2000); Body Fluid White Blood Cells 369 CUMM (0-200)
[2025-03-11 13:07] LABS: Protein, Body Fluid 1.8 g/dL (.)
== END 2025-03-10 15:15 | disposition home or self-care (01) | DRG 720 ==
LOC: ER 12:58 → EDBD 12:58 → EDUNIT# 12:58 → OVERFLOW 18:05 → CENTRAL 18:07 → TELE-CENTR 03-05 10:20
PROVIDERS: ADMIT Internal Medicine; ATTEND Internal Medicine
PROC: 30233N1 Transfusion of Nonautologous Red Blood Cells into Peripheral Vein, Percutaneous Approach (ICD-10-PCS; principal; 2025-03-04)
DX: A41.1 Sepsis due to other specified staphylococcus (principal); J96.21 Acute and chronic respiratory failure with hypoxia; N17.0 Acute kidney failure with tubular necrosis; R18.0 Malignant ascites; K85.90 Acute pancreatitis without necrosis or infection, unspecified; C79.89 Secondary malignant neoplasm of other specified sites; M87.851 Other osteonecrosis, right femur; D69.6 Thrombocytopenia, unspecified; C33 Malignant neoplasm of trachea; D64.81 Anemia due to antineoplastic chemotherapy; C34.90 Malignant neoplasm of unspecified part of unspecified bronchus or lung; T45.1X5A Adverse effect of antineoplastic and immunosuppressive drugs, initial encounter; E80.6 Other disorders of bilirubin metabolism; C78.7 Secondary malignant neoplasm of liver and intrahepatic bile duct; E83.42 Hypomagnesemia; E87.6 Hypokalemia; N18.9 Chronic kidney disease, unspecified; K21.9 Gastro-esophageal reflux disease without esophagitis; I12.9 Hypertensive chronic kidney disease with stage 1 through stage 4 chronic kidney disease, or unspecified chronic kidney disease; B95.8 Unspecified staphylococcus as the cause of diseases classified elsewhere; F11.90 Opioid use, unspecified, uncomplicated; Z83.3 Family history of diabetes mellitus; Z87.891 Personal history of nicotine dependence; Z79.899 Other long term (current) drug therapy
CPT/HCPCS: 36415; 36430; 71045; 74176; 76705; 76942; 80053; 81001; 82728; 82962; 83540; 83550; 83605; 83615; 83690; 83735; 83880; 83986; 84484; 85025; 85045; 85610; 85652; 85730; 86141; 86850; 86900; 86901; 86920; 87040; 87077; 87186; 87205; 89051; 93005; 93306; 93970; 96365; 99291; G0378; J2405; J2543; J3480

== ENCOUNTER 2025-03-12 12:33 | Inpatient (IN) | payer MEDICAID ==
[~2025-03-12] VITALS: Ht 177.8 cm; Wt 104.5 kg
[2025-03-12] MEDS: FAMOTIDINE (10MG/ML) 2ML VL IV SCH
[2025-03-12 12:45] VITALS: TEMP 97.6
--- NOTE | 2025-03-12 13:47 | ED.PDOC ---
Altered Mental Status HPI Comments 44M BIBA w/ prior MHx of Lung Cancer, Kidney [place], Depression, GERD, Metastatic [place], and the c/c of ALOC. EMS report that the pt was in the ER 4 days ago for bilateral edema, for which the pt currently has. The pt has edema w/ erythema for the past 4 days after being discharged from [facility]. The family report on scene that the pt is lethargic during the 4 days since he was discharged as well as being able to get up, but currently is unable to get up by himself. EMS state that the pt has ABD distention w/ being A/Ox2 w/ out eating or drinking for the past 4 days. Pt is tachycardic w/ using 4L at home of O2 w/ a 98%. Denies chills, fever, N/V/D, SOB, CP. Denies any other associated symptom's, modifiers, or recent injuries or sick contact at this time. Chief Complaint: ALOC Time Seen by MD: 12:40 Primary Care Provider: unknown Reviewed Notes: Nurses Notes, Medications, Allergies Allergies: Coded Allergies: NO KNOWN ALLERGIES (Unverified , 12/06/24) Home Meds Reported Medications Buprenorphine Hcl-Naloxone Hcl (Suboxone) 1 Mis Mis, 24 MG SL DAILY, MISC 12/07/24 Temazepam (Temazepam) 30 Mg Cap, 30 MG PO BID, CAP 12/06/24 Cholecalciferol (VITAMIN D3) 2,000 Unit Tab, 1 TAB PO DAILY, #30 TAB 5 Refills 12/06/24 Magnesium Oxide (MAGNESIUM OXIDE) 400 Mg Tab, 1 TAB PO BID, #60 TAB 5 Refills 12/06/24 Olanzapine (Zyprexa) 20 Mg Tab, 20 MG PO DAILY, TAB 12/06/24 Escitalopram Oxalate (Lexapro) 10 Mg Tab, 10 MG PO TID, TAB 12/06/24 Sucralfate (Carafate) 1 Gm/10 Ml Shanice, 1 GM PO BID, ML 12/06/24 Omeprazole (Gnp Omeprazole) 20 Mg Tab, 40 MG PO BID, TAB 12/06/24 Clonazepam (Klonopin) 1 Mg Tab, 1 TAB PO BID, #60 TAB 1 Refill 12/06/24 Information Source: Emergency Med Personnel Mode of Arrival: EMS Severity: Moderate Timing: Days Duration: Since onset, Days Prehospital treatment: None Quality: Decreased Alertness, Change in Behavior, Not Eating Recent: None History of: None Associated Signs and Symptoms: None Past Medical History PAST MEDICAL HISTORY: Cancer (Lung), Depression, GERD Past Medical History (Other): Kidney Disease, Metastatic [place], 4L of Home O2 Surgical History: Denies all surgeries Family History Family History: Reviewed,noncontributory to illness, Unknown Social History Smoker: Quit Greater Than 1 Year Alcohol: Denies ETOH Use Drugs: Denies Drug Use Lives In: Home Unable to Obtain due to: Altered Mental Status All Other Systems: Reviewed and Negative Physical Exam General Appearance: No Apparent Distress, Normal HEENT: Normal ENT Inspection, Pharynx Normal, TMs Normal Neck: Full Range of Motion, Non-Tender, Normal, Normal Inspection Respiratory: Chest Non-Tender, Lungs Clear, No Accessory Muscle Use, No Respiratory Distress, Normal Breath Sounds Cardiovascular: No Edema, No JVD, No Murmur, No Gallop, Normal Peripheral Pulses, Regular Rate/Rhythm Breast Exam: Deferred Gastrointestinal: No Organomegaly, Non Tender, No Pulsatile Mass, Normal Bowel Sounds, Soft Genitalia: Deferred Pelvic: Deferred Rectal: Deferred Extremities: No calf tenderness, Normal capillary refill, Normal inspection, Normal range of motion, Non-tender, No pedal edema Musculoskeletal : Apperance: Normal Neurologic: Alert, magnetic healer II-XII nml as Tested, No Motor Deficits, Normal Affect, Normal Mood, No Sensory Deficits Cerebellar Function: Normal Reflexes: Normal Skin: Dry, Normal Color, Warm Lymphatic: No Adenopathy Was a procedure done? Was a procedure done?: No Differential Diagnosis (ALOC) Differential Diagnosis: Dehydration, Hypoglycemia, Encephalopathy, Sepsis, Hypoxemia, Closed Head Injury, CVA, Drug Overdose, Heart Failure, Renal Failure Other Differential Diagnosis End-stage lung cancer X-Ray, Labs, Meds, VS Vital Signs Date Time Temp Pulse Resp B/P (MAP) Pulse Ox O2 Delivery O2 Flow Rate FiO2 03/12/25 15:15 120 20 109/77 (88) 99 03/12/25 14:54 118 20 99 03/12/25 12:45 97.6 130 38 128/76 (93) 96 97.6 03/12/25 12:41 97.6 130 38 128/76 (93) 96 97.6 03/12/25 12:39 134 Lab Test 03/12/25 14:40 Range/Units White Blood Count 17.0 #H 4.4-10.8 10^3/uL Red Blood Count 3.10 L 4.5-5.90 10^6/uL Hemoglobin 10.3 L 13.5-17.5 g/dL Hematocrit 32.0 #L 41.0-53.0 % Mean Corpuscular Volume 103.5 H 80.0-100.0 fL Mean Corpuscular Hemoglobin 33.2 H 28.0-32.0 pg Mean Corpuscular Hemoglobin Concent 32.0 32.0-36.0 g/dL Red Cell Distribution Width 21.5 H 11.8-14.3 % Platelet Count 50 #L 140-450 10^3/uL Mean Platelet Volume 7.5 6.9-10.8 fL Neutrophils (%) (Auto) 37.0-80.0 % Lymphocytes (%) (Auto) 10.0-50.0 % Monocytes (%) (Auto) 0.0-12.0 % Basophils (%) (Auto) 0.0-2.0 % Neutrophils # (Auto) 1.6-8.6 10 ^3/uL Lymphocytes # (Auto) 0.4-5.4 10 ^3/uL Monocytes # (Auto) 0-1.3 10 ^3/uL Differential Total Cells Counted 100.0 100 Neutrophils % (Manual) 94 H 37.0-80.0 Band Neutrophils % (Manual) 0 Lymphocytes % (Manual) 3 L 10.0-50.0 Monocytes % (Manual) 3 0-12 Eosinophils % (Manual) 0 0-7 Basophils % (Manual) 0 0.0-2.0 Metamyelocytes % (manual) 0 Myelocytes % (Manual) 0 Promyelocytes % (Manual) 0 Blast Cells % (Manual) 0 Reactive Lymphocytes 0 Platelet Estimate Decreased Anisocytosis (manual) Slight Macrocytosis Slight Sodium Level 136 136-145 mmol/L Potassium Level 4.7 3.5-5.1 mmol/L Chloride Level 99 98-107 mmol/L Carbon Dioxide Level 12 #L 20-31 mmol/L Anion Gap 25 H 5-15 Blood Urea Nitrogen 58 H 9-23 mg/dL Creatinine 2.81 H 0.700-1.30 mg/dL Glomerular Filtration Rate Calc 28 >90 mL/min BUN/Creatinine Ratio 20.6 H 10.0-20.0 Serum Glucose 91 74-106 mg/dL Calcium Level 9.0 8.7-10.4 mg/dL Magnesium Level 1.9 1.6-2.6 mg/dL Total Bilirubin 4.4 H 0.2-1.0 mg/dL Aspartate Amino Transferase (AST) 820 H 13-40 U/L Alanine Aminotransferase (ALT) 290 H 7-40 U/L Alkaline Phosphatase 538 H 46-116 U/L Troponin I High Sensitivity 7 </=54 ng/L Total Protein 4.9 L 5.7-8.2 g/dL Albumin 3.1 L 3.2-4.8 g/dL Current Medications Medications (Trade) Dose Ordered Sig/Gladis Route Start Time Stop Time Status Last Admin Sodium Chloride 1,000 ml @ 100 mls/hr Q10H ONCE IV 03/12/25 14:30 03/13/25 00:29 03/12/25 15:57 X-Ray, Labs, Meds, VS Comment Seen in the emergency department eventful patient came in with altered level of consciousness with a history of renal failure and lung cancer The chest x-ray shows multiple opacities to both lung with a consolidation to right lower lobe CT of the head is normal Electrocardi[place] [id number] with some 94% neutrophils H&H 10 and 32 with microcytosis and platelet count is 50 CMP the CO2 is 12 GFR of 28 and magnesium at 1.9 Liver enzymes markedly elevated Alkaline phosphatase 538 Albumin 3.1 Troponin seven Patient will be admitted for further care Time of 1ST Reevaluation: 13:10 Reevaluation 1ST: Unchanged Time of 2ND Reevaluation: 17:00 Reevaluation 2ND: Unchanged Patient Education/Counseling: Diagnosis, Treatment, Prognosis Family Education/Counseling: No Family Present Departure 1 Departure Time of Disposition: 16:55 Impression: Primary Impression: Altered mental status Qualified Codes: R40.1 - Stupor Additional Impressions: Cancer, metastatic to liver Elevated LFTs Pneumonia Qualified Codes: J18.9 - Pneumonia, unspecified organism Severe anemia Disposition: ADMITTED INPATIENT Admit to: [facility] Condition: Critical Critical Care Note Critical Care Time?: No Stability Stability form required: Yes Unstable for transfer: ICU, CCU, PCU, [facility] (Intensive VS monitoring), Requires medication (Requires Med for stabilization) Heart Score Heart Score: Heart Score Response (Comments) Value History Slightly Suspicious 0 EKG N/A 0 Age <45 0 Risk Factors >3 or Hx ASHD 2 Troponin Normal limit 0 Total 2 I personally scribed for HANNA STEINBERG MD ([email or web address]) on 03/12/25 at 13:47. Electronically submitted by Melvin Harris ([email or web address]). I personally scribed for HANNA STEINBERG MD ([email or web address]) on 03/12/25 at 13:47. Electronically submitted by Melvin Harris ([email or web address]). HANNA STEINBERG MD March 12, 2025 13:47
--- NOTE | 2025-03-12 14:50 | DVH ---
Procedure: XY CHEST PORTABLE 03/12/2025 02:29 PM Indication: Lung cancer Comparison: XY CHEST PORTABLE on DOS: 03/04/25, XY CHEST PORTABLE on DOS: 02/02/25, XY CHEST PORTABLE o n DOS: 01/24/25 TECHNIQUE: XY CHEST PORTABLE FINDINGS: The heart is normal in size. Pulmonary vasculature is prominent. Right IJ approach port-A-Cath with the tip in the right atrium. Limited low lung volume examination. The right hemidiaphragm is modera tely elevated the right lower lobe/right middle lobe appear moderately atelectatic. Diffuse hazy [place] in the right lung. Stable patchy consolidation in the right infrahilar region. Small right pleur al effusion can not be ruled out. Reticular left perihilar pulmonary opacities. No acute osseous or s oft tissue abnormality. No pneumothorax. IMPRESSION: 1. Persistent bilateral pulmonary opacities and moderate atelectasis/consolidation of the right lower lobe.
[2025-03-12 14:54] LABS: Hemoglobin 10.3 g/dL (13.5-17.5); Mean Corpuscular Hemoglobin 33.2 pg (28.0-32.0); Mean Corpuscular Volume 103.5 fL (80.0-100.0); Platelet Count (auto) 50 10^3/uL (140-450)
[2025-03-12 14:55] LABS: Red Cell Distribution Width 21.5 % (11.8-14.3)
[2025-03-12 14:57] LABS: Band Neutrophils % (manual) 0; Basophils % (manual) 0 (0.0-2.0); Blast Cells 0; Eosinophils % (manual) 0 (0-7); Metamyelocytes % 0; Myelocytes % 0; Promyelocytes % 0; Reactive Lymphocytes 0
[2025-03-12 15:05] LABS: Anion Gap 25 (5-15); BUN/Creatinine Ratio 20.6 (10.0-20.0); Chloride 99 mmol/L (98-107); Glucose 91 mg/dL (74-106); Magnesium 1.9 mg/dL (1.6-2.6); Potassium 4.7 mmol/L (3.5-5.1); Sodium 136 mmol/L (136-145)
--- NOTE | 2025-03-12 15:10 | DVH ---
EXAM: CT HEAD WITHOUT CONTRAST HISTORY: Altered level of consciousness COMPARISON: None TECHNIQUE: Axial images of the head were obtained and reformatted in coronal and sagittal planes. All CT scans at this medical facility are performed using dose modulation techniques as appropriate t o a performed exam including the following: Automated exposure control was utilized; adjustment of th e MA and/or KV according to patient size; and use of iterative reconstruction technique. CT Dose: CTDI volume is 53 mGy. Dose-length product is 2045 mGy*cm FINDINGS: There is no evidence of acute intracranial hemorrhage, mass, mass effect midline shift. There is no h ydrocephalus or extra-axial fluid collection. Burg[place]-white matter differentiation is maintained. The visualized paranasal sinuses and mastoid air cells are clear. The calvarium is intact. IMPRESSION: 1. No acute intracranial process. HS:Y
[2025-03-12 15:12] LABS: Alanine Aminotransferase 290 U/L (7-40); Albumin 3.1 g/dL (3.2-4.8); Alkaline Phosphatase 538 U/L (46-116); Aspartate Aminotransferase 820 U/L (13-40); Bilirubin, Total 4.4 mg/dL (0.2-1.0); Blood Urea Nitrogen 58 mg/dL (9-23); Carbon Dioxide 12 mmol/L (20-31); Total Protein 4.9 g/dL (5.7-8.2)
[2025-03-12 15:23] LABS: Lymphocytes % (manual) 3 (10.0-50.0); Monocytes % (manual) 3 (0-12)
[2025-03-12 15:24] LABS: Anisocytosis Slight; Macrocytosis Slight; Platelet Estimate Decreased
[2025-03-12] MEDS: SODIUM CHLORIDE 0.9% 1,000 ML IV ONE (15:57)
[2025-03-12] MEDS: cefTRIAXone 1GM/50ML D5W 50 ML IV ONE (17:27)
[2025-03-12 20:00] VITALS: BP 113/68; PULSE 118; RESP 30; O2SAT 97
[2025-03-12 20:30] VITALS: BP 116/79; PULSE 120; RESP 22; O2SAT 98
[2025-03-12 21:00] VITALS: BP 115/80; RESP 18; O2SAT 96
[2025-03-12] MEDS ORDERED: ACETAMINOPHEN 325 MG TAB PO PRN (21:00)
[2025-03-12] MEDS ORDERED: HYDROcodone-ACET 5/325MG TAB PO PRN (21:00)
[2025-03-12] MEDS ORDERED: DOCUSATE SOD 100 MG CAP PO PRN (21:00)
[2025-03-12] MEDS: AZITHROMYCIN 500MG/ 250ML 250 ML IV ONE (21:00)
[2025-03-12] MEDS ORDERED: ONDANSETRON HCL 4 MG/2 ML VIAL IV PRN (21:00)
[2025-03-12] MEDS: SODIUM CHLORIDE 0.9% 1,000 ML IV SCH (21:00)
[2025-03-12 21:30] VITALS: BP 110/66; PULSE 127; RESP 24; O2SAT 97
[2025-03-12] MEDS ORDERED: NITROGLYCERIN 0.4 MG SL TAB SL PRN (21:30)
[2025-03-12] MEDS ORDERED: clonazePAM 0.5 MG TAB PO PRN (21:30)
[2025-03-12] MEDS ORDERED: MORPHINE SULFATE INJ 2 MG/ml SYRG IV PRN (21:30)
--- NOTE | 2025-03-12 21:38 | DVHHP2 ---
History of Present Illness Reason for Visit: Generalized weakness History of Present Illness The patient is a 44-year-old male with past medical history of lung cancer, depression, GERD, and kidney disease who presented to [facility] ED for evaluation of altered level of consciousness. As reported by EMS, patient was in the ER 4 days ago for bilateral lower extremity edema. Patient was seen and evaluated in the ED lethargic, bilateral lower extremity edema, erythema, and generalized weakness. Laboratory data shows WBC 17.0, hemoglobin 10.3, hematocrit 32.0, platelets 52785, sodium 136, potassium 4.7, BUN 58, creatinine 2.81, glucose 91 AST 820, ALT 290, alkaline phos 538, troponin 7, total bilirubin 4.4, protein 4.9, albumin 3.1, BNP 23.28, blood pressure 121/76, heart rate 134 trending down to 116, temperature 97.6 F, O2 saturation 99% on oxygen. Chest x-ray revealing persistent bilateral pulmonary opacities and moderate atelectasis/consolidation of the right lower lobe. Patient was started on IV antibiotic regimen azithromycin, please see medication orders section in the computer. On my assessment, patient denies chest pain, no headache, no dizziness, no diaphoresis, currently on oxygen, no nausea, no vomiting, no fever, no chills. Patient was admitted for further evaluation and medical management. Past Medical History Metastatic cancer (Lung), Depression, GERD, Kidney Disease Past Surgical History Denies all surgeries Family History Reviewed, noncontributory to the management of this case. Past Social History The patient lives at home, quit smoking greater than 1 year, denies alcohol or illicit drugs abuse. Review of Systems Constitutional: Yes: Weakness, Other (Fatigue); No: Fever, Chills, Sweats, Malaise Eyes: No: Pain, Vision change, Conjunctivae inflammation, Eyelid inflammation, Other, Redness ENT: No: Ear pain, Ear discharge, Nose pain, Nose discharge, Nose congestion, Mouth pain, Mouth swelling, Throat pain, Throat swelling, Other Respiratory: Shortness of breath, Other (SOB at rest); No: Cough, Dry, SOB with excertion, Wheezing, Hemoptysis, Pleuritic Pain, Sputum, Wheezing Cardiovascular: No: Chest Pain, Palpitations, Orthopnea, Paroxysmal Noc. Dyspnea, Edema, Lt Headedness, Other Gastrointestinal: No: Nausea, Vomiting, Abdominal Pain, Diarrhea, Constipation, Melena, Hematochezia, Other Musculoskeletal: other (Bilateral lower extremity edema); No: neck pain, shoulder pain, arm pain, back pain, hand pain, leg pain, foot pain Skin: Other (Erythema lower extremity); No: Rash, Lesions, Jaundice, Bruising Neurological: Weakness; No: Numbness, Incoordination, Change in speech, Confusion, Seizures, Other Allergies: Coded Allergies: NO KNOWN ALLERGIES (Unverified , 12/06/24) Medications Current Medications Medications Dose Ordered Sig/Gladis Route Start Time Stop Time Status Last Admin Dose Admin Azithromycin 250 ml @ 125 mls/hr DAILY IV 03/13/25 10:00 Ceftriaxone Sodium 50 ml @ 100 mls/hr DAILY@09 IV 03/13/25 09:00 Famotidine 20 mg Q12HR IV 03/12/25 22:00 Sodium Chloride 1,000 ml @ 60 mls/hr [id number] IV 03/12/25 21:00 Acetaminophen/ Hydrocodone Bitart 1 tab Q4HP PRN PO 03/12/25 21:00 Ondansetron HCl 4 mg Q4HP PRN IV 03/12/25 21:00 Docusate Sodium 100 mg BIDPRN PRN PO 03/12/25 21:00 Acetaminophen 650 mg Q6HP PRN PO 03/12/25 21:00 Exam Vital Signs Vital Signs Date Time Temp Pulse Resp B/P (MAP) Pulse Ox O2 Delivery O2 Flow Rate FiO2 03/12/25 19:00 116 20 121/76 (91) 97 03/12/25 12:45 97.6 97.6 03/12/25 12:45 Nasal Cannula* 2 28 General Appearance: Alert, Cooperative, No acute distress, Other (Oriented x2) HEENT: Atraumatic, PERRLA, EOMI, Mucous membr. moist/pink Respiratory: Normal air movement, Other (Diminished breath sounds) Cardiovascular: Regular rate, Normal S1, Normal S2, No murmurs Abdominal: Normal bowel sounds, Soft, No tenderness, No hepatospenomegaly, No masses Extremities: No clubbing, Other (Bilateral lower extremity swelling) Skin: No rashes, No breakdown, No significant lesion Neuro: Normal speech, Normal tone, Sensation intact, Cranial nerves 3-12 NL, Reflexes 2+, Other (Generalized weakness) Psych/Mental Status: Mood NL, Other (Altered mental status) Labs/Xrays Labs Test 03/12/25 14:40 Range/Units White Blood Count 17.0 #H 4.4-10.8 10^3/uL Red Blood Count 3.10 L 4.5-5.90 10^6/uL Hemoglobin 10.3 L 13.5-17.5 g/dL Hematocrit 32.0 #L 41.0-53.0 % Mean Corpuscular Volume 103.5 H 80.0-100.0 fL Mean Corpuscular Hemoglobin 33.2 H 28.0-32.0 pg Mean Corpuscular Hemoglobin Concent 32.0 32.0-36.0 g/dL Red Cell Distribution Width 21.5 H 11.8-14.3 % Platelet Count 50 #L 140-450 10^3/uL Mean Platelet Volume 7.5 6.9-10.8 fL Neutrophils (%) (Auto) 37.0-80.0 % Lymphocytes (%) (Auto) 10.0-50.0 % Monocytes (%) (Auto) 0.0-12.0 % Basophils (%) (Auto) 0.0-2.0 % Neutrophils # (Auto) 1.6-8.6 10 ^3/uL Lymphocytes # (Auto) 0.4-5.4 10 ^3/uL Monocytes # (Auto) 0-1.3 10 ^3/uL Differential Total Cells Counted 100.0 100 Neutrophils % (Manual) 94 H 37.0-80.0 Band Neutrophils % (Manual) 0 Lymphocytes % (Manual) 3 L 10.0-50.0 Monocytes % (Manual) 3 0-12 Eosinophils % (Manual) 0 0-7 Basophils % (Manual) 0 0.0-2.0 Metamyelocytes % (manual) 0 Myelocytes % (Manual) 0 Promyelocytes % (Manual) 0 Blast Cells % (Manual) 0 Reactive Lymphocytes 0 Platelet Estimate Decreased Anisocytosis (manual) Slight Macrocytosis Slight Sodium Level 136 136-145 mmol/L Potassium Level 4.7 3.5-5.1 mmol/L Chloride Level 99 98-107 mmol/L Carbon Dioxide Level 12 #L 20-31 mmol/L Anion Gap 25 H 5-15 Blood Urea Nitrogen 58 H 9-23 mg/dL Creatinine 2.81 H 0.700-1.30 mg/dL Glomerular Filtration Rate Calc 28 >90 mL/min BUN/Creatinine Ratio 20.6 H 10.0-20.0 Serum Glucose 91 74-106 mg/dL Calcium Level 9.0 8.7-10.4 mg/dL Magnesium Level 1.9 1.6-2.6 mg/dL Total Bilirubin 4.4 H 0.2-1.0 mg/dL Aspartate Amino Transferase (AST) 820 H 13-40 U/L Alanine Aminotransferase (ALT) 290 H 7-40 U/L Alkaline Phosphatase 538 H 46-116 U/L Troponin I High Sensitivity 7 </=54 ng/L Total Protein 4.9 L 5.7-8.2 g/dL Albumin 3.1 L 3.2-4.8 g/dL [id number]: [id number] : 1980 LOC: ER ROOM / BED: / AGE / SEX: 44 / M ADM STATUS: REG ER SERVICE 1418 ORDERING PHYSICIAN: HANNA STEINBERG MD PROCEDURE(s): HWOCT - HEAD WITHOUT CONTRAST REASON: Altered level of consciousness ORDER NUMBER(s): [id number], ACCESSION NUMBER(s): [id number] EXAM: CT HEAD WITHOUT CONTRAST HISTORY: Altered level of consciousness COMPARISON: None TECHNIQUE: Axial images of the head were obtained and reformatted in coronal and sagittal planes. All CT scans at this medical facility are performed using dose modulation techniques as appropriate to a performed exam including the following: Automated exposure control was utilized; adjustment of the MA and/or KV according to patient size; and use of iterative reconstruction technique. CT Dose: CTDI volume is 53 mGy. Dose-length product is 2045 mGy*cm FINDINGS: There is no evidence of acute intracranial hemorrhage, mass, mass effect midline shift. There is no hydrocephalus or extra-axial fluid collection. Burgess-white matter differentiation is maintained. The visualized paranasal sinuses and mastoid air cells are clear. The calvarium is intact. IMPRESSION: 1. No acute intracranial process. ORDERING PHYSICIAN: HANNA STEINBERG MD PROCEDURE(s): CXRP - CHEST PORTABLE REASON: Lung cancer ORDER NUMBER(s): [id number], ACCESSION NUMBER(s): [id number] Procedure: XY CHEST PORTABLE 03/12/2025 02:29 PM Indication: Lung cancer Comparison: XY CHEST PORTABLE on DOS: 03/04/25, XY CHEST PORTABLE on DOS: 02/02/25, XY CHEST PORTABLE on DOS: 01/24/25 TECHNIQUE: XY CHEST PORTABLE FINDINGS: The heart is normal in size. Pulmonary vasculature is prominent. Right IJ approach port-A-Cath with the tip in the right atrium. Limited low lung volume examination. The right hemidiaphragm is moderately elevated the right lower lobe/right middle lobe appear moderately atelectatic. Diffuse hazy [place] in the right lung. Stable patchy consolidation in the right infrahilar region. Small right pleural effusion can not be ruled out. Reticular left perihilar pulmonary opacities. No acute osseous or soft tissue abnormality. No pneumothorax. IMPRESSION: 1. Persistent bilateral pulmonary opacities and moderate atelectasis/consolidation of the right lower lobe. Assessment/Plan Assessment/Plan Severe anemia Thrombocytopenia Altered mental status Cancer, metastatic to liver Elevated liver enzymes Acute renal failure Pneumonia, unspecified organism Leukocytosis, unspecified Generalized weakness Bilateral lower extremity edema Plan 1. Admit to step-down unit 2. Breathing treatment 3. Pain control management 4. IV antibiotic management 5. Management of fluids and electrolytes 6. Consultation for hematology oncology 7. Diagnostic test chest x-ray 8. DVT prophylaxis- 9. Repeat labs CBC, CMP in a.m. 10. Home medication reviewed and reconciled 11. Continue with current medical management 12. Treatment plan discussed with patient and RN. Patient verbalized understanding. Plan discussed with: Patient, Other (RN) My Orders Orders - ANGELINE LONGORIA DNP Procedure Category Date Status Time Azithromycin 500mg/ PHA 03/13/25 In Process 250ml (Zithromax 50 10:00 Azithromycin 500mg/ PHA 03/12/25 In Process 250ml (Zithromax 50 21:00 Ceftriaxone 1gm/50ml PHA 03/13/25 In Process D5w (Rocephin) 09:00 * Gi Dvh Bundle Tier CONS 03/12/25 Transmitted 20:48 Famotidine Injection PHA 03/12/25 In Process (Pepcid Injection) 22:00 *Dr. Cristhian Richards CONS 03/12/25 Transmitted -[place] 20:48 Allergies MICHAEL 03/12/25 In Process 20:48 Code Status CODE 03/12/25 Transmitted 20:48 2 Gm Sodium Diet DIET 03/13/25 Transmitted Breakfast Sodium Chloride 0.9% PHA 03/12/25 In Process 21:00 Oxygen Per Hour RT 03/12/25 Transmitted 20:48 Hydrocodone-Acet PHA 03/12/25 In Process 5/325mg Tab ([place]ora 21:00 Ondansetron Hcl PHA 03/12/25 In Process (Zofran) 21:00 Docusate Sodium PHA 03/12/25 In Process Capsule (Colace 21:00 Fall Risk Precautions MICHAEL 03/12/[address] 20:48 Complete Blood Count LAB 03/13/25 Verified 04:00 Comprehensive LAB 03/13/25 Verified Metabolic Panel 04:00 Condition: Serious MICHAEL 03/12/25 In Process 20:48 Acetaminophen Tablet PHA 03/12/25 In Process (Tylenol Tablet) 21:00 Maintain Bed Rest MICHAEL 03/12/25 In Process 20:48 Sequential MICHAEL 03/12/25 In Process Compression Device Problem List: (1) Severe anemia (2) Altered mental status (3) Cancer, metastatic to liver (4) Pneumonia, unspecified organism (5) Elevated liver enzymes (6) Thrombocytopenia (7) Generalized weakness (8) Acute renal failure (9) Bilateral lower extremity edema Date of Service: March 12, 2025 Billing Provider: ANGELINE LONGORIA DNP Common Visit Codes: 81850-FTQXQMR INP/OBS CARE (HIGH) ANGELINE LONGORIA DNP March 12, 2025 21:38
[2025-03-13] VITALS (17 sets, daily range): BP systolic 0–121; BP diastolic 0–100; PULSE 0–130; RESP 0–25; O2SAT 94–100
[2025-03-13 07:03] LABS: Hemoglobin 10.1 g/dL (13.5-17.5); Platelet Count (auto) 35 10^3/uL (140-450)
[2025-03-13 07:05] LABS: Hematocrit 32.5 % (41.0-53.0); Mean Corpuscular Hemoglobin 33.7 pg (28.0-32.0); Mean Corpuscular Hgb Conc. 31.2 g/dL (32.0-36.0); Mean Corpuscular Volume 108.2 fL (80.0-100.0); White Blood Cell 17.8 10^3/uL (4.4-10.8)
[2025-03-13 07:13] LABS: Red Cell Distribution Width 21.6 % (11.8-14.3)
[2025-03-13 07:15] LABS: Basophils % (manual) 0 (0.0-2.0); Blast Cells 0; Eosinophils % (manual) 0 (0-7); Metamyelocytes % 0; Myelocytes % 0; Promyelocytes % 0; Reactive Lymphocytes 0
[2025-03-13 07:22] LABS: Anion Gap 25.00001 (5-15); BUN/Creatinine Ratio 19.9 (10.0-20.0); Chloride 100 mmol/L (98-107); Glucose 82 mg/dL (74-106)
[2025-03-13 07:27] LABS: Alanine Aminotransferase 332 U/L (7-40); Albumin 3.1 g/dL (3.2-4.8); Alkaline Phosphatase 493 U/L (46-116); Bilirubin, Total 4.3 mg/dL (0.2-1.0); Blood Urea Nitrogen 66 mg/dL (9-23); Sodium 135 mmol/L (136-145); Total Protein 5.2 g/dL (5.7-8.2)
[2025-03-13 07:32] LABS: Carbon Dioxide < 10 mmol/L (20-31); Potassium 6.4 mmol/L (3.5-5.1)
[2025-03-13 07:34] LABS: Aspartate Aminotransferase 1029 U/L (13-40)
[2025-03-13] MEDS: InsuLIN REG 1unit/0.01ml Soln (100units/ml) IV ONE (08:45)
[2025-03-13 09:13] LABS: Anisocytosis Moderate; Band Neutrophils % (manual) 4; Lymphocytes % (manual) 5 (10.0-50.0); Monocytes % (manual) 4 (0-12); Platelet Estimate Markedly Decreased
[2025-03-13 09:14] LABS: Hypochromia Slight; Macrocytosis Moderate
[2025-03-13] MEDS: SODIUM BICARB 8.4% 50Meq/50ml SYR Vial IV ONE (09:21)
[2025-03-13] MEDS: DEXTROSE (50%) 50ML SYRG IV ONE (09:21)
--- NOTE | 2025-03-13 09:27 | DVHINCON2 ---
Date of service: March 13, 2025 Referring Physician SWATI Reason for Consultation Acute kidney injury History of Present Illness 44-year-old male significant medical history of metastatic lung cancer with involvement of multiple organs, tracheal cancer, malignant ascites, and retroperitoneal lymphadenopathy. Patient was recently hospitalized for bacteremia and was discharged from the hospital with midline and IV antibiotics less than one week ago. He presents to the hospital now complaining of change in mental state. Nephrology is consulted due to elevated creatinine level. Of note upon my evaluation in the ER this a.m. patient had an serum potassium greater than 6.0 and a serum bicarb less than 10. Patient appears to be ill he is altered Allergies: Coded Allergies: NO KNOWN ALLERGIES (Unverified , 12/06/24) Home Meds Reported Medications Buprenorphine Hcl-Naloxone Hcl (Suboxone) 1 Mis Mis, 24 MG SL DAILY, MISC 12/07/24 Temazepam (Temazepam) 30 Mg Cap, 30 MG PO BID, CAP 12/06/24 Cholecalciferol (VITAMIN D3) 2,000 Unit Tab, 1 TAB PO DAILY, #30 TAB 5 Refills 12/06/24 Magnesium Oxide (MAGNESIUM OXIDE) 400 Mg Tab, 1 TAB PO BID, #60 TAB 5 Refills 12/06/24 Olanzapine (Zyprexa) 20 Mg Tab, 20 MG PO DAILY, TAB 12/06/24 Escitalopram Oxalate (Lexapro) 10 Mg Tab, 10 MG PO TID, TAB 12/06/24 Sucralfate (Carafate) 1 Gm/10 Ml Shanice, 1 GM PO BID, ML 12/06/24 Omeprazole (Gnp Omeprazole) 20 Mg Tab, 40 MG PO BID, TAB 12/06/24 Clonazepam (Klonopin) 1 Mg Tab, 1 TAB PO BID, #60 TAB 1 Refill 12/06/24 Current Medications Current Medications Medications (Trade) Dose Ordered Sig/Gladis Route PRN Reason Start Time Stop Time Status Last Admin Azithromycin 250 ml @ 125 mls/hr DAILY IV 03/13/25 10:00 Ceftriaxone Sodium 50 ml @ 100 mls/hr DAILY@09 IV 03/13/25 09:00 Famotidine (Pepcid Injection) 20 mg Q12HR IV 03/12/25 22:00 03/12/25 00:00 Sodium Chloride 1,000 ml @ 60 mls/hr [id number] IV 03/12/25 21:00 03/12/25 21:00 Acetaminophen/ Hydrocodone Bitart ([place] 5/325MG Tab) 1 tab Q4HP PRN PO MODERATE PAIN (4-6 PAIN SCALE) 03/12/25 21:00 Ondansetron HCl (Zofran) 4 mg Q4HP PRN IV NAUSEA / VOMITING 03/12/25 21:00 Docusate Sodium (Colace Capsule) 100 mg BIDPRN PRN PO FOR CONSTIPATION 03/12/25 21:00 Acetaminophen (Tylenol Tablet) 650 mg Q6HP PRN PO PAIN SCALE 1-3 OR TEMP>100.4 03/12/25 21:00 Citalopram Hydrobromide (CeleXA TABLET) 20 mg DAILY PO 03/13/25 10:00 Clonazepam (KlonoPIN TABLET) 1 mg Q8HP PRN PO ANXIETY 03/12/25 21:30 Nitroglycerin (Ntrostat Sublingual) 0.4 mg Q5MINP PRN SL FOR CHEST PAIN 03/12/25 21:30 Morphine Sulfate 2 mg Q30M PRN IV FOR CHEST PAIN 03/12/25 21:30 Olanzapine (ZyPREXA Tablet) 20 mg DAILY PO 03/13/25 10:00 Sodium Bicarbonate 150 ml/Dextrose 1,150 ml @ 100 mls/hr [id number] IV 03/13/25 08:45 Albumin Human 100 ml @ 100 mls/hr Q8H IV 03/13/25 12:00 03/14/25 04:59 Family History: Diabetes mellitus G8 FATHER Review of Systems Can not obtain due to altered mental state H&P Exam Vital Signs/I&O Vital Sign Date Time Temp Pulse Resp B/P (MAP) Pulse Ox O2 Delivery O2 Flow Rate FiO2 03/13/25 08:00 101 03/13/25 06:30 24 118/100 (106) 99 03/13/25 03:51 Room Air* 0 21 03/12/25 12:45 97.6 97.6 Intake and Output 03/12/25 03/13/25 19:00 07:00 Intake Total 50 ml Balance 50 ml Intake IV Total 50 ml Physical Exam Ill-appearing male who appears to be in significant distress and discomfort Diffuse anasarca tachycardia Distended abdomen mildly tender Positive fluid wave Bilateral pitting edema Poor inspiratory effort Labs/Diagnostic Data Labs/Diagnostic Data Laboratory Tests Test 03/13/25 06:36 03/12/25 14:40 Range/Units White Blood Count 17.8 H 17.0 #H 4.4-10.8 10^3/uL Red Blood Count 3.00 L 3.10 L 4.5-5.90 10^6/uL Hemoglobin 10.1 L 10.3 L 13.5-17.5 g/dL Hematocrit 32.5 L 32.0 #L 41.0-53.0 % Mean Corpuscular Volume 108.2 #H 103.5 H 80.0-100.0 fL Mean Corpuscular Hemoglobin 33.7 H 33.2 H 28.0-32.0 pg Mean Corpuscular Hemoglobin Concent 31.2 L 32.0 32.0-36.0 g/dL Red Cell Distribution Width 21.6 H 21.5 H 11.8-14.3 % Platelet Count 35 L 50 #L 140-450 10^3/uL Mean Platelet Volume 8.0 7.5 6.9-10.8 fL Neutrophils (%) (Auto) 37.0-80.0 % Lymphocytes (%) (Auto) 10.0-50.0 % Monocytes (%) (Auto) 0.0-12.0 % Basophils (%) (Auto) 0.0-2.0 % Neutrophils # (Auto) 1.6-8.6 10 ^3/uL Lymphocytes # (Auto) 0.4-5.4 10 ^3/uL Monocytes # (Auto) 0-1.3 10 ^3/uL Differential Total Cells Counted 100.0 100.0 100 Neutrophils % (Manual) 87 H 94 H 37.0-80.0 Band Neutrophils % (Manual) 4 0 Lymphocytes % (Manual) 5 L 3 L 10.0-50.0 Monocytes % (Manual) 4 3 0-12 Eosinophils % (Manual) 0 0 0-7 Basophils % (Manual) 0 0 0.0-2.0 Metamyelocytes % (manual) 0 0 Myelocytes % (Manual) 0 0 Promyelocytes % (Manual) 0 0 Blast Cells % (Manual) 0 0 Reactive Lymphocytes 0 0 Platelet Estimate Markedly decreased Decreased Hypochromasia (manual) Slight Anisocytosis (manual) Moderate Slight Macrocytosis Moderate Slight Sodium Level 135 L 136 136-145 mmol/L Potassium Level 6.4 *H 4.7 3.5-5.1 mmol/L Chloride Level 100 99 98-107 mmol/L Carbon Dioxide Level < 10 *L 12 #L 20-31 mmol/L Anion Gap 25.48046 H 25 H 5-15 Blood Urea Nitrogen 66 H 58 H 9-23 mg/dL Creatinine 3.32 H 2.81 H 0.700-1.30 mg/dL Glomerular Filtration Rate Calc 23 28 >90 mL/min BUN/Creatinine Ratio 19.9 20.6 H 10.0-20.0 Serum Glucose 82 91 74-106 mg/dL Calcium Level 9.0 9.0 8.7-10.4 mg/dL Total Bilirubin 4.3 H 4.4 H 0.2-1.0 mg/dL Aspartate Amino Transferase (AST) 1029 H 820 H 13-40 U/L Alanine Aminotransferase (ALT) 332 H 290 H 7-40 U/L Alkaline Phosphatase 493 H 538 H 46-116 U/L Total Protein 5.2 L 4.9 L 5.7-8.2 g/dL Albumin 3.1 L 3.1 L 3.2-4.8 g/dL Magnesium Level 1.9 1.6-2.6 mg/dL Troponin I High Sensitivity 7 </=54 ng/L B-Type Natriuretic Peptide 23.28 0-100 pg/mL Assessment 44-year-old male with history of metastatic lung cancer to multiple organs presents to the hospital with altered mental status Acute kidney injury on chronic kidney disease Sepsis Altered mental status Hyperkalemia Metabolic acidosis Metastatic cancer involving lung, abdomen retroperitoneal lymphadenopathy, m alignant ascites Anasarca Patient is critically ill Recommend sodium bicarbonate drip, and IV push sodium bicarbonate HENRI Place Robb catheter Strict Is&Os Maintain mean arterial pressure greater than 65 Medical treatment for elevated potassium Obtain urinalysis Obtain ultrasound of the abdomen to evaluate ascites IV albumin Recommend close observation and critical care, overall prognosis is poor given patient's terminal medical condition Critical care time spent 33 minutes Plan discussed with: DANIAL Hoang MD March 13, 2025 09:26
[2025-03-13] MEDS: ALBUMIN 25% 100 ML IV ONE (09:41)
[2025-03-13] MEDS: CITALOPRAM HYDROBR 20 MG TAB PO SCH (10:00)
[2025-03-13] MEDS: OLANZapine 5 MG TAB PO SCH (10:00)
[2025-03-13] MEDS: FUROSEMIDE 100 MG/10ML VIAL IV ONE (11:02)
--- NOTE | 2025-03-13 12:12 | DVH ---
INDICATION: ABD pain TECHNIQUE: Multiple real-time sonographic images of the abdomen were obtained. COMPARISON: None FINDINGS: Liver is heterogeneous with multiple lesions. The liver measures 24.1 cm. No intrahepatic biliary ductal dilatation is noted. The gallbladder wall measures 0.3 cm and is unremarkable. No gallstones or gallbladder sludge. No pericholecystic fluid or edema. The common duct is not visualized The right kidney measures 8.2 cm. No hydronephrosis. The left kidney is not visualized. The spleen is not visualized. The pancreas is not well visualized due to obscuration from bowel gas. The visualized portions of the IVC and aorta are grossly unremarkable. IMPRESSION: Hepatomegaly with numerous hepatic lesions.
[2025-03-13] MEDS: AZITHROMYCIN 500MG/ 250ML 250 ML IV SCH (12:51)
[2025-03-13] MEDS: cefTRIAXone 1GM/50ML D5W 50 ML IV SCH (12:51)
[2025-03-13] MEDS: ALBUMIN 25% 100 ML IV SCH (12:51)
[2025-03-13] MEDS ORDERED: ONDANSETRON HCL 4 MG/2 ML VIAL IV PRN (13:15)
[2025-03-13] MEDS: SODIUM BICARB 50mEq/50ml Vial 150 ML in D5W 5% 1,000 ML IV SCH (13:23)
--- NOTE | 2025-03-13 13:49 | PRN ---
Misceleneous Note Note Note March 13, 2025 [id number] Subjective: I arrived at the emergency room to evaluate the patient for elevation of liver enzymes. Family was at bedside. Comfort measures were being established. At this point in time consult was not performed. JADON LOZOYA MD March 13, 2025 13:49
[2025-03-13] MEDS: LORazepam 2MG/ML-1ML VIAL IV PRN (14:40)
[2025-03-13] MEDS: MORPHINE SULFATE INJ 2 MG/ml SYRG IV PRN (14:40)
--- NOTE | 2025-03-13 16:50 | DVHDS2 ---
Discharge Summary Date of Admission March 12, 2025 at 21:30 Date of Discharge: March 13, 2025 Labs/Diagnostic Data: Laboratory Results Test 03/13/25 09:25 03/13/25 06:36 03/12/25 14:40 POC Glucose 171 mg/dl (70-106) White Blood Count 17.8 10^3/uL (4.4-10.8) Red Blood Count 3.00 10^6/uL (4.5-5.90) Hemoglobin 10.1 g/dL (13.5-17.5) Hematocrit 32.5 % (41.0-53.0) Mean Corpuscular Volume 108.2 fL (80.0-100.0) Mean Corpuscular Hemoglobin 33.7 pg (28.0-32.0) Mean Corpuscular Hemoglobin Concent 31.2 g/dL (32.0-36.0) Red Cell Distribution Width 21.6 % (11.8-14.3) Platelet Count 35 10^3/uL (140-450) Mean Platelet Volume 8.0 fL (6.9-10.8) Neutrophils (%) (Auto) % (37.0-80.0) Lymphocytes (%) (Auto) % (10.0-50.0) Monocytes (%) (Auto) % (0.0-12.0) Basophils (%) (Auto) % (0.0-2.0) Neutrophils # (Auto) 10 ^3/uL (1.6-8.6) Lymphocytes # (Auto) 10 ^3/uL (0.4-5.4) Monocytes # (Auto) 10 ^3/uL (0-1.3) Differential Total Cells Counted 100.0 (100) Neutrophils % (Manual) 87 (37.0-80.0) Band Neutrophils % (Manual) 4 Lymphocytes % (Manual) 5 (10.0-50.0) Monocytes % (Manual) 4 (0-12) Eosinophils % (Manual) 0 (0-7) Basophils % (Manual) 0 (0.0-2.0) Metamyelocytes % (manual) 0 Myelocytes % (Manual) 0 Promyelocytes % (Manual) 0 Blast Cells % (Manual) 0 Reactive Lymphocytes 0 Platelet Estimate Markedly decreased Hypochromasia (manual) Slight Anisocytosis (manual) Moderate Macrocytosis Moderate Sodium Level 135 mmol/L (136-145) Potassium Level 6.4 mmol/L (3.5-5.1) Chloride Level 100 mmol/L (98-107) Carbon Dioxide Level < 10 mmol/L (20-31) Anion Gap 25.58424 (5-15) Blood Urea Nitrogen 66 mg/dL (9-23) Creatinine 3.32 mg/dL (0.700-1.30) Glomerular Filtration Rate Calc 23 mL/min (>90) BUN/Creatinine Ratio 19.9 (10.0-20.0) Serum Glucose 82 mg/dL (74-106) Calcium Level 9.0 mg/dL (8.7-10.4) Total Bilirubin 4.3 mg/dL (0.2-1.0) Aspartate Amino Transferase (AST) 1029 U/L (13-40) Alanine Aminotransferase (ALT) 332 U/L (7-40) Alkaline Phosphatase 493 U/L (46-116) Total Protein 5.2 g/dL (5.7-8.2) Albumin 3.1 g/dL (3.2-4.8) Magnesium Level 1.9 mg/dL (1.6-2.6) Troponin I High Sensitivity 7 ng/L (</=54) B-Type Natriuretic Peptide 23.28 pg/mL (0-100) Other Laboratory Tests 03/13/25 06:36 Brief Hx & Hospital Course: The patient is a 44-year-old male with past medical history of lung cancer, depression, GERD, and kidney disease who presented to [facility] ED for evaluation of altered level of consciousness. As reported by EMS, patient was in the ER 4 days ago for bilateral lower extremity edema. Patient was seen and evaluated in the ED lethargic, bilateral lower extremity edema, erythema, and generalized weakness. Laboratory data shows WBC 17.0, hemoglobin 10.3, hematocrit 32.0, platelets 24332, sodium 136, potassium 4.7, BUN 58, creatinine 2.81, glucose 91 AST 820, ALT 290, alkaline phos 538, troponin 7, total bilirubin 4.4, protein 4.9, albumin 3.1, BNP 23.28, blood pressure 121/76, heart rate 134 trending down to 116, temperature 97.6 F, O2 saturation 99% on oxygen. Chest x-ray revealing persistent bilateral pulmonary opacities and moderate atelectasis/consolidation of the right lower lobe. Patient was started on IV antibiotic regimen azithromycin, please see medication orders section in the computer. On my assessment, patient denies chest pain, no headache, no dizziness, no diaphoresis, currently on oxygen, no nausea, no vomiting, no fever, no chills. Patient was admitted for further evaluation and medical management. He Condition at Discharge: Unstable Final Diagnosis/Problems List Severe anemia Altered mental status Cancer, metastatic to liver Pneumonia, unspecified organism Elevated liver enzymes Thrombocytopenia Generalized weakness Acute renal failure Bilateral lower extremity edema Severe Septic shock Discharge Disposition: at Hospital Discharge Statement: "Patient was advised to return to the ER or call 911 if any headaches, dizziness, shortness of breath, chest pain, abdominal pain, bleeding, fevers, or worsening of medical condition. Patient was counseled about treatment plan, medications, possible side effects, patientverbalized understanding. All questions were answered to the best of my ability. This discharge took greater then 30 minutes in planning, reviewing documentation, counseling the patient, and discussing with other team members." ASSESSMENT ASSESSMENT Assessment Date of Service: March 13, 2025 Billing Provider: MARIO COLON MD Common Visit Codes: 90852-RRZ/OBS DISCH DAY >30min MARIO COLON MD March 13, 2025 16:50
--- NOTE | 2025-03-18 07:00 | ECG ---
[facility] Test Date: 2025-03-12 Test Time: 12:39:08 Pat Name: KELL NINO Department: ED Room: [address] [place] [address] Gender: M Tow Feeder: ANNIE : 1980 Requested By: HANNA STEINBERG Order Number: [id number] Reading MD: Jonah Goldman Measurements Intervals [place] Rate: 134 P: 28 CO: 149 QRS: 59 QRSD: 97 T: 216 QT: 337 QTc: 503 Interpretive Statements Sinus tachycardia Probable left atrial enlargement Nonspecific T abnormalities, diffuse leads Prolonged QT interval Artifact in lead(s) II,III,aVF Electronically Signed On 03-18-2025 9:32:33 PDT by Jonah Goldman Please click the below link to view image of tracing.
== END 2025-03-13 16:10 | DRG 720 ==
LOC: ER 12:33 → EDUNIT# 12:33 → EDBD 12:33 → OVERFLOW 21:30
PROVIDERS: ADMIT Nurse Practitioner Family; ATTEND Nurse Practitioner Family
PROC: 5A09357 Assistance with Respiratory Ventilation, Less than 24 Consecutive Hours, Continuous Positive Airway Pressure (ICD-10-PCS; principal; 2025-03-13)
DX: A41.9 Sepsis, unspecified organism (principal); N17.0 Acute kidney failure with tubular necrosis; R65.21 Severe sepsis with septic shock; R18.0 Malignant ascites; E87.20 Acidosis, unspecified; J15.69 Pneumonia due to other Gram-negative bacteria; D69.6 Thrombocytopenia, unspecified; J15.9 Unspecified bacterial pneumonia; C78.00 Secondary malignant neoplasm of unspecified lung; C78.7 Secondary malignant neoplasm of liver and intrahepatic bile duct; N18.9 Chronic kidney disease, unspecified; D64.9 Anemia, unspecified; E87.5 Hyperkalemia; K21.9 Gastro-esophageal reflux disease without esophagitis; R74.8 Abnormal levels of other serum enzymes; R59.0 Localized enlarged lymph nodes; Z83.3 Family history of diabetes mellitus; Z85.118 Personal history of other malignant neoplasm of bronchus and lung; Z85.12 Personal history of malignant neoplasm of trachea; Z87.891 Personal history of nicotine dependence
CPT/HCPCS: 36415; 70450; 71045; 76700; 80053; 82962; 83735; 83880; 84484; 85007; 85027; 87040; 93005; 94660; G0378; J1815; J3490; P9047